=== PATIENT | female | born 1965 | race Caucasian/White ===

== ENCOUNTER 2019-10-02 16:24 | Emergency (ER) | payer OTHER, SELFPAY ==
[2019-10-02 16:30] VITALS: BP 125/69; PULSE 72; RESP 18; TEMP 36.6; O2SAT 98
[2019-10-02] MEDS: FLUORESCEIN SOD 1 MG/STRIP EACH EYE (16:39)
[2019-10-02] MEDS: TETRACAINE HCL 0.5% OPHTH SOLN 4 ML BTL 1 DROP EACH EYE (16:40)
--- NOTE | 2019-10-02 16:49 | ED.EYEPROB ---
HPI - Eye Problem General Chief complaint: Eye Problems Stated complaint: poked in eye by branch Source: patient Mode of arrival: ambulatory Limitations: no limitations History of Present Illness HPI Narrative: This affects of 54-year-old female that was trimming bushes in her yd when a tree branch structure in the left eye causing pain and a foreign body sensation with excessive tearing and and pain that she rates about a 6/10 that occurred earlier this afternoon. chief complaint: eye pain, eye redness and eye injury Onset (ago): hour(s) Onset description: sudden Duration: constant Location: left eye Eye Symptoms: redness, pain and foreign body sensation Place: home Mechanism: direct trauma Severity: moderate Severity scale (1-10): 6 If Pain, Quality: sharp Related Data Home Medications Medication Instructions Recorded Confirmed buspirone 30 mg PO DAILY 10/02/19 10/02/19 levothyroxine 112 mcg PO DAILY 10/02/19 10/02/19 venlafaxine 150 mg PO DAILY 10/02/19 10/02/19 Allergies Allergy/AdvReac Type Severity Reaction Status Date / Time NSAIDS (Non-Steroidal Allergy Unknown Verified 10/02/19 16:48 Anti-Inflamma Review of Systems Review of Systems: All systems reviewed & are unremarkable except as noted in HPI and below PMFSH Past Medical History Medical History Depression Hypothyroidism (acquired) Exam Const: General: no acute distress and alert Orientation/consciousness: patient oriented x3 HENMT: Head: normal to inspection Eyes: Pupils: Equal, round and reactive pupils present Direct Ophthalmoscopy: photophobia Other: Conjunctiva injected on the left and there is a visible corneal abrasion. After floor seen stain corneal abrasion was visualized more markedly in the left cornea extends from approximately the 1:00 a.m. to the 3 o'clock position. Chest: Chest palpation & inspection: normal inspection of the chest Resp: Effort & Inspection: normal respiratory effort Cardio: Rate: regular rate Rhythm: regular rhythm Skin: General skin exam: normal color Rashes: no rashes Neuro: General: patient oriented x3 and moves all extremities Extrem: General: normal to inspection Procedures Other Procedure Procedure 1: Other Procedure: Tetracaine drops were placed into were left behind the area was inspected for foreign bodies, was a corneal abrasion located and visualized with foreseen stain Critical Care Time Critical Care Time Critical Care Time: No Discharge Plan Discharge Clinical Impression: Corneal abrasion Qualifiers: Encounter type: initial encounter Laterality: left Qualified Code(s): S05.02XA - Injury of conjunctiva and corneal abrasion without foreign body, left eye, initial encounter Patient Disposition: Home, Self-Care Condition: Stable Instructions: Antibiotic Form, Corneal Abrasion (ED) Additional Instructions: follow-up with primary care physician or care team coordinator scheduler within 1 week for further evaluation and treatment. Take medicine as prescribed. Prescriptions: New tobramycin 0.3 % drops 2 drop EACH EYE Q4H Qty: 5 RF: 0 oxycodone-acetaminophen [Percocet] 5-325 mg tablet 1 tablet PO Q6H PRN (Reason: pain) Qty: 14 RF: 0 No Action venlafaxine 150 mg capsule,extended release 24hr 150 mg PO DAILY RF: 0 buspirone 30 mg tablet 30 mg PO DAILY RF: 0 levothyroxine 112 mcg tablet 112 mcg PO DAILY RF: 0 Follow-up/Referrals: Radha,GANGA Ta [Primary Care Provider] - Time of Disposition: 16:58
[2019-10-02] MEDS: TOBRAMYCIN 0.3% OPHTH SOLN 5 ML 2 DROP LEFT EYE (16:57)
[2019-10-02 17:01] VITALS: BP 135/82; PULSE 89; RESP 18; O2SAT 100
== END 2019-10-02 17:05 | disposition home or self-care (01) ==
PROVIDERS: Emergency Provider Emergency Medicine; PCP Nurse Practitioner
DX: S05.02XA Injury of conjunctiva and corneal abrasion without foreign body, left eye, initial encounter (principal); W22.8XXA Striking against or struck by other objects, initial encounter
CPT/HCPCS: 99283; A9270

== ENCOUNTER 2019-10-06 12:24 | Outpatient (CLI) | payer OTHER, SELFPAY ==
--- NOTE | ~2019-10-06 | MM_ITS ---
EXAMINATION: MM screening [facility] BI w montserrat HISTORY: Screening mammogram TECHNIQUE: Craniocaudal and mediolateral oblique 3-D tomosynthesis images were obtained and synthetic 2-D images were generated. CAD analysis was submitted and interpreted. COMPARISON: 10/03/2018, 02/14/2018, 07/19/2017, 07/03/2017 BREAST PARENCHYMAL COMPOSITION: The breasts are heterogeneously dense, which may obscure small masses . FINDINGS: Grouped calcifications of the lower-outer right breast have an appearance similar to prior mammograms. There is no evidence of suspicious mass, calcification, or architectural distortion to boyle ggest malignancy in either breast. There has been no suspicious interval change. IMPRESSION: 1. No mammographic evidence of malignancy. 2. Recommend routine screening mammography in one year. BI-RADS Category 2: Benign finding(s). Reviewed, dictated and finalized at location A. TOR
== END 2019-10-06 12:25 | disposition home or self-care (01) ==
LOC: CHSIMG 12:26
PROVIDERS: PCP Nurse Practitioner; Visit Provider Nurse Practitioner
DX: Z12.31 Encounter for screening mammogram for malignant neoplasm of breast (principal)
CPT/HCPCS: 77063; 77067

== ENCOUNTER 2020-01-22 16:26 | Emergency (ER) | payer OTHER, SELFPAY ==
--- NOTE | ~2020-01-22 | XR_ITS ---
EXAMINATION: XR foot RT 2V INDICATION: Right foot pain, initial encounter TECHNIQUE: Two views of the right foot are obtained. COMPARISON: None available FINDINGS: There is an acute, traumatic, closed, comminuted fracture in the head of the fifth proximal phalanx which extends to the proximal interphalangeal joint. Soft tissue swelling surrounds the frac ture. Orthopedic screws are present in the heads of the first and second metatarsals. No additional a cute osseous findings are evident. A plantar calcaneal enthesophyte is noted. IMPRESSION: 1. Comminuted fracture at the head of the fifth proximal phalanx extending to the proximal interphala ngeal joint. Reviewed, dictated and finalized at location A. IMPRESSION: 1. Comminuted fracture at the head of the fifth proximal phalanx extending to t he proximal interphalangeal joint.
[2020-01-22 16:46] VITALS: BP 126/72; PULSE 75; RESP 17; O2SAT 97
[2020-01-22] MEDS: KETOROLAC (*BKC) 60 MG/2 ML VIAL IM (17:16)
--- NOTE | 2020-01-22 17:19 | ED.LOWEXIN ---
HPI - Extremity Injury (Lower) General Chief Complaint: Extremity Injury, Lower Stated Complaint: toe pain Source: patient Mode of arrival: ambulatory Limitations: no limitations History of Present Illness HPI Narrative: patient presents with a red swollen tender right 5th distal toe patient is a 54-year-old female that injured while home after she bumped her toe on furniture causing pain approximately 2 weeks ago. Currently there is no numbness or tingling does have good range of motion although painful with palpation and range of motion. MD complaint: foot injury Injury: Right: toes ( Red and swollen and tender) Type of Injury: blunt Place: home Severity: severe Severity scale (1-10): >10 Relieving factors: nothing Exacerbating factors: movement Context: direct blow Associated symptoms: swelling and ambulatory Other symptoms: none Related Data Home Medications Medication Instructions Recorded Confirmed buspirone 30 mg PO DAILY 10/02/19 10/02/19 levothyroxine 112 mcg PO DAILY 10/02/19 10/02/19 venlafaxine 150 mg PO DAILY 10/02/19 10/02/19 Allergies Allergy/AdvReac Type Severity Reaction Status Date / Time NSAIDS (Non-Steroidal Allergy Unknown Verified 10/02/19 16:48 Anti-Inflamma Review of Systems Review of Systems: All systems reviewed & are unremarkable except as noted in HPI and below Exam Const: General: no acute distress and alert Orientation/consciousness: patient oriented x3 HENMT: Head: normal to inspection Eyes: Conjunctivae: conjunctivae normal Pupils: Equal, round and reactive pupils present Neck: Neck: normal visual inspection Chest: Chest palpation & inspection: normal inspection of the chest Resp: Effort & Inspection: normal respiratory effort Auscultation: clear to auscultation bilaterally Cardio: Rate: regular rate Rhythm: regular rhythm GI: GI Palp: Yes Soft to palpation Back/Spine/Pelvis: Back: no CVA tenderness Skin: General skin exam: normal color Rashes: no rashes Extrem: Other: Distal right 5th toe swelling redness and tenderness with palpation Psych: Mental Status: mental status grossly normal Course Course Emergency Course: patient's pain has improved after reassessment after injection of pain medication Vital Signs Vital signs: Vital Signs Pulse Rate 75 01/22/20 16:46 Respiratory Rate 17 01/22/20 16:46 Blood Pressure 126/72 01/22/20 16:46 Pulse Oximetry 97 01/22/20 16:46 Pulse Rate 75 01/22/20 16:46 Respiratory Rate 17 01/22/20 16:46 Blood Pressure 126/72 01/22/20 16:46 Pulse Oximetry 97 01/22/20 16:46 Critical Care Time Critical Care Time Critical Care Time: No Discharge Plan Discharge Clinical Impression: Fracture of toe Qualifiers: Encounter type: initial encounter Toe: lesser toe Fracture type: closed Phalanx: distal Fracture alignment: nondisplaced Laterality: right Qualified Code(s): S92.534A - Nondisplaced fracture of distal phalanx of right lesser toe(s), initial encounter for closed fracture Patient Disposition: Home, Self-Care Condition: Stable Instructions: Antibiotic Form, Toe Fracture (ED) Additional Instructions: take medicine as prescribed and follow-up with primary care physician within 1 week for further evaluation and treatment. Prescriptions: New tramadol [Ultram] 50 mg tablet 50 mg PO Q6H PRN (Reason: pain) Qty: 20 RF: 0 No Action venlafaxine 150 mg capsule,extended release 24hr 150 mg PO DAILY RF: 0 buspirone 30 mg tablet 30 mg PO DAILY RF: 0 levothyroxine 112 mcg tablet 112 mcg PO DAILY RF: 0 tobramycin 0.3 % drops 2 drop EACH EYE Q4H Qty: 5 RF: 0 oxycodone-acetaminophen [Percocet] 5-325 mg tablet 1 tablet PO Q6H PRN (Reason: pain) Qty: 14 RF: 0 Follow-up/Referrals: Miguel,GANGA Ta [Primary Care Provider] - Time of Disposition: 17:26
== END 2020-01-22 17:30 | disposition home or self-care (01) ==
PROVIDERS: Emergency Provider Emergency Medicine; PCP Nurse Practitioner
DX: S92.534A Nondisplaced fracture of distal phalanx of right lesser toe(s), initial encounter for closed fracture (principal); W22.03XA Walked into furniture, initial encounter
CPT/HCPCS: 73620; 96372; 99283; 99284; J1885

== ENCOUNTER 2020-04-11 18:49 | Emergency (ER) | payer OTHER, SELFPAY ==
--- NOTE | 2020-04-11 18:59 | ED.SKABFB ---
HPI - Skin/Abscess/Foreign Bdy General Chief complaint: Skin/Abscess/Foreign Body Stated complaint: bumps on scalp. Time Seen by Provider: 04/11/20 19:04 Source: patient Mode of arrival: ambulatory Limitations: no limitations History of Present Illness HPI narrative: 54-year-old woman comes in today complaining of itching on her scalp for several months. She states the itching and bumps are predominantly on the top and back of her head. Patient states that she has had chronic itching and scratching on her body for the last 3 years. She states her primary care doctor has treated her with antibiotics, steroids, creams and other treatments and she has been referred to a cosmetology teacher but she will be able to see them until June. She denies any contacts with similar symptoms. MD complaint: lesion Onset (ago): month(s) Location: head Severity: severe Quality: pruritic Pain Consistency: constant Relieving factors: none Exacerbating factors: none Related Data Home Medications Medication Instructions Recorded Confirmed buspirone 20 mg PO DAILY 10/02/19 04/11/20 levothyroxine 100 mcg PO DAILY 10/02/19 04/11/20 mupirocin 1 applic TOPICAL BID 04/11/20 04/11/20 omeprazole 20 mg PO DAILY 04/11/20 04/11/20 sertraline 100 mg PO DAILY 04/11/20 04/11/20 trazodone 100 mg PO HS 04/11/20 04/11/20 Allergies Allergy/AdvReac Type Severity Reaction Status Date / Time NSAIDS (Non-Steroidal Allergy Unknown Verified 04/11/20 19:13 Anti-Inflamma Review of Systems Constitutional: Constitutional: Denies chills and Denies fever(s) Eyes: Eyes: Denies change in vision and Denies photophobia ENT: Denies dysphagia, Denies nasal congestion and Denies sore throat Cardiovascular: Cardiovascular: Denies chest pain and Denies radiating jaw, neck or arm pain Respiratory: Respiratory: Denies cough and Denies dyspnea Gastrointestinal: Gastrointestinal: Denies nausea and Denies vomiting Musculoskeletal: Musculoskeletal: Denies arthralgias and Denies joint swelling Integumentary/Breasts: Skin/Breast: Reports pruritus and Reports rash Neurologic: Denies vertigo, Denies dizziness, Denies syncope, Denies focal weakness and Denies numbness Psychiatric: Psychiatric: Reports anxiety and Reports depression Hematologic/Lymphatic: Hematologic/Lymphatic: Denies easy bleeding and Denies easy bruising Allergic/Immunologic: Allergic/Immunologic: Denies lip swelling, Denies tongue swelling and Denies wheezing PMFSH Past Medical History Medical History Anxiety Barretts esophagus Depression Hypothyroidism (acquired) Surgical History Surgical History H/O brain surgery after trauma H/O foot surgery Hx of cholecystectomy S/P carpal tunnel release S/P tubal ligation Social History Social History Smoking status: Current every day smoker Alcohol intake: never Substance use: never Living arrangements: with family Gender identity (if verbalized by the patient): Female Exam Const: General: alert Orientation/consciousness: patient oriented x3 Limitations: no limitations Other: mildly anxious HENMT: Head: normal to inspection Ears: external ears normal, TM's normal bilaterally and EAC's normal Face and sinus: normal facial exam Mouth: Yes moist mucous membranes Throat: posterior oropharynx normal Eyes: Conjunctivae: conjunctivae normal Pupils: Equal, round and reactive pupils present EOM: EOMs intact bilaterally Chest: Chest palpation & inspection: normal inspection of the chest and abnormal inspection of the chest Resp: Effort & Inspection: normal respiratory effort and not labored Auscultation: clear to auscultation bilaterally, no rales, no rhonchi and no wheezes Cardio: Rate: regular rate Rhythm: regular rhythm Heart sounds: no murmurs Skin: General
[2020-04-11 19:06] VITALS: BP 119/70; PULSE 73; RESP 18; TEMP 37.2; O2SAT 97
[2020-04-11] MEDS: methylPREDNISolone ACETATE 40 MG/ML VIAL 80 MG IM (19:31)
[2020-04-11 19:35] VITALS: BP 118/59; PULSE 76; RESP 16; TEMP 36.9; O2SAT 98
== END 2020-04-11 19:38 | disposition home or self-care (01) ==
PROVIDERS: Emergency Provider Emergency Medicine; PCP Nurse Practitioner
DX: L29.9 Pruritus, unspecified (principal)
CPT/HCPCS: 96372; 99283; J1030

== ENCOUNTER 2020-10-08 14:50 | Outpatient (CLI) | payer MEDICARE, MEDICAID, SELFPAY ==
--- NOTE | ~2020-10-08 | MM_ITS ---
EXAMINATION: MM screening [facility] BI w montserrat HISTORY: Screening mammogram TECHNIQUE: Craniocaudal and mediolateral oblique 3-D tomosynthesis images were obtained and synthetic 2-D images were generated. CAD analysis was submitted and interpreted. COMPARISON: 10/06/2019, 10/03/2018, 02/14/2018, 07/03/2017 BREAST PARENCHYMAL COMPOSITION: The breasts are heterogeneously dense, which may obscure small masses . FINDINGS: Scattered benign-appearing calcifications are present. There is no evidence of suspicious m ass, calcification, or architectural distortion to suggest malignancy in either breast. There has bee n no suspicious interval change. IMPRESSION: 1. No mammographic evidence of malignancy. 2. Recommend routine screening mammography in one year. BI-RADS Category 2: Benign finding(s). Reviewed, dictated and finalized at location A. H PIECER
== END 2020-10-08 14:51 | disposition home or self-care (01) ==
PROVIDERS: PCP Nurse Practitioner; Visit Provider Nurse Practitioner
DX: Z12.31 Encounter for screening mammogram for malignant neoplasm of breast (principal)
CPT/HCPCS: 77063; 77067

== ENCOUNTER 2020-11-26 17:52 | Outpatient (CLI) | payer MEDICARE, SELFPAY ==
[2020-11-26 18:11] LABS: Basophils Absolute Auto 0.08 K/mm3 (0.00-0.10); Basophils Percent Auto 0.8 % (0.0-1.0); Eosinophils Absolute Auto 0.25 K/mm3 (0.02-0.50); Eosinophils Percent Auto 2.4 % (1.0-6.0); Hematocrit 40.2 % (35.0-49.0); Hemoglobin 13.4 g/dL (12.0-15.0); Immature Granulocyte Absolute 0.05 K/mm3 (0.00-0.00); Immature Granulocyte Percent A 0.5 % (0.0-0.0); Lymphocytes Absolute Auto 3.22 K/mm3 (1.10-4.50); Lymphocytes Percent Auto 31.5 % (18.0-42.0); Mean Corpuscular HGB Conc 33.3 g/dL (32.0-36.0); Mean Corpuscular Hemoglobin 32.8 pg (27.0-31.0); Mean Corpuscular Volume 98.3 fL (78.0-102.0); Mean Platelet Volume 10.6 fl (9.2-11.8); Monocytes Percent Auto 6.8 % (2.0-11.0); Neutrophils Absolute Auto 5.9 K/mm3 (1.7-7.2); Platelet Count Result 303 K/mm3 (150-420); Red Blood Count 4.09 M/mm3 (4.20-5.40); Red Cell Distribution Width 12.2 % (11.6-14.4); White Blood Count 10.2 K/mm3 (4.8-10.8)
[2020-11-26 19:57] LABS: Alanine Aminotransferase 22 U/L (14-59); Albumin Level 3.9 g/dL (3.4-5.0); Alkaline Phosphatase 93 U/L (46-116); Anion Gap 11 mmol/L (8-16); Aspartate Amino Transferase 15 U/L (15-37); Bilirubin,Total 0.4 mg/dL (0.00-1.00); Blood Urea Nitrogen 12 mg/dL (7-18); Calcium 9.3 mg/dL (8.5-10.1); Carbon Dioxide 28 mmol/L (21-32); Chloride 101 mmol/L (98-108); Estimated Glomerular Filt Rate > 60; Ferritin 59 ng/mL (8-252); Glucose 86 mg/dL (70-99); Iron 83 ug/dL (50-170); Osmolality Calculated 288 mOsm/kg (285-295); Percent Iron Saturation 22 % (12-57); Potassium 3.9 mmol/L (3.5-5.1); Sodium 140 mmol/L (136-145); Total Protein 7.1 g/dL (6.4-8.2)
== END 2020-11-26 17:53 | disposition home or self-care (01) ==
LOC: CHSLAB 17:56
PROVIDERS: PCP Nurse Practitioner
DX: L29.9 Pruritus, unspecified (principal)
CPT/HCPCS: 36415; 80053; 82728; 83540; 83550; 85025

== ENCOUNTER 2021-01-03 20:33 | Emergency (ER) | payer MEDICARE, MEDICAID, SELFPAY ==
[2021-01-03 21:05] VITALS: BP 138/88; PULSE 78; RESP 20; TEMP 36.6; O2SAT 94
--- NOTE | 2021-01-03 21:44 | ED.BACK ---
HPI - Back Pain/Injury General Chief Complaint: Unspecified Stated Complaint: back pain Source: patient and RN notes reviewed Mode of arrival: wheelchair Limitations: no limitations History of Present Illness HPI Narrative: Patient has chronic back pain as been to a specialist who is arranging an MRI for her. The specialist would not give her any pain medications or recommended she see pain management. She has a history of chronic back pain with scoliosis degenerative disc disease folding disc according to the patient. Patient states she cannot take oral NSAIDs due to Anaya's esophagus. Looking over her past history she has multiple prescriptions for [place] and tramadol. Patient walked out to the parking lot to smoke multiple times while waiting to come back MD elicited complaint: back pain Pertinent past history: prior back pain Onset (ago): week(s) (1) Timing: constant and progressively worsening Severity: similar to previous episodes Similar Symptoms Previously: Yes Quality: dull, aching and spasming Location: lumbar spine Radiation: none Exacerbating factors: movement and walking Relieving factors: supine Associated symptoms: difficulty walking Work related injury: No Related Data Home Medications Medication Instructions Recorded Confirmed buspirone 20 mg PO DAILY 10/02/19 01/03/21 levothyroxine 100 mcg PO DAILY 10/02/19 01/03/21 mupirocin 1 applic TOPICAL BID 04/11/20 01/03/21 omeprazole 20 mg PO DAILY 04/11/20 01/03/21 sertraline 100 mg PO DAILY 04/11/20 01/03/21 trazodone 100 mg PO HS 04/11/20 01/03/21 Allergies Allergy/AdvReac Type Severity Reaction Status Date / Time NSAIDS (Non-Steroidal Allergy Unknown Verified 04/11/20 19:13 Anti-Inflamma Review of Systems Review of Systems: All systems reviewed & are unremarkable except as noted in HPI and below PMFSH Past Medical History Medical History (Updated 01/03/21 @ 22:11 by Roque Maddox MD) Anxiety Barretts esophagus Depression Hypothyroidism (acquired) Surgical History Surgical History H/O brain surgery after trauma H/O foot surgery Hx of cholecystectomy S/P carpal tunnel release S/P tubal ligation Social History Social History Smoking status: Current every day smoker Alcohol intake: never Substance use: never Gender identity (if verbalized by the patient): Female Exam Const: General: healthy appearing and no acute distress Nutritional Appearance: well nourished and thin Orientation/consciousness: patient oriented x3 Other: Female nurse in room during examination. HENMT: Head: normal to inspection Ears: external ears normal Face and sinus: normal facial exam Mouth: Yes moist mucous membranes Eyes: Conjunctivae: conjunctivae normal Pupils: Equal, round and reactive pupils present EOM: EOMs intact bilaterally Neck: Neck: normal visual inspection Resp: Effort & Inspection: normal respiratory effort Auscultation: clear to auscultation bilaterally Cardio: Rate: regular rate Rhythm: regular rhythm GI: GI Palp: Yes Soft to palpation and No Tenderness to palpation present (GI) Auscultation: normal bowel sounds Back/Spine/Pelvis: Cervical Spine: cervical ROM normal Thoracic/Lumbar Spine: straight leg raise negative bilaterally, pain with thoraco-lumbar ROM, paraspinal muscle tenderness bilaterally and lumbar spinal tenderness at L3 Skin: General skin exam: normal color Neuro: General: patient oriented x3, moves all extremities, no meningeal signs, no focal motor deficits and CN's II-XI intact bilaterally Speech: normal speech Motor exam (neuro): 5/5 motor strength present throughout Deep tendon reflexes (DTR's): Right patellar reflex intensity grade: 2+, Left patellar reflex intensity grade: 2+, Right ankle reflex intensity grade: 2+ and Left ankle reflex intensity grade: 2+ Psych: Appearance: grossly nor
[2021-01-03] MEDS: KETOROLAC (*BKC) 60 MG/2 ML VIAL IM (22:14)
[2021-01-03] MEDS: ORPHENADRINE CITRATE 30 MG/ML 2 ML VIAL 60 MG IM (22:14)
[2021-01-03 22:17] VITALS: BP 128/88; PULSE 88; RESP 18; TEMP 36.4; O2SAT 95
== END 2021-01-03 22:18 | disposition home or self-care (01) ==
PROVIDERS: Emergency Provider Emergency Medicine; PCP Nurse Practitioner
DX: M54.5 Low back pain (principal)
CPT/HCPCS: 96372; 99283; 99284; J1885; J2360

== ENCOUNTER 2021-10-10 11:10 | Outpatient (CLI) | payer MEDICARE, MEDICAID, SELFPAY ==
--- NOTE | ~2021-10-10 | MM_ITS ---
EXAMINATION: MM screening [facility] BI w montserrat HISTORY: Screening TECHNIQUE: Craniocaudal and mediolateral oblique 3-D tomosynthesis images were obtained and synthetic 2-D images were generated. CAD analysis was submitted and interpreted. COMPARISON: Comparison to multiple prior studies sequentially, with oldest reviewed study dated 06/05. BREAST PARENCHYMAL COMPOSITION: Breast composed of scattered areas of fibroglandular density FINDINGS: There is a new cluster of calcifications in the lower outer quadrant of the right breast, m iddle third. The left breast is stable without evidence for malignancy. IMPRESSION: 1. New cluster of indeterminate right breast calcifications 2. Magnification views are recommended. BI-RADS Category 0: Incomplete: Needs additional imaging evaluation. Reviewed, dictated and finalized at location A. ARD SKIN REMOVER
== END 2021-10-10 11:11 | disposition home or self-care (01) ==
LOC: CHSIMG 11:11
PROVIDERS: PCP Nurse Practitioner; Visit Provider Nurse Practitioner
DX: Z12.31 Encounter for screening mammogram for malignant neoplasm of breast (principal)
CPT/HCPCS: 77063; 77067

== ENCOUNTER 2021-10-25 08:44 | Outpatient (CLI) | payer MEDICARE, MEDICAID, SELFPAY ==
--- NOTE | ~2021-10-25 | MMUS_ITS ---
EXAMINATION: MM diagnostic [facility] RT w montserrat, US breast RT limited HISTORY: New cluster of indeterminate right breast microcalcifications on October 10, 2019 screening mammogram TECHNIQUE: ML view. Magnification MLO and CC projections.. CAD analysis was submitted and interpreted . High resolution lower outer quadrant right breast ultrasound was performed. COMPARISON: October 10, 2021 bilateral screening mammogram FINDINGS: MAMMOGRAPHIC FINDINGS: There is a cluster of grouped granular appearing microcalcifications in the posterior lower outer pina drant of the right breast associated with approximately 3 mm mass. ULTRASOUND: 9:00 1 cm from nipple: Multi locular cyst measuring 3.2 x 3.7 mm. No sonographic correlate is noted for the mammographic finding. IMPRESSION: 1. 3 mm mass with granular appearing microcalcifications 2. Stereotactic biopsy is recommended. BI-RADS category 4a, suspicious findings. Dr. Caldera telephoned the report and stereotactic biopsy recommendation on October 25, 2021 at 1105 ho urs to Special Certificate Dictator Luana. Reviewed, dictated and finalized at location A. D BELT SANDER TENDER IMPRESSION: 1. 3 mm mass with granular appearing microcalcifications 2. Stereotactic biopsy is recommended. BI-RADS category 4a, suspicious findings. Dr. Caldera telephoned the report and stereotactic biopsy recommendation on 2021 at 1105 hours to Special Certificate Dictator Luana.
== END 2021-10-25 08:45 | disposition home or self-care (01) ==
LOC: CHSIMG 08:45
PROVIDERS: PCP Nurse Practitioner; Visit Provider Nurse Practitioner
DX: R92.1 Mammographic calcification found on diagnostic imaging of breast (principal)
CPT/HCPCS: 76642; 77061; 77065; G0279

== ENCOUNTER 2021-11-07 12:36 | Outpatient (CLI) | payer MEDICARE, MEDICAID, SELFPAY ==
--- NOTE | ~2021-11-07 | MM_ITS ---
MM stereotactic bx RT, MM post biopsy diagnostic RT, MM stereotactic specimen RT EXAMINATION: MM ster eotactic bx RT, MM post biopsy diagnostic RT, MM stereotactic specimen RT INDICATION: Abnormal calcifications in the right breast. Stereotactic core biopsy is requested evalu ate for malignancy. TECHNIQUE AND FINDINGS: The risks and potential benefits of the procedure were discussed with the patient and written informe d consent was obtained. The patient was placed in the prone position clustered at the table with the and right breast in compression, and the area of interest was localized and targeted utilizing digit al imaging with stereotaxis. After sterile preparation of the skin, 1% lidocaine was utilized for local anesthesia at the skin pun cture site and 1% lidocaine with epinephrine was utilized for deeper local anesthesia/is about the bi opsy site. A 9G [employer] vacuum assisted biopsy needle was advanced to the level of the calcification o f interest from a lateral approach utilizing stereotactic guidance and a total of 6 tissue core biops ies were obtained. A specimen radiograph demonstrates that the calcifications of interest are included within the tissue cores. A tissue marker clip was then placed at the biopsy site. The needle was removed and hemosta sis was achieved. The patient tolerated the procedure well and there is no evidence of significant i mmediate complication. The patient was given verbal as well as written postprocedural instructions p rior to discharge from the department. Tissue cores were submitted to surgical pathology for histolo gic analysis. A 2-view right unilateral digital mammogram was obtained post procedure and this demonstrates that th e tissue marker clip is in expected position.] IMPRESSION: 1. Successful stereotactic biopsy of calcifications in the lower outer quadrant of the right breast, followed by tissue marker clip placement. Please refer to pathology report for histologic analysis. Reviewed, dictated and finalized at location A. I THERMAL CUTTER IMPRESSION: 1. Successful stereotactic biopsy of calcifications in the lower outer quadran t of the right breast, followed by tissue marker clip placement. Please refer to pathology report for histologic analysis. IMPRESSION: 1. Successful stereotactic biopsy of calcifications in the lower outer quadran t of the right breast, followed by tissue marker clip placement. Please refer to pathology report for histologic analysis.
== END 2021-11-07 12:37 | disposition home or self-care (01) ==
PROVIDERS: PCP Nurse Practitioner; Visit Provider Nurse Practitioner
DX: N63.10 Unspecified lump in the right breast, unspecified quadrant (principal); R92.8 Other abnormal and inconclusive findings on diagnostic imaging of breast
CPT/HCPCS: 19081; 77065; 88305; 88342; A4648

== ENCOUNTER 2021-11-15 17:35 | Emergency (ER) | payer MEDICARE, MEDICAID, SELFPAY ==
--- NOTE | ~2021-11-15 | CT_ITS ---
EXAMINATION: CT diagnostic chest wo con DATE: 11/15/2021 18:14 INDICATION: Intermittent left-sided chest pain for one week with shortness of breath. Smoker. Left br east biopsy one week ago. TECHNIQUE: Computed tomography (CT) of the chest was performed without intravenous contrast. Automate d exposure control and iterative reconstruction technique were employed. Exam dose: 129.75 mGy-cm to beny exam DLP. COMPARISON: 11/19/2018 2 view chest FINDINGS: There are moderate emphysematous changes of the lungs, most prominent in the right upper lo be. 5 mm groundglass density, right lower lobe (series 4 image 73). There is mild atelectasis in the lower lung zones including middle lobe, lingula and both lower lobes . Heart size is normal. No pericardial or pleural effusion. No thoracic aortic aneurysm is evident. No hilar or mediastinal mass lesion or lymphadenopathy is not ed. Calcified left hilar and mediastinal nodes, consistent with old granulomatous disease. Normal morphology of the adrenal glands. Severe degenerative disc disease in the lower cervical spine. Degenerative spurring of the thoracic a nd lumbar spine. No suspicious osteolytic or osteoblastic lesions are noted. IMPRESSION: COPD Mild atelectasis in the lower lung zones Reviewed, dictated and finalized at [facility]. Reviewed, dictated and finalized at [facility].
--- NOTE | 2021-11-15 17:50 | ECG_ITS ---
Measurements Intervals Ray Rate: 62 P: 52 MI: 160 QRS: 31 QRSD: 91 T: 37 QT: 409 QTc: 417 Interpretive Statements SINUS RHYTHM NO PREVIOUS ECG AVAILABLE FOR COMPARISON Electronically Signed On 11-15-2021 18:45:16 CDT by Elva Price M.D.
[2021-11-15 18:23] LABS: Basophils Absolute Auto 0.08 K/mm3 (0.00-0.10); Basophils Percent Auto 0.8 % (0.0-1.0); Eosinophils Absolute Auto 0.15 K/mm3 (0.02-0.50); Eosinophils Percent Auto 1.5 % (1.0-6.0); Hematocrit 39.1 % (35.0-49.0); Hemoglobin 13.1 g/dL (12.0-15.0); Immature Granulocyte Absolute 0.04 K/mm3 (0.00-0.00); Immature Granulocyte Percent A 0.4 % (0.0-0.0); Lymphocytes Absolute Auto 3.14 K/mm3 (1.10-4.50); Lymphocytes Percent Auto 30.8 % (18.0-42.0); Mean Corpuscular HGB Conc 33.5 g/dL (32.0-36.0); Mean Corpuscular Volume 98.5 fL (78.0-102.0); Mean Platelet Volume 10.9 fl (9.2-11.8); Monocytes Absolute Auto 0.79 K/mm3 (0.10-0.90); Monocytes Percent Auto 7.7 % (2.0-11.0); Neutrophils Percent Auto 58.8 % (50.0-70.0); Platelet Count Result 302 K/mm3 (150-420); Red Blood Count 3.97 M/mm3 (4.20-5.40); Red Cell Distribution Width 12.1 % (11.6-14.4); White Blood Count 10.2 K/mm3 (4.8-10.8)
[2021-11-15 18:26] VITALS: BP 108/71; PULSE 63; RESP 20; TEMP 36.4; O2SAT 94
[2021-11-15 18:43] VITALS: PULSE 67
[2021-11-15 18:45] LABS: Alanine Aminotransferase 22 U/L (14-59); Albumin Level 3.8 g/dL (3.4-5.0); Alkaline Phosphatase 87 U/L (46-116); Anion Gap 9 mmol/L (8-16); Aspartate Amino Transferase 17 U/L (15-37); Bilirubin,Total 0.3 mg/dL (0.00-1.00); Blood Urea Nitrogen 11 mg/dL (7-18); Calcium 9.5 mg/dL (8.5-10.1); Carbon Dioxide 27 mmol/L (21-32); Chloride 103 mmol/L (98-108); Estimated CRCL calculation 46 ml/min; Estimated Glomerular Filt Rate 53; Glucose 80 mg/dL (70-99); Lipase 81 U/L (73-393); NT Pro B Type Natriuretic Pept 101 pg/mL (0-125); Osmolality Calculated 286 mOsm/kg (285-295); Potassium 3.7 mmol/L (3.5-5.1); Sodium 139 mmol/L (136-145); Total Protein 7.1 g/dL (6.4-8.2); Troponin I 5.4 ng/L (0.00-60.4)
[2021-11-15] MEDS: ASPIRIN 81 MG CHEWABLE TABLET 324 MG PO (19:10)
[2021-11-15] MEDS: ONDANSETRON INJ 4 MG/2 ML VIAL IV PUSH (19:10)
[2021-11-15 19:11] VITALS: BP 119/69; PULSE 60; RESP 18; O2SAT 95
--- NOTE | 2021-11-15 19:14 | PC.NURSE ---
Pt medicated per ERP order. Pt admits that she is under a lot of stress at the moment and that could be causing her pain. Pt aware that nitro has been ordered PRN. RN will reevaluate pt's pain level after aspirin administration and give nitro if there is no improvement. Pt aware of need for urine sample and will notify staff when she is able to use the restroom.
--- NOTE | 2021-11-15 19:25 | ED.CHESTPAIN ---
HPI - Chest Pain General Chief Complaint: Chest Pain Stated Complaint: chest pains Time Seen by Provider: 11/15/21 17:37 Source: patient and RN notes reviewed Mode of arrival: ambulatory Limitations: no limitations History of Present Illness complaint: chest pain and other (bilateral swollen and red legs.) Onset (ago): day(s) (3) Timing of current episode: constant Prior episodes: Yes Onset: during rest Pain location: left chest Pain radiation: none Severity: mild Pain scale (0-10): 4 Quality: aching Relieving factors: nothing Exacerbating factors: nothing Treatment prior to arrival: none Related Data Home Medications Medication Instructions Recorded Confirmed buspirone 20 mg PO DAILY 10/02/19 11/15/21 levothyroxine 100 mcg PO DAILY 10/02/19 11/15/21 omeprazole 20 mg PO DAILY 04/11/20 11/15/21 atorvastatin 20 mg PO DAILY 11/15/21 11/15/21 gabapentin 600 mg PO TID 11/15/21 11/15/21 Allergies Allergy/AdvReac Type Severity Reaction Status Date / Time NSAIDS (Non-Steroidal Allergy Unknown Verified 11/15/21 19:03 Anti-Inflamma Review of Systems Review of Systems: All systems reviewed & are unremarkable except as noted in HPI and below PMFSH Past Medical History Medical History Anxiety Barretts esophagus Depression Hypothyroidism (acquired) Surgical History Surgical History H/O brain surgery after trauma H/O foot surgery Hx of cholecystectomy S/P carpal tunnel release S/P tubal ligation Social History Social History Smoking status: Current every day smoker Alcohol intake: never Substance use: never Gender identity (if verbalized by the patient): Female Exam Const: General: cooperative and no acute distress Nutritional Appearance: thin Orientation/consciousness: patient oriented x3 Limitations: no limitations HENMT: Head: normal to inspection, normocephalic and atraumatic Ears: hearing grossly normal bilaterally, external ears normal, TM's normal bilaterally and EAC's normal General nose exam: Normal external nose present and Normal nares present Face and sinus: normal facial exam and sinuses nontender Mouth: Yes Normal oral and palatal mucosa present, Yes oropharynx normal and Yes moist mucous membranes Throat: posterior oropharynx normal Eyes: General: appearance normal, both eyes and all related structures Visual Mcghee: normal visual mcghee by confrontation Periorbital: periorbital findings normal Eyelids: eyelids normal Conjunctivae: conjunctivae normal Sclera: sclerae normal Cornea: corneas normal Pupils: Equal, round and reactive pupils present EOM: EOMs intact bilaterally Neck: Neck: normal visual inspection, full ROM and no lymphadenopathy Resp: Effort & Inspection: normal respiratory effort and able to speak in complete sentences Auscultation: clear to auscultation bilaterally Cardio: Jugular venous distension: no JVD Rate: regular rate Rhythm: regular rhythm Peripheral pulses: Peripheral pulses 2+ throughout GI: Inspection: normal to inspection GI Palp: No abdominal tenderness Auscultation: normal bowel sounds : General: Yes no CVA tenderness Back/Spine/Pelvis: Back: no CVA tenderness Cervical Spine: cervical ROM normal Thoracic/Lumbar Spine: thoraco-lumbar ROM normal Skin: General skin exam: normal color Neuro: General: patient oriented x3 and moves all extremities Cranial nerves: Yes CN's II-XII intact bilaterally, Yes Intact sense of smell present, Yes Equal, round and reactive pupils present, Yes Normal accommodation reflex present and Yes Bilaterally intact EOM present Cognition (Neuro): normal cognition Speech: normal speech Gait exam (Neuro): Normal gait present Motor exam (neuro): 5/5 motor strength present throughout Sensory Exam: normal sensation Extrem: General: full RO
[2021-11-15] MEDS: ACETAMINOPHEN 325 MG TABLET 650 MG PO (19:35)
[2021-11-15] MEDS: MAG HYDROX/ALUMINUM HYD/SIMETH 30 ML, PHENobarb/HYOSCY/ATROPINE/SCOP 32.4 MG, LIDOCAINE... PO (19:36)
[2021-11-15 19:48] LABS: Add Urine Microscopic? YES; Appearance Urine Clear (Clear); Bilirubin Urine Negative (Negative); Blood Urine 1+ (Negative); Color Urine Light Yellow (Yellow); Glucose Urine UA Negative (Negative); Ketones Urine Negative (Negative); Leukocyte Esterase Ur Negative LEU/UL (Negative); Nitrate Urine Negative (Negative); Protein Urine Negative (Negative); Specific Grav Ur 1.015 (1.010-1.020); Urobilinogen Urine 0.2 mg/dL (0.2-1.0)
[2021-11-15 19:53] LABS: Bacteria Urine Trace /hpf; Squamous Epithelial Cell Urine Rare /hpf (Few); WBC Urine 0-3 /hpf (0-3)
[2021-11-15 19:54] LABS: Amphetamine Screen Urine Negative (Negative); Barbiturate Screen Urine Negative (Negative); Benzodiazepines Screen Urine Negative (Negative); Cannabinoid Screen Urine Positive (Negative); Cocaine Screen Urine Negative (Negative); Methadone Screen Urine Negative (Negative); Opiate Screen Urine Negative (Negative); Phencyclidine Screen Urine Negative (Negative)
[2021-11-15 20:10] VITALS: BP 114/72; PULSE 59; RESP 16; TEMP 36.4; O2SAT 97
== END 2021-11-15 20:13 | disposition home or self-care (01) ==
PROVIDERS: Emergency Provider Emergency Medicine; PCP Nurse Practitioner
DX: R07.9 Chest pain, unspecified (principal); K21.9 Gastro-esophageal reflux disease without esophagitis; R09.1 Pleurisy; K22.710 Barrett's esophagus with low grade dysplasia; E03.9 Hypothyroidism, unspecified; Z79.899 Other long term (current) drug therapy; F17.200 Nicotine dependence, unspecified, uncomplicated
CPT/HCPCS: 36415; 71250; 80053; 80307; 81001; 83690; 83880; 84484; 85025; 93005; 96374; 99284; A9270; J2405

== ENCOUNTER 2024-07-17 15:27 | Emergency (ER) | payer MEDICARE, MEDICAID, SELFPAY ==
--- NOTE | ~2024-07-17 | XR_ITS ---
EXAMINATION: XR chest 2V DATE: 07/17/2024 15:40 INDICATION: Cough and congestion. TECHNIQUE: Frontal and lateral views of the chest were obtained. COMPARISON: Chest 2 views 11/19/2018, chest CT 11/15/2021 FINDINGS: There is mild atelectasis left lung base. No pleural effusion or pneumothorax. The heart si ze is normal. Calcified left hilar lymph nodes are consistent with old granulomatous disease. Surgica l clips in the right upper quadrant are likely from cholecystectomy. IMPRESSION: 1. Mild atelectasis at left lung base. Reviewed, dictated and finalized at [facility]. N WINDER
[2024-07-17 15:29] VITALS: BP 116/58; PULSE 89; RESP 18; TEMP 37.3; O2SAT 96
[2024-07-17 15:35] VITALS: O2SAT 100
--- NOTE | 2024-07-17 15:46 | ED_ITS ---
HPI - URI/Sore Throat General Chief Complaint: Upper Respiratory Infection Stated Complaint: URI Time Seen by Provider: 07/17/24 15:30 Source: patient Mode of arrival: ambulatory Limitations: no limitations History of Present Illness HPI Narrative: this is a 59-year-old female that [place] [facility] [place] and [place] with some out antibiotics. She called her primary and advised her to come to the emergency department for chest x-ray. Otherwise the patient cough with some mild congestion with some smoking history currently no fever chills no audible wheezes no chest pain no shortness of breath. MD elicited complaint: cough and nasal congestion Onset (ago): day(s) Consistency: constant Severity: moderate Related Data Home Medications Medication Instructions Recorded Confirmed buspirone 30 mg tablet 20 mg PO DAILY 10/02/19 07/17/24 levothyroxine 112 mcg tablet 100 mcg PO DAILY 10/02/19 07/17/24 omeprazole 20 mg tablet,delayed 20 mg PO DAILY 04/11/20 07/17/24 release atorvastatin 20 mg tablet 20 mg PO DAILY 11/15/21 07/17/24 gabapentin 600 mg tablet 600 mg PO TID 11/15/21 07/17/24 Allergies Allergy/AdvReac Type Severity Reaction Status Date / Time NSAIDS (Non-Steroidal Allergy Unknown Verified 07/17/24 15:28 Anti-Inflamma Review of Systems Review of Systems: All systems reviewed & are unremarkable except as noted in HPI and below PMFSH Past Medical History Medical History (Updated 07/17/24 @ 15:49 by Spencer Le MD) Anxiety Barretts esophagus Depression Hypothyroidism (acquired) Surgical History Surgical History H/O brain surgery after trauma H/O foot surgery Hx of cholecystectomy S/P carpal tunnel release S/P tubal ligation Social History Social History Smoking status: Current every day smoker Alcohol intake: never Substance use: never Living arrangements: with family Gender identity (if verbalized by the patient): Female Exam Const: General: healthy appearing, no acute distress and alert Limitations: no limitations Eyes: Conjunctivae: conjunctivae normal Neck: Neck: normal visual inspection Chest: Chest palpation & inspection: normal inspection of the chest Resp: Effort & Inspection: normal respiratory effort Auscultation: clear to auscultation bilaterally Cardio: Rate: regular rate Rhythm: regular rhythm GI: GI Palp: Yes Soft to palpation Auscultation: normal bowel sounds Urinary Catheter: Urinary Catheter: patent and draining Skin: Rashes: no rashes Course Course Emergency Course: X-ray performed shows no acute abnormalities, will give a dose of p.o. Levaquin for upper respiratory tract infection. Vital Signs Vital signs: Vital Signs Temperature 37.3 C 07/17/24 15:29 Pulse Rate 89 07/17/24 15:29 Respiratory Rate 18 07/17/24 15:29 Blood Pressure 116/58 L 07/17/24 15:29 Pulse Oximetry 96 07/17/24 15:29 Oxygen Delivery Room Air 07/17/24 15:29 Temperature 37.3 C 07/17/24 15:29 Pulse Rate 89 07/17/24 15:29 Respiratory Rate 18 07/17/24 15:29 Blood Pressure 116/58 L 07/17/24 15:29 Pulse Oximetry 100 07/17/24 15:35 Oxygen Delivery Room Air 07/17/24 15:35 Critical Care Time Critical Care Time Critical Care Time: No Discharge Plan Discharge Clinical Impression: Upper respiratory infection Patient Disposition: Home, Self-Care Condition: Stable Instructions: Antibiotic Form, Upper Respiratory Infection (ED) Prescriptions: No Action gabapentin 600 mg tablet 600 mg PO TID atorvastatin 20 mg tablet 20 mg PO DAILY acetaminophen [Tylenol] 325 mg capsule 650 mg PO Q8H PRN (Reason: pain) Qty: 20 0RF ondansetron 4 mg tablet,disintegrating 4 mg PO Q8H Qty: 20 0RF buspirone 30 mg tablet 20 mg PO DAILY levothyroxine 112 mcg tablet 100 mcg PO DAILY omeprazole 20 mg Tablet,Delayed Release (Dr/Ec) 20 mg PO DAILY Follow-up/Referrals: UNKNOWN,DOCTOR [Primary Care Provider] -
[2024-07-17] MEDS: levoFLOXacin 500 MG TABLET PO (15:49)
[2024-07-17 16:01] VITALS: BP 116/58; PULSE 89; RESP 18; TEMP 37.3; O2SAT 100
== END 2024-07-17 16:01 | disposition home or self-care (01) ==
LOC: CHSED 15:54
PROVIDERS: Emergency Provider Emergency Medicine; PCP Nurse Practitioner
DX: J06.9 Acute upper respiratory infection, unspecified (principal); E03.9 Hypothyroidism, unspecified; F17.200 Nicotine dependence, unspecified, uncomplicated; Z79.899 Other long term (current) drug therapy
CPT/HCPCS: 71046; 99283; A9270

== ENCOUNTER 2024-09-17 19:07 | Emergency (ER) | payer MEDICARE, MEDICAID, SELFPAY ==
--- NOTE | ~2024-09-17 | XR_ITS ---
XR chest 1V portable 09/17/2024 19:28 Indication: Cough and shortness of breath Procedure: AP portable chest Comparison: 07/17/2024 Findings: No focal air space disease, pulmonary edema, pleural effusion or suspected pneumothorax. He art size normal. No acute osseous abnormality. Impression: 1: No acute cardiopulmonary disease. Reviewed, dictated and finalized at [facility]. 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
--- NOTE | 2024-09-17 19:11 | ED_ITS ---
HPI - URI/Sore Throat General Chief Complaint: Upper Respiratory Infection Stated Complaint: uri Time Seen by Provider: 09/17/24 19:10 Source: patient Mode of arrival: ambulatory Limitations: no limitations History of Present Illness HPI Narrative: 59-year-old female, smoker with history of anxiety / depression, Anaya's, hypothyroidism, dyslipidemia, presents to the ED with a 3 day history of -- nasal congestion with purulent nasal discharge -- increasing shortness breath -- cough with mucopurulent expectoration -- left lateral chest pain which is made worse by coughing and deep breathing no fever or chills MD elicited complaint: sore throat and nasal congestion Pertinent past history: COPD Onset (ago): day(s) ( 3 days) Consistency: constant Description of mucous: yellow Able to tolerate fluids by mouth: Yes Exacerbating factors: nothing Relieving factors: nothing Associated symptoms: denies other symptoms, rhinorrhea, nasal congestion, sore throat, cough and shortness of breath Treatments prior to arrival: none Related Data Home Medications ?Medication ?Instructions ?Recorded ?Confirmed ?Last Taken ?Type buspirone 30 mg tablet 20 mg PO DAILY 10/02/19 07/17/24 Unknown History levothyroxine 112 mcg tablet 100 mcg PO DAILY 10/02/19 07/17/24 Unknown History omeprazole 20 mg tablet,delayed 20 mg PO DAILY 04/11/20 07/17/24 Unknown History release atorvastatin 20 mg tablet 20 mg PO DAILY 11/15/21 07/17/24 Unknown History gabapentin 600 mg tablet 600 mg PO TID 11/15/21 07/17/24 Unknown History Allergies Allergy/AdvReac Type Severity Reaction Status Date / Time NSAIDS (Non-Steroidal Allergy Unknown Verified 09/17/24 19:31 Anti-Inflamma Review of Systems 2 Review of Systems: All systems reviewed & are unremarkable except as noted in HPI and below Constitutional: Constitutional: Reports as per HPI and Reports no additional constitutional complaints Eyes: Eyes: Reports as per HPI and Reports no additional eye complaints ENT: Reports system reviewed and no additional complaints, except as documented, Reports nasal congestion and Reports sore throat Cardiovascular: Cardiovascular: Reports as per HPI, Reports no additional cardiovascular complaints and Reports chest pain ( left lateral chest pain which is m) Respiratory: Respiratory: Reports as per HPI, Reports no additional respiratory complaints, Reports chest congestion, Reports cough and Reports dyspnea Gastrointestinal: Gastrointestinal: Reports as per HPI and Reports no additional gastrointestinal complaints Genitourinary: Genitourinary: Reports no additional female genitourinary complaints and Reports as per HPI Musculoskeletal: Musculoskeletal: Reports no additional musculoskeletal complaints and Reports as per HPI Integumentary/Breasts: Skin/Breast: Reports system reviewed and no additional complaints, except as docu and Reports as per HPI Neurologic: Reports system reviewed and no additional complaints, except as documented and Reports as per HPI Psychiatric: Psychiatric: Reports no additional psychiatric complaints and Reports as per HPI Endocrine: Endocrine: Reports no additional endocrine complaints and Reports as per HPI Hematologic/Lymphatic: Hematologic/Lymphatic: Reports no additional hematologic/lymphatic complaints and Reports as per HPI Allergic/Immunologic: Allergic/Immunologic: Reports no additional allergic/immunologic complaints and Reports as per HPI [facility] Past Medical History Medical History (Updated 09/17/24 @ 20:22 by Oscar Artis MD) Anxiety Barretts esophagus Depression Hypothyroidism (acquired) Surgical History Surgical History S/P tubal ligation H/O foot surgery S/P carpal tunnel release Hx of cholecystectomy H/O brain surgery after trauma Social History Social History Smoking status: Current every day smoker Alcohol intake: never Substance use: never Living arrangements: with family Gender identity (if verbalized by the patient): Female Exam 2 Narrative: afebrile oxygen saturation 95% on room air Const: Nutritional Appearance: well nourished Orientation/consciousness: p atient oriented x3 Limitations: no limitations HENMT: Head: normal to inspection Ears: external ears normal F aliyah/Nose/Sinus: Normal external nose present Face and sinus: normal facial exam Mouth: Yes Normal oral and palatal mucosa present Throat: posterior oropharynx normal Eyes: Conjunctivae: conjunctivae normal Pupils: Equal, round and reactive pupils present EOM: EOMs intact bilaterally Direct Ophthalmoscopy: no photophobia Neck: Neck: normal visual inspection, no lymphadenopathy and no meningeal signs Chest: Chest palpation & inspection: normal inspection of the chest Resp: Effort & Inspection: uses accessory muscles Auscultation: rhonchi and diminished lung sounds Other: basilar crackles Cardio: Rate: regular rate Rhythm: regular rhythm GI: GI Palp: Yes Soft to palpation Auscultation: normal bowel sounds : General: Yes no CVA tenderness Back/Spine/Pelvis: Back: no CVA tenderness Skin: General skin exam: normal color Rashes: no rashes Wounds: no wounds Neuro: General: patient oriented x3, moves all extremities, no meningeal signs, no focal motor deficits and CN's II-XI intact bilaterally Cranial nerves: Yes Nystagmus not present Speech: normal speech Gait exam (Neuro): Normal gait present Extrem: General: normal to inspection, no clubbing, cyanosis or edema and no pedal edema Psych: Mental Status: mental status grossly normal Affect: normal affect Attitude: cooperative Course Course Emergency Course: upper respiratory tract infection- patient tested negative for influenza/ RSV/ COVID. sinusitis bronchitis-- patient had a normal white cell count. Chest x-ray did not show any acute findings. patient had a normal troponin and normal BNP. Patient has had cough and sputum production for more than 3 months in 2 consecutive years CKD-- creatinine of 1.10 with a GFR of 50 Vital Signs Vital signs: Vital Signs Temperature 36.7 C 09/17/24 19:12 Pulse Rate 87 09/17/24 19:12 Respiratory Rate 18 09/17/24 19:12 Blood Pressure 120/72 09/17/24 19:12 Pulse Oximetry 95 09/17/24 19:12 Oxygen Delivery Room Air 09/17/24 19:12 Temperature 36.7 C 09/17/24 19:12 Pulse Rate 87 09/17/24 19:12 Respiratory Rate 18 09/17/24 19:12 Blood Pressure 120/72 09/17/24 19:12 Pulse Oximetry 95 09/17/24 19:12 Oxygen Delivery Room Air 09/17/24 19:12 MDM - URI/Sore Throat MDM Narrative Medical decision making narrative: sinusitis COPD exacerbation CKD Differential Diagnosis Differential diagnosis: Likely bronchitis and influenza Lab Data 09/17/24 19:34 09/17/24 19:34 Labs: Lab Results 09/17/24 Range/Units 19:34 WBC 9.4 (4.8-10.8) K/mm3 RBC 3.87 L (4.20-5.40) M/mm3 Hgb 12.5 (12.0-15.0) g/dL Hct 37.9 (35.0-49.0) % MCV 97.9 (78.0-102.0) fL MCH 32.3 H (27.0-31.0) pg MCHC 33.0 (32-36) g/dL RDW 12.5 (11.6-14.4) % Plt Count 289 (150-420) K/mm3 MPV 10.5 (9.2-11.8) fl Immature Gran % (Auto) 0.3 H (0.0-0.0) % Neut % (Auto) 54.8 (50.0-70.0) % Lymph % (Auto) 32.1 (18.0-42.0) % [place] % (Auto) 8.1 (2.0-11.0) % Eos % (Auto) 3.7 (1.0-6.0) % Baso % (Auto) 1.0 (0.0-1.0) % Lymph # (Auto) 3.01 (1.10-4.50) K/mm3 [place] # (Auto) 0.76 (0.10-0.90) K/mm3 Eos # (Auto) 0.35 (0.02-0.50) K/mm3 Baso # (Auto) 0.09 (0.00-0.10) K/mm3 Abs Immat Gran (auto) 0.03 H (0.00-0.00) K/mm3 Absolute Neuts (auto) 5.13 (1.70-7.20) K/mm3 Absolute Nucleated RBC 0.00 (0.00-0.00) K/mm3 Nucleated RBC % 0.0 (0-0.0) % Sodium 138 (136-145) mmol/L Potassium 3.9 (3.5-5.1) mmol/L Chloride 100 (98-108) mmol/L Carbon Dioxide 29 (21-32) mmol/L Anion Gap 9 (4-12) mmol/L BUN 11 (7-18) mg/dL Creatinine 1.10 H (0.55-1.02) mg/dL Estim Creat Clear Calc 43 ml/min Estimated GFR 50 L (59 - ) Glucose 82 (70-99) mg/dL Calculated Osmolality 284 L (285-295) mOsm/kg Lactic Acid 0.5 (0.4-2.0) mmol/L Calcium 9.1 (8.5-10.1) mg/dL Total Bilirubin 0.2 (0.00-1.00) mg/dL AST 17 (15-37) U/L ALT 21 (14-59) U/L Alkaline Phosphatase 84 (46-116) U/L Troponin I < 4.0 (0.00-60.4) ng/L NT-Pro-B Natriuret Pep 104 (0-125) pg/mL Total Protein 6.8 (6.4-8.2) g/dL Albumin 3.5 (3.4-5.0) g/dL TSH 1.41 (0.36-3.74) uIU/mL Influenza A (RT-PCR) Negative (Negative) Influenza B (RT-PCR) Negative (Negative) RSV (RT-PCR) Negative (Negative) SARS-CoV-2 RNA (RT-PCR) Negative (Negative) Group A Strep (PCR) Not detected (Negative) ECG Data EKG #1: ECG completion date: 09/17/24 ECG completion time: 19:38 Interpretation: Normal sinus rhythm. Normal axis. Left ventricular hypertrophy. No ST elevation. Discharge Plan Discharge Clinical Impression: COPD exacerbation Sinusitis Qualifiers: Sinusitis location: unspecified location Chronicity: acute Recurrence: non- recurrent Qualified Code(s): J01.90 - Acute sinusitis, unspecified CKD (chronic kidney disease) Qualifiers: Chronic kidney disease stage: stage 3 (moderate) Chronic kidney disease stage 3 subtype: stage 3a (GFR 45-59) Qualified Code(s): N18.31 - Chronic kidney disease, stage 3a Patient Disposition: Home, Self-Care Condition: Stable Instructions: Antibiotic Form, Sinusitis (ED), COPD (Chronic Obstructive Pulmonary Disease) (ED) Patient Language: Kyrgyz Prescriptions: New prednisone 20 mg tablet 20 mg PO BID Qty: 10 0RF amoxicillin-pot clavulanate 875-125 mg tablet 1 tablet PO Q12H Qty: 14 0RF albuterol sulfate 90 mcg/actuation HFA aerosol inhaler 2 puff inhalation QID PRN (Reason: shortness of breath or wheezing) Qty: 8.5 0RF No Action gabapentin 600 mg tablet 600 mg PO TID atorvastatin 20 mg tablet 20 mg PO DAILY acetaminophen [Tylenol] 325 mg capsule 650 mg PO Q8H PRN (Reason: pain) Qty: 20 0RF ondansetron 4 mg tablet,disintegrating 4 mg PO Q8H Qty: 20 0RF buspirone 30 mg tablet 20 mg PO DAILY levothyroxine 112 mcg tablet 100 mcg PO DAILY omeprazole 20 mg Tablet,Delayed Release (Dr/Ec) 20 mg PO DAILY levofloxacin 500 mg tablet 500 mg PO DAILY 6 Days Qty: 6 0RF metoclopramide HCl [Reglan] 10 mg tablet 10 mg PO Q6H PRN (Reason: nausea and vomiting) Qty: 20 0RF Follow-up/Referrals: UNKNOWN,DOCTOR [Non-Staff] - Time of Disposition: 20:23
[2024-09-17 19:12] VITALS: BP 120/72; PULSE 87; RESP 18; TEMP 36.7; O2SAT 95
--- NOTE | 2024-09-17 19:18 | ECG_ITS ---
Test Date: 2024-09-17 19:38:21 Measurements Intervals [place] Rate: 72 P: 27 MO: 146 QRS: -6 QRSD: 88 T: 10 QT: 408 QTc: 449 Interpretive Statements SINUS RHYTHM POSSIBLE LEFT VENTRICULAR HYPERTROPHY [VOLTAGE CRITERIA PLUS LAE OR QRS WIDENING] No previous ECG available for comparison Electronically Signed On 09-18-2024 09:19:33 TOBACCO SCRAP SIFTER by Solomon Wheeler M.D.
[2024-09-17] MEDS: IPRATROPIUM 0.5 MG/ALBUTEROL SULFATE 2.5 MG AMPUL.NEB 3 ML INHALATION (19:33)
[2024-09-17 19:38] LABS: Basophils Absolute Auto 0.09 K/mm3 (0.00-0.10); Eosinophils Absolute Auto 0.35 K/mm3 (0.02-0.50); Eosinophils Percent Auto 3.7 % (1.0-6.0); Hematocrit 37.9 % (35.0-49.0); Hemoglobin 12.5 g/dL (12.0-15.0); Immature Granulocyte Absolute 0.03 K/mm3 (0.00-0.00); Immature Granulocyte Percent A 0.3 % (0.0-0.0); Lymphocytes Absolute Auto 3.01 K/mm3 (1.10-4.50); Lymphocytes Percent Auto 32.1 % (18.0-42.0); Mean Corpuscular Hemoglobin 32.3 pg (27.0-31.0); Mean Corpuscular Volume 97.9 fL (78.0-102.0); Mean Platelet Volume 10.5 fl (9.2-11.8); Monocytes Absolute Auto 0.76 K/mm3 (0.10-0.90); Monocytes Percent Auto 8.1 % (2.0-11.0); Neutrophils Absolute Auto 5.13 K/mm3 (1.70-7.20); Neutrophils Percent Auto 54.8 % (50.0-70.0); Platelet Count Result 289 K/mm3 (150-420); Red Blood Count 3.87 M/mm3 (4.20-5.40); Red Cell Distribution Width 12.5 % (11.6-14.4); White Blood Count 9.4 K/mm3 (4.8-10.8)
[2024-09-17 20:02] LABS: Lactic Acid Reflex 0.5 mmol/L (0.4-2.0)
[2024-09-17 20:03] LABS: Alanine Aminotransferase 21 U/L (14-59); Albumin Level 3.5 g/dL (3.4-5.0); Alkaline Phosphatase 84 U/L (46-116); Anion Gap 9 mmol/L (4-12); Aspartate Amino Transferase 17 U/L (15-37); Bilirubin,Total 0.2 mg/dL (0.00-1.00); Blood Urea Nitrogen 11 mg/dL (7-18); Calcium 9.1 mg/dL (8.5-10.1); Carbon Dioxide 29 mmol/L (21-32); Chloride 100 mmol/L (98-108); Estimated CRCL calculation 43 ml/min; Estimated Glomerular Filt Rate 50; Glucose 82 mg/dL (70-99); NT Pro B Type Natriuretic Pept 104 pg/mL (0-125); Osmolality Calculated 284 mOsm/kg (285-295); Potassium 3.9 mmol/L (3.5-5.1); Sodium 138 mmol/L (136-145); Thyroid Stimulating Hormone 1.41 uIU/mL (0.36-3.74); Total Protein 6.8 g/dL (6.4-8.2)
[2024-09-17 20:10] LABS: Troponin I < 4.0 ng/L (0.00-60.4)
[2024-09-17 20:14] LABS: SARS-CoV-2 RNA PCR Negative (Negative); Strep Group A RT-PCR NOT DETECTED (Negative)
[2024-09-17 20:15] LABS: Influenza A QL RT-PCR Negative (Negative); Influenza B QL RT-PCR Negative (Negative); RSV RNA, RT-PCR Negative (Negative)
[2024-09-17] MEDS: AMOXICILLIN/CLAVULANATE K 875-125 MG TAB 1 TABLET PO (20:36)
[2024-09-17] MEDS: methylPREDNISolone SOD SUCC 125 MG VIAL IM (20:37)
[2024-09-17 21:11] VITALS: BP 122/78; PULSE 82; RESP 18; O2SAT 96
== END 2024-09-17 21:11 | disposition home or self-care (01) ==
PROVIDERS: Emergency Provider Internal Medicine Critical Care Medicine; PCP Nurse Practitioner
DX: J44.1 Chronic obstructive pulmonary disease with (acute) exacerbation (principal); N18.31 Chronic kidney disease, stage 3a; J01.90 Acute sinusitis, unspecified; E03.9 Hypothyroidism, unspecified; F17.200 Nicotine dependence, unspecified, uncomplicated; Z20.822 Contact with and (suspected) exposure to COVID-19
CPT/HCPCS: 36415; 71045; 80053; 83605; 83880; 84443; 84484; 85025; 87637; 87651; 93005; 96372; 99284; A9270; J2919

== ENCOUNTER 2024-12-01 17:42 | Emergency (ER) | payer MEDICARE, MEDICAID, SELFPAY ==
[2024-12-01 17:42] VITALS: BP 120/58; PULSE 70; RESP 18; TEMP 36.4; O2SAT 97
--- NOTE | 2024-12-01 17:48 | ED_ITS ---
HPI - General Adult General Chief complaint: Upper Respiratory Infection Stated complaint: sinus congestion Time Seen by Provider: 12/01/24 17:48 Source: patient History of Present Illness HPI narrative: 59 years old white female drove herself from home complaining of maxillary sinus pain radiating to her eyes and upper gum started days ago. History of COPD, hypothyroidism, tobacco dependent, recurrent sinus infection and seasonal allergies. Patient denies any fever or chills or nausea or vomiting or chest pain or shortness of breath. Pain get worse with palpation and bending forward. Get slightly better with Tylenol. Related Data Home Medications ?Medication ?Instructions ?Recorded ?Confirmed ?Last Taken ?Type buspirone 30 mg tablet 20 mg PO DAILY 10/02/19 07/17/24 Unknown History levothyroxine 112 mcg tablet 100 mcg PO DAILY 10/02/19 07/17/24 Unknown History omeprazole 20 mg tablet,delayed 20 mg PO DAILY 04/11/20 07/17/24 Unknown History release atorvastatin 20 mg tablet 20 mg PO DAILY 11/15/21 07/17/24 Unknown History gabapentin 600 mg tablet 600 mg PO TID 11/15/21 07/17/24 Unknown History Allergies Allergy/AdvReac Type Severity Reaction Status Date / Time NSAIDS (Non-Steroidal Allergy Unknown Verified 12/01/24 17:49 Anti-Inflamma Review of Systems Review of Systems: All systems reviewed & are unremarkable except as noted in HPI and below PMFSH Past Medical History Medical History Anxiety Barretts esophagus Depression Hypothyroidism (acquired) Surgical History Surgical History S/P tubal ligation H/O foot surgery S/P carpal tunnel release Hx of cholecystectomy H/O brain surgery after trauma Social History Social History Smoking status: Current every day smoker Alcohol intake: never Substance use: never Living arrangements: with family Gender identity (if verbalized by the patient): Female Exam Narrative: General appearance: Well-developed, well-nourished Skin: Normal color Head: Normocephalic, nontraumatic Eyes: Clear conjunctiva ENT: Oropharynx normal, ears normal, nose normal . Diffuse tenderness maxillary sinus bilaterally with light palpation Neck: Supple, nontender Chest and respiratory: Airway patent, no respiratory distress, no accessory muscle use Heart: Regular rate/rhythm Abdomen: Soft, nontender, no organomegaly, quiet bowel sounds Vascular: Normal peripheral pulses, normal capillary refill. Musculoskeletal: Normal range of motion, nontender back Neurologic: Alert and oriented ?3, ENVELOPE MAKER is normal as tested, no gross motor deficit Course Vital Signs Vital signs: Vital Signs Temperature 36.4 C L 12/01/24 17:42 Pulse Rate 70 12/01/24 17:42 Respiratory Rate 18 12/01/24 17:42 Blood Pressure 120/58 L 12/01/24 17:42 Pulse Oximetry 97 12/01/24 17:42 Oxygen Delivery Room Air 12/01/24 17:42 Temperature 36.4 C L 12/01/24 17:42 Pulse Rate 70 12/01/24 17:42 Respiratory Rate 18 12/01/24 17:42 Blood Pressure 120/58 L 12/01/24 17:42 Pulse Oximetry 97 12/01/24 17:42 Oxygen Delivery Room Air 12/01/24 17:42 Medical Decision Making MDM Narrative Medical decision making narrative: sinusitis secondary to allergy, superimposed secondary bacterial infection is my concern. Patient had similar symptoms 2 months ago and finished a course of Augmentin. My plan to discharge patient on doxycycline, prednisone and Flonase. Vital Signs Vital Signs: Vital Signs Temperature 36.4 C L 12/01/24 17:42 Pulse Rate 70 12/01/24 17:42 Respiratory Rate 18 12/01/24 17:42 Blood Pressure 120/58 L 12/01/24 17:42 Pulse Oximetry 97 12/01/24 17:42 Oxygen Delivery Room Air 12/01/24 17:42 Temperature 36.4 C L 12/01/24 17:42 Pulse Rate 70 12/01/24 17:42 Respiratory Rate 18 12/01/24 17:42 Blood Pressure 120/58 L 12/01/24 17:42 Pulse Oximetry 97 12/01/24 17:42 Oxygen Delivery Room Air 12/01/24 17:42 Critical Care Time Critical Care Time Critical Care Time: No Discharge Plan Discharge Clinical Impression: Sinusitis Patient Disposition: Home, Self-Care Condition: Stable Instructions: Antibiotic Form, Sinusitis (ED) Additional Instructions: Return if symptoms are worsening , call your family physician for appointment, take Tylenol as as needed for aches and pain, continue home medications. Patient Language: Vietnamese Prescriptions: New prednisone 20 mg tablet 40 mg PO DAILY 5 Days Qty: 10 0RF fluticasone propionate [Flonase Allergy Relief] 50 mcg/actuation spray,suspension 2 spray intranasal DAILY Qty: 36.4 0RF Rx Instructions: administer into each nostril doxycycline hyclate 100 mg tablet 200 mg PO DAILY Qty: 20 0RF No Action gabapentin 600 mg tablet 600 mg PO TID atorvastatin 20 mg tablet 20 mg PO DAILY acetaminophen [Tylenol] 325 mg capsule 650 mg PO Q8H PRN (Reason: pain) Qty: 20 0RF ondansetron 4 mg tablet,disintegrating 4 mg PO Q8H Qty: 20 0RF prednisone 20 mg tablet 20 mg PO BID Qty: 10 0RF amoxicillin-pot clavulanate 875-125 mg tablet 1 tablet PO Q12H Qty: 14 0RF albuterol sulfate 90 mcg/actuation HFA aerosol inhaler 2 puff inhalation QID PRN (Reason: shortness of breath or wheezing) Qty: 8.5 0RF buspirone 30 mg tablet 20 mg PO DAILY levothyroxine 112 mcg tablet 100 mcg PO DAILY omeprazole 20 mg Tablet,Delayed Release (Dr/Ec) 20 mg PO DAILY levofloxacin 500 mg tablet 500 mg PO DAILY 6 Days Qty: 6 0RF metoclopramide HCl [Reglan] 10 mg tablet 10 mg PO Q6H PRN (Reason: nausea and vomiting) Qty: 20 0RF Follow-up/Referrals: Miguel,LUIS Ta-BC [Primary Care Provider] -
--- OUTSIDE RECORDS SUMMARY | 2024-12-01 17:50 | XMS_ITS ---
Author Organization Unknown Address [address] [place] [phone] Phone Care Team Providers Care Blueprint Assembler Name Role Phone SANTHOSHAry SADE Attending Unavailable CHRISTIANO GUERRA Primary Unavailable Immunization Immunization Date Status Additional Notes Code Code System MMR 02/13/1996 Completed 03 CVX Td (adult), 2 Lf tetanus toxoid, preservative free, adsorbed 02/06/1996 Completed 09 CVX Tdap 04/12/2024 Completed 115 CVX Influenza, split virus, quadrivalent, PF 06/07/2017 Completed 150 CVX Influenza, split virus, quadrivalent, PF 06/11/2020 Completed 150 CVX Influenza, split virus, quadrivalent, PF 07/03/2022 Completed 150 CVX Influenza, MDCK, trivalent, PF 04/12/2024 Completed 153 CVX Influenza, split virus, quadrivalent, preservative 06/06/2018 Completed 158 C VX Influenza, split virus, quadrivalent, preservative 06/17/2019 Completed 158 C VX Influenza, MDCK, quadrivalen t, PF 05/04/2021 Completed 171 CVX Influenza, MDCK, quadrivalen t, PF 06/02/2023 Completed 171 CVX zoster recombinant 05/04/2021 Completed 187 CVX zoster recombinant 07/08/2021 Completed 187 CVX COVID-19, mRNA, LNP-S, PF, 3 0 mcg/0.3 mL dose 08/03/2021 Completed 208 CVX COVID-19 vaccine, vector-nr, rS-Ad26, PF, 0.5 mL 01/06/2021 Completed 212 CVX COVID-19, mRNA, LNP-S, bivalent, PF, 30 mcg/0.3 mL dose 05/10/2022 Completed 300 CVX RSV, recombinant, protein subunit RSVpreF, adjuvant reconstituted, 0.5 mL, PF 04/12/2024 Completed 303 CV X COVID-19, mRNA, LNP-S, PF, jewel-sucrose, 30 mcg/0.3 mL 06/02/2023 Completed 309 CVX COVID-19, mRNA, LNP-S, PF, jewel-sucrose, 30 mcg/0.3 mL 06/04/2024 Completed 309 CVX Results COMPREHENSIVE METABOLIC PANE L - Collect Date/Time: 12/26/2023 13:28 [facility] ID: [id number] [address] [place], [place], [phone] LOINC: 71943-7 Test Value Unit Reference Range Code Code System Flag FASTING NO BUN 10 mg/dL L=7 H=20 3094-0 LOINC CREATININE 0.90 mg/dL L=0.52 H=1.04 2160-0 LOINC GLUCOSE 189 mg/dL L=74 H=106 2345-7 LOINC H SODIUM 138 mmol/L L=132 H=144 2951-2 LOINC POTASSIUM 3.9 mmol/L L=3.5 H=5.1 2823-3 LOINC CHLORIDE 106 mmol/L L=98 H=107 2075-0 LOINC CO2 26.0 mmol/L L=22.0 H=30.0 8-9 LOINC ANION GAP 10 L=10 H=20 18045-1 LOINC OSMOLALITY 290 mOs/kG L=280 H=296 38737-8 LOINC BUN/CREAT 11.1 3097-3 LOINC CALCIUM 9.1 mg/dL L=8.3 H=10.5 01836-0 LOINC AST 29 U/L L=15 H=46 1920-8 LOINC ALT 20 U/L L=9 H=72 1742-6 LOINC ALKALINE PHOS 57 U/L L=38 H=126 6768-6 LOINC TOTAL BILI 0.5 mg/dL L=0.2 H=1.3 1975-2 LOINC ALBUMIN 4.2 G/dL L=3.5 H=5.0 1751-7 LOINC TOTAL PROTEIN 7.3 g/L L=6.3 H=8.2 2885-2 LOINC A/G RATIO 1.4 14175-2 LOINC AGE 58 98504-9 LOINC eGFR NON-AFR 68 ml/min eGFR AFR AMER 82 ml/min CBC W/ DIFF - Collect Date/T farooq: 12/26/2023 13:28 [facility] ID: [id number] [address] [place], [place], [id number] LOINC: 91619-9 Test Value Unit Reference Range Code Code System Flag WBC 8.8 10^3uL L=4.8 H=10.8 RBC 3.90 10^6uL L=4.20 H=5.40 L HEMOGLOBIN 13.1 g/dL L=12.0 H=16.0 718-7 LOINC HEMATOCRIT 39.1 VOL% L=37.0 H=47.0 4544-3 LOINC MCV 100.3 fL L=81.0 H=99.0 H MCH 33.6 pg L=27.0 H=32.0 H MCHC 33.5 g/dL L=32.0 H=36.0 PLATELETS 282 10^3uL L=100 H=400 32698-6 LOINC RDW 12.3 % L=11.7 H=15.5 %GRAN 64.3 % L=40.0 H=70.0 49456-3 LOINC %LYMPH 24.2 % L=20.0 H=45.0 736-9 LOINC %MONO 7.3 % L=2.0 H=10.0 21376-9 LOINC %EOS 2.7 % L=0.0 H=6.0 713-8 LOINC %BASO 1.0 % L=0.0 H=3.0 706-2 LOINC #NEUT 5.7 10^3uL L=1.9 H=7.6 77238-5 LOINC #LYMPH 2.1 10^3uL L=0.9 H=4.9 87899-3 LOINC #MONO 0.6 10^3uL L=0.1 H=0.9 65281-5 LOINC #EOS 0.2 10^3uL L=0.0 H=0.6 712-0 LOINC #BASO 0.09 10^3uL L=0.00 H=0.10 20393-5 LOINC #IM GRANS 0.0 10^3uL L=0.0 H=7.0 88112-8 LOINC %IM GRANS 0.5 % L=0.0 H=5.0 04019-5 LOINC %NRB 0.0 L=0.0 H=0.2 76503-7 LOINC #NRB 0.000 L=0.000 H=0.012 29483-2 LOINC MANUAL DIFF NOT INDICATED RBC MORPH NOT INDICATED Social History Type Status Start Date End Date Code Code Syst em Smoking History Current every day smoker 072541520 SNOMED CT Sex Female Hospital Discharge Instructions Should you have any questions prior to discharge, please contact a member of your healthcare team. If you have left the hospital and have any questions, please contact your primary care physician. 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
--- OUTSIDE RECORDS SUMMARY | 2024-12-01 17:50 | XMS_ITS ---
Author Organization Unknown Address [address] [place] [phone] Phone Care Team Providers Care Welcome Wagon Hostess Name Role Phone SANTHOSHAry SADE Attending Unavailable [...] mcg/0.3 mL 06/04/2024 Completed 309 CVX Results BONE DENSITY STUDY DEXA HIP OR SPINE - Completed: 04/10/2024 11:21 LOINC: EXAM DESCRIPTION: BONE DENSITY STUDY DEXA HIP OR SPINE REASON FOR STUDY: 58 y/o year old F with given history of: OSTEOPENIA Child Care Giver/Model: Specialized Tech ([id number]) CLINICAL INFORMATION: Current height: 65 inches Maximum height: 67 inches Weight: 159 pounds Risk factors: Postmenopausal, smoking history COMPARISON: 04/06/2022 FINDINGS: AP LUMBAR SPINE L1-L4: Total BMD is 1.155 g/cm2 T-score is 0.44 This is increased in comparison to prior exam LEFT HIP: Total BMD is 0.807 g/cm2 T-score is -1.21 This is increased in comparison to prior exam. Femoral neck BMD is 0.794 g/cm2 T-score is -1.65 FRAX: 10 year risk for a major osteoporotic fracture is 7.6 %, 10 year risk for a hip fracture is 0.9 % IMPRESSION: ? ? Low Bone Mass. REFERENCE: Bone mineral density: T-Score: Normal (T-score above or = -1.0) Low bone mass (T-score between -1.0 and -2.5) replaces the previously used term osteopenia Osteoporosis (T-score = or below -2.5) Z-Score: Within the expected range for age (Z-score above -2.0) Below the expected range for age (Z-score is -2.0 or below) Please see below follow up recommendations. Medical evaluation for secondary causes of low bone mineral density may be appropriate. FRAX is a World Health Organization validated fracture risk assessment tool that calculates a person's 10 year probability of a major osteoporosis related fracture and hip fracture. According to the National Osteoporosis Foundation guidelines, postmenopausal women and men age 50 or older with low bone mass and a 10 year probability of a major osteoporosis related fracture = or greater than 20% or a 10 year probability of a hip fracture = or greater than 3% should be considered for pharmacological treatment for the prevention of osteoporosis. For further information, including treatment recommendations, please refer to the 2019 ISCD Official Positions (http://www.iscd.org) and the NOF's Clinician's Guide to Prevention and Treatment of Osteoporosis (http://www.nof.org/professionals/clinical-guidelines) THIS IS AN ELECTRONICALLY VERIFIED FINAL REPORT 04/10/2024 6:14 PM - Electronically signed by Spencer Leyva M.D. MF: BRYANT Report ID: [id number] Reading Location: [id number] Social History Type Status Start Date End Date Code Code Syst em Smoking History Current every day smoker [id number] SNOMED CT Sex Female Hospital Discharge Instructions Should you have any questions prior to discharge, please contact a member of your healthcare team. If you have left the hospital and have any questions, please contact your primary care physician. Reason For Referral No Data Found Plan of Treatment Bone Density Dexa 04/06/2022 Digital Sameer Diag R Unilateral (73894) 0 09/13/2022 US Breast (83485) 09/13/2022 Digital Sameer Diag R Unilateral (18630) 0 09/13/2022 US Breast (29626) 09/13/2022 Bone Density Dexa 04/10/2024 Digital Sameer Screen Bilateral (17011) Encounters Encounter Diagnosis Start Date Code Code Sys tem Other specified disorders of bone density and structure, unspecified site 04/10/2024 SNOMED-CT Personal Care Team Section Performer Name Performer Role Active Date Inactive CHARLIE Salvador PCP - Primary care physician [id number] Imaging Narrative Notes
--- OUTSIDE RECORDS SUMMARY | 2024-12-01 17:51 | XMS_ITS ---
Author Organization Unknown Address [address] [place] [phone] Phone Care Team Providers Care Retail Pharmacy Manager Name Role Phone MIREILLE Odom Attending Unavailable [facility] Primary Unavailable Immunization Immunization Date Status Additional [...] mcg/0.3 mL 06/04/2024 Completed 309 CVX Results THYROGLOBULIN BY MILAGRO - Colle ct Date/Time: 07/01/2024 17:20 [facility] ID: [id number] [address] [place], [place], [phone] LOINC: 3013-0 Test Value Unit Reference Range Code Code System Flag Thyroglobulin (TG-MILAGRO) <2.0 3013-0 LOINC Social History Type Status Start Date End Date Code Code Syst em Smoking History Current every day smoker [id number] SNOMED CT Sex Female Hospital Discharge Instructions Should you have any questions prior to discharge, please contact a member of your healthcare team. If you have left the hospital and have any questions, please contact your primary care physician. Reason For Referral No Data Found Plan of Treatment Bone Density Dexa 04/06/2022 Digital Sameer Diag R Unilateral (69325) 0 09/13/2022 US Breast (14147) 09/13/2022 Digital Sameer Diag R Unilateral (01264) 0 09/13/2022 US Breast (06899) 09/13/2022 Bone Density Dexa 04/10/2024 Digital Sameer Screen Bilateral (76976) Encounters Encounter Diagnosis Start Date Code Code Sys tem Malignant neoplasm of thyroid gland 07/01/2024 SNOMED-CT Personal Care Team Section Performer Name Performer Role Active Date Inactive CHARLIE Salvador PCP - Primary care physician 20212024-01-25
--- OUTSIDE RECORDS SUMMARY | 2024-12-01 17:51 | XMS_ITS ---
Author Organization Unknown Address [address] [place] [phone] Phone Care Team Providers Care Vaccine Customer Representative Name Role Phone MISAEL MARRERO Attending Unavailable JJ STACY Primary Unavailable Immunization Immunization Date Status Additional [...] mcg/0.3 mL 06/04/2024 Completed 309 CVX Results TREPONEMA ABS rfx RPR & BRITTANY T - Collect Date/Time: 09/19/2024 15:54 [facility] ID: [id number] [place] [address], [id number] LOINC: 09055-3 Test Value Unit Reference Range Code Code System Flag T pallidum Antibodies Non Reactive Non Reactive 09093-5 LOINC CHG RPR? NO SEND TO IFC? NO VITAMIN B-12 - Collect Date/ Time: 09/19/2024 15:54 [facility] ID: [id number] [place] [address], [id number] LOINC: 2132-9 Test Value Unit Reference Range Code Code System Flag VITAMIN B12 804 pq/mL L=239 H=931 TSH - Collect Date/Time: 15:54 [facility] ID: [id number] [place] [address], [id number] LOINC: 16233-5 Test Value Unit Reference Range Code Code System Flag TSH. 0.390 uIU/L L=0.470 H=4.680 92329-6 LOINC L IMMUNOFIXATION (RAQUEL) SERUM - Collect Date/Time: 09/19/2024 15:54 [facility] ID: [id number] [address] [place], [place], [phone] LOINC: 85794-1 Test Value Unit Reference Range Code Code System Flag Immunofixation Result,Serum Comment: 53769-6 LOINC Immunoglobulin G, Qn,Serum 3609 415-7241 2465-3 LOINC Immunoglobulin A, Qn,Serum 143 87-352 9968-8 LOINC Immunoglobulin M, Qn,Serum 109 26-217 4402-9 LOINC Social History Type Status Start Date End Date Code Code Syst em Smoking History Current every day smoker [id number] SNOMED CT Sex Female Hospital Discharge Instructions Should you have any questions prior to discharge, please contact a member of your healthcare team. If you have left the hospital and have any questions, please contact your primary care physician. Reason For Referral No Data Found Plan of Treatment Bone Density Dexa 04/06/2022 Digital Smaeer Diag R Unilateral (00622) 0 09/13/2022 US Breast (42469) 09/13/2022 Digital Sameer Diag R Unilateral (23836) 0 09/13/2022 US Breast (15027) 09/13/2022 Bone Density Dexa 04/10/2024 Digital Sameer Screen Bilateral (58950) Encounters Encounter Diagnosis Start Date Code Code Sys tem Polyneuropathy, unspecified 09/19/2024 SNOMED-CT Personal Care Team Section Performer Name Performer Role Active Date Inactive CHARLIE Salvador PCP - Primary care physician 20212024-01-25
--- OUTSIDE RECORDS SUMMARY | 2024-12-01 17:51 | XMS_ITS ---
Author Organization Unknown Address [address] [place] [phone] Phone Care Team Providers Care Nsh Teacher Name Role Phone MIREILLE Odom Attending Unavailable [facility] Primary Unavailable Immunization Immunization Date Status [...] mcg/0.3 mL 06/04/2024 Completed 309 CVX Results TSH - Collect Date/Time: 16:28 [facility] ID: [id number] [address] [place], [place], [phone] LOINC: 31774-3 Test Value Unit Reference Range Code Code System Flag TSH. 3.830 uIU/L L=0.470 H=4.680 94598-5 LOINC Social History Type Status Start Date End Date Code Code Syst em Smoking History Current every day smoker [id number] SNOMED CT Sex Female Hospital Discharge Instructions Should you have any questions prior to discharge, please contact a member of your healthcare team. If you have left the hospital and have any questions, please contact your primary care physician. Reason For Referral No Data Found Plan of Treatment Bone Density Dexa 04/06/2022 Digital Sameer Diag R Unilateral (94307) 0 09/13/2022 US Breast (05348) 09/13/2022 Digital Sameer Diag R Unilateral (60056) 0 09/13/2022 US Breast (05242) 09/13/2022 Bone Density Dexa 04/10/2024 Digital Sameer Screen Bilateral (40156) Encounters Encounter Diagnosis Start Date Code Code Sys tem Hypothyroidism, unspecified 11/21/2024 SNOMED-CT Personal Care Team Section Performer Name Performer Role Active Date Inactive CHARLIE Salvador PCP - Primary care physician 20212024-01-25
--- OUTSIDE RECORDS SUMMARY | 2024-12-01 17:51 | XMS_ITS ---
Author Organization Unknown Address [address] [place] [phone] Phone Care Team Providers Care Comber Operator Name Role Phone GREGORIA PETERSON Attending Unavailable [facility] Primary Unavailable Immunization Immunization Date Status [...] 309 CVX Results TSH - Collect Date/Time: 16:20 [facility] ID: [id number] [address] [place] [address], [id number] LOINC: 79324-2 Test Value Unit Reference Range Code Code System Flag TSH. 3.240 uIU/L L=0.470 H=4.680 27883-1 LOINC T4 FREE - Collect Date/Time: 01/25/2024 16:20 [facility] ID: [id number] [address] [place] [address], [id number] LOINC: 3024-7 Test Value Unit Reference Range Code Code System Flag T4, FREE 1.07 ng/dL L=0.78 H=2.19 3024-7 LOINC Social History Type Status Start Date End Date Code Code Syst em Smoking History Current every day smoker 206623149 SNOMED CT Sex Female Hospital Discharge Instructions Should you have any questions prior to discharge, please contact a member of your healthcare team. If you have left the hospital and have any questions, please contact your primary care physician. Reason For Referral No Data Found Plan of Treatment Bone Density Dexa 04/06/2022 Digital Sameer Diag R Unilateral (06731) 0 09/13/2022 US Breast (15124) 09/13/2022 Digital Sameer Diag R Unilateral (27155) 0 09/13/2022 US Breast (00112) 09/13/2022 Bone Density Dexa 04/10/2024 Digital Sameer Screen Bilateral (07199) Encounters Encounter Diagnosis Start Date Code Code Sys tem Postprocedural hypothyroidism 01/25/2024 SNOMED-CT Personal Care Team Section Performer Name Performer Role Active Date Inactive CHARLIE Salvador PCP - Primary care physician 20212024-01-25
--- OUTSIDE RECORDS SUMMARY | 2024-12-01 17:51 | XMS_ITS | Clinical Summary ---
Author Organization [facility] Address [address] [place] [address] Care Team Providers Care Lithographic Press Operator Name Role Phone Jo-Ann De Jesus MD Primary Care Provider [phone] Source Comments [facility],non-owned Affiliates and Associated Physician Practices is amultiple site organization consisting of ambulatory clinics and hospital sitesin [place], [place], [place] and [place]. This disclosure is being madepursuant to the Care Everywhere program and may not contain all information available regarding this patient. Last updated 18.[facility] Allergies Active Allergy Reactions Criticality Noted Date Comments Nsaids Other 01/10/2018 Barretts esophagus: Recoommended againts taking. Medications * Be aware that medications may not be up to date on this document. Alwaysverify current medications with the patient. Medication Sig Dispensed Refills Start Date End Date Status busPIRone (BUSPAR) 10 MG tablet Take 10 mg by mouth 3 times daily Active DULoxetine (CYMBALTA) 60 MG capsule Take 60 mg by mouth once daily Active gabapentin (NEURONTIN) 400 MG capsule Take 400 mg by mouth 3 times daily Active lamoTRIgine (LAMICTAL) 25 MG tablet Take 25 mg by mouth 2 times daily Active levothyroxine (SYNTHROID) 125 MCG tablet Take 125 mcg by mouth daily before breakfast Active lidocaine (LMX 4) 4 % cream Apply to affected area once daily Active QUEtiapine (SEROQUEL) 100 MG tablet Take 100 mg by mouth 2 times daily Active Active Problems No known active problems Social History Tobacco Use Types Packs/Day Years Used Date Smoking Tobacco: Every Day Cigarettes 0.5 30 Smokeless Tobacco: Never Sex and Gender Information Value Date Recorded Sex Assigned at Not on file Gender Identity Not on file Sexual Orientation Not on file Plan of Treatment Health Maintenance Due Date Last Done Comments COLOGUARD (AGES 45-75) - COL ON CA SCREENING 1963 COLON MONITORING 1963 COLONOSCOPY - COLON CA SCREENING 1963 CT COLONOGRAPHY - COLON CA SCREENING 1963 Colorectal Cancer Screening 1963 FIT - COLON CA SCREENING 1963 FLEX SIG - COLON CA SCREENING 1963 LIPID TESTING 1963 MAMMOGRAM 1963 MEDICARE AWV 12 MONTHS 1963 PAP SMEAR 1963 HIV SCREENING 1978 HEPATITIS C SCREENING 06/15/1981 DTAP/TDAP/TD VACCINES (1 - Tdap) 1982 PNEUMOCOCCAL VACCINE 50+ (1 of 2 - PCV) 1982 PNEUMOCOCCAL VACCINE (1 of 2 - PCV) 1982 ZOSTER VACCINE (1 of 2) 2013 COVID-19 VACCINE ( - 2023-2 5 season) 2024 INFLUENZA VACCINE (#1) 2024 DEPRESSION SCREENING 09/03/2024 Respiratory Syncytial Virus (RSV) Vaccine Pt: or over 60 yrs (1 - 1-dose 75+ series) 2038 HEPATITIS B VACCINE Aged Out No longe r eligible based on patient's age to complete this topic HIB VACCINE Aged Out No longer eligi ble based on patient's age to complete this topic HPV VACCINE Aged Out No longer eligi ble based on patient's age to complete this topic MENINGOCOCCAL (Group B) VACC INE SHARED DECISION-MAKING Aged Out No longer eligibl e based on patient's age to complete this topic MENINGOCOCCAL GROUPS A/C/Y/W VACCINE Aged Out No longer eligible b ased on patient's age to complete this topic Care Teams Lithographic Press Operator Relationship Specialty Start Date End Date Jo-Ann De Jesus MD [address] [place] [address] [address] [place] [address] PCP - General 01/10/18
--- OUTSIDE RECORDS SUMMARY | 2024-12-01 17:51 | XMS_ITS | Encounter Summary ---
Author Organization [facility] Address [address] [place] [address] Care Team Providers Care Industrial Spraypainter Name Role Phone Cely Rivera [facility] Primary Care Provider [phone] Encounter Details Date Type Department Care Team ([facility] st Contact Info) Description 07/06/2018 Abstract [facility] [address] [place] [phone] Chris Whitehead MD [address] [place] [id number] Social History Tobacco Use Types Packs/Day Years Used Date Smoking Tobacco: Smoker, Current Status Unknown Cigarettes Smokeless Tobacco: Never Alcohol Use Standard Drinks/Week Comments No 0 (1 standard drink = 0.6 oz pur e alcohol) Comments Unknown Sex and Gender Information Value Date Recorded Sex Assigned at Female 11/14/2018 10:45 AM CDT Legal Sex Female 1:36 AM CDT Gender Identity Female 11/14/2018 10:45 AM CDT Sexual Orientation Not on file documented as of this encounter Plan of Treatment Not on file documented as of this encounter Visit Diagnoses Not on filedocumented in this encounter Additional Health Concerns Infection Onset Date Last Indicated Resolved Time COVID-19 Rule Out 10/10/2020 10/10/2020 10/11/2020 11:06 AM INCLUSION TEACHER COVID-19 Rule Out 01/15/2022 01/15/2022 01/15/2022 5:14 PM CDT COVID-19 Rule Out 07/13/2024 07/13/2024 07/13/2024 1:14 AM INCLUSION TEACHER documented as of this encounter Care Teams Industrial Spraypainter Relationship Specialty Start Date End Date Cely Rivera FNP- [address] [place] [address] PCP - General NURSE PRACTITIONER 02/27/18 documented as of this encounter
--- OUTSIDE RECORDS SUMMARY | 2024-12-01 17:51 | XMS_ITS | Encounter Summary ---
Author Organization [facility] Address [address] [place] [address] Care Team Providers Care Sql Etl Developer Name Role Phone [facility] Primary Care Provider [phone] Encounter Details Date Type Department Care Team ([facility] Contact Info) Description 11/17/2017 Abstract [facility] [address] [place] [address] , Generic Conversion, Social History Tobacco Use Types Packs/Day Years Used Date Smoking Tobacco: Smoker, Current Status Unknown Comments Unknown Sex and Gender Information Value [...] Rule Out 10/10/2020 10/10/2020 10/11/2020 11:06 AM LEVELMAN COVID-19 Rule Out 01/15/2022 01/15/2022 01/15/2022 5:14 PM CDT COVID-19 Rule Out 07/13/2024 07/13/2024 07/13/2024 1:14 AM LEVELMAN documented as of this encounter Care Teams Sql Etl Developer Relationship Specialty Start Date End Date Cely Rivera FNP-BC [address] [place] [address] PCP - General NURSE PRACTITIONER 02/27/18 documented as of this encounter
--- OUTSIDE RECORDS SUMMARY | 2024-12-01 17:51 | XMS_ITS | Encounter Summary ---
Author Organization [facility] Address [address] [place] [address] Care Team Providers Care Gang Leader Name Role Phone Cely Rivera [facility] Primary Care Provider [phone] Encounter Details Date Type Department Care Team ([facility] st Contact Info) Description 07/18/2018 Abstract [facility] [address] [place] [phone] Chris Whitehead MD [address] [place] [address] [phone] Social History Tobacco Use Types Packs/Day Years [...] Rule Out 10/10/2020 10/10/2020 10/11/2020 11:06 AM MANAGER VALUATION COVID-19 Rule Out 01/15/2022 01/15/2022 01/15/2022 5:14 PM CDT COVID-19 Rule Out 07/13/2024 07/13/2024 07/13/2024 1:14 AM MANAGER VALUATION documented as of this encounter Care Teams Gang Leader Relationship Specialty Start Date End Date eCly Rivera FNP- [address] [place] [address] PCP - General NURSE PRACTITIONER 02/27/18 documented as of this encounter
--- OUTSIDE RECORDS SUMMARY | 2024-12-01 17:51 | XMS_ITS ---
Author Organization Unknown Address [address] [place] [phone] Phone Care Team Providers Care Digestion Operator Name Role Phone MISAEL MARRERO Attending Unavailable [...] RPR & BRITTANY T - Collect Date/Time: 10/03/2024 16:36 [facility] ID: [id number] [address] [place], [place], [phone] LOINC: 67940-7 Test Value Unit Reference Range Code Code System Flag T pallidum Antibodies Non Reactive Non Reactive 24160-5 LOINC CHG RPR? NO SEND TO IFC? NO Social History Type Status Start Date End Date Code Code Syst em Smoking History Current every day smoker 251179404 SNOMED CT Sex Female Hospital Discharge Instructions Should you have any questions prior to discharge, please contact a member of your healthcare team. If you have left the hospital and have any questions, please contact your primary care physician. Reason For Referral No Data Found Plan of Treatment Bone Density Dexa 04/06/2022 Digital Sameer Diag R Unilateral (31136) 0 09/13/2022 US Breast (98009) 09/13/2022 Digital Sameer Diag R Unilateral (15925) 0 09/13/2022 US Breast (83577) 09/13/2022 Bone Density Dexa 04/10/2024 Digital Sameer Screen Bilateral (25022) Encounters Encounter Diagnosis Start Date Code Code Sys tem Polyneuropathy 10/03/2024 92876720 SNOMED-CT Personal Care Team Section Performer Name Performer Role Active Date Inactive CHARLIE Salvador PCP - Primary care physician [id number]
--- OUTSIDE RECORDS SUMMARY | 2024-12-01 17:52 | XMS_ITS | Encounter Summary ---
Author Organization [facility] Address [facility] [place] [address] Care Team Providers Care Decorative Greens Cutter Name Role Phone Ruth Mosher MD Primary Care Provider Unavailable Cely Rivera [facility] Primary Care Provider [phone] Encounter Details Date Type Department Care Team ([facility] Contact Info) Description 07/07/2017 [place] [address] Ruth Mosher MD Social History Tobacco Use Types Packs/Day Years [...] Rule Out 10/10/2020 10/10/2020 10/11/2020 11:06 AM BEAM RACKER COVID-19 Rule Out 01/15/2022 01/15/2022 01/15/2022 5:14 PM CDT COVID-19 Rule Out 07/13/2024 07/13/2024 07/13/2024 1:14 AM BEAM RACKER documented as of this encounter Care Teams Decorative Greens Cutter Relationship Specialty Start Date End Date Ruth Mosher MD PCP - General 04/06/15 Cely Rivera LUIS- [address] [place] [address] PCP - General NURSE PRACTITIONER 02/27/18 documented as of this encounter
--- OUTSIDE RECORDS SUMMARY | 2024-12-01 17:52 | XMS_ITS ---
Author Organization Unknown Address [address] [place] [phone] Phone Care Team Providers Care Telephone Operators Supervisor Name Role Phone MIREILLE Odom Attending Unavailable [facility] Primary Unavailable Immunization Immunization Date Status [...] mcg/0.3 mL 06/04/2024 Completed 309 CVX Results T4 FREE - Collect Date/Time: 06/17/2024 13:32 [facility] ID: [id number] [address] [place] [address], [phone] LOINC: 3024-7 Test Value Unit Reference Range Code Code System Flag T4, FREE 1.17 ng/dL L=0.78 H=2.19 3024-7 LOINC TSH - Collect Date/Time: 13:32 [facility] ID: [id number] [address] [place] [address], [phone] LOINC: 53223-2 Test Value Unit Reference Range Code Code System Flag TSH. 3.590 uIU/L L=0.470 H=4.680 49684-4 LOINC ANTI THYROGLOBULIN ANTIBODY - Collect Date/Time: 06/17/2024 13:32 [facility] ID: [id number] [address] [place] [address], [phone] LOINC: 8098-6 Test Value Unit Reference Range Code Code System Flag Thyroglobulin Antibody <1.0 0.0-0.9 8098-6 LOINC Social History Type Status Start Date End Date Code Code Syst em Smoking History Current every day smoker 491581206 SNOMED CT Sex Female Hospital Discharge Instructions Should you have any questions prior to discharge, please contact a member of your healthcare team. If you have left the hospital and have any questions, please contact your primary care physician. Reason For Referral No Data Found Plan of Treatment Bone Density Dexa 04/06/2022 Digital Sameer Diag R Unilateral (82695) 0 09/13/2022 US Breast (10621) 09/13/2022 Digital Sameer Diag R Unilateral (00749) 0 09/13/2022 US Breast (89989) 09/13/2022 Bone Density Dexa 04/10/2024 Digital Sameer Screen Bilateral (04988) Encounters Encounter Diagnosis Start Date Code Code Sys tem Malignant neoplasm of thyroid gland 06/17/2024 SNOMED-CT Personal Care Team Section Performer Name Performer Role Active Date Inactive CHARLIE Salvador PCP - Primary care physician [id number]
--- OUTSIDE RECORDS SUMMARY | 2024-12-01 17:52 | XMS_ITS | Data Portability ---
Author Organization [facility], [address] [facility] ([place]) Address [address] [place] [address] Care Team Providers Care Accounts Payable Associate Name Role Phone CHARLIE ALVARADO Primary Care Provider [phone] CHARLIE ALVARADO Referring Provider FRANCES JI Dispatcher Radioactive Waste Disposal NEAL PAZ Collar Folder Operator ELIDA JAVIER Neurologist [phone] BUD PACKER Nurse Practitioner [phone] Assessment Encounter Date Assessment Date Assessment LastModified by Organization Details LastModified Time 06/17/2024 06/17/2024 HISTORY: This 58-year-old woman is seen for evaluation for evaluation of ductal carcinoma in situ of the right breast. The patient denies a palpable abnormality and denies pain but underwent routine screening mammograms on October 10, 2021 and was found to have a new cluster of indeterminate calcifications in the right breast. The patient subsequently underwent a needle biopsy revealing atypical ductal hyperplasia, bordering on low grade ductal carcinoma in situ with intraductal microcalcifications and usually ductal hyperplasia with intraductal microcalcifications. The patient was treated with adjuvant radiotherapy at the [facility] and placed on anastrozole in April 2022. She was, unfortunately, unable to tolerate anastrozole due to multiple side effects, including hair loss, hot flashes, nausea, retching. She was placed on tamoxifen in December 2022. BRCA testing was negative for a genetic mutation. The patient returns today stating she has been noted to have fatigue, hot flashes and ulcers on her scalp which she attributes to tamoxifen. She discontinued tamoxifen two weeks prior to this office and feels all these issues have improved. Headaches have also improved off tamoxifen. PAST HISTORY: Surgical Illnesses - Surgery on her left hand, bilateral carpal tunnel release. Surgery on both feet. Resection of thyroid cancer, cholecystectomy and cataract extractions. Medical Illnesses - Anaya's esophagus, elevated cholecystectomy, prediabetes, thyroid cancer, peptic ulcer disease, diverticulitis, hyperlipidemia, and osteoarthritis. ALLERGIES - NONSTEROIDAL ANTI-INFLAMMATORY DRUGS. 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 Tobacco - One-half pack per day for 40 years. Alcohol - None. FAMILY HISTORY: Mother with diabetes mellitus. Father of myocardial infarction. Uncle with lung cancer. Grandfather with malignant melanoma. Siblings - Two sisters, including one who of an overdose and one who of a myocardial infarction. Children - A son is well. REVIEW OF SYSTEMS: CONST: No fevers or chills. Fatigue. ENT: No difficulty swallowing. RESP: No shortness of breath. CV: No chest pain. : No urinary symptoms or frequency. MSK: No new joint pain or joint swelling. Back pain and hip pain. H/L/IMM: No easy bruising or bleeding. ENDO: Hot flashes. NEURO: Headaches. #Reviewed past medical history, surgical history, family history, social history. No changes except as noted. PHYSICAL EXAMINATION: CONST: Overall is in usual health and no acute distress. Female. Performance status is 90%. EYES: No icterus. No evidence of conjunctivitis. ENT: No lesion in the oropharynx. Mucosa normally hydrated. RESP: Chest clear to auscultation. Respiration even and unlabored. CV: Heart regular rate and rhythm without murmur. GI: Abdomen soft without mass, tenderness, ascites, or hernia. MSK: Head: Atraumatic. Normocephalic. No edema. SKIN: There is evidence of excoriations on her upper back and what appear to be some excoriated lesions on her scalp. PSYCH: Appropriate mood and affect. NEURO: No speech difficulty. Strength and sensation are grossly intact. Alert and oriented to person, place, and time. BREASTS: The left breast revealed no masses. Right breast revealed scarring of the nipple which is well healed. Reviewed pertinent diagnostic tests, lab work, and imaging. These were reviewed with the patient. ASSESSMENT AND PLAN: This 58-year-old woman is seen in followup for evaluation for ductal carcinoma in situ of the right breast. The patient has been unable to tolerate anastrozole. She was placed on tamoxifen but now notes what she feels are side effects or tamoxifen which includes hot flashes, fatigue, headaches, dry scalp and shallow scalp ulcers. On physical exam, she is noted to have evidence of shallow ulcers which appear to be due to pruritus and scratching the skin of the upper back. I suspect that the shallow scalp ulcers are also related to this. I recommended a mild hydrocortisone cream to decrease inflammation. Since she suffers from ductal carcinoma in situ of the right breast and has been intolerant of anastrozole and tamoxifen, I recommended she discontinue tamoxifen. I will plan to continue to follow her and to follow years mammograms. She will return to see me in six months with a CBC, CMP and mammograms. Disease state, prognosis, and plan were reviewed and discussed with the patient. Questions were addressed and patient verbalized understanding. [email or web address] Not available 06/18/2024 09:11:46 09/15/2024 09/15/2024 Tia's neurolo gical examination today is normal. She has no signs or symptoms of myelopathy, however she does have progressive low back pain, and hip pain that has gotten worse over the last week. Lumbar MRI show Multilevel degenerative changes in the lumbar spine contributing to varying degrees of spinal canal and foraminal stenosis. She already saw Dr. Olvera, and pain clinic ([facility]) . Tia was diagnosed with thyroid cancer back in 2018. And then in 2021 she was diagnosed with breast cancer. She complains today of intermittent numbness and tingling in her left hand and arm. Brain MRI in March 2023, and follow up brain MRI on 12/27/23- both without evidence of brain metastasis or acute intracranial findings. She will continue gabapentin 600 mg 3 times daily. Mechanism of action risk, and benefits of this medication were discussed in detail. Answered all of her questions and concerns. Voiced understanding. [email or web address] Not available 09/15/2024 10:08:11 09/16/2024 09/16/2024 For colonoscopy for screening/polyp surveillance purposes she will follow-up with Dr. Vo's office as recommended. For her known GERD and consequential Anaya's esophagus she will continue on the omeprazole 20 mg once daily. She will be given a full years prescription of this medication at this time. When we see her next year for her annual medication refill we can set up a follow-up EGD for her known Anaya's. We will see her in approximately 1 years time or as needed. She appeared to be perfectly fine with this plan at this point. [email or web address] Not available 09/16/2024 10:13:15 11/19/2024 11/19/2024 Impression: The patient is a 59-year-old female with a medical history most significant for anxiety and depression, GERD, lumbar degenerative disc disease with stenosis, and now with a primary complaint of low back pain with some radiation into her bilateral lower extremities in a roughly L5-S1 distribution occasionally to her feet. Lumbar MRI shows multilevel degenerative changes including some degree of stenosis at L4-5 and L5-S1. She is no longer complaining of lumbar radicular discomfort but does seem to have continued pain localized to the sacroiliac joints and lumbar facet joints and contributing to her entirely axial symptoms. She has seen only mild pain relief from previous lumbar epidural steroid injections and bilateral sacroiliac joint injections but she did have very good pain relief and improvement in her function following bilateral L4-S1 RFA's which she is requesting to repeat if possible. Plan Procedural Interventions: > Scheduled for bilateral L4-S1 RFA with sedation for lumbar facet pain. > If there is ongoing primarily upper buttock pain in the future despite other treatment options then consider trialing a bilateral sacroiliac joint injection in the future. > Risks, benefits, and alternatives were reviewed. Specific risks discussed include bleeding complications, infection, permanent nerve damage, adverse medication effects, and failure to provide pain relief. Patient voiced understanding. > Anticoagulation: None > Pacemaker/Defibrillat or: None Medication Changes: > Can continue with current pain medication per prescribing provider including gabapentin 600 mg 3 times daily by her neurologist. Imaging: > I did discuss with the patient her most recent lumbar x-ray was performed in July 2022. I discussed if she would move forward with another ablation in the future we would most likely have to repeat a lumbar x-ray for updated imaging. Functional Rehabilitation: > Continue with home physical therapy exercises. Complementary Therapies: > None at this time. Referrals: > None at this time. Remarks: > The patient denies red flag symptoms currently and is not requesting any additional surgical evaluations at this time Follow-Up: > All questions were answered. Patient understands they can contact the office with any additional questions or concerns they may have. > We will see the patient back in clinic 8-12 weeks after undergoing the pain interventions discussed above. Subjective Interval History: The patient is a 59-year-old female who presents to the clinic for follow-up with buttock pain. Since her last clinic visit, she is status post lateral L4-S1 RFA's which were performed on 12/28/2023. This provided her 75% pain improvement for approximately 9 months. She states over the course of the last few months her pain has started to worsen again and she would like to repeat ablation if possible. Her current pain is rated a 7 8/10 and is described as a sharp and burning sensation. She does state that intermittently it goes into her bilateral upper buttock area and feels tight as well. She states that bending and twisting do worsen her pain. She does not perform any at home exercises or stretches. She occasionally does take extra strength Tylenol with some relief of symptoms. She also takes gabapentin 3 times daily which is prescribed by her neurologist. She denies any true motor weakness, numbness, tingling to the lower extremities, loss of bowel or bladder function, gait instability or saddle anesthesia. She would like to move forward with repeating bilateral ablations if possible today. Primary Pain Complaint: Imaging and Studies: July 2022 lumbar x-ray ([facility]) FINDINGS: There are 5 lumbar type vertebrae. There is levoconvex lumbar curvature centered at L2-3. There is grade 1 generative retrolisthesis at L1-2 and L2-3. Vertebral body heights are preserved. No evidence of fracture. There is multilevel degenerative disc height loss with endplate osteophytosis, greatest at L2-3 and L5-S1. There is lower lumbar predominant degenerative facet arthropathy. There are atherosclerotic vascular calcifications. There are surgical clips in the right upper quadrant. IMPRESSION: 1. No acute osseous abnormality. 2. Moderate to marked degenerative disc disease and facet arthropathy. 3. Mild levoscoliosis. March 2021 cervical MRI ([facility]) Findings: C3-C4: Mild posterior disc bulge slightly indenting the ventral thecal sac. Moderate right and mild/moderate left hypertrophic facet arthropathy. Mild bilateral uncovertebral joint disease. No spinal canal stenosis. Mild right neuroforaminal stenosis. C4-C5: Slight uncovering of the intervertebral disc with tiny left subarticular disc protrusion slightly indenting the left eccentric ventral thecal sac. Marked right and mild left hypertrophic facet arthropathy. Mild bilateral uncovertebral joint disease. No spinal canal stenosis. Mild right neuroforaminal stenosis. C5-C6: Posterior disc osteophyte complex with central disc protrusion indenting the ventral thecal sac. Mild bilateral facet arthropathy. Mild-moderate bilateral uncovertebral joint disease. Mild spinal canal stenosis. Mild left neuroforaminal stenosis. C6-C7: Posterior disc osteophyte complex with broad-based central disc protrusion eccentric to the left indenting the left eccentric ventral thecal sac. Mild bilateral facet arthropathy. Mild-moderate bilateral uncovertebral joint disease. Mild left eccentric spinal canal stenosis. Mild left neuroforaminal stenosis. Impression: Minimal anterolisthesis C4 on C5 in association with spondylosis and degenerative disc disease of the cervical spine as detailed level by level above. March 2021 thoracic MRI ([facility]) Impression: Anterior and posterior spinal stenosis at T9-10 due to right and left paramidline disc osteophyte changes in conjunction with hypertrophy and thickening of posterior ligaments and facets. Mild deformity of the right and left ventral cord due to these changes. No definite cord impingement with preserved CSF around the cord. Mild multilevel disc degeneration at other levels without compressive disc herniation. No acute osseous abnormality. Per [facility] records from 02/15/2021: Lumbar MRI shows multilevel spondylosis and mid lumbar level scoliosis. Moderate foraminal stenosis at L1-2. Left lateral recess stenosis at L3-4. Bilateral lateral recess stenosis at L4-5. Moderate left foraminal stenosis at L5-S1. Lumbar x-ray shows multilevel spondylosis and lumbar scoliosis. There is mild arthritis to bilateral hips. There is spondylolisthesis of L1 on L2 and L2 on L3 that worsens with extension. 2017 [facility] EM[facility] IMPRESSION: 1. These nerve conduction studies shows severe carpal tunnel compression of the median nerve on the left side, cannot be certain whether this is something to do with the scarring and previous injury and nerve grafting of the median nerve, 30 years back or recurrent of the symptomatology due to new carpal tunnel compression of median nerve. 2. There is mild carpal tunnel compression of the median nerve on the right ,which seems to be asymptomatic 3 there is no cervical radiculopathy, plexopathy or myopathy, on the left 4. There is no evidence of ulnar entrapment neuropathy, on the left 5. There is no evidence of radial sensory neuropathy, on the left 6 there is no definite evidence of any large fiber distal peripheral neuropathy History: The patient is a 55-year-old female with a medical history most significant for anxiety and depression, GERD, and lumbar degenerative disc disease with stenosis, now with a primary complaint of low back pain with some radiation into her bilateral lower extremities in a roughly L5-S1 distribution occasionally to her feet, all of which has been present since around 2013 without any true inciting event. The pain is constant, rated as 8/10, described mostly as a sharp and occasional burning discomfort in her back and into her lower extremities, somewhat worse on the right, all of which seems to worsen with getting up from a sitting position, as well as with doing any kind of strenuous exercise and seems to improve with taking NSAIDs including currently taking meloxicam. She denies any true motor weakness, bowel or bladder incontinence, or saddle anesthesia. Of note, she reports that she has undergone extensive physical therapy for her back pains in the past and has also trialed several neuropathic medications including gabapentin, Lyrica, amitriptyline, and Cymbalta, all of which provided her with significant side effects. She denies having undergone any interventional spine procedures and reports that she has had surgical evaluations with a Dr. Delvalle in the past but she was not found to have any urgent surgical needs. She does report that she has MRI imaging in [facility] system, which we do not currently have and that this was performed in January 2021. At this time, she reports that she would be interested in trialing any procedural interventions that may be helpful for this ongoing pain. Pain Treatment History Conservative Treatments Tried: Activity Modification/Rest Physical Therapy for primary complaint Home Exercise Program / Stretching Ice/Heat Medications Trailed: Acetaminophen NSAIDS meloxicam. Topicals Gabapentin Lyrica Amitryptaline Duloxetine Other Medications medical marijuana. Previous Interventional Pain Procedures: > 12/28/2023: Bilateral L4-S1 RFA 75% pain relief for 9 months with pain scores dropping from 8 out of 10 to approximately 2 out of 10 with increase in improvement in her overall function including being able to walk longer distances. > 09/26/2022: Left L4-S1 RFA - 60% pain relief for 1 year with pain scores becoming much more intermittent during that time and with substantial improvement in her overall function including being able to walk longer distances while she is shopping and having less discomfort when going from a sitting to a standing position. > 09/08/2022: Right L4-S1 RFA - 60% pain relief for 1 year with pain scores becoming much more intermittent during that time and with substantial improvement in her overall function including being able to walk longer distances while she is shopping and having less discomfort when going from a sitting to a standing position. > 07/26/2021: Bilateral sacroiliac joint injections - 25% pain relief for 2 weeks. > 04/12/2021: L5-S1 left paramedian lumbar epidural steroid injection - 25% pain relief for 2 months. > 03/10/2021: L4-5 left paramedian lumbar epidural steroid injection - 25% pain relief for 1 month. Physical Exam GEN: Alert & oriented, sitting in chair comfortably MOOD/AFFECT: Normal HEAD: NC/AT EYES: Pupils equal and round, grossly EOMI ENT: MMM, Trachea midline CV: Acyanotic and well perfused RESP: Unlabored respirations on room air ABDOMEN: Non-distended INTEGUMENT: Warm without evidence of rashes MSK: Gait anantalgic without assistive devices, good functional range of motion in lower extremities, normal curvature of lumbar spine, full ROM in all directions of lumbar spine, bilateral lumbar paraspinal tenderness noted over the facet joints NEURO: Speech fluent, CN II-XII grossly intact, SILT along lower extremities STRENGTH (R, L) Psoas (5, 5) Quads (5, 5) ATib (5, 5) Gastr (5, 5) Hamstring (5, 5) PROVOCATIVE MANEUVERS Lumbar Facet Loading-positive bilaterally SIJ TTP-positive bilaterally Troch Bursa TTP-neg b/l SLR supine-neg b/l GINETTE (Pj's)-positive bilaterally Pelvic Distraction-positive bilaterally Thigh Thrust-positive bilaterally Chief Complaint The patient presents to the office today with low back and upper buttock pain. [email or web address] Not available 11/19/2024 09:38:47 Plan of Treatment Reminders Order Date Submit Date Provider Last Modified By Organization Details Last Modified Time Details Appointments Establish ed Patient 20.EST 2024 10:40A M Shania Marshall Not available Not available Not available Establish ed Patient 15.EST 2024 01:45P M Dr. Ubaldo Sanchez Not available Not available Not available Establish ed Patient 30.EST 2024 08:30A M Bud Packer Not available Not available Not available Lab vitamin B12, serum [address] [facility] [place] [address] (Radiology), [facility] [place], [address], 10/21/2024 12:55:31 immunofix ation, serum 2024 025 [facility] (Radiology), [facility] [place], [address], 09/23/2024 17:21:15 treponema pallidum screen, serum, reflex confirmat ion [address] Lab, [facility] [place], [address], 11/28/2024 08:54:23 Referral None recorded. Procedures None recorded. Surgeries None recorded. Imaging None recorded. Medication Orders omeprazol e 20 mg capsule,d elayed release 2024 025 [facility], [address] [place], [address], 09/16/2024 10:15:02 gabapenti n 600 mg tablet 2024 025 [facility], [address] [place], [address], 09/15/2024 10:24:32 pregabali n 150 mg capsule 2024 025 [facility], [address] [place], [address], 11/19/2024 09:13:30 Patient TargetsNo targets recorded. Patient InstructionsNo instructions recorded. Reason for Referral None Reported. Results Created Date Observation Date Name Description Value Unit Range Abnormal Flag Note LastModifiedBy Organization Detail LastModifiedTime 07/08/20 24 09/13/2022 USAMAO , héctor gutiérrez, digit al, bilat eral No observ ation record ed. [email or web address] Not Available 2023 09:55:19 Result Notes None recorded. Problems Name Problem SNOMED Code Status Onset Date Resolution Date Notes Provider Name and Address Organization Details Recorded Time Long-term current use of aromatase inhibitor 9505037724284 00 [facility] 09:10[facility]36 Follow-up encounter Active 2023 Serena Zambrano [facility], [facility] 4 17:04:34 Neuropathic pain 656539185 Active 2024 Sharri Oneal [facility] 5 10:16:12 Gastroesoph ageal reflux disease without esophagitis 529849475 Active 2024 Johnathon Galo APRN, MEAT [employer]LTRY INSPECT[employer] [address] [place] [address], [phone], [facility] 5 10:13:19 Anaya's esophagus 907612650 Active 2024 Johnathon Galo APRN, MEAT [employer] P[employer]LTRY INSPECTOR [address] [place] [address], [address], [facility] 5 10:13:27 Neuropathy 553436765 Active 2024 Eliazar Morgan [facility] 5 10:35:39 Neuralgia 36573740 Active 2024 Eliazar Morgan [facility] 5 10:35:40 Bilateral sacroiliac joint pain 7060632764371 9104 Active 2024 Rosana Alford , STRUCTURES ASSEMBLER [address] [place] [address], [address], [facility] 5 09:30:03 Lumbar facet joint pain 917804642 Active 2024 Rosana Alford APN [address] [place] [address], [phone], [facility] 5 09:30:10 Lumbosacral spondylosis 528455928 Active 2024 [facility] 5 12:27:27 Hypothyroid ism 23708070 Active 2023 Charlie Suzi [facility] 4 15:44:39 Papillary thyroid carcinoma 213848086 Active 2023 [facility] 4 15:44:50 Postoperati ve hypothyroid ism 68937575 Active 2023 [facility] 4 15:44:57 Problem Notes None recorded. Procedures Surgical History Date Name Laterality Status Provider Name and Address Organization Details Recorded Time 11/29/19 25 SC Operative Report completed August Gunn MD [address] [place] [address], [phone], [facility] 11/28/2024 15:39:48 07/24/20 24 Colonoscopy with biopsy completed Shonna Ball [facility] 07/29/2024 11:14:42 12/27/19 22 lumpectomy of right breast completed Perez Ibarra [facility] 12/24/2023 10:35:47 Removal of gallbladder completed Not Available Health Note 12/22/2023 10:49:21 Imaging Results Imaging Date Name Status LastModified by Organiz ation Details LastModified Time 09/13/2022 MAMMO, screening, digital, bilateral completed [email or web address] Information not available 07/08/2024 09:55:19 Procedure Notes None recorded. Medical Equipment None Reported. Allergies Allergen ID Allergen Name Allergen Category Reaction Reaction Severity Criticality Documentation Date Start Date Code Code System Note Provider Name and Address Organization Details Recorded Time 861596 Non-stero idal anti-infl ammatory agent (product) medicatio n nausea moderate high 10/01/20232017 89359 005 SNOMED React ion: Nause a; Not Available Not Available Not Available Medications Name Sig Start Date Stop Date Status Note LastModified by Organization Details LastModified Time atorvasta tin 40 mg tablet Take 1 tablet every day by oral route for 90 days. active Not Available Not Available No t Available gabapenti n 600 mg tablet Take 1 tablet 3 times a day by oral route for 90 days. 2024 active Not Available Not Available Not Avai lable atorvasta tin 20 mg tablet 12/23 completed Not Available Not Available Not Available prednison e 20 mg tablet TAKE 1 TABLET BY MOUTH TWICE A DAY 11/19 completed Not Available Not Available Not Available clonazepa m 1 mg tablet *02/11*TA KE 1 TAB BY MOUTH NEEDED FOR ANXIETY ATTACKS, UP TO ONCE A DAY 12/23 completed Not Available Not Available Not Available levothyro xine 88 mcg tablet Take 1 tablet every day by oral route. 10/17 completed Not Available Not Available Not Available Synthroid 75 mcg tablet TAKE 1 TAB PO QD ON AN EMPTY STOMACH 2024 active Not Available Not Available Not Avai lable omeprazol e 20 mg capsule,d elayed release TAKE 1 CAPSULE EVERY DAY 2024 active Not Available Not Available Not Avai lable levofloxa harmeet 500 mg tablet TAKE 1 TABLET BY MOUTH EVERY DAY 09/15 completed Not Available Not Available Not Available albuterol sulfate HFA 90 mcg/actua tion aerosol inhaler INHALE 2 PUFFS 4 TIMES A DAY NEEDED FOR SHORTNES S OF BREATH OR FOR WHEEZE active Not Available Not Available No t Available ondansetr on 4 mg disintegr ating tablet TAKE 1 TABLET BY MOUTH EVERY 8 HOURS NEEDED FOR NAUSEA 09/15 completed Not Available Not Available Not Available tamoxifen 20 mg tablet Take 1 tablet every day by oral route. active Not Available Not Available No t Available metoclopr amide 10 mg tablet TAKE 1 TABLET BY MOUTH EVERY 6 HOURS NEEDED FOR NAUSEA AND VOMITING 09/15 completed Not Available Not Available Not Available amoxicill in 875 mg-potass ium clavulana te 125 mg tablet TAKE 1 TABLET BY MOUTH EVERY 12 HOURS active Not Available Not Available No t Available buspirone 15 mg tablet Take 1 tablet every day by oral route for 90 days. 09/15 completed Patient stopped Not Available Not Available Not Available pregabali n 150 mg capsule Take 1 capsule every day by oral route in the evening. 11/19 completed Not Available Not Available Not Available Vitals Date Recorded Body height Heart rate Oxygen saturation Oxygen saturation in Arterial blood by Pulse oximetry Pain severity - 0-10 verbal numeric rating [Score] - Reported Heart rate Respiratory rate Body temperature Body mass index (BMI) Body weight Systolic blood pressure Diastolic blood pressure Provider Name and Address Organization Details Last Updated DateTime 4 165.1 cm 80 /min 94 % 94 % 0 80 /min 16 /min 97.7 [degF] 25.9 kg/m2 98340.9 7 g 134 mm[Hg] 60 mm[Hg] Serena Nashal [facility] 4 17:04:46 Date Recorded Body height Body mass index (BMI) Body weight Heart rate Oxygen saturation Oxygen saturation in Arterial blood by Pulse oximetry Systolic blood pressure Diastolic blood pressure Provider Name and Address Organization Details Last Updated DateTime 5 165.1 cm 26 kg/m2 53316.1 3 g 84 /min 96 % 96 % 134 mm[Hg] 80 mm[Hg] Sharri Oneal [facility] 5 10:14:56 Date Recorded Body height Body mass index (BMI) Body weight Systolic blood pressure Diastolic blood pressure Provider Name and Address Organization Details Last Updated DateTime 09/16/2024 165.1 cm 25 kg/m2 90896.86 g 120 mm[Hg] 80 mm[Hg] Johnathon Galo, SUBSTATION OPERATOR CONVERSION, MEAT AND POULTRY INSPECTOR [address] [place] [address], [phone] [place] [address] 5 10:10:07 Date Recorded Body height Body mass index (BMI) Body weight Provider Name and Address Organization Details Last Updated DateTime 11/19/2024 165.1 cm 25.7 kg/m2 67409.94 g Katie Fischer [facility] 11/19/2024 09:11:04 Social History Question Answer Notes LastModified by Organizat ion Details LastModified Time Tobacco Smoking Status Current Every Day Smoker Serena Zambrano [facility] 06/17/2024 17:07:16 Do You Have An Advance Directive? No [email or web address] Information not available 01/08/2024 What Is Your Level Of Alcohol Consumption? None [email or web address] Information not available 01/08/2024 What Is Your Level Of Caffeine Consumption? Moderate [email or web address] Information not available 01/08/2024 Are You Currently Employed? No [email or web address] Information not available 01/08/2024 Which Illicit Or Recreational Drugs Have You Used? 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 5-7 Times Per Week [email or web address] Information not available 01/08/2024 Smokeless Tobacco? Former Smokeless Tobacco User [email or web address] Information not available 01/08/2024 How Many Packs Per Day (PPD)? 1 Pack Per Day [email or web address] Information not available 12/22/2023 How Long Have You Smoked? 45years [email or web address] Information not available 12/22/2023 Do You Have A Medical Power Of Manager Lean? No [email or web address] Information not available 01/08/2024 What Was The Date Of Your Most Recent Tobacco Screening? 01/15/2024 [email or web address] Information not available 01/08/2024 What Is Your Relationship Status? [email or web address] Information not available 01/08/2024 Do You Use Any Illicit Or Recreational Drugs? Yes Information not available 09/15/2024 Sex: Unknown Functional Status Question Answer Note LastModified by Organization D etails LastModified Time What is your exercise level? Moderate [email or web address] Information not available 01/08/2024 Mental Status None recorded. Family History Relationship Description Onset Age of this Age Resolved Age Notes LastModified by Organization Details LastModified Time Mother Diabetes mellitus [email or web address] Not available 2023 10:49:20 Medical History Condition Response High Blood Pressure N COPD N Depression N Anxiety Disorder Y Arthritis Y Cancer Y Stroke N Fibromyalgia N Kidney Disease N Attention-deficit Hyperactivity Disorder N Thyroid Problems Y Anemia N Diabetes N Bleeding Disorder N Hyperlipidemia N Asthma N Seizures N Heart Disease N Osteoporosis N Gynecological HistoryNo gynecological history recorded. Obstetrics History GPAL:G 0 P 0 0 0 0 Immunizations Vaccine Type Date Status Note Provider Nam e and Address Organization Details Recorded Time Influenza, split virus, quadrivalent, preservative 8 completed [facility] 17:05:47 Influenza, split virus, quadrivalent, preservative 9 completed Serena Kenya null, [facility] 06/17/2024 17:05:47 Influenza, MDCK, quadrivalent, PF 1 completed [facility]24 17:05:47 Influenza, MDCK, quadrivalent, PF 3 completed [facility] 06/17/2024 17:05:47 zoster recombinant 1 completed [facility] 06/17/2024 17:05:47 zoster recombinant 1 completed [facility] 06/17/2024 17:05:47 MMR 6 completed Serena Kenya [facility] 06/17/2024 17:05:47 COVID-19, mRNA, LNP-S, PF, 30 mcg/0.3 mL dose 1 completed Serena Kenya [facility] 06/17/2024 17:05:47 COVID-19 vaccine, vector-nr, rS-Ad26, PF, 0.5 mL 1 completed [facility] 06/17/2024 17:05:47 COVID-19, mRNA, LNP-S, bivalent, PF, 30 mcg/0.3 mL dose 2 completed [facility] 06/17/2024 17:05:47 COVID-19, mRNA, LNP-S, PF, jewel-sucrose, 30 mcg/0.3 mL 3 completed Serena Kenya null, [facility] 06/17/2024 17:05:47 Td (adult), 2 Lf tetanus toxoid, preservative free, adsorbed 6 completed Serena Kenya null, [facility] 06/17/2024 17:05:47 Influenza, split virus, quadrivalent, PF 7 completed Serena Kenya null, [facility] 06/17/2024 17:05:47 Influenza, split virus, quadrivalent, PF 0 completed Serena Kenya null, [facility] 06/17/2024 17:05:47 Influenza, split virus, quadrivalent, PF 2 completed Serena Kenya null, [facility] 06/17/2024 17:05:47 Past Encounters Encounter ID Performer Location Encounter Start Date Encounter Closed Date Diagnosis/Indication Diagnosis SNOMED-CT Code Diagnosis ICD10 Code Diagnosis Note [id number] Eryn Glover MD, [address] [place] ([place]) [address] [place] [address],[address] [place] [address] 12/24/2023 10:01:56 12/24/2023 12:49:35 Follow-up encounter [id number] Z08 [id number] Neal Paz M.D. [facility] ([place]) [address] [place] [address] 01/15/2024 10:24:55 01/15/2024 11:33:43 Papillary thyroid carcinoma 113867285 C73 Postoperat maxwell hypothyroidism 45565053 E89.0 [id number] Ubaldo Sanchez MD [facility] Specialty Oncology/ H[place]olog [place] ([place]) [address] [place] [address] 06/17/2024 14:20:27 06/17/2024 17:08:05 Long-term current use of aromatase inhibitor [id number] 69651 Z79.811 M85.80 [id number] [facility] [address] [place] [address] 09/15/2024 09:51:21 09/15/2024 10:26:13 Neuralgia 81896071 M79.2 Neuropathy 481838383 G62 .9 Long-term current use of drug therapy 976895547 Z79.899 [id number] Johnathon Galo, SUBSTATION OPERATOR CONVERSION, MEAT AND POULTRY INSPECTOR [address] [facility] [facility] ([place]) [address] [facility],[address] [place] [address] 09/16/2024 09:54:44 09/16/2024 11:26:06 Gastroesophageal reflux disease without esophagitis 541381321 K21.9 Anaya's esophagus 3029 [address]66 K22.70 History of adenomatous polyp of colon 817942334 Z86.0101 Screening for malignant neoplasm of large intestine 258259788 Z12.11 Z12.12 [id number] August Gunn MD [address] [facility] ([place]) [address] [place] [address] 11/19/2024 09:06:24 11/19/2024 15:34:30 Bilateral sacroiliac joint pain 1712304821 4381320 M53.3 Lumbar fac et joint pain 709290726 M54.59 [id number] August Gunn MD [facility] [address] [place] [address], [address] [place] [address] 11/28/2024 13:03:22 12/01/2024 18:24:23 Health Concerns Section Related Observation LastModified by Organization Detai ls LastModified Time None Recorded Concern Status LastModified by Organization Details LastModified Time None Recorded Advance Directives Directive N: Payers Encounter Date Sequence Insurance Name Policy Number Policy Gonsalves Covered Member ID Gonsalves Member ID Guarantor Name 06/17/2024 1 [place] Tia Malone Link [id number] Tia Madonna Link 06/17/2024 2 [place] [facility] Tia Malone Link [id number] Tia Peacock Link 09/15/2024 1 [place] Malone Link [id number] Tia Peacock Link 09/15/2024 2 [place] [facility] Tia Malone Link [id number] Tia Peacock Link 09/16/2024 1 [place] Malone Link [id number] Tia Peacock Link 09/16/2024 2 [place] [facility] Tia Malone Link [id number] Tia Peacock Link 11/19/2024 1 [place] Tia Malone Link [id number] Tia Peacock Link 11/19/2024 2 [place] [facility] Tia Malone Link [id number] Tia Peacock Link 11/28/2024 1 [place] Tia Malone Link [id number] Tia Peacock Link 11/28/2024 2 [place] [facility] Tia Malone Link [id number] Tia Garcia Notes Date Note Type Note Provider Name and Address Organization Details Recorded Time text/html Tia Garcia is a 59-year-old woman, I am seeing for follow-up regarding neuralgic pain, numbness and tingling. Previous clinic notes 12/13/2023 Tia Garcia is a 59-year-old female with medical history of Hyperlipidemia, Anxiety, Depression, Smoking, Thyroid cancer s/p surgery, GERD was seen in neurology clinic initially in May, for neck pain, back pain and worsening left arm weakness. Patient has chronic neck pain, had carpal tunnel syndrome related to injury to left arm, she had vascular surgery and nerve graft after that. She has residual scar around left wrist, her median nerve was sacrified at that time according to patient. She had bilateral wrist pain, left worse than right, she dropped things from both hands, chronic atrophy of thenar muscles in left hand. She had EMG in May, by Dr. Chou which showed severe carpal tunnel syndrome on left, related to previous injury and scar without evidence of plexopathy or radiculopathy. MRI of C spine was performed which showed spondyloarthropathy at C5-6 with mild canal stenosis, disc bulging. She also had MRI L spine which showed lumbar DJD and canal stenosis at L4-5. She was referred to Neurosurgery but she refused surgery due to poor chances for benefit, as it was quoted possibly 20% chances that she would get better with L3-S1 fusion. She was eventually started on Gabapentin 1200 mg three times daily and Cymbalta 60 mg daily. In June,, we started her on Lyrica in addition due to continued pain. Due to weight gain, Lyrica and Gabapentin were stopped by the patient. She was eventually managing her pain with Tramadol and Lonepine. She was referred to pain management during last visit and was requested to see us as needed. Interval history 03/15/2020 Patient returns to clinic for follow up. She has stopped her Cymbalta. She has also tried Venlafaxine for mood issues but did not have benefit. She is trying to assistant product manager her pain with Tylenol and recreational marijuana. She never saw commercial painter after last visit. She denies any new onset of weakness, numbness or difficulty with bladder control. She denies of any falls since last visit. I discussed with patient that her pain is multifactorial, her neck pain and back pain is related to degenerative disease. She also has spinal canal stenosis and foraminal stenosis which contributes to neurogenic and radicular pain at times. She had no benefit with neuropathic pain medications which is why we referred her to pain specialist. Interval history 06/30/2020Tia declined previous referral to pain management clinic. She said she was there a few years ago and they did not help her. She complains today of intermittent mild to moderate back pain more towards the left side of her hip. She was not able to tolerate gabapentin in the past therefore she discontinued it. She is also unable to tolerate the side effects of Cymbalta so she also discontinued this. At the moment she is currently managing pain Tylenol, and cannabis and this seemed to be helping a lot. She have a history of lumbar foraminal stenosis. Interval history 12/29/20: Tia presents today for follow-up regarding low back pain and hip pain. She have a history of lumbar spinal canal stenosis, but states that her pain have progressively gotten worse over the last week. There is constant pain in her low back that affects walking and balance. Bowel and bladder function are intact. She is she says this is a new pain, and she describes constant, stabbing pain that radiates to her legs. Bilateral hip x rays in July 2020 show : Mild bilateral symmetric degenerative osteoarthritic change of the hips. Tylenol, and cannabis helps minimally with low back, and hip pain. Interval history 04/28/21 Presents for follow up regarding back, and hip pain. She was asking for tramadol today. Have seen dr. Olvera, also seeing pain clinic. Reviewed recent Lumbar spinal MRI 01/06/21: Multilevel degenerative changes in the lumbar spine contributing to varying degrees of spinal canal and foraminal stenosis, as detailed below. Likely reactive/degenerative edema along the lumbar endplates. Mid lumbar levoscoliosis. Mid lumbar levoscoliosis. Left lateral listhesis of L2 on L3. Grade 1 retrolisthesis of L1 on L2 and L2 on L3. Otherwise the lumbar vertebral alignment, vertebral body heights, and facet alignment are maintained. Multilevel degenerative changes are seen in the lumbar levels with disc degeneration, endplate osteophytes, ligamentum flavum thickening, and facet hypertrophy evident. Multilevel disc desiccation and loss of disc height. Likely reactive/degenerative edema about the L1-L2, L2-L3, and L5-S1 endplates. Imaged portions of the soft tissues reveal no definite acute findings. T11-T12 and T12-L1: Disc bulges, evaluated only on sagittal images. L1-L2: Slight retrolisthesis. Disc bulge. Superimposed right subarticular/foraminal herniation. Ligamentous/facet hypertrophy. Asymmetric flattening of the right lateral recess and encroachment of the traversing right L2 nerve root. Moderate foraminal narrowing. L2-L3: Slight retrolisthesis. Disc bulge with extension into the foramina. Ligamentous/facet hypertrophy. Flattening of the ventral thecal sac. Minimal canal stenosis. Mild right and minimal left foraminal narrowing. L3-L4: Disc bulge with extension into the foramina. Possible superimposed small left subarticular/foraminal protrusion. Ligamentous/facet hypertrophy. Asymmetric flattening of the left lateral recess and abutment of the traversing left L4 nerve root. Mild foraminal narrowing. L4-L5: Disc bulge with extension into the foramina. Ligamentum flavum thickening. Prominent facet arthropathy with increased fluid signal within the facet joints. Bilateral lateral recess and mild canal stenosis. Mild foraminal narrowing. L5-S1: Disc bulge with extension into the foramina. Posterior and marginal endplate osteophytes. Facet hypertrophy. Flattening of the ventral thecal sac without significant canal stenosis. Moderate left foraminal narrowing. Interval history 08/02/21 Managed at the [facility], pain clinic. She is also seeing Dr. Olvera degenerative disc disease. Dr. Olvera won't to do surgery until she quit smoking. She smokes a pack per day. She admits to mild depression, but denies suicidal, or homicidal ideations. A lot of stressors in her life, primarily taking care of her very sick mother and her poorly controlled diabetes. She had several trips to the hospital over the last few months. Interval history 06/05/22 Presents today for follow-up regarding neuropathy, neuralgic pain. Unfortunately she is dealing with other medical issues. In December she was diagnosed with of breast cancer. She underwent right lumpectomy, and eventually radiation therapy. She will smokes about a half a pack per day. She has not seen for about a year now. She wants to deal with her breast cancer diagnosis, and deal with her minor medical issues later on. Interval history 11/08/2022 Tia presents for follow-up today regarding neuropathy and neuralgic pain. She goes to [facility] pain center. In December she was diagnosed with breast cancer. She underwent right lumpectomy, and eventually radiation therapy. States [facility] is managing her neuralgic pain pretty well. No new concerns today. Interval history 02/08/2023 Tia presents for follow-up today regarding neuralgic pain Tia states that she was diagnosed with thyroid cancer in 2018 In 2021 she was diagnosed with breast cancer. Today she complains of intermittent numbness and tingling in her left hand, sometimes the entire arm. It only last a few minutes and then she goes back to normal if this happened twice since her last visit.. She has had no seizure, or seizure-like activity. She has had no episodes of confusion, bowel or bladder incontinence. Interval history 05/23/2023 Tia presents for follow-up today regarding neuralgic pain. She have a history of thyroid cancer diagnosed 2017, and breast cancer diagnosed in 2021. Brain MRI with and without contrast performed 03/12/2023 without acute intracranial findings. There is no evidence of brain metastasis. For neuralgic pain, she takes gabapentin 600 mg 3 times daily. She is pretty happy with the current dose of gabapentin and wants to continue this medication. Interval history 12/13/23Tia presents for follow-up today regarding neuralgic pain, and neuropathy, that is responsive to current dose of gabapenitn 600 mg TID. She have a history of thyroid cancer diagnosed 2017, and breast cancer diagnosed in 2021. Brain MRI with and without contrast performed 03/12/2023 - no evidence of metsShe describes new onset headache that begun about 6 months agoShe describes 1 or 2 dull headaches per week, and 1 or 2 bad headaches every 2 weeks. Interval history 09/15/24Tia presents for neuropathy, and neuralgic pain.For neuralgic pain, she takes gabapentin 600 mg 3 times daily.Current dose of gabapentin helping with neuralgic pain, numbness, and tingling in LE.No new concerns. Tia was diagnosed with thyroid cancer back in 2018. And then in 2021 she was diagnosed with breast cancer. She complains of intermittent numbness and tingling in her left hand and arm. Brain MRI in March 2023, and follow up brain MRI on 12/27/23- both without evidence of brain metastasis or acute intracranial findings. Elida Javier MD [address] [place] [address], [phone], [facility] 09/16/2024 11:08:39 5 text/html 59-year-old woman here for annual medication refill. She has known GERD with consequential Anaya's esophagus.She does feel she is not having any significant breakthrough heartburn, acid ingestion, or sour stomach. For many years when she is eating denser foods such as meat she make sure to eat slower, cuts her food up for a while and the small pieces when she does that she really has no significant dysphagia. She has had this for many, many years. She tells me she certainly was having this with her last EGD for Anaya's surveillance done by Dr. Ji in March 2023. 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 Vo in July 2024 it sounds like somewhere in satellite clinic outside of [place]. Sounds like she had some adenomatous colonic polyps so that, she was told to have a follow-up colonoscopy by him in 3 years.From a GERD standpoint she feels she is doing quite well.She takes omeprazole 20 mg once daily. Johnathon Galo, SUBSTATION OPERATOR CONVERSION, MEAT AND POULTRY INSPECTOR [address] [place] [address], [phone], [facility] 09/16/2024 10:14:46 5 text/html [facility] HPIReported bypatient.The history and physical review:The history and physical dated 11/19/2024 has been reviewed, the patient has been examined and no change has occurred in the patient's condition since the history and physical was completed. Pre-Procedure Diagnosis:M47.897 Date of Procedure:11/28/2024 Proposed Procedure/Surgery:B/L L4-S1 RFA's Physician Performing the Procedure:Dr. Gunn Proposed Anesthetic:IV Conscious Sedation August Gunn MD [address] [place] [address], [phone], [facility] 11/28/2024 15:39:52 OBGyn Episode No OBEpisode recorded.
--- OUTSIDE RECORDS SUMMARY | 2024-12-01 17:52 | XMS_ITS | Clinical Summary ---
Author Organization [facility] Address [address] [place] [address] Care Team Providers Care Auction Clerk Name Role Phone Cely Rivera [facility] Primary Care Provider [phone] Allergies Active Allergy Reactions Criticality Noted Date Comments Nsaids Other (see comment),Unknown 05/15/2017 Anaya's esophagus Barretts esophagus: Recoommended againts taking. Barretts esophagus: Recoommended againts taking. Medications levothyroxine 88 MCG tabletIndications: Hypothyroidism Take 1 tablet (88 mcg total) by mouth every morning. Indications: Underactive Thyroid Active Acetaminophen (TYLENOL EXTRA STRENGTH OR) Take 500 mg by mouth as needed. Active atorvastatin 20 MG tablet Take 1 tablet (20 mg total) by mouth daily. 09/26/19 22 Active gabapentin 600 MG tablet Take 1 tablet (600 mg total) by mouth 3 (three) times daily. 11/05/19 22 Active omeprazole (PRILOSEC) 20 MG capsule Take 1 capsule (20 mg total) by mouth daily. Active ondansetron (ZOFRAN-ODT) 4 MG disintegrating tablet Take 1 tablet (4 mg total) by mouth every 8 (eight) hours as needed for Nausea. 20 tablet 07/13/20 24 Active Active Problems Problem Noted Date Diagnosed Date Herniated cervical disc without myelopathy 09/20 Lumbar degenerative disc disease 09/20/2017 Lumbar foraminal stenosis 09/20/2017 Chronic lumbar pain 09/20/2017 Cervical radiculopathy 08/22/2017 Lumbar radicular pain 08/22/2017 Carpal tunnel syndrome 06/21/2017 Paresthesia and pain of both upper extremities 0 05/22/2017 Chronic back pain 05/15/2017 Left hand weakness 05/15/2017 Resolved Problems Problem Noted Date Diagnosed Date Resolved Date Encounter for preventive health examination 07/02/2014 05/14/2020 Immunizations Name Administration Dates Next Due MMR 02/13/1996 Family History Medical History Relation Comments Dementia Mother Depression Mother Diabetes Mother Relation Status Comments Father Alive no info Mother Alive Social History Tobacco Use Types Packs/Day Years Used Date Smoking Tobacco: Every Day Cigarettes 0.5 40 Smokeless Tobacco: Never Tobacco Cessation:Ready to Q uit: Not Asked; Counseling Given: Not Answered Comments:PCP top address Alcohol Use Standard Drinks/Week Comments No 0 (1 standard drink = 0.6 oz pur e alcohol) PHQ-2 Answer Date Recorded PHQ-2 Score - If the patient scores above 3, please move on to questions 3-9 1 06/05/2022 Comments No Sex and Gender Information Value Date Recorded Sex Assigned at Female 11/14/2018 10:45 AM CDT Legal Sex Female 1:36 AM CDT Gender Identity Female 11/14/2018 10:45 AM CDT Sexual Orientation Not on file Last Filed Vital Signs Vital Sign Reading Time Taken Comments Blood Pressure 120/61 07/24/2024 12:46 PM DESK MANAGER Pulse 60 07/24/2024 12:46 PM DESK MANAGER Temperature 36.4 C (97.5 F) 07/24/2024 12:46 PM DESK MANAGER Respiratory Rate 16 07/24/2024 12:46 PM DESK MANAGER Oxygen Saturation 100% 07/24/2024 12:46 PM DESK MANAGER Inhaled Oxygen Concentration - - Weight 70.8 kg (156 lb) 07/24/2024 11:16 AM DESK MANAGER Height 165.1 cm (5' 5 ) 07/24/2024 11:16 AM DESK MANAGER Body Mass Index 25.96 07/24/2024 11:16 AM DESK MANAGER Plan of Treatment Health Maintenance Due Date Last Done Comments Cervical Cancer Screening Pap Smear (Age 30 to 64) Every 3 Years 1963 Annual Physical 1966 Pneumococcal Vaccine: Pediatrics (0 to 5 Years) and At-Risk Patients (6 to 64 Years) (1 of 2 - PCV) 1969 Hepatitis C 1981 Cervical Cancer Screening Pap with HPV Testing (Age 30 to 64) Every 5 Years 1993 Cervical Cancer Screening with HPV 1993 DTaP, Tdap and Td Vaccines (1 - Tdap) 02/07/1996 02/06/1996 Mammogram Screening 2003 RSV Immunization or 60+ Years (1 - Risk 60-74 years 1-dose series) 2023 COVID-19 Vaccine ( season) 2024 06/02/2023, 05/10/2022, 08/03/2021, Additional history exists Influenza Adult (#1) 2024 06/02/2023, 07/03/2022, 05/04/2021, Additional history exists Colorectal Cancer Screening Colonoscopy (10 Years) 07/24/2034 07/24/2024, 07/24/2024 Zoster Vaccines Completed 07/08/2021, 05/04/2021 Meningococcal B Vaccine Aged Out No l onger eligible based on patient's age to complete this topic Meningococcal Vaccine Aged Out No barry jose luis eligible based on patient's age to complete this topic RSV Immunizations Under 20 Months Aged Out No longer eligible based on patient's age to complete this topic Medical Devices Implanted Type Area Datawarehouse Developer Device Identifier Shelf Expiration Date Model / Serial / Lot Lens Lens Description:Right IOL Screw Acutrak 2 Mini 22.0mm - [id number] Implanted:Qty: 1 on 10/13/2020 by Jb Owens DPM at [facility] Screw Right: Toe ACDotBluD Axxana [id number] 04/30/2025 AT2-M22-S / / [id number] Screw Acutrak 2 Mini 26.0mm - [id number] Implanted:Qty: 1 on 10/13/2020 by Jb Owens DPM at [facility] Screw Right: Toe ACUMED Axxana [id number] 07/15/2026 AT2-M26-S / / [id number] Screw Locking Hexalobe Acumed 3.5 X 14mm - [id number] Implanted:Qty: 1 on 10/13/2020 by Jb Owens DPM at [facility] Screw Right: Toe [employer]UMED Axxana 30 / / N/A Screw Locking Hexalobe Acumed 3.5 X 22mm - [id number] Implanted:Qty: 1 on 10/13/2020 by Jb Owens DPM at [facility] Screw Right: Toe [employer] 30 / / N/A Screw Minitrak 24.0mm Medsource - Sn/A Implanted:Qty: 1 on 11/29/2018 by Jb Owens DPM at [facility] Right: Foot [employer] 09/16/2024 AT2-M24-S / N/A / [id number] Screw Acutrak 2 Micro 12mm - Sn/A Implanted:Qty: 1 on 11/29/2018 by Jb Owens DPM at [facility] Right: Foot [employer] 06/11/2025 AT2-C12-S / N/A / [id number] Screw Acutrak 2 Micro 12mm - Sn/A Implanted:Qty: 1 on 03/21/2019 by Jb Owens DPM at [facility] Left: Foot [employer] 12/22/2025 AT2-C12-S / N/A / [id number] Screw Acutrak 2 Mini 22.0mm - Sn/A Implanted:Qty: 1 on 03/21/2019 by Jb Owens DPM at [facility] Left: Foot [employer] 02/06/2025 AT2-M22-S / N/A / [id number] Explanted Type Area Datawarehouse Developer Device Identifier Shelf Expiration Date Model / Serial / Lot Drill Acumed Mini - [id number] Explanted:Qty: 1 on 10/13/2020 by Jb Owens DPM at [facility] Drill Right: Toe [employer] [facility] [id number] / / N/A Bit Drill 5in 2.3mm Surgibit Ankle Quick Release - [id number] Explanted:Qty: 1 on 10/13/2020 by Jb Owens DPM at [facility] Drill Right: Toe [employer] [facility] [id number] / / N/A Plate Tack Medsource - [id number] Explanted:Qty: 2 on 10/13/2020 by Jb Owens DPM at [facility] Plate Right: Toe [employer] PL-PTACK / / N/A .045mm Guide Wire (Mini) Explanted:Qty: 2 on 11/29/2018 at [facility] Right: Foot [employer] WS-1106ST / N/A / N/A .035mm Guide Wire (Micro) Explanted:Qty: 1 on 11/29/2018 at [facility] Right: Foot [employer] WS-0906ST / N/A / N/A Sm Cannulated Drill Tip (Micro) Explanted:Qty: 1 on 11/29/2018 at [facility] Right: Foot [employer] AT2-1509 / N/A / N/A Small Cannulated Drill Tip (Mini) Explanted:Qty: 1 on 11/29/2018 at [facility] Right: Foot [employer] [id number] / N/A / N/A .045mm Guide Wire (Mini) Explanted:Qty: 1 on 03/21/2019 at [facility] Left: Foot [employer] WS-1106ST / N/A / N/A .54mm Guide Wire (Std) Explanted:Qty: 1 on 03/21/2019 at [facility] Left: Foot [employer] WS-1407ST / N/A / N/A Small Cannulated Dirll Tip (Micro) Explanted:Qty: 1 on 03/21/2019 at [facility] Left: Foot [employer] AT2-1509 / N/A / N/A Small Cannulated Drill Tip (Mini) Explanted:Qty: 1 on 03/21/2019 at [facility] Left: Foot [employer] [id number] / N/A / N/A .035mm Guide Wire (Micro) Explanted:Qty: 2 on 03/21/2019 at [facility] Left: Foot [employer] WS-0906ST / N/A / N/A .045mm Guide - Wire Explanted:Qty: 2 on 10/13/2020 by Jb Owens, EDUARDA at [facility] Right: Toe WS-1106ST / / N/A Screw Acutrak 2 Mini 20.0mm - [id number] Implanted:Qty: 1 Explanted:Qty: 1 on 10/13/2020 at [facility] Right: Toe [employer] 04/15/2027 AT2-M20-S / / [id number] X 6inch Guide Wire Explanted:Qty: 2 on 10/13/2020 by Jb Owens, DPM at [facility] Right: Toe WS-1607ST / / N/A Mtp- Reamer Explanted:Qty: 1 on 10/13/2020 by Jb Owens, EDUARDA at [facility] Right: Toe MTP-REAMER / / N/A Procedures Procedure Name Priority Date/Time Associated Diagnosis Comments COLONOSCOPY 07/24/2024 11:10 AM DESK MANAGER from Last 3 Months or Most Recently Relevant to Health Maintenance Results * Colonoscopy (07/24/2024 11:10 AM DESK MANAGER) Jack Vo MD GI PROCEDURE ORDERABLES Final Result from Last 3 Months or Most Recently Relevant to Health Maintenance Insurance MEDICARE MEDICAID Care Teams Auction Clerk Relationship Specialty Start Date End Date Cely Rivera FNP-BC [address] [place] [address] PCP - General NURSE PRACTITIONER 02/27/18
--- OUTSIDE RECORDS SUMMARY | 2024-12-01 18:04 | XMS_ITS ---
Author Organization Unknown Address [address] [place] [address] [phone] Phone Care Team Providers Care Supervisor Reactor Fueling Name Role Phone SANTHOSHAry SADE Attending Unavailable [...] old F with given history of: OSTEOPENIA Assembler Adjuster/Model: Instapagar ([id number]) CLINICAL INFORMATION: Current height: 65 inches [...] Spencer Leyva M.D. MF: BRYANT Report ID: [id number] Reading Location: [id number] Social History Type Status Start Date End Date Code Code Syst em Smoking History Current every day smoker 050320885 SNOMED CT Sex Female Hospital Discharge Instructions Should you have any questions prior to discharge, please contact a member of your healthcare team. If you have left the hospital and have any questions, please contact your primary care physician. Reason For Referral No Data Found Plan of Treatment Bone Density Dexa 04/06/2022 Digital Asmeer Diag R Unilateral (54079) 0 09/13/2022 US Breast (84766) 09/13/2022 Digital Sameer Diag R Unilateral (23390) 0 09/13/2022 US Breast (13539) 09/13/2022 Bone Density Dexa 04/10/2024 Digital Sameer Screen Bilateral (65257) Encounters Encounter Diagnosis Start Date Code Code Sys tem Other specified disorders of bone density and structure, unspecified site 04/10/2024 SNOMED-CT Personal Care Team Section Performer Name Performer Role Active Date Inactive CHARLIE Salvador PCP - Primary care physician [id number] Imaging Narrative Notes
--- OUTSIDE RECORDS SUMMARY | 2024-12-01 18:04 | XMS_ITS ---
Author Organization Unknown Address [address] [place] [address] [phone] Phone Care Team Providers Care Rubber Tester Name Role Phone MISAEL MARRERO Attending Unavailable [...] BRITTANY T - Collect Date/Time: 09/19/2024 15:54 [facility] ID: [id number] [address] [place] [address], [phone] LOINC: 08716-7 Test Value Unit Reference Range Code Code System Flag T pallidum Antibodies Non Reactive Non Reactive 74214-5 LOINC CHG RPR? NO SEND TO IFC? NO VITAMIN B-12 - Collect Date/ Time: 09/19/2024 15:54 [facility] ID: [id number] [address] [place] [address], [phone] LOINC: 2132-9 Test Value Unit Reference Range Code Code System Flag VITAMIN B12 804 pq/mL L=239 H=931 TSH - Collect Date/Time: 15:54 [facility] ID: [id number] [address] [place] [address], [phone] LOINC: 95495-9 Test Value Unit Reference Range Code Code System Flag TSH. 0.390 uIU/L L=0.470 H=4.680 76433-2 LOINC L IMMUNOFIXATION (RAQUEL) SERUM - Collect Date/Time: 09/19/2024 15:54 [facility] ID: [id number] [address] [place] [address], [phone] LOINC: 46836-0 Test Value Unit Reference Range Code Code System Flag Immunofixation Result,Serum Comment: 50218-7 LOINC Immunoglobulin G, Qn,Serum 3368 079-9221 2465-3 LOINC Immunoglobulin A, Qn,Serum 143 87-352 7208-8 LOINC Immunoglobulin M, Qn,Serum 109 26-217 7102-9 LOINC Social History Type Status Start Date End Date Code Code Syst em Smoking History Current every day smoker 488799990 SNOMED CT Sex Female Hospital Discharge Instructions Should you have any questions prior to discharge, please contact a member of your healthcare team. If you have left the hospital and have any questions, please contact your primary care physician. Reason For Referral No Data Found Plan of Treatment Bone Density Dexa 04/06/2022 Digital Sameer Diag R Unilateral (36133) 0 09/13/2022 US Breast (65771) 09/13/2022 Digital Sameer Diag R Unilateral (76474) 0 09/13/2022 US Breast (08955) 09/13/2022 Bone Density Dexa 04/10/2024 Digital Sameer Screen Bilateral (09322) Encounters Encounter Diagnosis Start Date Code Code Sys tem Polyneuropathy, unspecified 09/19/2024 SNOMED-CT Personal Care Team Section Performer Name Performer Role Active Date Inactive CHARLIE Salvador PCP - Primary care physician [id number]
--- OUTSIDE RECORDS SUMMARY | 2024-12-01 18:04 | XMS_ITS ---
Author Organization Unknown Address [address] [place] [phone] Phone Care Team Providers Care Transfer Operator Name Role Phone SANTHOSHAry SADE Attending Unavailable [...] PANE L - Collect Date/Time: 12/26/2023 13:28 [facility] ID: [id number] [address] [place], [place], [id number] LOINC: 68551-8 Test Value Unit Reference Range Code Code [...] 8-9 LOINC ANION GAP 10 L=10 H=20 23420-8 LOINC OSMOLALITY 290 mOs/kG L=280 H=296 71700-9 LOINC BUN/CREAT 11.1 3097-3 LOINC CALCIUM 9.1 mg/dL L=8.3 H=10.5 10103-8 LOINC AST 29 U/L L=15 H=46 1920-8 LOINC ALT 20 U/L L=9 H=72 1742-6 LOINC ALKALINE PHOS 57 U/L L=38 H=126 6768-6 LOINC TOTAL BILI 0.5 mg/dL L=0.2 H=1.3 1975-2 LOINC ALBUMIN 4.2 G/dL L=3.5 H=5.0 1751-7 LOINC TOTAL PROTEIN 7.3 g/L L=6.3 H=8.2 2885-2 LOINC A/G RATIO 1.4 56296-0 LOINC AGE 58 25264-2 LOINC eGFR NON-AFR 68 ml/min eGFR AFR AMER 82 ml/min CBC W/ DIFF - Collect Date/T farooq: 12/26/2023 13:28 [facility] ID: [id number] [address] [place], [place], [id number] LOINC: 00042-0 Test Value Unit Reference Range Code Code System Flag WBC 8.8 10^3uL L=4.8 H=10.8 RBC 3.90 10^6uL L=4.20 H=5.40 L HEMOGLOBIN 13.1 g/dL L=12.0 H=16.0 718-7 LOINC HEMATOCRIT 39.1 VOL% L=37.0 H=47.0 4544-3 LOINC MCV 100.3 fL L=81.0 H=99.0 H MCH 33.6 pg L=27.0 H=32.0 H MCHC 33.5 g/dL L=32.0 H=36.0 PLATELETS 282 10^3uL L=100 H=400 28293-2 LOINC RDW 12.3 % L=11.7 H=15.5 %GRAN 64.3 % L=40.0 H=70.0 11445-9 LOINC %LYMPH 24.2 % L=20.0 H=45.0 736-9 LOINC %MONO 7.3 % L=2.0 H=10.0 42766-4 LOINC %EOS 2.7 % L=0.0 H=6.0 713-8 LOINC %BASO 1.0 % L=0.0 H=3.0 706-2 LOINC #NEUT 5.7 10^3uL L=1.9 H=7.6 47041-7 LOINC #LYMPH 2.1 10^3uL L=0.9 H=4.9 54166-7 LOINC #MONO 0.6 10^3uL L=0.1 H=0.9 33173-3 LOINC #EOS 0.2 10^3uL L=0.0 H=0.6 712-0 LOINC #BASO 0.09 10^3uL L=0.00 H=0.10 69199-5 LOINC #IM GRANS 0.0 10^3uL L=0.0 H=7.0 58964-7 LOINC %IM GRANS 0.5 % L=0.0 H=5.0 75060-9 LOINC %NRB 0.0 L=0.0 H=0.2 31361-1 LOINC #NRB 0.000 L=0.000 H=0.012 05502-7 LOINC MANUAL DIFF NOT INDICATED RBC MORPH NOT INDICATED Social History Type Status Start Date End Date Code Code Syst em Smoking History Current every day smoker [id number] SNOMED CT Sex Female Hospital Discharge Instructions Should you have any questions prior to discharge, please contact a member of your healthcare team. If you have left the hospital and have any questions, please contact your primary care physician. 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
--- OUTSIDE RECORDS SUMMARY | 2024-12-01 18:05 | XMS_ITS ---
Author Organization Unknown Address [address] [place] [address] [phone] Phone Care Team Providers Care Mess Cook Name Role Phone GREGORIA PETERSON Attending Unavailable [facility] Primary Unavailable Immunization Immunization [...] CVX Results TSH - Collect Date/Time: 16:20 [facility] [id number] [address] [place] [address], [phone] LOINC: 53206-6 Test Value Unit Reference Range Code Code System Flag TSH. 3.240 uIU/L L=0.470 H=4.680 90851-8 LOINC T4 FREE - Collect Date/Time: 01/25/2024 16:20 [facility] [id number] [address] [place] [address], [id number] LOINC: 3024-7 Test Value Unit Reference Range Code Code System Flag T4, FREE 1.07 ng/dL L=0.78 H=2.19 3024-7 LOINC Social History Type Status Start Date End Date Code Code Syst em Smoking History Current every day smoker 554805684 SNOMED CT Sex Female Hospital Discharge Instructions Should you have any questions prior to discharge, please contact a member of your healthcare team. If you have left the hospital and have any questions, please contact your primary care physician. Reason For Referral No Data Found Plan of Treatment Bone Density Dexa 04/06/2022 Digital Sameer Diag R Unilateral (02913) 0 09/13/2022 US Breast (99802) 09/13/2022 Digital Sameer Diag R Unilateral (20667) 0 09/13/2022 US Breast (91828) 09/13/2022 Bone Density Dexa 04/10/2024 Digital Sameer Screen Bilateral (09868) Encounters Encounter Diagnosis Start Date Code Code Sys tem Postprocedural hypothyroidism 01/25/2024 SNOMED-CT Personal Care Team Section Performer Name Performer Role Active Date Inactive CHARLIE Salvador PCP - Primary care physician 20212024-01-25
--- OUTSIDE RECORDS SUMMARY | 2024-12-01 18:05 | XMS_ITS ---
Author Organization Unknown Address [address] [place] [address] [phone] Phone Care Team Providers Care Bank Secrecy Act Officer Name Role Phone MIREILLE Odom Attending Unavailable [facility] Primary Unavailable Immunization Immunization Date Status [...] MILAGRO - Colle ct Date/Time: 07/01/2024 17:20 [facility] ID: [id number] [address] [place], [place], [phone] LOINC: 3013-0 Test Value Unit Reference Range Code Code System Flag Thyroglobulin (TG-MILAGRO) <2.0 3013-0 LOINC Social History Type Status Start Date End Date Code Code Syst em Smoking History Current every day smoker 284463302 SNOMED CT Sex Female Hospital Discharge Instructions Should you have any questions prior to discharge, please contact a member of your healthcare team. If you have left the hospital and have any questions, please contact your primary care physician. Reason For Referral No Data Found Plan of Treatment Bone Density Dexa 04/06/2022 Digital Sameer Diag R Unilateral (41059) 0 09/13/2022 US Breast (32815) 09/13/2022 Digital Sameer Diag R Unilateral (72052) 0 09/13/2022 US Breast (59268) 09/13/2022 Bone Density Dexa 04/10/2024 Digital Sameer Screen Bilateral (68890) Encounters Encounter Diagnosis Start Date Code Code Sys tem Malignant neoplasm of thyroid gland 07/01/2024 SNOMED-CT Personal Care Team Section Performer Name Performer Role Active Date Inactive CHARLIE Salvador PCP - Primary care physician 20212024-01-25
--- OUTSIDE RECORDS SUMMARY | 2024-12-01 18:05 | XMS_ITS ---
Author Organization Unknown Address [address] [place] [phone] Phone Care Team Providers Care Canine Service Teacher Name Role Phone MISAEL MARRERO Attending Unavailable [...] BRITTANY T - Collect Date/Time: 10/03/2024 16:36 [facility] ID: [id number] [address] [place] [address], [phone] LOINC: 97518-2 Test Value Unit Reference Range Code Code System Flag T pallidum Antibodies Non Reactive Non Reactive 91872-0 LOINC CHG RPR? NO SEND TO IFC? NO Social History Type Status Start Date End Date Code Code Syst em Smoking History Current every day smoker 862340357 SNOMED CT Sex Female Hospital Discharge Instructions Should you have any questions prior to discharge, please contact a member of your healthcare team. If you have left the hospital and have any questions, please contact your primary care physician. Reason For Referral No Data Found Plan of Treatment Bone Density Dexa 04/06/2022 Digital Sameer Diag R Unilateral (21747) 0 09/13/2022 US Breast (34857) 09/13/2022 Digital Sameer Diag R Unilateral (53737) 0 09/13/2022 US Breast (48029) 09/13/2022 Bone Density Dexa 04/10/2024 Digital Sameer Screen Bilateral (96318) Encounters Encounter Diagnosis Start Date Code Code Sys tem Polyneuropathy 10/03/2024 [id number] SNOMED-CT Personal Care Team Section Performer Name Performer Role Active Date Inactive CHARLIE Salvador PCP - Primary care physician 20212024-01-25
--- OUTSIDE RECORDS SUMMARY | 2024-12-01 18:05 | XMS_ITS ---
Author Organization Unknown Address [address] [place] [address] [phone] Phone Care Team Providers Care Overhead Crane Inspector Name Role Phone MIREILLE Odom Attending Unavailable [facility] Primary Unavailable Immunization Immunization Date Status [...] CVX Results TSH - Collect Date/Time: 16:28 [facility] ID: [id number] [address] [place], [place], [phone] LOINC: 88328-0 Test Value Unit Reference Range Code Code System Flag TSH. 3.830 uIU/L L=0.470 H=4.680 40570-8 LOINC Social History Type Status Start Date End Date Code Code Syst em Smoking History Current every day smoker 642725861 SNOMED CT Sex Female Hospital Discharge Instructions Should you have any questions prior to discharge, please contact a member of your healthcare team. If you have left the hospital and have any questions, please contact your primary care physician. Reason For Referral No Data Found Plan of Treatment Bone Density Dexa 04/06/2022 Digital Sameer Diag R Unilateral (68086) 0 09/13/2022 US Breast (63636) 09/13/2022 Digital Sameer Diag R Unilateral (68244) 0 09/13/2022 US Breast (74055) 09/13/2022 Bone Density Dexa 04/10/2024 Digital Sameer Screen Bilateral (19119) Encounters Encounter Diagnosis Start Date Code Code Sys tem Hypothyroidism, unspecified 11/21/2024 SNOMED-CT Personal Care Team Section Performer Name Performer Role Active Date Inactive CHARLIE Salvador PCP - Primary care physician 20212024-01-25
--- OUTSIDE RECORDS SUMMARY | 2024-12-01 18:05 | XMS_ITS ---
Author Organization Unknown Address [address] [place] [address] [phone] Phone Care Team Providers Care Complaint Manager Name Role Phone MIREILLE Odom Attending Unavailable [facility] Primary Unavailable Immunization Immunization Date Status [...] T4 FREE - Collect Date/Time: 06/17/2024 13:32 [facility] ID: [id number] [address] [place] [address], [id number] LOINC: 3024-7 Test Value Unit Reference Range Code Code System Flag T4, FREE 1.17 ng/dL L=0.78 H=2.19 3024-7 LOINC TSH - Collect Date/Time: 13:32 [facility] ID: [id number] [address] [place] [address], [id number] LOINC: 33818-5 Test Value Unit Reference Range Code Code System Flag TSH. 3.590 uIU/L L=0.470 H=4.680 36733-7 LOINC ANTI THYROGLOBULIN ANTIBODY - Collect Date/Time: 06/17/2024 13:32 [facility] ID: [id number] [address] [place] [address], [phone] LOINC: 8098-6 Test Value Unit Reference Range Code Code System Flag Thyroglobulin Antibody <1.0 0.0-0.9 8098-6 LOINC Social History Type Status Start Date End Date Code Code Syst em Smoking History Current every day smoker 439194339 SNOMED CT Sex Female Hospital Discharge Instructions Should you have any questions prior to discharge, please contact a member of your healthcare team. If you have left the hospital and have any questions, please contact your primary care physician. Reason For Referral No Data Found Plan of Treatment Bone Density Dexa 04/06/2022 Digital [facility]er Diag R Unilateral (23774) 0 09/13/2022 US Breast (49127) 09/13/2022 Digital Sameer Diag R Unilateral (90742) 0 09/13/2022 US Breast (75008) 09/13/2022 Bone Density Dexa 04/10/2024 Digital [facility]er Screen Bilateral (75351) Encounters Encounter Diagnosis Start Date Code Code Sys tem Malignant neoplasm of thyroid gland 06/17/2024 SNOMED-CT Personal Care Team Section Performer Name Performer Role Active Date Inactive CHARLIE Salvador PCP - Primary care physician 20212024-01-25
== END 2024-12-01 18:07 | disposition home or self-care (01) ==
PROVIDERS: Emergency Provider Emergency Medicine; PCP Nurse Practitioner
DX: J32.9 Chronic sinusitis, unspecified (principal); J44.9 Chronic obstructive pulmonary disease, unspecified; E03.9 Hypothyroidism, unspecified; F17.200 Nicotine dependence, unspecified, uncomplicated
CPT/HCPCS: 99283

== ENCOUNTER 2025-01-10 18:21 | Emergency (ER) | payer MEDICARE, MEDICAID, SELFPAY ==
--- NOTE | ~2025-01-10 | XR_ITS ---
XR hand RT min 3V Ordering provider: Spencer Le MD History: . Pain/swelling Rt. hand 2nd-3rd metacarpal region x2 days . Comparison: None. FINDINGS: BONES: No acute fracture or dislocation. JOINT SPACES: Narrowing of the distal interphalangeal joint of the second finger. Narrowing of the me tacarpophalangeal joints of the second and third finger. Narrowing of the first metacarpophalangeal j oint and first carpometacarpal joint. SOFT TISSUES: Normal. IMPRESSION: No acute osseous abnormality right hand. Polyarticular osteoarthritic changes. Reviewed, dictated and finalized at location A.
--- OUTSIDE RECORDS SUMMARY | 2025-01-10 18:23 | XMS_ITS ---
Author Organization Unknown Address [address] [place] [phone] Phone Care Team Providers Care Food Selector Name Role Phone SANTHOSHAry SADE Attending Unavailable [...] old F with given history of: OSTEOPENIA Color Tester/Model: [email or web address] (S/[email or web address]) CLINICAL INFORMATION: Current height: 65 inches [...] Spencer Leyva M.D. MF: BRYANT Report ID: [id number] Reading Location: [id number] Social History Type Status Start Date End Date Code Code Syst em Smoking History Current every day smoker 825112740 SNOMED CT Sex Female Hospital Discharge Instructions Should you have any questions prior to discharge, please contact a member of your healthcare team. If you have left the hospital and have any questions, please contact your primary care physician. Reason For Referral No Data Found Plan of Treatment CT Chest CA Screen (81080) 12/30/2024 Encounters Encounter Diagnosis Start Date Code Code Sys tem Other specified disorders of bone density and structure, unspecified site 04/10/2024 SNOMED-CT Personal Care Team Section Performer Name Performer Role Active Date Inactive CHARLIE Salvador PCP - Primary care physician [id number] Imaging Narrative Notes
[2025-01-10 18:24] VITALS: BP 110/61; PULSE 78; RESP 16; TEMP 36.8; O2SAT 96
--- OUTSIDE RECORDS SUMMARY | 2025-01-10 18:24 | XMS_ITS ---
Author Organization Unknown Address [address] [place] [address] [phone] Phone Care Team Providers Care Correctional Counselor Name Role Phone MIREILLE Odom Attending Unavailable [facility] Primary Unavailable Immunization Immunization Date Status [...] MILAGRO - Colle ct Date/Time: 07/01/2024 17:20 [facility] ID: [id number] [address] [place], [place], [phone] LOINC: 3013-0 Test Value Unit Reference Range Code Code System Flag Thyroglobulin (TG-MILAGRO) <2.0 3013-0 LOINC Social History Type Status Start Date End Date Code Code Syst em Smoking History Current every day smoker 224305897 SNOMED CT Sex Female Hospital Discharge Instructions Should you have any questions prior to discharge, please contact a member of your healthcare team. If you have left the hospital and have any questions, please contact your primary care physician. Reason For Referral No Data Found Plan of Treatment CT Chest CA Screen (04380) 12/30/2024 Encounters Encounter Diagnosis Start Date Code Code Sys tem Malignant neoplasm of thyroid gland 07/01/2024 SNOMED-CT Personal Care Team Section Performer Name Performer Role Active Date Inactive CHARLIE Salvador PCP - Primary care physician 20212024-01-25
--- OUTSIDE RECORDS SUMMARY | 2025-01-10 18:24 | XMS_ITS ---
Author Organization Unknown Address [address] [place] [address] [phone] Phone Care Team Providers Care Jet Engine Mechanic Name Role Phone GREGORIA PETERSON Attending Unavailable [facility] Primary Unavailable Immunization Immunization Date Status [...] CVX Results TSH - Collect Date/Time: 16:20 [facility] ID: [id number] [address] [place] [address], [phone] LOINC: 98162-1 Test Value Unit Reference Range Code Code System Flag TSH. 3.240 uIU/L L=0.470 H=4.680 53666-2 LOINC T4 FREE - Collect Date/Time: 01/25/2024 16:20 [facility] ID: [id number] [address] [place] [address], [id number] LOINC: 3024-7 Test Value Unit Reference Range Code Code System Flag T4, FREE 1.07 ng/dL L=0.78 H=2.19 3024-7 LOINC Social History Type Status Start Date End Date Code Code Syst em Smoking History Current every day smoker [id number] SNOMED CT Sex Female Hospital Discharge Instructions Should you have any questions prior to discharge, please contact a member of your healthcare team. If you have left the hospital and have any questions, please contact your primary care physician. Reason For Referral No Data Found Plan of Treatment CT Chest CA Screen (42971) 12/30/2024 Encounters Encounter Diagnosis Start Date Code Code Sys tem Postprocedural hypothyroidism 01/25/2024 SNOMED-CT Personal Care Team Section Performer Name Performer Role Active Date Inactive CHARLIE Salvador PCP - Primary care physician 20212024-01-25
--- OUTSIDE RECORDS SUMMARY | 2025-01-10 18:24 | XMS_ITS ---
Author Organization Unknown Address [address] [place] [address] [phone] Phone Care Team Providers Care Audio Visual Specialist Name Role Phone MISAEL MARRERO Attending Unavailable [...] BRITTANY T - Collect Date/Time: 10/03/2024 16:36 [facility] ID: [id number] [address] [place], [place], [phone] LOINC: 66828-8 Test Value Unit Reference Range Code Code System Flag T pallidum Antibodies Non Reactive Non Reactive 84243-9 LOINC CHG RPR? NO SEND TO IFC? NO Social History Type Status Start Date End Date Code Code Syst em Smoking History Current every day smoker 269154324 SNOMED CT Sex Female Hospital Discharge Instructions Should you have any questions prior to discharge, please contact a member of your healthcare team. If you have left the hospital and have any questions, please contact your primary care physician. Reason For Referral No Data Found Plan of Treatment CT Chest CA Screen (48015) 12/30/2024 Encounters Encounter Diagnosis Start Date Code Code Sys tem Polyneuropathy 10/03/2024 [id number] SNOMED-CT Personal Care Team Section Performer Name Performer Role Active Date Inactive CHARLIE Salvador PCP - Primary care physician 20212024-01-25
--- OUTSIDE RECORDS SUMMARY | 2025-01-10 18:24 | XMS_ITS ---
Author Organization Unknown Address [address] [place] [address] [phone] Phone Care Team Providers Care Specialist Wound Care Name Role Phone SANTHSOHAry SADE Attending Unavailable [facility] Primary Unavailable [...] PANE L - Collect Date/Time: 12/26/2023 13:28 [facility] ID: [id number] [address] [place], [place], [phone] LOINC: 74576-2 Test Value Unit Reference Range Code Code [...] 8-9 LOINC ANION GAP 10 L=10 H=20 41471-6 LOINC OSMOLALITY 290 mOs/kG L=280 H=296 67669-8 LOINC BUN/CREAT 11.1 3097-3 LOINC CALCIUM 9.1 mg/dL L=8.3 H=10.5 54122-3 LOINC AST 29 U/L L=15 H=46 1920-8 LOINC ALT 20 U/L L=9 H=72 1742-6 LOINC ALKALINE PHOS 57 U/L L=38 H=126 6768-6 LOINC TOTAL BILI 0.5 mg/dL L=0.2 H=1.3 1975-2 LOINC ALBUMIN 4.2 G/dL L=3.5 H=5.0 1751-7 LOINC TOTAL PROTEIN 7.3 g/L L=6.3 H=8.2 2885-2 LOINC A/G RATIO 1.4 23463-6 LOINC AGE 58 60945-4 LOINC eGFR NON-AFR 68 ml/min eGFR AFR AMER 82 ml/min CBC W/ DIFF - Collect Date/T farooq: 12/26/2023 13:28 [facility] ID: [id number] [address] [place], [place], [phone] LOINC: 79087-5 Test Value Unit Reference Range Code Code System Flag WBC 8.8 10^3uL L=4.8 H=10.8 RBC 3.90 10^6uL L=4.20 H=5.40 L HEMOGLOBIN 13.1 g/dL L=12.0 H=16.0 718-7 LOINC HEMATOCRIT 39.1 VOL% L=37.0 H=47.0 4544-3 LOINC MCV 100.3 fL L=81.0 H=99.0 H MCH 33.6 pg L=27.0 H=32.0 H MCHC 33.5 g/dL L=32.0 H=36.0 PLATELETS 282 10^3uL L=100 H=400 93090-8 LOINC RDW 12.3 % L=11.7 H=15.5 %GRAN 64.3 % L=40.0 H=70.0 36102-5 LOINC %LYMPH 24.2 % L=20.0 H=45.0 736-9 LOINC %MONO 7.3 % L=2.0 H=10.0 18160-1 LOINC %EOS 2.7 % L=0.0 H=6.0 713-8 LOINC %BASO 1.0 % L=0.0 H=3.0 706-2 LOINC #NEUT 5.7 10^3uL L=1.9 H=7.6 84365-0 LOINC #LYMPH 2.1 10^3uL L=0.9 H=4.9 43330-5 LOINC #MONO 0.6 10^3uL L=0.1 H=0.9 78201-5 LOINC #EOS 0.2 10^3uL L=0.0 H=0.6 712-0 LOINC #BASO 0.09 10^3uL L=0.00 H=0.10 78379-7 LOINC #IM GRANS 0.0 10^3uL L=0.0 H=7.0 51759-8 LOINC %IM GRANS 0.5 % L=0.0 H=5.0 60486-4 LOINC %NRB 0.0 L=0.0 H=0.2 23833-0 LOINC #NRB 0.000 L=0.000 H=0.012 79250-3 LOINC MANUAL DIFF NOT INDICATED RBC MORPH NOT INDICATED Social History Type Status Start Date End Date Code Code Syst em Smoking History Current every day smoker 976206692 SNOMED CT Sex Female Hospital Discharge Instructions Should you have any questions prior to discharge, please contact a member of your healthcare team. If you have left the hospital and have any questions, please contact your primary care physician. 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
--- OUTSIDE RECORDS SUMMARY | 2025-01-10 18:24 | XMS_ITS ---
Author Organization Unknown Address [address] [place] [address] [phone] Phone Care Team Providers Care Medical Imaging Technologist Name Role Phone MIREILLE Odom Attending Unavailable [facility] Primary Unavailable Immunization [...] CVX Results TSH - Collect Date/Time: 16:28 [facility] ID: [id number] [address] [place], [place], [phone] LOINC: 22698-5 Test Value Unit Reference Range Code Code System Flag TSH. 3.830 uIU/L L=0.470 H=4.680 35314-6 LOINC Social History Type Status Start Date End Date Code Code Syst em Smoking History Current every day smoker 028949925 SNOMED CT Sex Female Hospital Discharge Instructions Should you have any questions prior to discharge, please contact a member of your healthcare team. If you have left the hospital and have any questions, please contact your primary care physician. Reason For Referral No Data Found Plan of Treatment CT Chest CA Screen (70197) 12/30/2024 Encounters Encounter Diagnosis Start Date Code Code Sys tem Hypothyroidism, unspecified 11/21/2024 SNOMED-CT Personal Care Team Section Performer Name Performer Role Active Date Inactive CHARLIE Salvador PCP - Primary care physician 20212024-01-25
--- OUTSIDE RECORDS SUMMARY | 2025-01-10 18:24 | XMS_ITS ---
Author Organization Unknown Address [address] [place] [address] [phone] Phone Care Team Providers Care Senior Interactive Producer Name Role Phone MISAEL MARRERO Attending Unavailable [...] BRITTANY T - Collect Date/Time: 09/19/2024 15:54 [facility] ID: [id number] [address] [place] [address], [id number] LOINC: 06563-7 Test Value Unit Reference Range Code Code System Flag T pallidum Antibodies Non Reactive Non Reactive 04142-1 LOINC CHG RPR? NO SEND TO IFC? NO VITAMIN B-12 - Collect Date/ Time: 09/19/2024 15:54 [facility] ID: [id number] [address] [place] [address], [phone] LOINC: 2132-9 Test Value Unit Reference Range Code Code System Flag VITAMIN B12 804 pq/mL L=239 H=931 TSH - Collect Date/Time: 15:54 [facility] ID: [id number] [address] [place] [address], [id number] LOINC: 74766-1 Test Value Unit Reference Range Code Code System Flag TSH. 0.390 uIU/L L=0.470 H=4.680 02318-5 LOINC L IMMUNOFIXATION (RAQUEL) SERUM - Collect Date/Time: 09/19/2024 15:54 [facility] ID: [id number] [address] [place] [address], [id number] LOINC: 16527-2 Test Value Unit Reference Range Code Code System Flag Immunofixation Result,Serum Comment: 49053-0 LOINC Immunoglobulin G, Qn,Serum 5919 999-5910 2465-3 LOINC Immunoglobulin A, Qn,Serum 143 87-352 0728-8 LOINC Immunoglobulin M, Qn,Serum 109 26-217 3552-9 LOINC Social History Type Status Start Date End Date Code Code Syst em Smoking History Current every day smoker 393462259 SNOMED CT Sex Female Hospital Discharge Instructions Should you have any questions prior to discharge, please contact a member of your healthcare team. If you have left the hospital and have any questions, please contact your primary care physician. Reason For Referral No Data Found Plan of Treatment CT Chest CA Screen (72554) 12/30/2024 Encounters Encounter Diagnosis Start Date Code Code Sys tem Polyneuropathy, unspecified 09/19/2024 SNOMED-CT Personal Care Team Section Performer Name Performer Role Active Date Inactive CHARLIE Salvador PCP - Primary care physician 20212024-01-25
--- OUTSIDE RECORDS SUMMARY | 2025-01-10 18:25 | XMS_ITS | Clinical Summary ---
Author Organization [facility] Address [address] [place] [address] Care Team Providers Care Geospatial Scientist Name Role Phone Jo-Ann De Jesus MD Primary Care Provider [phone] Source Comments [facility],non-owned Affiliates and Associated Physician Practices is amultiple site organization consisting of ambulatory clinics and hospital sitesin [place], [place], [place] and [place]. This disclosure is being madepursuant to the Care Everywhere program and may not contain all information available regarding this patient. Last updated 18.[facility] Allergies Active Allergy Reactions Criticality Noted Date Comments Nsaids Other 01/10/2018 Barretts esophagus: Recoommended againts taking. Medications * Be aware that medications may not be up to date on this document. Alwaysverify current medications with the patient. busPIRone (BUSPAR) 10 MG tablet Take 10 [...] Day Cigarettes 0.5 30 Smokeless Tobacco: Never Comments Unknown Sex and Gender Information Value Date Recorded Sex Assigned at Not on file Legal Sex Female 9:18 AM CDT Gender Identity Not on file Sexual Orientation [...] SCREENING 1965 LIPID TESTING 1963 MAMMOGRAM 1963 HIV SCREENING 1978 HEPATITIS C SCREENING 06/15/1981 DTAP/TDAP/TD VACCINES (1 - Tdap) 1982 PNEUMOCOCCAL VACCINE 50+ (1 of 2 - PCV) 1982 ZOSTER VACCINE (1 of 2) 2013 COVID-19 VACCINE (1 - 2023-2 5 season) 2024 DEPRESSION SCREENING 09/03/2024 INFLUENZA VACCINE (Season Ended) 2025 Respiratory Syncytial Virus (RSV) Vaccine Pt: or [...] on patient's age to complete this topic Insurance MEDICARE MEDICAID - OUT OF STATE Care Teams Geospatial Scientist Relationship Specialty Start Date End Date Jo-Ann De Jesus MD [address] [facility] [address] [place] [address] PCP - General 01/10/18
--- OUTSIDE RECORDS SUMMARY | 2025-01-10 18:25 | XMS_ITS | Data Portability ---
Author Organization [facility], [address] 4[address] Neurology ([place]) Address [address] 4th [place] [address] Care Team Providers Care Developmental Training Counselor Name Role Phone CHARLIE ALVARADO Primary Care Provider [phone] CHARLIE ALVARADO Referring Provider FRANCES JI Special Education Aide WOLFGANG KENDRICK Corporate Buyer ELIDA JAVIER Neurologist BUD PACKER Nurse Practitioner Assessment Encounter Date Assessment Date Assessment LastModified by Organization Details LastModified Time 09/15/2024 09/15/2024 Tia's neurological examination today is normal. She has no signs or symptoms of myelopathy, however she does have progressive low back pain, and hip pain that has gotten worse over the last week. Lumbar MRI show Multilevel degenerative changes in the lumbar spine contributing to varying degrees of spinal canal and foraminal stenosis. She already saw Dr. Olvera, and pain clinic ([facility]) . Tia was diagnosed with thyroid cancer [...] of her questions and concerns. Voiced understanding. [email or web address] Not available 09/15/2024 10:08:11 09/16/2024 09/16/2024 For [...] fine with this plan at this point. [email or web address] Not available 09/16/2024 10:13:15 11/19/2024 11/19/2024 Impression: [...] Patient voiced understanding. > Anticoagulation: None > Pacemaker/Defibrill ator: None Medication Changes: > Can continue with [...] 3. Mild levoscoliosis. March 2021 cervical MRI ([facility]) Findings: C3-C4: Mild posterior disc bulge [...] by level above. March 2021 thoracic MRI ([facility]) Impression: Anterior and posterior spinal stenosis [...] report that [facility], which we do not currently have [...] Bursa TTP-neg b/l SLR supine-neg b/l GINETTE (Pj's)-positiv e bilaterally Pelvic Distraction-positiv e bilaterally Thigh Thrust-positive bilaterally Chief Complaint The patient presents to the office today with low back and upper buttock pain. [email or web address] Not available 11/19/2024 09:38:47 12/17/2024 12/17/2024 ASSESSMENT: 1. Papillary thyroid carcinoma 2. Status post total thyroidectomy hypothyroidism 3. Ongoing tobacco abuse RECOMMENDATIONS: 1. Potential benefits, risks, and adverse effects of the patient s endocrine medications were reviewed at the time of the appointment. We also reviewed appropriate timing of the patient s endocrine medications with respect to meals and other medications. The patient verbalized/indicate d understanding of all education presented. 2.Instructed on plan of care. Discussed signs and symptoms to report. Patient/caregiver aware and agreeable with plan. Return to clinic if signs/symptoms do not improve, worsen, or if new symptoms develop. The importance of achieving/maintaini ng a normal BMI was discussed. 3.Diagnostic studies as outlined in this note. Further recommendations will be based on these results as well as the patient s clinical course. 4.Return to endocrine clinic in 1 year. Complete thyrogen stimulated soft tissue neck and quantitative thyroglobulin level. 5.Patient wishes to leave her levothyroxine dose at 75 mcg daily. 6.Being 10 years out from surgery a TSH on the lower range of normal is reasonable. 7.We have discussed the risks, side effects, benefits of endocrine medication today. 8.We have discussed the importance of taking medication as prescribed to achieve desired therapeutic effect. 9.Patient has verbalized understanding of information provided in clinic today. [email or web address] Not available 01/02/2025 15:16:31 Plan of Treatment Reminders Order Date Submit Date Provider Last Modified By Organization Details Last Modified Time Details Appointments Nurse Visit 15. T 2024 08:15A M Endocrinology Not available Not available Not available Nurse Visit 15.ES T 2024 08:15A M Endocrinology Not available Not available Not available Imagi ng 5.PRO 2024 07:30A M Radiology Not available Not available Not available Estab iliana Lin nt 15.ES T 2024 01:45P M Dr. Ubaldo Sanchez Not available Not available Not available Estab iliana Lin nt 30.ES T 2024 08:30A M Bud Packer Not available Not available Not available Estab iliana Lin nt 30.ES T 2024 08:30A M Rosana Alford Not available Not available Not available Estab iliana Lin nt 15.ES T 2025 08:15A M Dr. Tyrel Mckngiht Not available Not available Not available Lab vitam in B12, serum 2024 025 [facility] (Radiology), [address] [place], [address], 10/21/2024 12:55:31 immun ofixa tion, serum 2024 025 [facility] (Radiology), [address] [facility], [place], [address], 09/23/2024 17:21:15 trepo nema palli dum scree n, serum , refle x confi rmati on 20[address] [place] [address] Lab, [address] [place], [address], 11/28/2024 08:54:23 Referral None recor ded. Procedures None recor ded. Surgeries None recor ded. Imaging None recor ded. Medication Orders omepr azole 20 mg capsu le,de layed relea se 2024 025 [facility], [address] [place], [address], 09/16/2024 10:15:02 gabap entin 600 mg table t 2024 025 [facility], [address] [place], [address], 09/15/2024 10:24:32 prega balin 150 mg capsu le 2024 025 [facility], [address] [place], [address], 11/19/2024 09:13:30 Patient TargetsNo targets recorded. Patient InstructionsNo instructions recorded. Reason for Referral None Reported. Results Created Date Observation Date Name Description Value Unit Range Abnormal Flag Note LastModifiedBy Organization Detail LastModifiedTime 01/10/2012/22/2024 MAMMO , héctor gutiérrez, digit al, bilat eral No observ ation record ed. [email or web address] Not Available 2024 11:42:08 Result Notes None recorded. Problems Name Problem SNOMED Code Status Onset Date Resolution Date Notes Provider Name and Address Organization Details Recorded Time Long-term current use of aromatase inhibitor 6379901687108 00 [facility] 09:[facility]36 Follow-up encounter Active 2023 Serena Zambrano null, [facility] 4 17:04:34 Neuropathic pain 927219148 Active 2024 Sharri Oneal [facility] 5 10:16:12 Gastroesoph ageal reflux disease without esophagitis 240068929 Active 2024 Johnathon Galo APRN, [employer] [address] [place] [address], [address], [facility] 5 10:13:19 Anaya's esophagus 060703726 Active 2024 Johnathon Galo APRN, [employer] [address] [place], [address], [facility] 5 10:13:27 Neuropathy 709441344 Active 2024 Eliazar Morgan [facility] 5 10:35:39 Neuralgia 43813169 Active 2024 Eliazar Morgan [facility] 5 10:35:40 Bilateral sacroiliac joint pain 7804886891157 9104 Active 2024 Rosana Alford , [employer] [address] [place] [address], [address], [facility] 5 09:30:03 Lumbar facet joint pain 220519572 Active 2024 Rosana Alford APN [address] [place] [address], [address], [facility] 5 09:30:10 Lumbosacral spondylosis 527546476 Active 2024 Katie Fischer null, [facility] 5 12:27:27 Hypothyroid ism 78971564 Active 2023 [facility] 4 15:44:39 Tobacco dependence caused by cigarettes 2144710863018 9107 Active 2024 Yasmin Marikabandar null, [facility] 5 15:58:33 Papillary thyroid carcinoma 180463222 Active 2023 [facility] Suzi [facility] 4 15:44:50 Postoperati ve hypothyroid ism 72078629 Active 2023 Charliebrian Archer [facility] 4 15:44:57 Problem Notes None recorded. Procedures Surgical History Date Name Laterality Status Provider Name and Address Organization Details Recorded Time 11/29/19 25 PA Operative Report completed August Gunn MD [address] [place] [address], [phone], [facility] 11/28/2024 15:39:48 07/24/20 24 Colonoscopy with biopsy completed Shonna Ball [facility] 07/29/2024 11:14:42 12/27/19 22 lumpectomy of right breast completed Perez Ibarra [facility] 12/24/2023 10:35:47 Removal of gallbladder completed Not Available Health Note 12/22/2023 10:49:21 Imaging Results Imaging Date Name Status [facility]Modified by [facility] Details LastModified Time 12/22/2024 MAMMO, screening, digital, bilateral completed [email or web address] Information not available 01/09/2025 11:42:08 Procedure Notes None recorded. Medical Equipment None Reported. Allergies Allergen ID Allergen Name Allergen Category Reaction Reaction Severity Criticality Documentation Date Start Date Code Code System Note Provider Name and Address Organization Details Recorded Time 691645 Non-stero idal anti-infl ammatory agent (product) medicatio n nausea moderate high 10/01/20232017 72870 005 SNOMED React ion: Nause a; Lakia Howell [facility] 5 16:44:37 Medications Name Sig Start Date Stop Date [...] Not Available prednison e 20 mg tablet 40 MG (2 X 20 MG) ORALLY DAILY FOR 5 DAYS active Not Available Not Available No t Available clonazepa m 1 mg tablet *02/11*TA [...] completed Not Available Not Available Not Available fluticaso ne propionat e 50 mcg/actua tion nasal spray,tenzin pension INHALE 2 SPRAYS INTRANAS ALLY DAILY ADMINIST ER INTO EACH NOSTRIL active Not Available Not Available No t Available doxycycli ne hyclate 100 mg tablet TAKE 2 TABLETS DAILY active Not Available Not Available No t Available tamoxifen 20 mg tablet Take 1 tablet every day by oral route. 12/17 completed Not Available Not Available Not Available metoclopr amide 10 mg tablet TAKE 1 TABLET BY MOUTH EVERY 6 HOURS NEEDED FOR NAUSEA AND VOMITING 09/15 completed Not Available Not Available Not Available amoxicill in 875 mg-potass ium clavulana te 125 mg tablet TAKE 1 TABLET BY MOUTH EVERY 12 HOURS 12/17 completed Not Available Not Available Not Available buspirone 15 mg tablet Take 1 tablet every day by oral route for 90 days. 09/15 completed Patient stopped Not Available Not Available Not Available pregabali n 150 mg capsule Take 1 capsule every day by oral route in the evening. 11/19 completed Not Available Not Available Not Available Thyrogen 0.9 mg intramusc ular solution Inject first IM injectio n on Sunday and second IM injectio n on sunday active Not Available Not Available Not Avai lable Vitals Date Recorded Body height Body mass index (BMI) Body weight Heart rate Oxygen saturation Oxygen saturation in Arterial blood by Pulse oximetry Systolic blood pressure Diastolic blood pressure Provider Name and Address Organization Details Last Updated DateTime 5 165.1 cm 26 kg/m2 48639.1 3 g 84 /min 96 % 96 % 134 mm[Hg] 80 mm[Hg] Sharri Oneal [facility] 5 10:14:56 Date Recorded Body height Body mass index (BMI) Body weight Systolic blood pressure Diastolic blood pressure Provider Name and Address Organization Details Last Updated DateTime 09/16/2024 165.1 cm 25 kg/m2 67389.86 g 120 mm[Hg] 80 mm[Hg] Johnathon Galo, RENEWALS REPRESENTATIVE, [employer] [address] [place] [address], [phone] [place] [address] 5 10:10:07 Date Recorded Body height Body mass index (BMI) Body weight Provider Name and Address Organization Details Last Updated DateTime 11/19/2024 165.1 cm 25.7 kg/m2 28388.94 g Katie Fischer [facility] 11/19/2024 09:11:04 Date Recorded Body height Body mass index (BMI) Body weight Heart rate Oxygen saturation Oxygen saturation in Arterial blood by Pulse oximetry Systolic blood pressure Diastolic blood pressure Provider Name and Address Organization Details Last Updated DateTime 165.1 cm 25.4 kg/m2 45833.9 1 g 74 /min 96 % 96 % 124 mm[Hg] 84 mm[Hg] Efren Cohn [facility] 11:56:46 Social History Question Answer Notes LastModified by Organizat ion Details LastModified Time Tobacco Smoking Status Current Every Day Smoker Serena Nashalva cool, [facility] 06/17/2024 17:07:16 Do You Have An Advance [...] Do You Have A Medical Power Of Literacy Education Professor? No [email or web address] Information not available 01/08/2024 What [...] Time What is your exercise level? Moderate [facility]-[email or web address] Information not available 01/08/2024 Mental Status None recorded. Family History Relationship Description Onset Age of this Age Resolved Age Notes LastModified by Organization Details LastModified Time Mother Diabetes mellitus [facility]-[email or web address] Not available 2023 10:49:20 Medical History Condition Response Attention-deficit Hyperactivity Disorder N High Blood Pressure N Thyroid Problems Y COPD N Depression N Anemia N Diabetes N Anxiety Disorder Y Bleeding Disorder N Arthritis Y Hyperlipidemia N Cancer Y Stroke N Asthma N Seizures N Heart Disease N Fibromyalgia N Osteoporosis N Kidney Disease N Gynecological HistoryNo gynecological history recorded. Obstetrics History GPAL:G 0 P 0 0 0 0 Immunizations Vaccine Type Date Status Note Provider Nam e and Address Organization Details Recorded Time Influenza, split virus, quadrivalent, preservative 8 completed Serena Kenya null, [facility] 06/17/2024 17:05:47 Influenza, split virus, quadrivalent, preservative 9 completed [facility]/17[facility]2024 17:05:47 Influenza, MDCK, quadrivalent, PF 1 completed [facility] 06/17/2024 17:05:47 Influenza, MDCK, quadrivalent, PF 3 completed [facility] 06/17/2024 17:05:47 zoster recombinant 1 completed [facility] 06/17/2024 17:05:47 zoster recombinant 1 completed [facility] 06/17/2024 17:05:47 MMR 6 completed [facility] 06/17/2024 17:05:47 COVID-19, mRNA, LNP-S, PF, 30 mcg/0.3 mL dose 1 completed [facility] 06/17/2024 17:05:47 COVID-19 vaccine, vector-nr, rS-Ad26, PF, 0.5 mL 1 completed [facility] 06/17/2024 17:05:47 COVID-19, mRNA, LNP-S, bivalent, PF, 30 mcg/0.3 mL dose 2 completed [facility] 06/17/2024 17:05:47 COVID-19, mRNA, LNP-S, PF, jewel-sucrose, 30 mcg/0.3 mL 3 completed Serena Kenya [facility] 06/17/2024 17:05:47 Td (adult), 2 Lf tetanus toxoid, preservative free, adsorbed 6 completed Serena Kenya [facility] 06/17/2024 17:05:47 Influenza, split virus, quadrivalent, PF 7 completed [facility] 06/17/2024 17:05:47 Influenza, split virus, quadrivalent, PF 0 completed [facility] 06/17/2024 17:05:47 Influenza, split virus, quadrivalent, PF 2 completed Serena Kenya [facility] 06/17/2024 17:05:47 Past Encounters Encounter ID Performer Location Encounter Start Date Encounter Closed Date Diagnosis/Indication Diagnosis SNOMED-CT Code Diagnosis ICD10 Code Diagnosis Note [id number] YASMIN VALENTE APRN [address] Gen Surg ([place]) [address] [place] [address] 12/24/2023 10:01:56 12/24/2023 12:49:35 Follow-up encounter [id number] Z08 [id number] iLlly Chisholm, PORTRAIT ARTIST-BC [facility] ([place]) [address] [facility] [place] [address] 01/15/2024 10:24:55 01/15/2024 11:33:43 Papillary thyroid carcinoma 825432962 C73 Postoperat maxwell hypothyroidism 38913302 E89.0 [id number] Ubaldo Sanchez MD [facility] Specialty Oncology/ [place]olog y ([place]) [address] [place] [address] 06/17/2024 14:20:27 06/17/2024 17:08:05 Long-term current use of aromatase inhibitor 5716446118 49427 Z79.811 M85.80 [id number] Elida Javier MD [address] Neurology ([place]) [address] [facility],[address] [place] [address] 09/15/2024 09:51:21 09/15/2024 10:26:13 Neuralgia 68958405 M79.2 Neuropathy 384718417 G62 .9 Long-term current use of drug therapy 651705181 Z79.899 [id number] Johnathon Galo APRN, [employer] [address] [place]astroent erology ([place]) [address] [place] [address] 09/16/2024 09:54:44 09/16/2024 11:26:06 Gastroesophageal reflux disease without esophagitis 472336649 K21.9 Anaya's esophagus 3029 [address] K22.70 History of adenomatous polyp of colon 941077321 Z86.0101 Screening for malignant neoplasm of large intestine 401622016 Z12.11 Z12.12 [id number] Rosana Alford, [employer]ICIAN [address] [facility] ([place]) [address] [place] [address] 11/19/2024 09:06:24 11/19/2024 15:34:30 Bilateral sacroiliac joint pain 7991917783 1120260 M53.3 Lumbar fac et joint pain 620791856 M54.59 [id number] August Gunn MD [facility] [place]) [address] [place] [address], [address] [place] [address] 11/28/2024 13:03:22 12/01/2024 18:24:23 [id number] LUIS Proctor-Tamika [facility] ([place]) [address] [place] [address] 12/17/2024 11:38:50 12/17/2024 13:55:13 Papillary thyroid carcinoma 054528105 C73 Postoperat maxwell hypothyroidism 81841405 E89.0 Tobacco de pendence caused by cigarettes 5049059517 1571463 F17.210 Health Concerns Section Related Observation LastModified by Organization Detai ls LastModified Time None Recorded Concern Status LastModified by Organization Details LastModified Time None Recorded Advance Directives Directive N: Payers Insurance Date Sequence Insurance Name Policy Number Policy Gonsalves Covered Member ID Gonsalves Member ID Guarantor Name 01/02/2025 1 [place] Tia Garcia [id number] Tia Garcia 01/02/2025 2 [place] [facility] Tia Malone Link [id number] Tia Garcia Notes Date Note Type Note [...] eventually managing her pain with Tramadol and Sanford. She was referred to pain management during last visit and was requested to see us as needed. Interval history 03/15/2020 Patient returns to clinic for follow up. She has stopped her Cymbalta. She has also tried Venlafaxine for mood issues but did not have benefit. She is trying to pension fund manager her pain with Tylenol and recreational marijuana. She never saw paint roller covers supervisor after last visit. She denies any new [...] narrowing. Interval history 08/02/21 Managed at the [facility], pain clinic. She is also seeing Dr. [...] neuropathy and neuralgic pain. She goes to [facility] pain center. In December she was diagnosed with breast cancer. She underwent right lumpectomy, and eventually radiation therapy. States [facility] is managing her neuralgic pain pretty well. [...] intracranial findings. Elida Javier MD [address] [place] [address], [address], [facility] 09/16/2024 11:08:39 5 text/html 59-year-old woman here [...] like somewhere in satellite clinic outside of [place]. Sounds like she had some adenomatous colonic polyps so that, she was told to have a follow-up colonoscopy by him in 3 years.From a GERD standpoint she feels she is doing quite well.She takes omeprazole 20 mg once daily. Johnathon Galo APRN, [employer] [address] [place] [address], [address], [facility] 09/16/2024 10:14:46 5 text/html [facility] OP [...] Conscious Sedation August Gunn MD [address] [place] [address], [address], [facility] 11/28/2024 15:39:52 5 text/html Ms. Garcai is a 59-year-old female who returns to endocrine clinic for management of papillary thyroid carcinoma. She did undergo total thyroidectomy in 2014 for papillary thyroid carcinoma. The surgery was performed by Dr. Mckeon. It was a follicular variant measuring 2.2 cm in greatest dimension tumor was unifocal with no lymphovascular invasion. The patient did receive radioactive iodine 131 110 mCi. She subsequently had a whole-body scan which demonstrated normal uptake within the thyroidectomy bed. Her most recent soft tissue neck ultrasound was 09/24/20 and showed no residual disease in the thyroidectomy bed a few benign lymph nodes were noted no lymphadenopathy was noted. Her most recent Thyrogen stimulated thyroglobulin was September 2020 with a thyroglobulin quantitative less than 0.1 and thyroglobulin antibody of less than 1. Today the patient presents reports that she is feeling much better than she was. Patient states that she was having scalp sores prior to decreasing her levothyroxine. She reports frustration that no one knew what was happening to her until her neurologist suggested she was on too much thyroid medicine. She is taking levothyroxine 75 mcg. She takes the dose appropriately in the a.m. on an empty stomach. She is not currently on iron or calcium supplementation. She is on omeprazole but takes this later in the a.m. Most recent TSH was 3.83 on November 21, 2024. The patient unfortunately continue to abuse tobacco smoking 1/2 to 1 packs per day. She is trying to cut back and quit. Patient had breast cancer in 2021. She underwent a lumpectomy and radiation therapy. She completed Tamoxifen treatment. Shania Marshall, LUIS-C [address] [place] [address], [phone], [facility] 01/05/2025 09:12:57 OBGyn Episode No OBEpisode recorded.
--- OUTSIDE RECORDS SUMMARY | 2025-01-10 18:25 | XMS_ITS ---
Author Organization Unknown Address [address] [place] [phone] Phone Care Team Providers Care Hyperion Essbase Developer Name Role Phone MIREILLE Odom Attending Unavailable [facility] Primary Unavailable Immunization Immunization Date Status [...] T4 FREE - Collect Date/Time: 06/17/2024 13:32 [facility] ID: [id number] [address] [place] [address], [phone] LOINC: 3024-7 Test Value Unit Reference Range Code Code System Flag T4, FREE 1.17 ng/dL L=0.78 H=2.19 3024-7 LOINC TSH - Collect Date/Time: 13:32 [facility] ID: [id number] [address] [place] [address], [phone] LOINC: 07719-4 Test Value Unit Reference Range Code Code System Flag TSH. 3.590 uIU/L L=0.470 H=4.680 80691-0 LOINC ANTI THYROGLOBULIN ANTIBODY - Collect Date/Time: 06/17/2024 13:32 [facility] ID: [id number] [address] [place] [address], [phone] LOINC: 8098-6 Test Value Unit Reference Range Code Code System Flag Thyroglobulin Antibody <1.0 0.0-0.9 8098-6 LOINC Social History Type Status Start Date End Date Code Code Syst em Smoking History Current every day smoker 297525529 SNOMED CT Sex Female Hospital Discharge Instructions Should you have any questions prior to discharge, please contact a member of your healthcare team. If you have left the hospital and have any questions, please contact your primary care physician. Reason For Referral No Data Found Plan of Treatment CT Chest CA Screen (18342) 12/30/2024 Encounters Encounter Diagnosis Start Date Code Code Sys tem Malignant neoplasm of thyroid gland 06/17/2024 SNOMED-CT Personal Care Team Section Performer Name Performer Role Active Date Inactive CHARLIE Salvador PCP - Primary care physician 20212024-01-25
--- OUTSIDE RECORDS SUMMARY | 2025-01-10 18:25 | XMS_ITS | Encounter Summary ---
Author Organization [facility] Address Critical access hospital[address] [place] [address] Care Team Providers Care Sales Representative Printing Name Role Phone Cely Rivera [facility] Primary Care Provider [phone] [phone] Encounter Details Date Type Department Care Team (Late Contact Info) Description 07/18/2018 Abstract [facility] [address] [place] [phone] Chris Whitehead MD [address] [place] [address] Social History Tobacco Use Types Packs/Day Years [...] as of this encounter Plan of Treatment Upcoming Encounters Date Type Department Care Team (Late Contact Info) Description 01/13/2025 10:30 AM CDT Appointment [facility] Radiation Oncology - [place] [id number] [place] [address] Arvind Lucas MD [address] [place] [address] documented as of this encounter Visit Diagnoses Not on filedocumented in this encounter Additional Health Concerns Infection Onset Date Last Indicated Resolved Time COVID-19 Rule Out 10/10/2020 10/10/2020 10/11/2020 11:06 AM TECHNICIAN PREVENTATIVE MEDICINE COVID-19 Rule Out 01/15/2022 01/15/2022 01/15/2022 5:14 PM CDT COVID-19 Rule Out 07/13/2024 07/13/2024 07/13/2024 1:14 AM TECHNICIAN PREVENTATIVE MEDICINE documented as of this encounter Care Teams Sales Representative Printing Relationship Specialty Start Date End Date Cely Rivera FNP-BC [address] [place] [address] PCP - General NURSE PRACTITIONER 02/27/18 documented as of this encounter
--- OUTSIDE RECORDS SUMMARY | 2025-01-10 18:25 | XMS_ITS | Encounter Summary ---
Author Organization [facility] Address [facility] [place] [address] Care Team Providers Care Casserole Preparer Name Role Phone Cely Rivera [facility] Primary Care Provider [phone] [phone] Encounter Details Date Type Department Care Team (Late Contact Info) Description 07/06/2018 Abstract [facility] [address] [place] [phone] Chris Whitehead MD [address] [place] [address] Social History Tobacco Use Types Packs/Day Years [...] Info) Description 01/13/2025 10:30 AM CDT Appointment [facility] Radiation Oncology - [place] [address] [place] [address] Arvind Lucas MD [address] [place] [address] documented as of this encounter Visit Diagnoses Not on filedocumented in this encounter Additional Health Concerns Infection Onset Date Last Indicated Resolved Time COVID-19 Rule Out 10/10/2020 10/10/2020 10/11/2020 11:06 AM PHOTOFLASH POWDER MIXER COVID-19 Rule Out 01/15/2022 01/15/2022 01/15/2022 5:14 PM CDT COVID-19 Rule Out 07/13/2024 07/13/2024 07/13/2024 1:14 AM PHOTOFLASH POWDER MIXER documented as of this encounter Care Teams Casserole Preparer Relationship Specialty Start Date End Date Cely Rivera FNP-BC [address] [place] [address] PCP - General NURSE PRACTITIONER 02/27/18 documented as of this encounter
--- OUTSIDE RECORDS SUMMARY | 2025-01-10 18:25 | XMS_ITS | Encounter Summary ---
Author Organization [facility] Address [address] [place] [address] Care Team Providers Care General Distillery Worker Name Role Phone Cely Rivera [facility] Primary Care Provider [phone] [phone] Encounter Details Date Type Department Care Team (Late Contact Info) Description 11/17/2017 Abstract [facility] [address] [place] [address] , Generic ConversionMD Social History Tobacco Use Types Packs/Day Years [...] Upcoming Encounters Date Type Department [facility] Team [facility] Description 01/13/2025 10:30 AM CDT Appointment [facility] Radiation Oncology - [place] [address] [place] [address] Arvind Lucas MD [address] [place] [address] documented as of this encounter Visit Diagnoses Not on filedocumented in this encounter Additional Health Concerns Infection Onset Date Last Indicated Resolved Time COVID-19 Rule Out 10/10/2020 10/10/2020 10/11/2020 11:06 AM PROJECT STRUCTURAL ENGINEER COVID-19 Rule Out 01/15/2022 01/15/2022 01/15/2022 5:14 PM CDT COVID-19 Rule Out 07/13/2024 07/13/2024 07/13/2024 1:14 AM PROJECT STRUCTURAL ENGINEER documented as of this encounter Care Teams General Distillery Worker Relationship Specialty Start Date End Date Cely iRvera FNP- [address] [place] [address] PCP - General NURSE PRACTITIONER 02/27/18 documented as of this encounter
--- OUTSIDE RECORDS SUMMARY | 2025-01-10 18:25 | XMS_ITS ---
Author Organization Unknown Address [address] [place] [phone] Phone Care Team Providers Care Manager Financial Name Role Phone IVANTENAAry SADE Attending Unavailable JJ STACY Primary Unavailable Immunization [...] mcg/0.3 mL 06/04/2024 Completed 309 CVX Results DIG 3D ALEXEY SCREENING BILATER AL - Completed: 12/22/2024 09:21 LOINC: \TM00\12PI\DRAo\BM09\ \MRHo\ [address] [address] ---------NAME--------- NUMBER SEX AGE ADMIT DISC. XRAY# F/C TYPE LINK ARIA PORTER [id number] F 59 12/22/24 12/22/24 [id number] O/P DATE OF : 1965 M/R# [id number] PH#: [phone] \MRHx\ LOCATION: TRANSCRIBED: 12/22/24 10:00 DIG 3D ALEXEY SCREENING [id number] COMPLETED:12/22/24 9:21 [id number] (REASONS-DIG 3D ALEXEY SCREENING BILATERAL: SCREENING PHYSICIAN: GERALDINE Green R A D I O L O G Y R E P O R T PROCEDURE: SCREENING MAMMOGRAM WITH TOMOSYNTHESIS REASON FOR EXAM: Screening mammogram. Per prior report, personal history of right breast cancer status post lumpectomy in 2021 and radiation therapy. COMPARISON: DIG 3D ALEXEY DIAG BILATERAL on DOS: 09/13/22, MM DIAGNOSTIC ALEXEY RT W HAMILTON on DOS: 10/25/21 TECHNIQUE: Bilateral CC and MLO views obtained. Images were obtained using a Digital Tomosynthesis Unit. Standard 2D and 3D Tomosynthesis images were reviewed. This examination was analyzed using Everyday.me DBT/MMG in addition to a radiologist review, an AI software developed to enhance the effectiveness of breast cancer screening with mammography. FINDINGS: BREAST COMPOSITION: B - There are scattered areas of fibroglandular density. In the right breast, there are stable postsurgical changes. No suspicious mass, new architectural distortion, or suspicious microcalcifications. In the left breast, no asymmetrical parenchymal pattern, architectural distortion, pleomorphic microcalcifications or masses. IMPRESSION: Benign findings. RECOMMENDATION: Recommend annual mammogram. ASSESSMENT: BIRADS: 2 - Benign SEPARATOR \ITLo\ \UNDo\ \UNDx\ \ITLx\ Reviewed and Electronically Signed by: ELIOT SHARP Signed Date: SIGNDATE 12/22/24.[facility]. .to [facility] via fax Social History Type Status Start Date End Date Code Code Syst em Smoking History Current every day smoker [id number] SNOMED CT Sex Female Hospital Discharge Instructions Should you have any questions prior to discharge, please contact a member of your healthcare team. If you have left the hospital and have any questions, please contact your primary care physician. Reason For Referral No Data Found Plan of Treatment CT Chest CA Screen ([id number]) 12/30/2024 Encounters Encounter Diagnosis Start Date Code Code Sys tem Screening mammography 12/22/2024 [id number] SNOMED -CT Personal Care Team Section Performer Name Performer Role Active Date Inactive CHARLIE Salvador PCP - Primary care physician [id number] Imaging Narrative Notes [facility] 12/22/2024 10:02 [facility] [address] [place] [address] ---------NAME--------- NUMBER SEX AGE ADMIT DISC. XRAY# F/C TYPE LINK ARIA PORTER [id number] F 59 12/22/24 12/22/24 [id number] MB O/P DATE OF : 1965 M/R# [id number] #: [phone] LOCATION: TRANSCRIBED: 12/22/24 10:00 DIG 3D ALEXEY SCREENING [id number] COMPLETED:12/22/24 9:21 [id number] (REASONS-DIG 3D ALEXEY SCREENING BILATERAL: SCREENING PHYSICIAN: GERALDINE Green RADIOLOGY REPORT PROCEDURE: SCREENING MAMMOGRAM WITH TOMOSYNTHESIS REASON FOR EXAM: Screening mammogram. Per prior report, personal history of right breast cancer status post lumpectomy in 2021 and radiation therapy. COMPARISON: DIG 3D ALEXEY DIAG BILATERAL on DOS: 09/13/22, MM DIAGNOSTIC ALEXEY RT W HAMILTON on DOS: 10/25/21 TECHNIQUE: Bilateral CC and MLO views obtained. Images were obtained using a Digital Tomosynthesis Unit. Standard 2D and 3D Tomosynthesis images were reviewed. This examination was analyzed using Everyday.me DBT/MMG in addition to a radiologist review, an AI software developed to enhance the effectiveness of breast cancer screening with mammography. FINDINGS: BREAST COMPOSITION: B - There are scattered areas of fibroglandular density. In the right breast, there are stable postsurgical changes. No suspicious mass, new architectural distortion, or suspicious microcalcifications. In the left breast, no asymmetrical parenchymal pattern, architectural distortion, pleomorphic microcalcifications or masses. IMPRESSION: Benign findings. RECOMMENDATION: Recommend annual mammogram. ASSESSMENT: BIRADS: 2 - Benign SEPARATOR Reviewed and Electronically Signed by: ELIOT SHARP Signed Date: SIGNDATE 12/22/24.[facility]. .to [facility] via fax
--- OUTSIDE RECORDS SUMMARY | 2025-01-10 18:25 | XMS_ITS | Encounter Summary ---
Author Organization [facility] Address [address] [place] [address] Care Team Providers Care Progress Worker Name Role Phone Ruth Mosher MD Primary Care Provider Unavailable Cely Rivera [facility] Primary Care Provider [phone] [phone] Encounter Details Date Type Department Care Team (Late Contact Info) Description 07/07/2017 Abstract [place] [address] , Generic MD Steven Social History Tobacco Use Types Packs/Day Years [...] Info) Description 01/13/2025 10:30 AM CDT Appointment [facility] Radiation Oncology - [place] [address] [place] [address] Arvind Lucas MD [address] [place] [address] documented as of this encounter Visit Diagnoses Not on filedocumented in this encounter Additional Health Concerns Infection Onset Date Last Indicated Resolved Time COVID-19 Rule Out 10/10/2020 10/10/2020 10/11/2020 11:06 AM MINI BAR ATTENDANT COVID-19 Rule Out 01/15/2022 01/15/2022 01/15/2022 5:14 PM CDT COVID-19 Rule Out 07/13/2024 07/13/2024 07/13/2024 1:14 AM MINI BAR ATTENDANT documented as of this encounter Care Teams Progress Worker Relationship Specialty Start Date End Date Ruth Mosher MD PCP - General 04/06/15 Cely Rivera FNP- [address] [place] [address] PCP - General NURSE PRACTITIONER 02/27/18 documented as of this encounter
--- OUTSIDE RECORDS SUMMARY | 2025-01-10 18:25 | XMS_ITS | Clinical Summary ---
Author Organization [facility] Address [facility] [place] [address] Care Team Providers Care Hop Separator Name Role Phone Cely Rivera [facility] Primary Care Provider [phone] [phone] Allergies Active Allergy Reactions Criticality Noted Date [...] for Nausea. 20 tablet 07/13/20 24 Active montelukast (SINGULAIR) 10 MG tablet 12/05/19 25 Active SPIRIVA RESPIMAT 1.25 MCG/ACT inhaler (SPIRIVA RESPIMAT) 12/05/19 25 Active atorvastatin (LIPITOR) 40 MG tablet 12/05/19 25 Active Active Problems Problem Noted Date Diagnosed [...] Encounter for preventive health examination 07/02/2014 05/14/2020 Encounters Date Type Department Care Team Description 12/31/2024 10:00 AM CDT Office Visit [facility] [place] [address] [place] [address], [facility] [place] [address] Jb Owens, EDUARDA Hammer Toe (Pt has a hammer toe on the rt foot that makes pt want to limp alittle. From 0/10 pt states pain can get to 7/10 pain 2/10 at this moment. Pt also states depends on which shoes she wears.) 12/31/2024 Travel from Last 3 Months Immunizations Immunization Administration Dates Next Due MMR 02/13/1996 Family History Medical History Relation Comments Dementia Mother Depression Mother Diabetes Mother Relation Status Comments Father Alive no info Mother Alive Social History Tobacco Use Types Packs/Day Years Used Date Smoking Tobacco: Every Day Cigarettes 0.5 40 Smokeless Tobacco: Never Tobacco Cessation:Ready to Q uit: Yes; Counseling Given: Yes Comments:PCP top address Alcohol Use Standard Drinks/Week Comments No 0 (1 standard drink = 0.6 oz pur e alcohol) PHQ-2 Answer Date Recorded Patient Health Questionnaire-2 Score 0 12/31/2024 Comments No Sex and Gender Information Value Date Recorded Sex Assigned at Female 11/14/2018 10:45 AM CDT Legal Sex Female 1:36 AM CDT Gender Identity Female 11/14/2018 10:45 AM CDT Sexual Orientation Not on file Last Filed Vital Signs Vital Sign Reading Time Taken Comments Blood Pressure 102/70 12/31/2024 10:05 AM CDT Pulse 64 12/31/2024 10:05 AM CDT Temperature 36.2 C (97.2 F) 12/31/2024 10:05 AM CDT Respiratory Rate 18 12/31/2024 10:05 AM CDT Oxygen Saturation 99% 12/31/2024 10:05 AM CDT Inhaled Oxygen Concentration - - Weight 68.9 kg (152 lb) 12/31/2024 10:05 AM CDT Height 165.1 cm (5' 5 ) 07/24/2024 11:16 AM MIDDLE SCHOOL GUIDANCE COUNSELOR Body Mass Index 25.29 07/24/2024 11:16 AM MIDDLE SCHOOL GUIDANCE COUNSELOR Plan of Treatment Upcoming Encounters Date Type Department Care Team (Late st Contact Info) Description 01/13/2025 10:30 AM CDT Appointment [facility] Radiation Oncology - [place] [address] [place] [address] Arvind Lucas MD [address] [place], [place] [phone] Health Maintenance Due Date Last Done Comments Cervical Cancer Screening Pap Smear (Age 30 to 64) Every 3 Years 1965 Annual Physical 1966 Hepatitis C 1981 Pneumococcal Vaccine: 50+ Years (1 of 2 - PCV) 1982 Cervical Cancer Screening Pap with HPV Testing (Age 30 to 64) Every 5 Years 1993 Cervical Cancer Screening with HPV 1993 Mammogram Screening 2003 COVID-19 Vaccine ( season) 2024 06/04/2024, 06/02/2023, 05/10/2022, Additional history exists DTaP, Tdap and Td Vaccines (2 - Td or Tdap) 04/12/2034 04/12/2024, 02/06/1996 Colorectal Cancer Screening Colonoscopy (10 Years) 07/24/2034 07/24/2024, 07/24/2024 Zoster Vaccines Completed 07/08/2021, 05/04/2021 RSV Immunization or 60+ Years Completed 04/12/2024 PHQ-2 (Physician [place]) Completed 12/31/2024 Meningococcal B Vaccine Aged Out No l onger eligible based on patient's age to complete this topic Meningococcal Vaccine Aged Out No barry jose luis eligible based on patient's age to complete this topic RSV Immunizations Under 20 Months Aged Out No longer eligible based on patient's age to complete this topic Medical Devices Implanted Type Area Materials Management Manager Device Identifier Shelf Expiration Date Model / Serial / Lot Lens Lens Description:Right IOL Screw Acutrak 2 Mini 22.0mm - [id number] Implanted:Qty: 1 on 10/13/2020 by Jb Owens DPM at [facility] Screw Right: Toe [employer] [id number] 04/30/2025 AT2-M22-S / / [id number] Screw Acutrak 2 Mini 26.0mm - [id number] Implanted:Qty: 1 on 10/13/2020 by Jb Owens DPM at [facility] Screw Right: Toe [employer] [id number] 07/15/2026 AT2-M26-S / / [id number] Screw Locking Hexalobe Acumed 3.5 X 14mm - [id number] Implanted:Qty: 1 on 10/13/2020 by Jb Owens DPM at [facility] Screw Right: Toe [employer] 30-0235 / / N/A Screw Locking Hexalobe Acumed 3.5 X 22mm - [id number] Implanted:Qty: 1 on 10/13/2020 by Jb Owens DPM at [facility] Screw Right: Toe [employer] 30-0239 / / N/A Screw Minitrak 24.0mm Medsource - Sn/A Implanted:Qty: 1 on 11/29/2018 by Jb Owens DPM at [facility] Right: Foot [employer] 09/16/2024 AT2-M24-S / N/A / [id number] Screw Acutrak 2 Micro 12mm - Sn/A Implanted:Qty: 1 on 11/29/2018 by Jb Owens DPM at [facility] Right: Foot [employer] 06/11/2025 AT2-C12-S / N/A / [id number] Screw Acutrak 2 Micro 12mm - Sn/A Implanted:Qty: 1 on 03/21/2019 by Jb Owens DPM at [facility] Left: Foot [employer] 12/22/2025 AT2-C12-S / N/A / [id number] Screw Acutrak 2 Mini 22.0mm - Sn/A Implanted:Qty: 1 on 03/21/2019 by Jb Owens DPM at [facility] Left: Foot [employer] 02/06/2025 AT2-M22-S / N/A / [id number] Explanted Type Area Materials Management Manager Device Identifier Shelf Expiration Date Model / Serial / Lot Drill Acumed Mini - [id number] Explanted:Qty: 1 on 10/13/2020 by Jb Owens DPM at [facility] Drill Right: Toe [employer] [id number] / / N/A Bit Drill 5in 2.3mm Surgibit Ankle Quick Release - [id number] Explanted:Qty: 1 on 10/13/2020 by Jb Owens DPM at [facility] Drill Right: Toe [employer] [id number] / / N/A Plate Tack [employer] - [id number] Explanted:Qty: 2 on 10/13/2020 by Jb Owens DPM at [facility] Plate Right: Toe [employer] PL-PTACK / / N/A .045mm Guide Wire (Mini) Explanted:Qty: 2 on 11/29/2018 at [facility] Right: Foot [employer] [id number] / N/A / N/A .035mm Guide Wire (Micro) Explanted:Qty: 1 on 11/29/2018 at [facility] Right: Foot [employer] [id number] / N/A / N/A Sm Cannulated Drill Tip (Micro) Explanted:Qty: 1 on 11/29/2018 at [facility] Right: Foot [employer] AT2-1509 / N/A / N/A Small Cannulated Drill Tip (Mini) Explanted:Qty: 1 on 11/29/2018 at [facility] Right: Foot [employer] [id number] / N/A / N/A .045mm Guide Wire (Mini) Explanted:Qty: 1 on 03/21/2019 at [facility] Left: Foot [employer] WS-1106ST / N/A / N/A .54mm Guide Wire (Std) Explanted:Qty: 1 on 03/21/2019 at [facility] Left: Foot [employer] WS-1407ST / N/A / N/A Small Cannulated Dirll Tip (Micro) Explanted:Qty: 1 on 03/21/2019 at [facility] Left: Foot [employer] AT2-1509 / N/A / N/A Small Cannulated Drill Tip (Mini) Explanted:Qty: 1 on 03/21/2019 at [facility] Left: Foot [employer] [id number] / N/A / N/A .035mm Guide Wire (Micro) Explanted:Qty: 2 on 03/21/2019 at [facility] Left: Foot [employer] [id number] / N/A / N/A .045mm Guide - Wire Explanted:Qty: 2 on 10/13/2020 by Jb Owens DPM at [facility] Right: Toe WS-1106ST / / N/A Screw Acutrak 2 Mini 20.0mm - [id number] Implanted:Qty: 1 Explanted:Qty: 1 on 10/13/2020 at [facility] Right: Toe [employer] 04/15/2027 AT2-M20-S / / [id number] 6inch Guide Wire Explanted:Qty: 2 on 10/13/2020 by Jb Owens DPM at [facility] Right: Toe WS-1607ST / / N/A Mtp- Reamer Explanted:Qty: 1 on 10/13/2020 by Jb Owens DPM at [facility] Right: Toe MTP-REAMER / / N/A Procedures Procedure Name Priority Date/Time Associated Diagnosis Comments COLONOSCOPY 07/24/2024 11:10 AM MIDDLE SCHOOL GUIDANCE COUNSELOR from Last 3 Months or Most Recently Relevant to Health Maintenance Results * Colonoscopy (07/24/2024 11:10 AM MIDDLE SCHOOL GUIDANCE COUNSELOR) Jack Vo MD GI PROCEDURE ORDERABLES Final Result from Last 3 Months or Most Recently Relevant to Health Maintenance Insurance MEDICARE MEDICAID Care Teams Hop Separator Relationship Specialty Start Date End Date Cely Rivera FNP-BC [address] [place] [address] PCP - General NURSE PRACTITIONER 02/27/18
--- OUTSIDE RECORDS SUMMARY | 2025-01-10 18:26 | XMS_ITS ---
Author Organization Unknown Address [address] [place] [address] [phone] Phone Care Team Providers Care Real Estate Site Analyst Name Role Phone JOSE CHRISTINE STACY Primary Unavailable Immunization Immunization Date Status [...] mcg/0.3 mL 06/04/2024 Completed [address] CHEST CA SCREEN - Complet ed: 12/30/2024 16:26 LOINC: \TM00\12PI\DRAo\BM09\ \MRHo\ [address] [address] ---------NAME--------- NUMBER SEX AGE ADMIT DISC. XRAY# F/C TYPE LINK ARIA PORTER [id number] F 59 12/30/24 12/30/24 03936 MB O/P DATE OF : 1965 M/R# [id number] PH#: [phone] \[facility]\ LOCATION: TRANSCRIBED: 12/30/24 20:22 CT CHEST CA SCREEN 34349 COMPLETED:12/30/24 16:26 [facility] [address] {REASON-CT CHEST CA SCREEN: CURRENT SMOKER PHYSICIAN: JOSE R A D I O L O G Y R E P O R T CT Chest without intravenous contrast INDICATION: CURRENT SMOKER TECHNIQUE: Multidetector spiral CT of the chest was performed from the lung apices to the upper abdomen. Axial, coronal and sagittal multiplanar reformats were performed. Radiation dose : Chest: CTDI volume is 1 mGy. Dose-length product is 42 mGy*cm The dose indicators for CT are the volume computed tomography (CT) dose index (CTDIvol) and the dose length product (DLP), and are measured in units of mGy and mGy-cm, respectively. These indicators are not patient dose, but values generated from the CT scanner acquisition factors. The report includes radiation exposure data for exposures received during this examination. Comparison: None Findings: Lower neck: Normal thyroid. Lungs: Emphysematous changes in both lungs. Atelectasis and scarring in the lung bases. Calcified granuloma in the lingula. Heart/Vascular Structures: Normal heart size. No pericardial effusion. Lymph Nodes: Calcified mediastinal and left hilar lymph nodes. Pleura: No pleural effusion or significant pneumothorax. Musculoskeletal: No acute osseous abnormality. Soft tissues: Normal. Upper abdomen: Limited portions of the upper abdomen are unremarkable. IMPRESSION: 1. Smoking-related lung disease. Evidence of prior granulomatous disease. Atelectasis and scarring in the lung bases most focal in the lingula. 3-probably benign. Consider follow-up chest CT in 6-12 months. Radiation optimization: All CT scans at this facility use at least one of these dose optimization techniques: Automated exposure control mA and/or kV adjustment per patient size (includes targeted exams where dose is matched to clinical indication) or iterative reconstruction. HS:Y ONAL FINANCIAL ADVISOR \ITLo\ \UNDo\ \UNDx\ \ITLx\ Reviewed and Electronically Signed by: John Alcaraz MD Signed Date: 12/30/24 20:22 12/30/24.2024.KEW.to [employer] via fax Social History Type Status Start Date End Date Code Code Syst em Smoking History Current every day smoker [id number] SNOMED CT Sex Female Hospital Discharge Instructions Should you have any questions prior to discharge, please contact a member of your healthcare team. If you have left the hospital and have any questions, please contact your primary care physician. Reason For Referral No Data Found Plan of Treatment CT Chest CA Screen ([id number]) 12/30/2024 Encounters Encounter Diagnosis Start Date Code Code Sys tem Encounter for screening for malignant neoplasm of respiratory organs 12/30/2024 SNOMED-CT Personal Care Team Section Performer Name Performer Role Active Date Inactive CHARLIE Salvador PCP - Primary care physician 20212024-01-25 Imaging Narrative Notes [facility] 12/30/2024 20:[address] [address] ---------NAME--------- NUMBER SEX AGE ADMIT DISC. XRAY# F/C TYPE LINK ARIA PORTER [id number] F 59 12/30/24 12/30/24 20653 O/P DATE OF : 1965 M/R# [id number] #: [id number] LOCATION: TRANSCRIBED: 12/30/24 20:22 CT CHEST CA SCREEN 96208 COMPLETED:12/30/24 16:26 [facility] [address] {REASON-CT CHEST CA SCREEN: CURRENT SMOKER PHYSICIAN: JOSE RADIOLOGY REPORT CT Chest without intravenous contrast INDICATION: CURRENT SMOKER TECHNIQUE: Multidetector spiral CT of the chest was performed from the lung apices to the upper abdomen. Axial, coronal and sagittal multiplanar reformats were performed. Radiation dose : Chest: CTDI volume is 1 mGy. Dose-length product is 42 mGy*cm The dose indicators for CT are the volume computed tomography (CT) dose index (CTDIvol) and the dose length product (DLP), and are measured in units of mGy and mGy-cm, respectively. These indicators are not patient dose, but values generated from the CT scanner acquisition factors. The report includes radiation exposure data for exposures received during this examination. Comparison: None Findings: Lower neck: Normal thyroid. Lungs: Emphysematous changes in both lungs. Atelectasis and scarring in the lung bases. Calcified granuloma in the lingula. Heart/Vascular Structures: Normal heart size. No pericardial effusion. Lymph Nodes: Calcified mediastinal and left hilar lymph nodes. Pleura: No pleural effusion or significant pneumothorax. Musculoskeletal: No acute osseous abnormality. Soft tissues: Normal. Upper abdomen: Limited portions of the upper abdomen are unremarkable. IMPRESSION: 1. Smoking-related lung disease. Evidence of prior granulomatous disease. Atelectasis and scarring in the lung bases most focal in the lingula. 3-probably benign. Consider follow-up chest CT in 6-12 months. Radiation optimization: All CT scans at this facility use at least one of these dose optimization techniques: Automated exposure control mA and/or kV adjustment per patient size (includes targeted exams where dose is matched to clinical indication) or iterative reconstruction. HS:Y ONAL FINANCIAL ADVISOR Reviewed and Electronically Signed by: John Alcaraz MD Signed Date: 12/30/24 20:22 12/30/24.YSABEL.to [facility] via fax
--- OUTSIDE RECORDS SUMMARY | 2025-01-10 18:44 | XMS_ITS ---
Author Organization Unknown Address [address] [place] [address] [phone] Phone Care Team Providers Care Gate Watch Name Role Phone MIREILLE Odom Attending Unavailable [facility] Primary Unavailable Immunization Immunization Date Status Additional [...] CVX Results TSH - Collect Date/Time: 16:28 [facility] ID: [id number] [address] [place], [place], [id number] LOINC: 35163-3 Test Value Unit Reference Range Code Code System Flag TSH. 3.830 uIU/L L=0.470 H=4.680 71429-2 LOINC Social History Type Status Start Date End Date Code Code Syst em Smoking History Current every day smoker 849991470 SNOMED CT Sex Female Hospital Discharge Instructions Should you have any questions prior to discharge, please contact a member of your healthcare team. If you have left the hospital and have any questions, please contact your primary care physician. Reason For Referral No Data Found Plan of Treatment CT Chest CA Screen ([id number]) 12/30/2024 Encounters Encounter Diagnosis Start Date Code Code Sys tem Hypothyroidism, unspecified 11/21/2024 SNOMED-CT Personal Care Team Section Performer Name Performer Role Active Date Inactive CHARLIE Salvador PCP - Primary care physician 20212024-01-25
--- OUTSIDE RECORDS SUMMARY | 2025-01-10 18:44 | XMS_ITS ---
Author Organization Unknown Address [address] [place] [address] [phone] Phone Care Team Providers Care Wire Charger Name Role Phone MISAEL MARRERO Attending Unavailable [...] BRITTANY T - Collect Date/Time: 10/03/2024 16:36 [facility] ID: [id number] [address] [place], [place], [id number] LOINC: 77493-2 Test Value Unit Reference Range Code Code System Flag T pallidum Antibodies Non Reactive Non Reactive 57050-6 LOINC CHG RPR? NO SEND TO IFC? NO Social History Type Status Start Date End Date Code Code Syst em Smoking History Current every day smoker [id number] SNOMED CT Sex Female Hospital Discharge Instructions Should you have any questions prior to discharge, please contact a member of your healthcare team. If you have left the hospital and have any questions, please contact your primary care physician. Reason For Referral No Data Found Plan of Treatment CT Chest CA Screen (85503) 12/30/2024 Encounters Encounter Diagnosis Start Date Code Code Sys tem Polyneuropathy 10/03/2024 [id number] SNOMED-CT Personal Care Team Section Performer Name Performer Role Active Date Inactive CHARLIE Salvador PCP - Primary care physician 20212024-01-25
--- OUTSIDE RECORDS SUMMARY | 2025-01-10 18:44 | XMS_ITS ---
Author Organization Unknown Address [address] [place] [address] [phone] Phone Care Team Providers Care Procurement Clerk Name Role Phone MIERILLE Odom Attending Unavailable [facility] Primary Unavailable Immunization [...] MILAGRO - Colle ct Date/Time: 07/01/2024 17:20 [facility] ID: [id number] [address] [place], [place], [id number] LOINC: 3013-0 Test Value Unit Reference Range Code Code System Flag Thyroglobulin (TG-MILAGRO) <2.0 3013-0 LOINC Social History Type Status Start Date End Date Code Code Syst em Smoking History Current every day smoker 210083856 SNOMED CT Sex Female Hospital Discharge Instructions Should you have any questions prior to discharge, please contact a member of your healthcare team. If you have left the hospital and have any questions, please contact your primary care physician. Reason For Referral No Data Found Plan of Treatment CT Chest CA Screen (88694) 12/30/2024 Encounters Encounter Diagnosis Start Date Code Code Sys tem Malignant neoplasm of thyroid gland 07/01/2024 SNOMED-CT Personal Care Team Section Performer Name Performer Role Active Date Inactive CHARLIE Salvador PCP - Primary care physician 20212024-01-25
--- OUTSIDE RECORDS SUMMARY | 2025-01-10 18:44 | XMS_ITS ---
Author Organization Unknown Address [address] [place] [address] [phone] Phone Care Team Providers Care Naval Designer Name Role Phone MISAEL MARRERO Attending Unavailable [...] BRITTANY T - Collect Date/Time: 09/19/2024 15:54 [facility] ID: [id number] [place] [address], [id number] LOINC: 04418-4 Test Value Unit Reference Range Code Code System Flag T pallidum Antibodies Non Reactive Non Reactive 97695-8 LOINC CHG RPR? NO SEND TO IFC? NO VITAMIN B-12 - Collect Date/ Time: 09/19/2024 15:54 [facility] ID: [id number] [place] [address], [phone] LOINC: 2132-9 Test Value Unit Reference Range Code Code System Flag VITAMIN B12 804 pq/mL L=239 H=931 TSH - Collect Date/Time: 15:54 [facility] ID: [id number] [id number] [place] [address], [id number] LOINC: 96535-2 Test Value Unit Reference Range Code Code System Flag TSH. 0.390 uIU/L L=0.470 H=4.680 27690-4 LOINC L IMMUNOFIXATION (RAQUEL) SERUM - Collect Date/Time: 09/19/2024 15:54 [facility] ID: [id number] [address] [place] [address], [phone] LOINC: 70955-2 Test Value Unit Reference Range Code Code System Flag Immunofixation Result,Serum Comment: 18615-6 LOINC Immunoglobulin G, Qn,Serum 0968 221-4304 2465-3 LOINC Immunoglobulin A, Qn,Serum 143 87-352 8898-8 LOINC Immunoglobulin M, Qn,Serum 109 26-217 4122-9 LOINC Social History Type Status Start Date End Date Code Code Syst em Smoking History Current every day smoker [id number] SNOMED CT Sex Female Hospital Discharge Instructions Should you have any questions prior to discharge, please contact a member of your healthcare team. If you have left the hospital and have any questions, please contact your primary care physician. Reason For Referral No Data Found Plan of Treatment CT Chest CA Screen (84835) 12/30/2024 Encounters Encounter Diagnosis Start Date Code Code Sys tem Polyneuropathy, unspecified 09/19/2024 SNOMED-CT Personal Care Team Section Performer Name Performer Role Active Date Inactive CHARLIE Salvador PCP - Primary care physician 20212024-01-25
--- OUTSIDE RECORDS SUMMARY | 2025-01-10 18:44 | XMS_ITS ---
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 MF: BRYANT Report ID: [id number] Reading Location: [id number] Social History Type Status Start Date End Date Code Code Syst em Smoking History Current every day smoker 784988947 SNOMED CT Sex Female Hospital Discharge Instructions Should you have any questions prior to discharge, please contact a member of your healthcare team. If you have left the hospital and have any questions, please contact your primary care physician. Reason For Referral No Data Found Plan of Treatment CT Chest CA Screen (80652) 12/30/2024 Encounters Encounter Diagnosis Start Date Code Code Sys tem Other specified disorders of bone density and structure, unspecified site 04/10/2024 SNOMED-CT Personal Care Team Section Performer Name Performer Role Active Date Inactive CHARLIE Salvador PCP - Primary care physician 20212024-01-25 Imaging Narrative Notes
--- OUTSIDE RECORDS SUMMARY | 2025-01-10 18:44 | XMS_ITS ---
Author Organization Unknown Address [address] [place] [address] [phone] Phone Care Team Providers Care Stained Glass Glazier Helper Name Role Phone SANTHOSHAry SADE Attending Unavailable [...] PANE L - Collect Date/Time: 12/26/2023 13:28 [facility] ID: [id number] [address] [place], [place], [id number] LOINC: 93362-8 Test Value Unit Reference Range Code Code [...] 8-9 LOINC ANION GAP 10 L=10 H=20 99741-9 LOINC OSMOLALITY 290 mOs/kG L=280 H=296 02454-4 LOINC BUN/CREAT 11.1 3097-3 LOINC CALCIUM 9.1 mg/dL L=8.3 H=10.5 17355-7 LOINC AST 29 U/L L=15 H=46 1920-8 LOINC ALT 20 U/L L=9 H=72 1742-6 LOINC ALKALINE PHOS 57 U/L L=38 H=126 6768-6 LOINC TOTAL BILI 0.5 mg/dL L=0.2 H=1.3 1975-2 LOINC ALBUMIN 4.2 G/dL L=3.5 H=5.0 1751-7 LOINC TOTAL PROTEIN 7.3 g/L L=6.3 H=8.2 2885-2 LOINC A/G RATIO 1.4 58692-6 LOINC AGE 58 62122-5 LOINC eGFR NON-AFR 68 ml/min eGFR AFR AMER 82 ml/min CBC W/ DIFF - Collect Date/T farooq: 12/26/2023 13:28 [facility] ID: [id number] [address] [place], [place], [id number] LOINC: 92608-4 Test Value Unit Reference Range Code Code System Flag WBC 8.8 10^3uL L=4.8 H=10.8 RBC 3.90 10^6uL L=4.20 H=5.40 L HEMOGLOBIN 13.1 g/dL L=12.0 H=16.0 718-7 LOINC HEMATOCRIT 39.1 VOL% L=37.0 H=47.0 4544-3 LOINC MCV 100.3 fL L=81.0 H=99.0 H MCH 33.6 pg L=27.0 H=32.0 H MCHC 33.5 g/dL L=32.0 H=36.0 PLATELETS 282 10^3uL L=100 H=400 43202-8 LOINC RDW 12.3 % L=11.7 H=15.5 %GRAN 64.3 % L=40.0 H=70.0 23659-6 LOINC %LYMPH 24.2 % L=20.0 H=45.0 736-9 LOINC %MONO 7.3 % L=2.0 H=10.0 97412-0 LOINC %EOS 2.7 % L=0.0 H=6.0 713-8 LOINC %BASO 1.0 % L=0.0 H=3.0 706-2 LOINC #NEUT 5.7 10^3uL L=1.9 H=7.6 93032-4 LOINC #LYMPH 2.1 10^3uL L=0.9 H=4.9 34820-8 LOINC #MONO 0.6 10^3uL L=0.1 H=0.9 19934-8 LOINC #EOS 0.2 10^3uL L=0.0 H=0.6 712-0 LOINC #BASO 0.09 10^3uL L=0.00 H=0.10 10482-8 LOINC #IM GRANS 0.0 10^3uL L=0.0 H=7.0 92983-3 LOINC %IM GRANS 0.5 % L=0.0 H=5.0 14151-3 LOINC %NRB 0.0 L=0.0 H=0.2 48424-4 LOINC #NRB 0.000 L=0.000 H=0.012 46382-9 LOINC MANUAL DIFF NOT INDICATED RBC MORPH NOT INDICATED Social History Type Status Start Date End Date Code Code Syst em Smoking History Current every day smoker [id number] SNOMED CT Sex Female Hospital Discharge Instructions Should you have any questions prior to discharge, please contact a member of your healthcare team. If you have left the hospital and have any questions, please contact your primary care physician. 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
--- OUTSIDE RECORDS SUMMARY | 2025-01-10 18:45 | XMS_ITS ---
Author Organization Unknown Address [address] [place] [address] [phone] Phone Care Team Providers Care Senior Examiner Name Role Phone JOSE CHRISTINE STACY Primary [...] Complet ed: 12/30/2024 16:26 LOINC: \TM00\12PI\DRAo\BM09\ \MRHo\ [address] [address] ---------NAME--------- NUMBER SEX AGE ADMIT DISC. XRAY# F/C TYPE LINK ARIA PORTER [id number] F 59 12/30/24 12/30/24 61452 MB O/P DATE OF : 1965 M/R# [id number] PH#: [phone] [facility]\ LOCATION: TRANSCRIBED: 12/30/24 20:22 CT CHEST CA SCREEN 85839 COMPLETED:12/30/24 16:26 [facility] [address] {REASON-CT CHEST CA SCREEN: CURRENT SMOKER PHYSICIAN: [...] to clinical indication) or iterative reconstruction. HS:Y CTOR INSTRUMENTATION \ITLo\ \UNDo\ \UNDx\ \ITLx\ Reviewed and Electronically Signed by: John Alcaraz MD Signed Date: 12/30/24 20:22 12/30/24.2024.KEW.to [employer] via fax Social History Type Status Start Date End Date Code Code Syst em Smoking History Current every day smoker 051193460 SNOMED CT Sex Female Hospital Discharge Instructions Should you have any questions prior to discharge, please contact a member of your healthcare team. If you have left the hospital and have any questions, please contact your primary care physician. Reason For Referral No Data Found Plan of Treatment CT Chest CA Screen ([id number]) 12/30/2024 Encounters Encounter Diagnosis Start Date Code Code Sys tem Encounter for screening for malignant neoplasm of respiratory organs 12/30/2024 SNOMED-CT Personal Care Team Section Performer Name Performer Role Active Date Inactive CHARLIE Salvador PCP - Primary care physician 20212024-01-25 Imaging Narrative Notes [facility] 12/30/2024 20:[address] [address] ---------NAME--------- NUMBER SEX AGE ADMIT DISC. XRAY# F/C TYPE LINK ARIA PORTER [id number] F 59 12/30/24 12/30/24 45070 O/P DATE OF : 1965 M/R# [id number] #: [id number] LOCATION: TRANSCRIBED: 12/30/24 20:22 CT CHEST CA SCREEN 05616 COMPLETED:12/30/24 16:26 [facility] [address] {REASON-CT CHEST CA SCREEN: CURRENT SMOKER PHYSICIAN: [...] to clinical indication) or iterative reconstruction. HS:Y CTOR INSTRUMENTATION Reviewed and Electronically Signed by: John Alcaraz MD Signed Date: 12/30/24 20:22 12/30/24.YSAB[address] [facility] via fax
--- OUTSIDE RECORDS SUMMARY | 2025-01-10 18:45 | XMS_ITS ---
Author Organization Unknown Address [address] [place] [phone] Phone Care Team Providers Care Computer Language Coder Name Role Phone IVANTENAAyr SADE Attending Unavailable JJ STACY Primary Unavailable [...] - Completed: 12/22/2024 09:21 LOINC: \TM00\12PI\DRAo\BM09\ \MRHo\ [address] [address] ---------NAME--------- NUMBER SEX AGE ADMIT DISC. XRAY# F/C TYPE LINK ARIA PORTER [id number] F 59 12/22/24 12/22/24 28196 O/P DATE OF : 1965 M/R# [id number] PH#: [phone] \[facility]\ LOCATION: TRANSCRIBED: 12/22/24 10:00 DIG 3D ALEXEY SCREENING [id number] COMPLETED:12/22/24 9:21 53021 (REASONS-DIG 3D ALEXEY SCREENING BILATERAL: SCREENING PHYSICIAN: [...] were reviewed. This examination was analyzed using [employer] DBT/MMG in addition to a radiologist review, [...] annual mammogram. 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. .to [facility] via fax Social History Type Status Start Date End Date Code Code Syst em Smoking History Current every day smoker 042583175 SNOMED CT Sex Female Hospital Discharge Instructions Should you have any questions prior to discharge, please contact a member of your healthcare team. If you have left the hospital and have any questions, please contact your primary care physician. Reason For Referral No Data Found Plan of Treatment CT Chest CA Screen (15418) 12/30/2024 Encounters Encounter Diagnosis Start Date Code Code Sys tem Screening mammography 12/22/2024 [id number] SNOMED -CT Personal Care Team Section Performer Name Performer Role Active Date Inactive CHARLIE Salvador PCP - Primary care physician 20212024-01-[address] [facility] 12/22/2024 10:02 [facility] [address] [place] [address] ---------NAME--------- NUMBER SEX AGE ADMIT DISC. XRAY# F/C TYPE LINK ARIA PORTER [id number] F 59 12/22/24 12/22/24 46946 MB O/P DATE OF : 1965 M/R# [id number] #: [id number] LOCATION: TRANSCRIBED: 12/22/24 10:00 DIG 3D ALEXEY SCREENING [id number] COMPLETED:12/22/24 9:21 73878 (REASONS-DIG 3D ALEXEY SCREENING BILATERAL: SCREENING PHYSICIAN: [...] were reviewed. This examination was analyzed using [employer] DBT/MMG in addition to a radiologist review, [...] annual mammogram. 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. .to [facility] via fax
--- OUTSIDE RECORDS SUMMARY | 2025-01-10 18:45 | XMS_ITS ---
Author Organization Unknown Address [address] [place] [address] [phone] Phone Care Team Providers Care Supervisor Solder Making Name Role Phone MIREILLE Odom Attending Unavailable [facility] Primary Unavailable Immunization Immunization Date [...] T4 FREE - Collect Date/Time: 06/17/2024 13:32 [facility] ID: [id number] [address] [place] [address], [id number] LOINC: 3024-7 Test Value Unit Reference Range Code Code System Flag T4, FREE 1.17 ng/dL L=0.78 H=2.19 3024-7 LOINC TSH - Collect Date/Time: 13:32 [facility] ID: [id number] [address] [place] [address], [id number] LOINC: 22957-4 Test Value Unit Reference Range Code Code System Flag TSH. 3.590 uIU/L L=0.470 H=4.680 62633-1 LOINC ANTI THYROGLOBULIN ANTIBODY - Collect Date/Time: 06/17/2024 13:32 [facility] ID: [id number] [address] [place] [address], [id number] LOINC: 8098-6 Test Value Unit Reference Range Code Code System Flag Thyroglobulin Antibody <1.0 0.0-0.9 8098-6 LOINC Social History Type Status Start Date End Date Code Code Syst em Smoking History Current every day smoker 501036241 SNOMED CT Sex Female Hospital Discharge Instructions Should you have any questions prior to discharge, please contact a member of your healthcare team. If you have left the hospital and have any questions, please contact your primary care physician. Reason For Referral No Data Found Plan of Treatment CT Chest CA Screen (12380) 12/30/2024 Encounters Encounter Diagnosis Start Date Code Code Sys tem Malignant neoplasm of thyroid gland 06/17/2024 SNOMED-CT Personal Care Team Section Performer Name Performer Role Active Date Inactive CHARLIE Salvador PCP - Primary care physician 20212024-01-25
--- OUTSIDE RECORDS SUMMARY | 2025-01-10 18:45 | XMS_ITS ---
Author Organization Unknown Address [address] [place] [phone] Phone Care Team Providers Care Fabrication Welder Name Role Phone GREGORIA PETERSON Attending Unavailable [facility] Primary Unavailable Immunization Immunization Date Status [...] CVX Results TSH - Collect Date/Time: 16:20 [facility] ID: [id number] [address] [place] [address], [id number] LOINC: 97286-7 Test Value Unit Reference Range Code Code System Flag TSH. 3.240 uIU/L L=0.470 H=4.680 05614-4 LOINC T4 FREE - Collect Date/Time: 01/25/2024 16:20 [facility] ID: [id number] [address] [place] [address], [phone] LOINC: 3024-7 Test Value Unit Reference Range Code Code System Flag T4, FREE 1.07 ng/dL L=0.78 H=2.19 3024-7 LOINC Social History Type Status Start Date End Date Code Code Syst em Smoking History Current every day smoker [id number] SNOMED CT Sex Female Hospital Discharge Instructions Should you have any questions prior to discharge, please contact a member of your healthcare team. If you have left the hospital and have any questions, please contact your primary care physician. Reason For Referral No Data Found Plan of Treatment CT Chest CA Screen (97809) 12/30/2024 Encounters Encounter Diagnosis Start Date Code Code Sys tem Postprocedural hypothyroidism 01/25/2024 SNOMED-CT Personal Care Team Section Performer Name Performer Role Active Date Inactive CHARLIE Salvador PCP - Primary care physician [id number]
[2025-01-10] MEDS: methylPREDNISolone ACETATE 40 MG/ML VIAL 80 MG IM (19:09)
--- NOTE | 2025-01-10 19:09 | ED_ITS ---
HPI - Extremity Injury (Upper) General Chief Complaint: Extremity Injury, Upper Stated Complaint: right hand pain Time Seen by Provider: 01/10/25 18:29 Source: patient Mode of arrival: ambulatory Limitations: no limitations History of Present Illness HPI narrative: this is a 59-year-old female with a injury to her right middle finger has a history of osteoarthritis there is some tenderness and swelling with some no deformity there is no fever chills no chest pain no shortness of breath. complaint: injury to: right Onset (ago): week(s) Other Extremity Injury: Right: fingers ( right middle finger swelling) Handedness: right Place: home Severity: mild Related Data Home Medications ?Medication ?Instructions ?Recorded ?Confirmed ?Last Taken ?Type buspirone 30 mg tablet 20 mg PO DAILY 10/02/19 07/17/24 Unknown History levothyroxine 112 mcg tablet 100 mcg PO DAILY 10/02/19 07/17/24 Unknown History omeprazole 20 mg tablet,delayed 20 mg PO DAILY 04/11/20 07/17/24 Unknown History release atorvastatin 20 mg tablet 20 mg PO DAILY 11/15/21 07/17/24 Unknown History gabapentin 600 mg tablet 600 mg PO TID 11/15/21 07/17/24 Unknown History Allergies Allergy/AdvReac Type Severity Reaction Status Date / Time NSAIDS (Non-Steroidal Allergy Unknown Verified 01/10/25 18:24 Anti-Inflamma Review of Systems 2 Review of Systems: All systems reviewed & are unremarkable except as noted in HPI and below PMFSH Past Medical History Medical History (Updated 01/10/25 @ 19:13 by Spencer Le MD) Anxiety Barretts esophagus Depression Hypothyroidism (acquired) Surgical History Surgical History S/P tubal ligation H/O foot surgery S/P carpal tunnel release Hx of cholecystectomy H/O brain surgery after trauma Social History Social History Smoking status: Current every day smoker Alcohol intake: never Substance use: never Living arrangements: with family Gender identity (if verbalized by the patient): Female Exam Const: General: healthy appearing and no acute distress Nutritional Appearance: well nourished Orientation/consciousness: patient oriented x3 Limitations: no limitations HENMT: Head: normal to inspection Cardio: Rate: regular rate Rhythm: regular rhythm GI: GI Palp: Yes Soft to palpation Auscultation: normal bowel sounds Skin: General skin exam: normal color Rashes: no rashes Wounds: no wounds Neuro: General: patient oriented x3, moves all extremities and no meningeal signs Extrem: Other: tenderness right middle finger Course Course Emergency Course: patient received 80mg IM Depo-Medrol, x-ray performed shows no acute fractures and does show osteoarthritic changes. Vital Signs Vital signs: Vital Signs Temperature 36.8 C 01/10/25 18:24 Pulse Rate 78 01/10/25 18:24 Respiratory Rate 16 01/10/25 18:24 Blood Pressure 110/61 01/10/25 18:24 Pulse Oximetry 96 01/10/25 18:24 Oxygen Delivery Room Air 01/10/25 18:24 Temperature 36.8 C 01/10/25 18:24 Pulse Rate 78 01/10/25 18:24 Respiratory Rate 16 01/10/25 18:24 Blood Pressure 110/61 01/10/25 18:24 Pulse Oximetry 96 01/10/25 18:24 Oxygen Delivery Room Air 01/10/25 18:24 Critical Care Time Critical Care Time Critical Care Time: No Discharge Plan Discharge Clinical Impression: Finger sprain Qualifiers: Encounter type: initial encounter Finger: index finger Sprain of finger site: unspecified site Laterality: right Qualified Code(s): S63.610A - Unspecified sprain of right index finger, initial encounter Osteoarthritis Qualifiers: Osteoarthritis location: other site Osteoarthritis type: unspecified Qualified Code(s): M19.09 - Primary osteoarthritis, other specified site Patient Disposition: Home Condition: Stable Instructions: Antibiotic Form, Finger Sprain (ED) Additional Instructions: advised patient to take medication as prescribed and to follow with primary within 3 to 5 days for further evaluation and treatment. Patient Language: Bengali Prescriptions: New prednisone 20 mg tablet 20 mg PO DAILY 5 Days Qty: 5 0RF No Action gabapentin 600 mg tablet 600 mg PO TID atorvastatin 20 mg tablet 20 mg PO DAILY acetaminophen [Tylenol] 325 mg capsule 650 mg PO Q8H PRN (Reason: pain) Qty: 20 0RF ondansetron 4 mg tablet,disintegrating 4 mg PO Q8H Qty: 20 0RF prednisone 20 mg tablet 20 mg PO BID Qty: 10 0RF amoxicillin-pot clavulanate 875-125 mg tablet 1 tablet PO Q12H Qty: 14 0RF albuterol sulfate 90 mcg/actuation HFA aerosol inhaler 2 puff inhalation QID PRN (Reason: shortness of breath or wheezing) Qty: 8.5 0RF buspirone 30 mg tablet 20 mg PO DAILY levothyroxine 112 mcg tablet 100 mcg PO DAILY omeprazole 20 mg Tablet,Delayed Release (Dr/Ec) 20 mg PO DAILY levofloxacin 500 mg tablet 500 mg PO DAILY 6 Days Qty: 6 0RF metoclopramide HCl [Reglan] 10 mg tablet 10 mg PO Q6H PRN (Reason: nausea and vomiting) Qty: 20 0RF prednisone 20 mg tablet 40 mg PO DAILY 5 Days Qty: 10 0RF fluticasone propionate [Flonase Allergy Relief] 50 mcg/actuation spray,suspension 2 spray intranasal DAILY Qty: 36.4 0RF Rx Instructions: administer into each nostril doxycycline hyclate 100 mg tablet 200 mg PO DAILY Qty: 20 0RF Follow-up/Referrals: Miguel,LUIS Ta-BC [Primary Care Provider] - Time of Disposition: 19:13
[2025-01-10 20:03] VITALS: BP 105/60; PULSE 80; RESP 18; O2SAT 94
== END 2025-01-10 20:03 | disposition home or self-care (01) ==
PROVIDERS: Emergency Provider Emergency Medicine; PCP Nurse Practitioner
DX: S63.610A Unspecified sprain of right index finger, initial encounter (principal); M19.09 Primary osteoarthritis, other specified site; E03.9 Hypothyroidism, unspecified; F17.200 Nicotine dependence, unspecified, uncomplicated; X58.XXXA Exposure to other specified factors, initial encounter
CPT/HCPCS: 73130; 96372; 99283; J1010

== ENCOUNTER 2025-01-22 16:39 | Outpatient (CLI) | payer MEDICARE, SELFPAY ==
--- NOTE | ~2025-01-22 | XR_ITS ---
XR hand RT min 3V Ordering provider: Yakelin Ann, SEAFOOD CLERK History: . right hand pain mainly in index finger . Comparison: None. FINDINGS: BONES: No acute fracture or dislocation. JOINT SPACES: Narrowing of the first, second and third finger metacarpophalangeal joint. Osteoarthrit ic changes of the first carpometacarpal joint. SOFT TISSUES: Normal. IMPRESSION: No acute osseous abnormality right hand. Polyarticular osteoarthritic changes. Reviewed, dictated and finalized at location A.
--- OUTSIDE RECORDS SUMMARY | 2025-01-22 16:44 | XMS_ITS ---
Author Organization Unknown Address [address] [place] [address] [phone] Phone Care Team Providers Care Face Man Name Role Phone MIREILLE Odom Attending Unavailable [...] MILAGRO - Colle ct Date/Time: 07/01/2024 17:20 [facility] ID: [id number] [address] [place], [place], [phone] LOINC: 3013-0 Test Value Unit Reference Range Code Code System Flag Thyroglobulin (TG-MILAGRO) <2.0 3013-0 LOINC Social History Type Status Start Date End Date Code Code Syst em Smoking History Current every day smoker [id number] SNOMED CT Sex Female Hospital Discharge Instructions Should you have any questions prior to discharge, please contact a member of your healthcare team. If you have left the hospital and have any questions, please contact your primary care physician. Reason For Referral No Data Found Plan of Treatment CT Chest CA Screen ([id number]) 12/30/2024 Encounters Encounter Diagnosis Start Date Code Code Sys tem Malignant neoplasm of thyroid gland 07/01/2024 SNOMED-CT Personal Care Team Section Performer Name Performer Role Active Date Inactive CHARLIE Salvador PCP - Primary care physician [id number]
--- OUTSIDE RECORDS SUMMARY | 2025-01-22 16:44 | XMS_ITS ---
Author Organization Unknown Address [address] [place] [phone] Phone Care Team Providers Care Rn Birthing Name Role Phone SANTHOSHAry SADE Attending Unavailable [...] old F with given history of: OSTEOPENIA Dog Behaviorist/Model: Tangled ([id number]) CLINICAL INFORMATION: Current height: 65 inches [...] Spencer Leyva M.D. MF: BRYANT Report ID: [id number] Reading Location: [id number] Social History Type Status Start Date End Date Code Code Syst em Smoking History Current every day smoker [id number] SNOMED CT Sex Female Hospital Discharge Instructions Should you have any questions prior to discharge, please contact a member of your healthcare team. If you have left the hospital and have any questions, please contact your primary care physician. Reason For Referral No Data Found Plan of Treatment CT Chest CA Screen ([id number]) 12/30/2024 Encounters Encounter Diagnosis Start Date Code Code Sys tem Other specified disorders of bone density and structure, unspecified site 04/10/2024 SNOMED-CT Personal Care Team Section Performer Name Performer Role Active Date Inactive CHARLIE Salvador PCP - Primary care physician [id number] Imaging Narrative Notes
--- OUTSIDE RECORDS SUMMARY | 2025-01-22 16:44 | XMS_ITS ---
Author Organization Unknown Address [address] [place] [address] [phone] Phone Care Team Providers Care Student Life Coordinator Name Role Phone MIREILLE Odom Attending Unavailable [facility] Primary Unavailable Immunization Immunization Date Status [...] CVX Results TSH - Collect Date/Time: 16:28 [facility] ID: [id number] [address] [place], [place], [phone] LOINC: 17870-9 Test Value Unit Reference Range Code Code System Flag TSH. 3.830 uIU/L L=0.470 H=4.680 68779-7 LOINC Social History Type Status Start Date End Date Code Code Syst em Smoking History Current every day smoker [id number] SNOMED CT Sex Female Hospital Discharge Instructions Should you have any questions prior to discharge, please contact a member of your healthcare team. If you have left the hospital and have any questions, please contact your primary care physician. Reason For Referral No Data Found Plan of Treatment CT Chest CA Screen ([id number]) 12/30/2024 Encounters Encounter Diagnosis Start Date Code Code Sys tem Hypothyroidism, unspecified 11/21/2024 SNOMED-CT Personal Care Team Section Performer Name Performer Role Active Date Inactive CHARLIE Salvador PCP - Primary care physician 20212024-01-25
--- OUTSIDE RECORDS SUMMARY | 2025-01-22 16:44 | XMS_ITS ---
Author Organization Unknown Address [address] [place] [phone] Phone Care Team Providers Care Regional Flatbed Truck Driver Name Role Phone SANTHOSHAry SADE Attending Unavailable [...] PANE L - Collect Date/Time: 12/26/2023 13:28 [facility] ID: [id number] [address] [place], [place], [phone] LOINC: 84005-2 Test Value Unit Reference Range Code Code [...] 8-9 LOINC ANION GAP 10 L=10 H=20 89179-2 LOINC OSMOLALITY 290 mOs/kG L=280 H=296 23721-9 LOINC BUN/CREAT 11.1 3097-3 LOINC CALCIUM 9.1 mg/dL L=8.3 H=10.5 54208-8 LOINC AST 29 U/L L=15 H=46 1920-8 LOINC ALT 20 U/L L=9 H=72 1742-6 LOINC ALKALINE PHOS 57 U/L L=38 H=126 6768-6 LOINC TOTAL BILI 0.5 mg/dL L=0.2 H=1.3 1975-2 LOINC ALBUMIN 4.2 G/dL L=3.5 H=5.0 1751-7 LOINC TOTAL PROTEIN 7.3 g/L L=6.3 H=8.2 2885-2 LOINC A/G RATIO 1.4 34134-4 LOINC AGE 58 86542-5 LOINC eGFR NON-AFR 68 ml/min eGFR AFR AMER 82 ml/min CBC W/ DIFF - Collect Date/T farooq: 12/26/2023 13:28 [facility] ID: [id number] [address] [place], [place], [phone] LOINC: 92152-2 Test Value Unit Reference Range Code Code System Flag WBC 8.8 10^3uL L=4.8 H=10.8 RBC 3.90 10^6uL L=4.20 H=5.40 L HEMOGLOBIN 13.1 g/dL L=12.0 H=16.0 718-7 LOINC HEMATOCRIT 39.1 VOL% L=37.0 H=47.0 4544-3 LOINC MCV 100.3 fL L=81.0 H=99.0 H MCH 33.6 pg L=27.0 H=32.0 H MCHC 33.5 g/dL L=32.0 H=36.0 PLATELETS 282 10^3uL L=100 H=400 24089-3 LOINC RDW 12.3 % L=11.7 H=15.5 %GRAN 64.3 % L=40.0 H=70.0 24140-8 LOINC %LYMPH 24.2 % L=20.0 H=45.0 736-9 LOINC %MONO 7.3 % L=2.0 H=10.0 74258-1 LOINC %EOS 2.7 % L=0.0 H=6.0 713-8 LOINC %BASO 1.0 % L=0.0 H=3.0 706-2 LOINC #NEUT 5.7 10^3uL L=1.9 H=7.6 33532-9 LOINC #LYMPH 2.1 10^3uL L=0.9 H=4.9 76427-9 LOINC #MONO 0.6 10^3uL L=0.1 H=0.9 17010-3 LOINC #EOS 0.2 10^3uL L=0.0 H=0.6 712-0 LOINC #BASO 0.09 10^3uL L=0.00 H=0.10 24225-2 LOINC #IM GRANS 0.0 10^3uL L=0.0 H=7.0 21351-4 LOINC %IM GRANS 0.5 % L=0.0 H=5.0 48382-5 LOINC %NRB 0.0 L=0.0 H=0.2 74786-8 LOINC #NRB 0.000 L=0.000 H=0.012 45971-2 LOINC MANUAL DIFF NOT INDICATED RBC MORPH NOT INDICATED Social History Type Status Start Date End Date Code Code Syst em Smoking History Current every day smoker [id number] SNOMED CT Sex Female Hospital Discharge Instructions Should you have any questions prior to discharge, please contact a member of your healthcare team. If you have left the hospital and have any questions, please contact your primary care physician. 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
--- OUTSIDE RECORDS SUMMARY | 2025-01-22 16:45 | XMS_ITS | Data Portability ---
Author Organization [facility], [address] [facility] ([place]) Address [address] [place] [address] Care Team Providers Care Personal Care Home Administrator Name Role Phone CHARLIE ALVARADO Primary Care Provider CHARLIE ALVARADO Referring Provider [phone] FRANCES JI Bullet Lubricant Mixer WOLFGANG KENDRICK Sealing Machine Operator ELIDA JAVIER Neurologist [phone] BUD PACKER Nurse Practitioner [phone] Assessment Encounter Date Assessment Date Assessment LastModified by Organization Details LastModified Time 11/19/2024 11/19/2024 Impression: The patient is a [...] 3. Mild levoscoliosis. March 2021 cervical MRI ([facility]) Findings: C3-C4: Mild posterior disc bulge [...] by level above. March 2021 thoracic MRI ([facility]) Impression: Anterior and posterior spinal stenosis [...] report that she has MRI imaging in [facility], which we do not currently have [...] Organization Details Last Modified Time Details Appointments Imagi ng 5.PRO 2024 07:30A M Radiology Not available Not available Not available Jeancarlos Lin nt 15.ES T 2024 01:45P M Dr. Ubaldo Sanchez Not available Not available Not available Estab lisramona d Patie nt 30.ES T 2024 08:30A M Bud Packer Not available Not available Not available Estab lishe d Patie nt 30.ES T 2024 08:30A M Rosana Alford Not available Not available Not available Estab lishe d Patie nt 20.ES T 2024 08:20A M Yasmin Comer Not available Not available Not available Estab lishe d Patie nt 15.ES T 2025 08:15A M Dr. Tyrel Mcknight Not available Not available Not available Lab None recor ded. Referral None recor ded. Procedures None recor ded. Surgeries None recor ded. Imaging None recor ded. Medication Orders Thyro gen 0.9 mg intra muscu lar solut ion 2024 025 [facility], [address] [place] [address], [address], 01/20/2025 09:17:30 Thyro gen 0.9 mg intra muscu lar solut ion 2024 025 [facility], [address] [place] [address], [phone], 01/20/2025 08:59:01 Patient TargetsNo targets recorded. Patient InstructionsNo instructions recorded. Reason for Referral None Reported. Results Created Date Observation Date Name Description Value Unit Range Abnormal Flag Note LastModifiedBy Organization Detail LastModifiedTime 01/10/2012/22/2024 MAMMO , scree brock, digit al, bilat eral No observ ation record ed. [email or web address] Not Available 2024 11:42:08 Result Notes None recorded. Problems Name Problem SNOMED Code Status Onset Date Resolution Date Notes Provider Name and Address Organization Details Recorded Time Long-term current use of aromatase inhibitor 1369321226215 00 Active 2023 Sharri Oneal [facility] 01/06/202 5 09:10:36 Follow-up encounter Active 2023 Serena Zambrano null, [facility] 4 17:04:34 Neuropathic pain 409823819 Active 2024 Sharri Oneal null, [facility] 5 10:16:12 Gastroesoph ageal reflux disease without esophagitis 470382272 Active 2024 Johnathon Galo APRN, APARTMENT LEASING SPECIALIST [address] [place] [address], [address], [facility] 5 10:13:19 Anaya's esophagus 522293780 Active 2024 Johnathon Galo APRN, APARTMENT LEASING SPECIALIST [address] [place] [address], [address], [facility] 5 10:13:27 Neuropathy 595918574 Active 2024 Eliazar Morgan [facility] 5 10:35:39 Neuralgia 94697470 Active 2024 Eliazar Morgan [facility] 5 10:35:40 Bilateral sacroiliac joint pain 9525610546532 9104 Active 2024 Rosana Alford APN [address] [place] [address], [place], [address], [facility] 5 09:30:03 Lumbar facet joint pain 599628815 Active 2024 Rosana Alford APN [address] [place] [address], [address], [facility] 5 09:30:10 Lumbosacral spondylosis 238384597 Active 2024 Katie Fischer null, [facility] 5 12:27:27 Hypothyroid ism 14331840 Active 2023 Charlie Archer [facility] 4 15:44:39 Tobacco dependence caused by cigarettes 3634831825515 9107 Active 2024 Yasmin Alas [facility] 5 15:58:33 Papillary thyroid carcinoma 156326150 Active 2023 Charlie Archer [facility] 4 15:44:50 Postoperati ve hypothyroid ism 81683774 Active 2023 Charliebrian Archer [facility] 4 15:44:57 Problem Notes None recorded. Procedures Surgical History Date Name Laterality Status Provider Name and Address Organization Details Recorded Time 11/29/19 25 SC Operative Report completed August Gunn MD [address] [place] [address], [phone], [facility] 11/28/2024 15:39:48 07/24/20 24 Colonoscopy with biopsy completed Shonna Ball [facility] 07/29/2024 11:14:42 12/27/19 22 lumpectomy of right breast completed Perez Ibarra [facility] 12/24/2023 10:35:47 Removal of gallbladder completed Not Available Health Note 12/22/2023 10:49:21 Imaging Results Imaging Date Name Status LastModified by Organiz ation Details LastModified Time 12/22/2024 MAMMO, screening, digital, bilateral completed [email or web address] Information not available 01/09/2025 11:42:08 Procedure Notes None recorded. Medical Equipment None Reported. Allergies Allergen ID Allergen Name Allergen Category Reaction Reaction Severity Criticality Documentation Date Start Date Code Code System Note Provider Name and Address Organization Details Recorded Time 071583 Non-stero idal anti-infl ammatory agent (product) medicatio n nausea moderate high 10/01/20232017 51672 005 SNOMED React ion: Nause a; Lakia Howell [facility] 5 16:44:37 Medications Name Sig Start Date [...] TAKE 1 TABLET BY MOUTH EVERY DAY FOR 5 DAYS active Not Available Not [...] Thyrogen 0.9 mg intramusc ular solution Inject second IM injectio n on Sunday to patient' s left gluteal region 2024 active Not Available Not Available Not Avai lable Vitals Date Recorded Body height Body mass index (BMI) Body weight Provider Name and Address Organization Details Last Updated DateTime 11/19/2024 165.1 cm 25.7 kg/m2 52838.94 g Katie Fischer [facility] 11/19/2024 09:11:04 Date Recorded Body height Body mass index (BMI) Body weight Heart rate Oxygen saturation Oxygen saturation in Arterial blood by Pulse oximetry Systolic blood pressure Diastolic blood pressure Provider Name and Address Organization Details Last Updated DateTime 165.1 cm 25.4 kg/m2 44711.9 1 g 74 /min 96 % 96 % 124 mm[Hg] 84 mm[Hg] Efren Cohn [facility] 5 11:56:46 Social History Question Answer Notes LastModified by Organizat ion Details LastModified Time Tobacco Smoking Status Current Every Day Smoker [facility]2024 17:07:16 Do You Have An Advance Directive? No [email or web address] Information not available 01/08/2024 What Is Your Level Of Caffeine Consumption? Moderate [email or web address] Information not available 01/08/2024 Which Illicit Or Recreational Drugs Have You Used? Smokes Marijiana Information not available 09/15/2024 How Many Times Per Week Do You Exercise? 5-7 Times Per Week [email or web address] Information not available 01/08/2024 Smokeless Tobacco? Former Smokeless Tobacco User [email or web address] Information not available 01/08/2024 How Many Packs Per Day (PPD)? 1 Pack Per Day [email or web address] Information not available 12/22/2023 How Long Have You Smoked? 45years [email or web address] Information not available 12/22/2023 Do You Have A Medical Power Of Duck Farmer? No [email or web address] Information not available 01/08/2024 What Was The Date Of Your Most Recent Tobacco Screening? 01/15/2024 [email or web address] Information not available 01/08/2024 What Is Your Relationship Status? [email or web address] Information not available 01/08/2024 Sex: Unknown Functional Status Question Answer Note LastModified by Organizat ion Details LastModified Time Do you use any illicit or recreational drugs? Yes Information not available 09/15/2024 What is your level of alcohol consumption? None [email or web address] Information not available 01/08/2024 Are you currently employed? 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 Moderate [email or web address] Information not available 01/08/2024 Mental Status None recorded. Family History Relationship Description Onset Age of this Age Resolved Age Notes LastModified by Organization Details LastModified Time Mother Diabetes mellitus [email or web address] Not available 2023 10:49:20 Medical History Condition Response Diabetes N Anxiety Disorder Y Bleeding Disorder N Attention-deficit Hyperactivity Disorder N High Blood Pressure N Arthritis Y Hyperlipidemia N Cancer Y Stroke N Thyroid Problems Y Asthma N Depression N COPD N Anemia N Seizures N Heart Disease N Fibromyalgia N Osteoporosis N Kidney Disease N Gynecological HistoryNo gynecological history recorded. Obstetrics History GPAL:G 0 P 0 0 0 0 Immunizations Vaccine Type Date Status Note Provider Nam e and Address Organization Details Recorded Time Influenza, split virus, quadrivalent, preservative 8 completed Serena Kenya null, [facility] 06/17/2024 17:05:47 Influenza, split virus, quadrivalent, preservative 9 completed Serena Kenya null, [facility] 06/17/2024 17:05:47 Influenza, MDCK, quadrivalent, PF 1 completed Serena Kenya null, [facility] 06/17/2024 17:05:47 Influenza, MDCK, quadrivalent, PF 3 completed Serena Kenya null, [facility] 06/17/2024 17:05:47 zoster recombinant 1 completed [facility] 06/17/2024 17:05:47 zoster recombinant 1 completed [facility] 06/17/2024 17:05:47 MMR 6 completed [facility] 06/17/2024 17:05:47 COVID-19, mRNA, LNP-S, PF, 30 mcg/0.3 mL dose 1 completed [facility] 06/17/2024 17:05:47 COVID-19 vaccine, vector-nr, rS-Ad26, PF, 0.5 mL 1 completed [facility] 06/17/2024 17:05:47 COVID-19, mRNA, LNP-S, bivalent, PF, 30 mcg/0.3 mL dose 2 completed Serena Kenya [facility] 06/17/2024 17:05:47 COVID-19, mRNA, LNP-S, PF, jewel-sucrose, 30 mcg/0.3 mL 3 completed Serena Kenya [facility] 06/17/2024 17:05:47 Td (adult), 2 Lf tetanus toxoid, preservative free, adsorbed 6 completed Serena Kenya [facility] 06/17/2024 17:05:47 Influenza, split virus, quadrivalent, PF 7 completed [facility] 06/17/2024 17:05:47 Influenza, split virus, quadrivalent, PF 0 completed [facility] 06/17/2024 17:05:47 Influenza, split virus, quadrivalent, PF 2 completed [facility] 06/17/2024 17:05:47 Past Encounters Encounter ID Performer Location Encounter Start Date Encounter Closed Date Diagnosis/Indication Diagnosis SNOMED-CT Code Diagnosis ICD10 Code Diagnosis Note [id number] YASMIN COMER, ABRAHAN [address] [facility] ([place]) [address] [place] [address] 12/24/2023 10:01:56 12/24/2023 12:49:35 Follow-up encounter [id number] Z08 [id number] Lilly Chisholm, ADVISOR CONSULTANT-BC [facility] ([place]) [address] [place] [address] 01/15/2024 10:24:55 01/15/2024 11:33:43 Papillary thyroid carcinoma 159461369 C73 Postoperat maxwell hypothyroidism 85837540 E89.0 [id number] Ubaldo Sanchez MD [facility] Specialty Oncology/ [place]olog [place] ([place]) [address] [place] [address] 06/17/2024 14:20:27 06/17/2024 17:08:05 Long-term current use of aromatase inhibitor 2003382336 61209 Z79.811 M85.80 [id number] Elida Javier MD [facility] ([place]) [address] [place] [address] 09/15/2024 09:51:21 09/15/2024 10:26:13 Neuralgia 10302589 M79.2 Neuropathy 715329930 G62 .9 Long-term current use of drug therapy 990572703 Z79.899 [id number] Johnathon Galo, BELT PUNCHER, APARTMENT LEASING SPECIALIST [facility] ([place]) [address] [place] [address] 09/16/2024 09:54:44 09/16/2024 11:26:06 Gastroesophageal reflux disease without esophagitis 016540093 K21.9 Anaya's esophagus 3029 54619 K22.70 History of adenomatous polyp of colon 313322537 Z86.0101 Screening for malignant neoplasm of large intestine 675138947 Z12.11 Z12.12 [id number] Rosana Alford, LEATHER SPLITTER [address] [facility] ([place]) [address] [place] [address] 11/19/2024 09:06:24 11/19/2024 15:34:30 Bilateral sacroiliac joint pain 6038080985 5580116 M53.3 Lumbar fac et joint pain 152622114 M54.59 [id number] August Gunn MD [facility] [place]) [address] [facility] [address]nd [place] [address] 11/28/2024 13:03:22 12/01/2024 18:24:23 [id number] LUIS Proctor-C [facility] [place]) [address] [place] [address] 12/17/2024 11:38:50 12/17/2024 13:55:13 Papillary thyroid carcinoma 219650825 C73 Postoperat maxwell hypothyroidism 86104538 E89.0 Tobacco de pendence caused by cigarettes 7777094181 3092881 F17.210 [id number] LUIS Proctor-C [facility] ([place]) [address] [place] [address] 01/19/2025 09:12:51 01/19/2025 10:48:56 Papillary thyroid carcinoma 691036851 C73 [id number] LUIS Proctor-C [facility] ([place]) [address] [place] [address] 01/20/2025 08:58:43 01/20/2025 09:31:22 Papillary thyroid carcinoma 231494333 C73 Health Concerns Section Related Observation LastModified by Organization Detai ls LastModified Time None Recorded Concern Status LastModified by Organization Details LastModified Time None Recorded Advance Directives Directive N: Payers Insurance Date Sequence Insurance Name Policy Number Policy Gonsalves Covered Member ID Gonsalves Member ID Guarantor Name 01/20/2025 1 [place] Tia Malone Link [id number] Tia Peacock Link 01/20/2025 2 [place] [employer] Tia Malone Link [id number] Tia Peacock Link Notes Date Note Type Note Provider Name and Address Organization Details Recorded Time 11/28/2024 text/html [facility] OP HPIRep orted bypatient.The history and physical review:The history and physical dated 11/19/2024 has been reviewed, the patient has been examined and no change has occurred in the patient's condition since the history and physical was completed. Pre-Procedure Diagnosis:M47.897 Date of Procedure:11/28/2024 Proposed Procedure/Surgery:B/L L4-S1 RFA's Physician Performing the Procedure:Dr. Gunn Proposed Anesthetic:IV Conscious Sedation August Gunn MD [address] [place] [address], [phone], [facility] 11/28/2024 15:39:52 12/17/2024 text/html Ms. Garcia is a 59-year-old female who returns to [...] and radiation therapy. She completed Tamoxifen treatment. LUIS Proctor-C [address] [place] [address], [phone], [facility] 01/05/2025 09:12:57 OBGyn Episode No OBEpisode recorded.
--- OUTSIDE RECORDS SUMMARY | 2025-01-22 16:45 | XMS_ITS ---
Author Organization Unknown Address [address] [place] [phone] Phone Care Team Providers Care Cavity Pump Operator Name Role Phone MISAEL MARRERO Attending [...] BRITTANY T - Collect Date/Time: 09/19/2024 15:54 [facility] ID: [id number] [address] [place] [address], [phone] LOINC: 59118-6 Test Value Unit Reference Range Code Code System Flag T pallidum Antibodies Non Reactive Non Reactive 25350-1 LOINC CHG RPR? NO SEND TO IFC? NO VITAMIN B-12 - Collect Date/ Time: 09/19/2024 15:54 [facility] ID: [id number] [address] [place] [address], [phone] LOINC: 2132-9 Test Value Unit Reference Range Code Code System Flag VITAMIN B12 804 pq/mL L=239 H=931 TSH - Collect Date/Time: 15:54 [facility] ID: [id number] [address] [place] [address], [phone] LOINC: 99443-1 Test Value Unit Reference Range Code Code System Flag TSH. 0.390 uIU/L L=0.470 H=4.680 37666-5 LOINC L IMMUNOFIXATION (RAQUEL) SERUM - Collect Date/Time: 09/19/2024 15:54 [facility] ID: [id number] [address] [place] [address], [phone] LOINC: 32539-2 Test Value Unit Reference Range Code Code System Flag Immunofixation Result,Serum Comment: 77338-2 LOINC Immunoglobulin G, Qn,Serum 2190 542-5983 2465-3 LOINC Immunoglobulin A, Qn,Serum 143 87-352 5718-8 LOINC Immunoglobulin M, Qn,Serum 109 26-217 1082-9 LOINC Social History Type Status Start Date End Date Code Code Syst em Smoking History Current every day smoker 205684934 SNOMED CT Sex Female Hospital Discharge Instructions Should you have any questions prior to discharge, please contact a member of your healthcare team. If you have left the hospital and have any questions, please contact your primary care physician. Reason For Referral No Data Found Plan of Treatment CT Chest CA Screen ([id number]) 12/30/2024 Encounters Encounter Diagnosis Start Date Code Code Sys tem Polyneuropathy, unspecified 09/19/2024 SNOMED-CT Personal Care Team Section Performer Name Performer Role Active Date Inactive CHARLIE Salvador PCP - Primary care physician 20212024-01-25
--- OUTSIDE RECORDS SUMMARY | 2025-01-22 16:45 | XMS_ITS ---
Author Organization Unknown Address [address] [place] [phone] Phone Care Team Providers Care User Experience Designer Name Role Phone IVANTENAAry SADE Attending Unavailable [...] - Completed: 12/22/2024 09:21 LOINC: \TM00\12PI\DRAo\BM09\ \MRHo\ [address] [address] ---------NAME--------- NUMBER SEX AGE ADMIT DISC. XRAY# F/C TYPE LINK ARIA PORTER [id number] F 59 12/22/24 12/22/24 [id number] O/P DATE OF : 1965 M/R# [id number] PH#: [phone] \MRHx\ LOCATION: TRANSCRIBED: 12/22/24 10:00 DIG 3D ALEXEY SCREENING [id number] COMPLETED:12/22/24 9:21 [id number] (REASONS-DIG 3D ALEXEY SCREENING BILATERAL: SCREENING PHYSICIAN: [...] were reviewed. This examination was analyzed using [employer] DBT/MMG in addition to a radiologist review, [...] annual mammogram. 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. .to [facility] via fax Social History Type Status Start Date End Date Code Code Syst em Smoking History Current every day smoker 598582280 SNOMED CT Sex Female Hospital Discharge Instructions Should you have any questions prior to discharge, please contact a member of your healthcare team. If you have left the hospital and have any questions, please contact your primary care physician. Reason For Referral No Data Found Plan of Treatment CT Chest CA Screen ([id number]) 12/30/2024 Encounters Encounter Diagnosis Start Date Code Code Sys tem Screening mammography 12/22/2024 90593480 SNOMED -CT Personal Care Team Section Performer Name Performer Role Active Date Inactive CHARLIE Salvador PCP - Primary care physician 20212024-01-25 Imaging Narrative Notes [facility] 12/22/2024 10:02 [facility] [address] [place] [address] ---------NAME--------- NUMBER SEX AGE ADMIT DISC. XRAY# F/C TYPE LINK ARIA PORTER [id number] F 59 12/22/24 12/22/24 70054 MB O/P DATE OF : 1965 M/R# [id number] #: [id number] LOCATION: TRANSCRIBED: 12/22/24 10:00 DIG 3D ALEXEY SCREENING [id number] COMPLETED:12/22/24 9:21 42495 (REASONS-DIG 3D ALEXEY SCREENING BILATERAL: SCREENING PHYSICIAN: [...] were reviewed. This examination was analyzed using [employer] DBT/MMG in addition to a radiologist review, [...] annual mammogram. 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. .to [facility] via fax
--- OUTSIDE RECORDS SUMMARY | 2025-01-22 16:45 | XMS_ITS ---
Author Organization Unknown Address [address] [place] [phone] Phone Care Team Providers Care Registered Medical Assistant Name Role Phone JOSE CHRISTINE STACY Primary [...] Complet ed: 12/30/2024 16:26 LOINC: \TM00\12PI\DRAo\BM09\ \MRHo\ [address] [address] ---------NAME--------- NUMBER SEX AGE ADMIT DISC. XRAY# F/C TYPE LINK ARIA PORTER [id number] F 59 12/30/24 12/30/24 76331 MB O/P DATE OF : 1965 M/R# [id number] PH#: [phone] [facility] LOCATION: TRANSCRIBED: 12/30/24 20:22 CT CHEST [place] SCREEN 12964 COMPLETED:12/30/24 16:26 [facility] 72033 {REASON-CT CHEST CA SCREEN: CURRENT SMOKER PHYSICIAN: [...] to clinical indication) or iterative reconstruction. HS:Y LE POLISHER \ITLo\ \UNDo\ \UNDx\ \ITLx\ Reviewed and Electronically Signed by: John Alcaraz MD Signed Date: 12/30/24 20:22 12/30/24.2024.[facility].to [employer] via fax Social History Type Status Start Date End Date Code Code Syst em Smoking History Current every day smoker 141771975 SNOMED CT Sex Female Hospital Discharge Instructions Should you have any questions prior to discharge, please contact a member of your healthcare team. If you have left the hospital and have any questions, please contact your primary care physician. Reason For Referral No Data Found Plan of Treatment CT Chest CA Screen ([id number]) 12/30/2024 Encounters Encounter Diagnosis Start Date Code Code Sys tem Encounter for screening for malignant neoplasm of respiratory organs 12/30/2024 SNOMED-CT Personal Care Team Section Performer Name Performer Role Active Date Inactive CHARLIE Salvador PCP - Primary care physician 20212024-01-25 Imaging Narrative Notes [facility] 12/30/2024 20:[address] [address] ---------NAME--------- NUMBER SEX AGE ADMIT DISC. XRAY# F/C TYPE LINK ARIA PORTER [id number] F 59 12/30/24 12/30/24 11554 O/P DATE OF : 1965 M/R# [id number] #: [id number] LOCATION: TRANSCRIBED: 12/30/24 20:22 CT CHEST [place] SCREEN 04609 COMPLETED:12/30/24 16:26 [facility] 57071 {REASON-CT CHEST CA SCREEN: CURRENT SMOKER PHYSICIAN: [...] to clinical indication) or iterative reconstruction. HS:Y LE POLISHER Reviewed and Electronically Signed by: John Alcaraz MD Signed Date: 12/30/24 20:22 12/30/24.[facility].to [facility] via fax
--- OUTSIDE RECORDS SUMMARY | 2025-01-22 16:45 | XMS_ITS | Clinical Summary ---
Author Organization [facility] Address [address] [place] [address] Care Team Providers Care Science Professor Name Role Phone Jo-Ann De Jesus MD Primary Care Provider [phone] Source Comments [facility] [facility],non-owned Affiliates and Associated Physician Practices is amultiple site organization consisting of ambulatory clinics and hospital sitesin [place] and [place]. This disclosure is being madepursuant to the Care Everywhere program and may not contain all information available regarding this patient. Last updated 18.[facility] Allergies Active Allergy Reactions Criticality Noted Date [...] MEDICAID - OUT OF STATE Care Teams Science Professor Relationship Specialty Start Date End Date Jo-Ann De Jesus MD [address] [facility] [address] [place] [address] PCP - General 01/10/18
--- OUTSIDE RECORDS SUMMARY | 2025-01-22 16:45 | XMS_ITS ---
Author Organization Unknown Address [address] [place] [address] [phone] Phone Care Team Providers Care All Around Gear Machine Operator Name Role Phone MISAEL MARRERO Attending [...] BRITTANY T - Collect Date/Time: 10/03/2024 16:36 [facility] ID: [id number] [address] [place], [place], [phone] LOINC: 33667-0 Test Value Unit Reference Range Code Code System Flag T pallidum Antibodies Non Reactive Non Reactive 31459-1 LOINC CHG RPR? NO SEND TO IFC? NO Social History Type Status Start Date End Date Code Code Syst em Smoking History Current every day smoker [id number] SNOMED CT Sex Female Hospital Discharge Instructions Should you have any questions prior to discharge, please contact a member of your healthcare team. If you have left the hospital and have any questions, please contact your primary care physician. Reason For Referral No Data Found Plan of Treatment CT Chest CA Screen (62113) 12/30/2024 Encounters Encounter Diagnosis Start Date Code Code Sys tem Polyneuropathy 10/03/2024 [id number] SNOMED-CT Personal Care Team Section Performer Name Performer Role Active Date Inactive CHARLIE Salvador PCP - Primary care physician [id number]
--- OUTSIDE RECORDS SUMMARY | 2025-01-22 16:45 | XMS_ITS ---
Author Organization Unknown Address [address] [place] [address] [phone] Phone Care Team Providers Care Marine Underwriter Name Role Phone GREGORIA PETERSON Attending Unavailable [facility] Primary Unavailable Immunization Immunization [...] CVX Results TSH - Collect Date/Time: 16:20 [facility] ID: [id number] [address] [place] [address], [phone] LOINC: 96573-9 Test Value Unit Reference Range Code Code System Flag TSH. 3.240 uIU/L L=0.470 H=4.680 06134-0 LOINC T4 FREE - Collect Date/Time: 01/25/2024 16:20 [facility] ID: [id number] [address] [place] [address], [id number] LOINC: 3024-7 Test Value Unit Reference Range Code Code System Flag T4, FREE 1.07 ng/dL L=0.78 H=2.19 3024-7 LOINC Social History Type Status Start Date End Date Code Code Syst em Smoking History Current every day smoker 912821157 SNOMED CT Sex Female Hospital Discharge Instructions Should you have any questions prior to discharge, please contact a member of your healthcare team. If you have left the hospital and have any questions, please contact your primary care physician. Reason For Referral No Data Found Plan of Treatment CT Chest CA Screen (26220) 12/30/2024 Encounters Encounter Diagnosis Start Date Code Code Sys tem Postprocedural hypothyroidism 01/25/2024 SNOMED-CT Personal Care Team Section Performer Name Performer Role Active Date Inactive CHARLIE Salvador PCP - Primary care physician 20212024-01-25
--- OUTSIDE RECORDS SUMMARY | 2025-01-22 16:46 | XMS_ITS ---
Author Organization Unknown Address [address] [place] [phone] Phone Care Team Providers Care Twister In Name Role Phone MIREILLE Oodm Attending Unavailable [facility] Primary Unavailable Immunization Immunization Date Status [...] T4 FREE - Collect Date/Time: 06/17/2024 13:32 [facility] ID: [id number] [address] [place] [address], [id number] LOINC: 3024-7 Test Value Unit Reference Range Code Code System Flag T4, FREE 1.17 ng/dL L=0.78 H=2.19 3024-7 LOINC TSH - Collect Date/Time: 13:32 [facility] ID: [id number] [address] [place] [address], [id number] LOINC: 84994-2 Test Value Unit Reference Range Code Code System Flag TSH. 3.590 uIU/L L=0.470 H=4.680 53356-7 LOINC ANTI THYROGLOBULIN ANTIBODY - Collect Date/Time: 06/17/2024 13:32 [facility] ID: [id number] [address] [place] [address], [id number] LOINC: 8098-6 Test Value Unit Reference Range Code Code System Flag Thyroglobulin Antibody <1.0 0.0-0.9 8098-6 LOINC Social History Type Status Start Date End Date Code Code Syst em Smoking History Current every day smoker 833038543 SNOMED CT Sex Female Hospital Discharge Instructions Should you have any questions prior to discharge, please contact a member of your healthcare team. If you have left the hospital and have any questions, please contact your primary care physician. Reason For Referral No Data Found Plan of Treatment CT Chest CA Screen (57555) 12/30/2024 Encounters Encounter Diagnosis Start Date Code Code Sys tem Malignant neoplasm of thyroid gland 06/17/2024 SNOMED-CT Personal Care Team Section Performer Name Performer Role Active Date Inactive CHARLIE Salvador PCP - Primary care physician 20212024-01-25
== END 2025-01-22 16:40 | disposition home or self-care (01) ==
LOC: CHSIMG 16:42
PROVIDERS: PCP Nurse Practitioner Family; Visit Provider Nurse Practitioner Family
DX: M79.641 Pain in right hand (principal); M19.041 Primary osteoarthritis, right hand
CPT/HCPCS: 73130

== ENCOUNTER 2025-03-16 18:02 | Outpatient (CLI) | payer MEDICARE, MEDICAID, SELFPAY ==
--- NOTE | ~2025-03-16 | XR_ITS ---
EXAMINATION: XR chest 2V Exam Date/Time: 03/16/2025 18:20 CDT HISTORY: COPD Comparison: 09/17/2024. RESULT: Lines, tubes, and devices: Surgical clips over the right breast. Lungs and pleura: No focal consolidation, pleural effusion, or pneumothorax. Senescent/emphysematous change. Cardiomediastinal silhouette: Stable. Persistent left hemidiaphragm elevation. Other: No acute osseous or upper abdominal finding. IMPRESSION: No acute cardiopulmonary process. Reviewed, dictated and finalized at location K.
--- OUTSIDE RECORDS SUMMARY | 2025-03-16 18:11 | XMS_ITS ---
Author Organization Unknown Address [address] [place] [address] [phone] Phone Care Team Providers Care Bobbin Washer Name Role Phone MISAEL MARRERO Attending Unavailable [...] BRITTANY T - Collect Date/Time: 10/03/2024 16:36 [facility] ID: [id number] [address] [place], [place], [phone] LOINC: 53308-6 Test Value Unit Reference Range Code Code System Flag T pallidum Antibodies Non Reactive Non Reactive 63576-2 LOINC CHG RPR? NO SEND TO IFC? NO Social History Type Status Start Date End Date Code Code Syst em Smoking History Current every day smoker [id number] SNOMED CT Sex Female Hospital Discharge Instructions Should you have any questions prior to discharge, please contact a member of your healthcare team. If you have left the hospital and have any questions, please contact your primary care physician. Reason For Referral No Data Found Plan of Treatment CT Chest CA Screen (42872) 12/30/2024 Encounters Encounter Diagnosis Start Date Code Code Sys tem Polyneuropathy 10/03/2024 73551831 SNOMED-CT Personal Care Team Section Performer Name Performer Role Active Date Inactive CHARLIE Salvador PCP - Primary care physician 20212024-01-25
--- OUTSIDE RECORDS SUMMARY | 2025-03-16 18:11 | XMS_ITS ---
Author Organization Unknown Address [address] [place] [phone] Phone Care Team Providers Care Supervisor Plastics Name Role Phone SANTHOSHAry SADE Attending Unavailable [...] PANE L - Collect Date/Time: 12/26/2023 13:28 [facility] ID: [id number] [address] [place], [place], [phone] LOINC: 41924-5 Test Value Unit Reference Range Code Code [...] 8-9 LOINC ANION GAP 10 L=10 H=20 20044-2 LOINC OSMOLALITY 290 mOs/kG L=280 H=296 87429-2 LOINC BUN/CREAT 11.1 3097-3 LOINC CALCIUM 9.1 mg/dL L=8.3 H=10.5 56126-5 LOINC AST 29 U/L L=15 H=46 1920-8 LOINC ALT 20 U/L L=9 H=72 1742-6 LOINC ALKALINE PHOS 57 U/L L=38 H=126 6768-6 LOINC TOTAL BILI 0.5 mg/dL L=0.2 H=1.3 1975-2 LOINC ALBUMIN 4.2 G/dL L=3.5 H=5.0 1751-7 LOINC TOTAL PROTEIN 7.3 g/L L=6.3 H=8.2 2885-2 LOINC A/G RATIO 1.4 47087-1 LOINC AGE 58 61552-7 LOINC eGFR NON-AFR 68 ml/min eGFR AFR AMER 82 ml/min CBC W/ DIFF - Collect Date/T farooq: 12/26/2023 13:28 [facility] ID: [id number] [address] [place], [place], [id number] LOINC: 35032-8 Test Value Unit Reference Range Code Code System Flag WBC 8.8 10^3uL L=4.8 H=10.8 RBC 3.90 10^6uL L=4.20 H=5.40 L HEMOGLOBIN 13.1 g/dL L=12.0 H=16.0 718-7 LOINC HEMATOCRIT 39.1 VOL% L=37.0 H=47.0 4544-3 LOINC MCV 100.3 fL L=81.0 H=99.0 H MCH 33.6 pg L=27.0 H=32.0 H MCHC 33.5 g/dL L=32.0 H=36.0 PLATELETS 282 10^3uL L=100 H=400 05283-0 LOINC RDW 12.3 % L=11.7 H=15.5 %GRAN 64.3 % L=40.0 H=70.0 03092-0 LOINC %LYMPH 24.2 % L=20.0 H=45.0 736-9 LOINC %MONO 7.3 % L=2.0 H=10.0 78549-8 LOINC %EOS 2.7 % L=0.0 H=6.0 713-8 LOINC %BASO 1.0 % L=0.0 H=3.0 706-2 LOINC #NEUT 5.7 10^3uL L=1.9 H=7.6 48900-0 LOINC #LYMPH 2.1 10^3uL L=0.9 H=4.9 61552-2 LOINC #MONO 0.6 10^3uL L=0.1 H=0.9 93444-9 LOINC #EOS 0.2 10^3uL L=0.0 H=0.6 712-0 LOINC #BASO 0.09 10^3uL L=0.00 H=0.10 18420-4 LOINC #IM GRANS 0.0 10^3uL L=0.0 H=7.0 25224-9 LOINC %IM GRANS 0.5 % L=0.0 H=5.0 85163-5 LOINC %NRB 0.0 L=0.0 H=0.2 05742-0 LOINC #NRB 0.000 L=0.000 H=0.012 35107-5 LOINC MANUAL DIFF NOT INDICATED RBC MORPH NOT INDICATED Social History Type Status Start Date End Date Code Code Syst em Smoking History Current every day smoker 412261351 SNOMED CT Sex Female Hospital Discharge Instructions Should you have any questions prior to discharge, please contact a member of your healthcare team. If you have left the hospital and have any questions, please contact your primary care physician. 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
--- OUTSIDE RECORDS SUMMARY | 2025-03-16 18:11 | XMS_ITS ---
Author Organization Unknown Address [address] [place] [phone] Phone Care Team Providers Care Forming Yardage Control Operator Name Role Phone MIREILLE Odom Attending Unavailable [facility] Primary Unavailable Immunization Immunization Date Status [...] MILAGRO - Colle ct Date/Time: 07/01/2024 17:20 [facility] ID: [id number] [address] [place], [place], [id number] LOINC: 3013-0 Test Value Unit Reference Range Code Code System Flag Thyroglobulin (TG-MILAGRO) <2.0 3013-0 LOINC Social History Type Status Start Date End Date Code Code Syst em Smoking History Current every day smoker 308936811 SNOMED CT Sex Female Hospital Discharge Instructions Should you have any questions prior to discharge, please contact a member of your healthcare team. If you have left the hospital and have any questions, please contact your primary care physician. Reason For Referral No Data Found Plan of Treatment CT Chest CA Screen (92197) 12/30/2024 Encounters Encounter Diagnosis Start Date Code Code Sys tem Malignant neoplasm of thyroid gland 07/01/2024 SNOMED-CT Personal Care Team Section Performer Name Performer Role Active Date Inactive CHARLIE Salvador PCP - Primary care physician 20212024-01-25
--- OUTSIDE RECORDS SUMMARY | 2025-03-16 18:11 | XMS_ITS ---
Author Organization Unknown Address [address] [place] [address] [phone] Phone Care Team Providers Care Health Commissioner Name Role Phone MISAEL MARRERO Attending Unavailable [...] mcg/0.3 mL 06/04/2024 Completed 309 CVX Results SED RATE - Collect Date/Time : 03/13/2025 18:18 [facility] ID: [id number] [address] [place] [address], [id number] LOINC: Test Value Unit Reference Range Code Code System Flag SED RATE 12 mm/hr L=0 H=20 RAJ (REF) - Collect Date/Rogelio e: 03/13/2025 18:18 [facility] ID: [id number] [address] [place] [address], [id number] LOINC: 5048-4 Test Value Unit Reference Range Code Code System Flag RAJ by IFA RfxTiter/Pattern Negative 68018-7 [place] CRP NON SPECIFIC - Collect D ate/Time: 03/13/2025 18:18 [facility] ID: [id number] [address] [place] [address], [id number] LOINC: 1988-01 Test Value Unit Reference Range Code Code System Flag CRP-NON SPECIFIC < 5.0 mg/L L=0.0 H=10.0 1988-01 LOINC RHEUMATOID ARTHRITIS (RA) FA CTOR REF - Collect Date/Time: 03/13/2025 18:18 [facility] ID: [id number] [address] [place] [address], [id number] LOINC: 48496-0 Test Value Unit Reference Range Code Code System Flag Rheumatoid Factor (RF) 10.4 <14.0 50818-9 LOINC Social History Type Status Start Date End Date Code Code Syst em Smoking History Current every day smoker 668549586 SNOMED CT Sex Female Hospital Discharge Instructions Should you have any questions prior to discharge, please contact a member of your healthcare team. If you have left the hospital and have any questions, please contact your primary care physician. Reason For Referral No Data Found Plan of Treatment CT Chest CA Screen (71233) 12/30/2024 Personal Care Team Section Performer Name Performer Role Active Date Inactive CHARLIE Salvador PCP - Primary care physician 20212024-01-25
--- OUTSIDE RECORDS SUMMARY | 2025-03-16 18:11 | XMS_ITS ---
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 MF: [place] Report ID: [id number] Reading Location: [id number] Social History Type Status Start Date End Date Code Code Syst em Smoking History Current every day smoker 613512025 SNOMED CT Sex Female Hospital Discharge Instructions Should you have any questions prior to discharge, please contact a member of your healthcare team. If you have left the hospital and have any questions, please contact your primary care physician. Reason For Referral No Data Found Plan of Treatment CT Chest CA Screen (85016) 12/30/2024 Encounters Encounter Diagnosis Start Date Code Code Sys tem Other specified disorders of bone density and structure, unspecified site 04/10/2024 SNOMED-CT Personal Care Team Section Performer Name Performer Role Active Date Inactive CHARLIE Salvador PCP - Primary care physician 20212024-01-25 Imaging Narrative Notes
--- OUTSIDE RECORDS SUMMARY | 2025-03-16 18:11 | XMS_ITS ---
Author Organization Unknown Address [address] [place] [address] [phone] Phone Care Team Providers Care Tax Evaluator Name Role Phone MISAEL MARRERO Attending Unavailable [...] BRITTANY T - Collect Date/Time: 09/19/2024 15:54 [facility] ID: [id number] [address] [place] [address], [id number] LOINC: 01439-1 Test Value Unit Reference Range Code Code System Flag T pallidum Antibodies Non Reactive Non Reactive 07004-2 LOINC CHG RPR? NO SEND TO IFC? NO VITAMIN B-12 - Collect Date/ Time: 09/19/2024 15:54 [facility] ID: [id number] [address] [place] [address], [id number] LOINC: 2132-9 Test Value Unit Reference Range Code Code System Flag VITAMIN B12 804 pq/mL L=239 H=931 TSH - Collect Date/Time: 15:54 [facility] ID: [id number] [address] [place] [address], [id number] LOINC: 15644-3 Test Value Unit Reference Range Code Code System Flag TSH. 0.390 uIU/L L=0.470 H=4.680 60123-2 LOINC L IMMUNOFIXATION (RAQUEL) SERUM - Collect Date/Time: 09/19/2024 15:54 [facility] ID: [id number] [address] [place] [address], [id number] LOINC: 47975-6 Test Value Unit Reference Range Code Code System Flag Immunofixation Result,Serum Comment: 62115-6 LOINC Immunoglobulin G, Qn,Serum 8926 872-9084 2465-3 LOINC Immunoglobulin A, Qn,Serum 143 87-352 0688-8 LOINC Immunoglobulin M, Qn,Serum 109 26-217 5542-9 LOINC Social History Type Status Start Date End Date Code Code Syst em Smoking History Current every day smoker 296894824 SNOMED CT Sex Female Hospital Discharge Instructions Should you have any questions prior to discharge, please contact a member of your healthcare team. If you have left the hospital and have any questions, please contact your primary care physician. Reason For Referral No Data Found Plan of Treatment CT Chest CA Screen (10048) 12/30/2024 Encounters Encounter Diagnosis Start Date Code Code Sys tem Polyneuropathy, unspecified 09/19/2024 SNOMED-CT Personal Care Team Section Performer Name Performer Role Active Date Inactive CHARLIE Salvador PCP - Primary care physician 20212024-01-25
--- OUTSIDE RECORDS SUMMARY | 2025-03-16 18:12 | XMS_ITS | Clinical Summary ---
Author Organization [facility] Address [address] [address] Care Team Providers Care Nut Orchardist Name Role Phone Jo-Ann De Jesus MD Primary Care Provider [phone] Source Comments [facility],non-owned Affiliates and Associated Physician Practices is amultiple site organization consisting of ambulatory clinics and hospital sitesin [place], [place], [place] and [place]. This disclosure is being madepursuant to the Care Everywhere program and may not contain all information available regarding this patient. Last updated 18.[facility] Allergies Active Allergy Reactions Criticality Noted Date [...] season) 2024 DEPRESSION SCREENING 09/03/2024 INFLUENZA VACCINE (#1) 2025 Respiratory Syncytial Virus (RSV) Vaccine Pt: [...] MEDICAID - OUT OF STATE Care Teams Nut Orchardist Relationship Specialty Start Date End Date Jo-Ann De Jesus MD [address] [facility] [address] [place] [address] PCP - General 01/10/18
--- OUTSIDE RECORDS SUMMARY | 2025-03-16 18:12 | XMS_ITS | Encounter Summary ---
Author Organization [facility] Address [facility] [place] [address] Care Team Providers Care Collection Systems Administrator Name Role Phone Cely Rivera [facility] Primary Care Provider + [phone] Yakelin Ann APRN Primary Care Provider + Encounter Details Date Type Department Care Team (Late st Contact Info) Description 11/17/2017 Abstract [facility] CONVERSION [address] [place] [address] , Generic ConversionMD Social History Tobacco Use [...] Department Care Team (Late Contact Info) Description 03/18/2025 9:20 AM CDT Office Visit [facility] [place] [address], [place] [address] Jb Owens DPM [address] [place] [phone] 03/25/2025 1:00 PM CDT Hospital Encounter [facility] - [facility] [address] [place] [address] Jb Owens DPM [address] [place] [address] 03/25/2025 1:00 PM CDT - 03/25/2025 3:04 PM CDT Surgery [facility] OR - [facility]SC [address] [place] [address] Jb Owens, DPKaitlynn [address] [place], [place] [address] ARTHROPLASTY TOE WITH PIN RIGHT 5TH 04/01/2025 9:20 AM CDT Office Visit [facility] [place] [address] [place] [address], [place] [address] Jb Owens, EDUARDA [address] [place], [place] [phone] Scheduled Procedures Name Priority Associated Diagnoses Date/Ti me ARTHROPLASTY TOE HAMMERTOE RIGHT 5TH PAINFUL HARDWARE RIGHT FOOT 03/25/2025 1:00 PM CDT REMOVAL HARDWARE HAMMERTOE RIGHT 5TH PAINFUL HARDWARE RIGHT FOOT 03/25/2025 1:00 PM CDT documented as of this encounter Visit Diagnoses Not on filedocumented in this encounter Additional Health Concerns Infection Onset Date Last Indicated Resolved Time COVID-19 Rule Out 10/10/2020 10/10/2020 10/11/2020 11:06 AM WHITE KID BUFFER COVID-19 Rule Out 01/15/2022 01/15/2022 01/15/2022 5:14 PM CDT COVID-19 Rule Out 07/13/2024 07/13/2024 07/13/2024 1:14 AM WHITE KID BUFFER documented as of this encounter Care Teams Collection Systems Administrator Relationship Specialty Start Date End Date Cely Rivera FNP-BC [address] [place] [address] PCP - General NURSE PRACTITIONER 02/27/18 01/20/25 Yakelin Ann APRN [address] [place] [address] PCP - General Nurse Practitioner Family 01/21/25 documented as of this encounter
--- OUTSIDE RECORDS SUMMARY | 2025-03-16 18:12 | XMS_ITS ---
Author Organization Unknown Address [address] [place] [address] [phone] Phone Care Team Providers Care Gameroom Technician Name Role Phone IVANTENAAry SADE Attending Unavailable [...] BILATER AL - Completed: 12/22/2024 09:21 LOINC: \TM00\\12PI\\DRAo\\BM09\ \MRHo\ [address] [address] ---------NAME--------- NUMBER SEX AGE ADMIT DISC. XRAY# F/C TYPE LINK ARIA PORTER [id number] F 59 12/22/24 12/22/24 64412 O/P DATE OF : 1965 M/R# [id number] PH#: [phone] \MRx\ LOCATION: TRANSCRIBED: 12/22/24 10:00 DIG 3D ALEXEY SCREENING [id number] COMPLETED:12/22/24 9:21 [id number] (REASONS-DIG 3D ALEXEY SCREENING BILATERAL: SCREENING PHYSICIAN: [...] were reviewed. This examination was analyzed using [employer] DBT/MMG in addition to a radiologist review, [...] annual mammogram. 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 .to [facility] via fax Social History Type Status Start Date End Date Code Code Syst em Smoking History Current every day smoker 552923979 SNOMED CT Sex Female Hospital Discharge Instructions Should you have any questions prior to discharge, please contact a member of your healthcare team. If you have left the hospital and have any questions, please contact your primary care physician. Reason For Referral No Data Found Plan of Treatment CT Chest CA Screen ([id number]) 12/30/2024 Encounters Encounter Diagnosis Start Date Code Code Sys tem Screening mammography 12/22/2024 [id number] SNOMED -CT Personal Care Team Section Performer Name Performer Role Active Date Inactive CHARLIE Salvador PCP - Primary care physician 20212024-01-25 Imaging Narrative Notes [facility] 12/22/2024 10:02 [facility] [address] [place] [address] ---------NAME--------- NUMBER SEX AGE ADMIT DISC. XRAY# F/C TYPE LINK ARIA PORTER [id number] F 59 12/22/24 12/22/24 43402 MB O/P DATE OF : 1965 M/R# [id number] #: [phone] LOCATION: TRANSCRIBED: 12/22/24 10:00 DIG 3D ALEXEY SCREENING [id number] COMPLETED:12/22/24 9:21 51614 (REASONS-DIG 3D ALEXEY SCREENING BILATERAL: SCREENING PHYSICIAN: [...] were reviewed. This examination was analyzed using [employer] DBT/MMG in addition to a radiologist review, [...] annual mammogram. 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 .to [facility] via fax
--- OUTSIDE RECORDS SUMMARY | 2025-03-16 18:12 | XMS_ITS | Encounter Summary ---
Author Organization [facility] Address [facility] [place] [address] Care Team Providers Care Hot Car Charger Name Role Phone Cely Rivera [facility] Primary Care Provider +[phone] Yakelin Ann APRN Primary Care Provider + Encounter Details Date Type Department Care Team (Late Contact Info) Description 07/18/2018 Abstract [facility] Neuroscience [facility] [address] [place] [phone] Chris Whitehead MD [address] [place] [address] Social History Tobacco Use Types Packs/Day Years [...] Description 03/18/2025 9:20 AM CDT Office Visit [facility] [place] [address] [facility], [place] [address] Jb Owens DPM [address] [place] [address] 03/25/2025 1:00 PM CDT Hospital En[facility] [address] [place] [address] Jb Owens, EDUARDA [address] [place] [address] 03/25/2025 1:00 PM CDT - 03/25/2025 3:[address] [facility] [address] [place] [address] Jb Owens, EDUARDA [address] [place] [address] ARTHROPLASTY TOE WITH PIN RIGHT 5TH 04/01/2025 9:20 AM CDT Office Visit [facility] - [address], [place] [phone] Jb Owens, EDUARDA [address] [place] [address] Scheduled Procedures Name Priority Associated Diagnoses Date/Ti [...] Rule Out 10/10/2020 10/10/2020 10/11/2020 11:06 AM TIMBER FRAMER HELPER COVID-19 Rule Out 01/15/2022 01/15/2022 01/15/2022 5:14 PM CDT COVID-19 Rule Out 07/13/2024 07/13/2024 07/13/2024 1:14 AM TIMBER FRAMER HELPER documented as of this encounter Care Teams Hot Car Charger Relationship Specialty Start Date End Date Cely Rivera FNP-BC [address] [place] [address] PCP - General NURSE PRACTITIONER 02/27/18 01/20/25 Yakelin Ann APRN [address] [place] [address] PCP - General Nurse Practitioner Family 01/21/25 documented as of this encounter
--- OUTSIDE RECORDS SUMMARY | 2025-03-16 18:12 | XMS_ITS ---
Author Organization Unknown Address [address] [place] [phone] Phone Care Team Providers Care Hand Drawer In Helper Name Role Phone MIREILLE Odom Attending Unavailable [facility] Primary Unavailable Immunization Immunization Date Status [...] CVX Results TSH - Collect Date/Time: 16:28 [facility] [id number] [address] [place], [place], [id number] LOINC: 24889-0 Test Value Unit Reference Range Code Code System Flag TSH. 3.830 uIU/L L=0.470 H=4.680 99715-0 LOINC Social History Type Status Start Date End Date Code Code Syst em Smoking History Current every day smoker [id number] SNOMED CT Sex Female Hospital Discharge Instructions Should you have any questions prior to discharge, please contact a member of your healthcare team. If you have left the hospital and have any questions, please contact your primary care physician. Reason For Referral No Data Found Plan of Treatment CT Chest CA Screen ([id number]) 12/30/2024 Encounters Encounter Diagnosis Start Date Code Code Sys tem Hypothyroidism, unspecified 11/21/2024 SNOMED-CT Personal Care Team Section Performer Name Performer Role Active Date Inactive CHARLIE Salvador PCP - Primary care physician [id number]
--- OUTSIDE RECORDS SUMMARY | 2025-03-16 18:12 | XMS_ITS ---
Author Organization Unknown Address [address] [place] [phone] Phone Care Team Providers Care Natural Science Manager Name Role Phone GREGORIA PETERSON Attending Unavailable [facility] Primary Unavailable Immunization Immunization [...] CVX Results TSH - Collect Date/Time: 16:20 [facility] ID: [id number] [address] [place] [address], [phone] LOINC: 67244-1 Test Value Unit Reference Range Code Code System Flag TSH. 3.240 uIU/L L=0.470 H=4.680 33557-1 LOINC T4 FREE - Collect Date/Time: 01/25/2024 16:20 [facility] ID: [id number] [address] [place] [address], [phone] LOINC: 3024-7 Test Value Unit Reference Range Code Code System Flag T4, FREE 1.07 ng/dL L=0.78 H=2.19 3024-7 LOINC Social History Type Status Start Date End Date Code Code Syst em Smoking History Current every day smoker [id number] SNOMED CT Sex Female Hospital Discharge Instructions Should you have any questions prior to discharge, please contact a member of your healthcare team. If you have left the hospital and have any questions, please contact your primary care physician. Reason For Referral No Data Found Plan of Treatment CT Chest CA Screen ([id number]) 12/30/2024 Encounters Encounter Diagnosis Start Date Code Code Sys tem Postprocedural hypothyroidism 01/25/2024 SNOMED-CT Personal Care Team Section Performer Name Performer Role Active Date Inactive CHARLIE Salvador PCP - Primary care physician [id number]
--- OUTSIDE RECORDS SUMMARY | 2025-03-16 18:12 | XMS_ITS | Encounter Summary ---
Author Organization [facility] Address [facility] [place] [address] Care Team Providers Care Hand Driller Name Role Phone Cely Rivera [facility] Primary Care Provider +[phone] Yakelin Ann APRN Primary Care Provider + Encounter Details Date Type Department Care Team (Late Contact Info) Description 07/06/2018 Abstract [facility] Neuroscience [facility] [address] [place] [phone] Chris Whitehead MD [address] [place] [address] Social History Tobacco Use Types Packs/Day [...] Description 03/18/2025 9:20 AM CDT Office Visit [facility] [place] [address] [facility], [place] [address] Jb Owens DPM [address] [place] [address] 03/25/2025 1:00 PM CDT Hospital En[facility] [address] [place] [address] Jb Owens, EDUARDA [address] [place] [address] 03/25/2025 1:00 PM CDT - 03/25/2025 3:[address] [facility] [address] [place] [address] Jb Owens, EDUARDA [address] [place] [address] ARTHROPLASTY TOE WITH PIN RIGHT 5TH 04/01/2025 9:20 AM CDT Office Visit [facility] - [address], [place] [phone] Jb Owens, EDUARDA [address] [place] [address] Scheduled Procedures Name Priority Associated Diagnoses Date/Ti [...] Rule Out 10/10/2020 10/10/2020 10/11/2020 11:06 AM MACHINING ENGINEER COVID-19 Rule Out 01/15/2022 01/15/2022 01/15/2022 5:14 PM CDT COVID-19 Rule Out 07/13/2024 07/13/2024 07/13/2024 1:14 AM MACHINING ENGINEER documented as of this encounter Care Teams Hand Driller Relationship Specialty Start Date End Date Cely Rivera FNP-BC [address] [place] [address] PCP - General NURSE PRACTITIONER 02/27/18 01/20/25 Yakelin Ann APRN [address] [place] [address] PCP - General Nurse Practitioner Family 01/21/25 documented as of this encounter
--- OUTSIDE RECORDS SUMMARY | 2025-03-16 18:13 | XMS_ITS ---
Author Organization Unknown Address [address] [place] [phone] Phone Care Team Providers Care Furnace Fitter Name Role Phone MIREILLE Odom Attending Unavailable [facility] Primary Unavailable Immunization [...] T4 FREE - Collect Date/Time: 06/17/2024 13:32 [facility] ID: [id number] [address] [place] [address], [phone] LOINC: 3024-7 Test Value Unit Reference Range Code Code System Flag T4, FREE 1.17 ng/dL L=0.78 H=2.19 3024-7 LOINC TSH - Collect Date/Time: 13:32 [facility] ID: [id number] [address] [place] [address], [phone] LOINC: 76206-7 Test Value Unit Reference Range Code Code System Flag TSH. 3.590 uIU/L L=0.470 H=4.680 20975-9 LOINC ANTI THYROGLOBULIN ANTIBODY - Collect Date/Time: 06/17/2024 13:32 [facility] ID: [id number] [address] [place] [address], [phone] LOINC: 8098-6 Test Value Unit Reference Range Code Code System Flag Thyroglobulin Antibody <1.0 0.0-0.9 8098-6 LOINC Social History Type Status Start Date End Date Code Code Syst em Smoking History Current every day smoker [id number] SNOMED CT Sex Female Hospital Discharge Instructions Should you have any questions prior to discharge, please contact a member of your healthcare team. If you have left the hospital and have any questions, please contact your primary care physician. Reason For Referral No Data Found Plan of Treatment CT Chest CA Screen ([id number]) 12/30/2024 Encounters Encounter Diagnosis Start Date Code Code Sys tem Malignant neoplasm of thyroid gland 06/17/2024 SNOMED-CT Personal Care Team Section Performer Name Performer Role Active Date Inactive CHARLIE Salvador PCP - Primary care physician [id number]
--- OUTSIDE RECORDS SUMMARY | 2025-03-16 18:13 | XMS_ITS | Clinical Summary ---
Author Organization [facility] Address [address] [place] [address] Care Team Providers Care Sonography Technologist Name Role Phone Yakelin Ann APRN Primary Care Provider + Allergies Active Allergy Reactions Criticality Noted Date [...] Encounters Date Type Department Care Team Description 01/13/2025 10:30 AM CDT - 01/13/2025 11:59 PM CDT Hospital Encounter [facility] Radiation Oncology - [address] [address] Arvind Lucas MD Discharge Disposition: Home or Self Care (Routine Discharge) 01/13/2025 Travel 12/31/2024 10:00 AM CDT Office Visit [facility] [place] [address] [place] [address], [place] [address] Jb Owens, DPM Hammer Toe (Pt has a hammer toe [...] 10:05 AM CDT Height 165.1 cm (5' 5) 07/24/2024 11:16 AM SEMI TRUCK DRIVER Body Mass Index 25.29 07/24/2024 11:16 AM SEMI TRUCK DRIVER Plan of Treatment Upcoming Encounters Date Type Department Care Team (Late st Contact Info) Description 03/18/2025 9:20 AM CDT Office Visit [facility] [address] [phone] Jb Owens DPM [address] [place] [address] 03/25/2025 1:00 PM CDT Hospital [facility] [address] [place] [address] Jb Owens DPM [address] [place] [address] 03/25/2025 1:00 PM CDT - 03/25/2025 3:[address] [facility] [address] [place] [address] Jb Owens DPM [address] [place] [address] ARTHROPLASTY TOE WITH PIN RIGHT 5TH 04/01/2025 9:20 AM CDT Office Visit [facility] [address] [address] Jb Owens DPM [address] [place] [address] Scheduled Procedures Name Priority Associated Diagnoses Date/Ti me ARTHROPLASTY TOE HAMMERTOE RIGHT 5TH PAINFUL HARDWARE RIGHT FOOT 03/25/2025 1:00 PM CDT REMOVAL HARDWARE HAMMERTOE RIGHT 5TH PAINFUL HARDWARE RIGHT FOOT 03/25/2025 1:00 PM CDT Health Maintenance Due Date Last Done Comments Cervical Cancer Screening Pap Smear (Age 30 to 64) Every 3 Years 1963 Annual Physical 1966 Hepatitis C 1981 Pneumococcal Vaccine: 50+ Years (1 of 2 - PCV) 1982 Cervical Cancer Screening Pap with HPV Testing (Age 30 to 64) Every 5 Years 1993 Cervical Cancer Screening with HPV 1993 Mammogram Screening 2003 DTaP, Tdap and Td Vaccines (2 - Td or Tdap) 04/12/2034 04/12/2024, 02/06/1996 Colorectal Cancer Screening Colonoscopy (10 Years) 07/24/2034 07/24/2024, 07/24/2024 Zoster Vaccines Completed 07/08/2021, 05/04/2021 RSV Immunization or 60+ Years Completed 04/12/2024 COVID-19 Vaccine Completed 06/04/2024, , 05/10/2022, Additional history exists PHQ-2 (Physician Morongo) Completed 12/31/2024 Meningococcal B Vaccine Aged Out No l onger eligible based on patient's age to complete this topic Meningococcal Vaccine Aged Out No barry jose luis eligible based on patient's age to complete this topic RSV Immunizations Under 20 Months Aged Out No longer eligible based on patient's age to complete this topic Goals Goal Patient Goal Type Associated Problems Recent Progress Patient-Stated? Author Autogenerat ed Goal Care Plan Autogenerated Problem No Qiana Rivero RN Medical Devices Implanted Type Area Executive Consultant Device Identifier Shelf Expiration Date Model / Serial / Lot Lens Lens Description:Right IOL Screw Acutrak 2 Mini 22.0mm - [id number] Implanted:Qty: 1 on 10/13/2020 by Jb Owens DPM at [facility] Screw Right: Toe [employer] [id number] 04/30/2025 AT2-M22-S / / [id number] Screw Acutrak 2 Mini 26.0mm - [id number] Implanted:Qty: 1 on 10/13/2020 by Jb Owens DPM at [facility] Screw Right: Toe [employer] [id number] 07/15/2026 AT2-M26-S / / [id number] Screw Locking Hexalobe Acumed 3.5 X 14mm - [id number] Implanted:Qty: 1 on 10/13/2020 by Jb Owens DPM at [facility] Screw Right: Toe [employer] 30-0235 / / N/A Screw Locking Hexalobe Acumed 3.5 X 22mm - [id number] Implanted:Qty: 1 on 10/13/2020 by Jb Owens DPM at [facility] Screw Right: Toe [employer] 30-0239 / / N/A Screw Minitrak 24.0mm [employer] - Sn/A Implanted:Qty: 1 on 11/29/2018 by Jb Owens DPM at [facility] Right: Foot [employer] 09/16/2024 AT2-M24-S / N/A / [id number] Screw Acutrak 2 Micro 12mm - Sn/A Implanted:Qty: 1 on 11/29/2018 by Jb Owens DPM at [facility] Right: Foot [employer] 06/11/2025 AT2-C12-S / N/A / [id number] Screw Acutrak 2 Micro 12mm - Sn/A Implanted:Qty: 1 on 03/21/2019 by Jb Owens DPM at [facility] Left: Foot [employer] 12/22/2025 AT2-C12-S / N/A / [id number] Screw Acutrak 2 Mini 22.0mm - Sn/A Implanted:Qty: 1 on 03/21/2019 by Jb Owens DPM at [facility] Left: Foot [employer] 02/06/2025 AT2-M22-S / N/A / [id number] Explanted Type Area Executive Consultant Device Identifier Shelf Expiration Date Model / Serial / Lot Drill Acumed Mini - [id number] Explanted:Qty: 1 on 10/13/2020 by Jb Owens, CHELSEAM at [facility] Drill Right: Toe [employer] [id number] / / N/A Bit Drill 5in 2.3mm Surgibit Ankle Quick Release - [id number] Explanted:Qty: 1 on 10/13/2020 by Jb Owens DPM at [facility] Drill Right: Toe [employer] [id number] / / N/A Plate Tack [employer] - [id number] Explanted:Qty: 2 on 10/13/2020 by Jb Owens, EDUARDA at [facility] Plate Right: Toe [employer] PL-PTACK / / N/A .045mm Guide Wire (Mini) Explanted:Qty: 2 on 11/29/2018 at [facility] Right: Foot [employer] WS-1106ST / N/A / N/A .035mm Guide Wire (Micro) Explanted:Qty: 1 on 11/29/2018 at [facility] Right: Foot [employer] [id number] / N/A / N/A Sm Cannulated Drill Tip (Micro) Explanted:Qty: 1 on 11/29/2018 at [facility] Right: Foot [employer] AT2-1509 / N/A / N/A Small Cannulated Drill Tip (Mini) Explanted:Qty: 1 on 11/29/2018 at [facility] Right: Foot [employer] [id number] / N/A / N/A .045mm Guide Wire (Mini) Explanted:Qty: 1 on 03/21/2019 at [facility] Left: Foot [employer] WS-1106ST / N/A / N/A .54mm Guide Wire (Std) Explanted:Qty: 1 on 03/21/2019 at [facility] Left: Foot [employer] WS-1407ST / N/A / N/A Small Cannulated Dirll Tip (Micro) Explanted:Qty: 1 on 03/21/2019 at [facility] Left: Foot [employer] AT2-1509 / N/A / N/A Small Cannulated Drill Tip (Mini) Explanted:Qty: 1 on 03/21/2019 at [facility] Left: Foot [employer] [id number] / N/A / N/A .035mm Guide Wire (Micro) Explanted:Qty: 2 on 03/21/2019 at [facility] Left: Foot [employer] WS-0906ST / N/A / N/A .045mm Guide - Wire Explanted:Qty: 2 on 10/13/2020 by Jb Owens DPM at [facility] Right: Toe WS-1106ST / / N/A Screw Acutrak 2 Mini 20.0mm - [id number] Implanted:Qty: 1 Explanted:Qty: 1 on 10/13/2020 at [facility] Right: Toe [employer] 04/15/2027 AT2-M20-S / / [id number] X 6inch Guide Wire Explanted:Qty: 2 on 10/13/2020 by Jb Owens DPM at [facility] Right: Toe WS-1607ST / / N/A Mtp- Reamer Explanted:Qty: 1 on 10/13/2020 by Jb Owens DPM at [facility] Right: Toe MTP-REAMER / / N/A Procedures Procedure Name Priority Date/Time Associated Diagnosis Comments COLONOSCOPY 07/24/2024 11:10 AM SEMI TRUCK DRIVER from Last 3 Months or Most Recently Relevant to Health Maintenance Results * Colonoscopy (07/24/2024 11:10 AM SEMI TRUCK DRIVER) us Jack Vo MD GI PROCEDURE ORDERABLES Final Result from Last 3 Months or Most Recently Relevant to Health Maintenance Additional Health Concerns Active Problems Noted Date Diagnosed Date Autogenerated Problem 01/21/2025 Insurance MEDICARE MEDICAID Care Teams Sonography Technologist Relationship Specialty Start Date End Date Yakelin Ann APRN [address] [place] [address] PCP - General Nurse Practitioner Family 01/21/25
--- OUTSIDE RECORDS SUMMARY | 2025-03-16 18:13 | XMS_ITS | Encounter Summary ---
Author Organization [facility] Address [facility] [place] [address] Care Team Providers Care Configuration Management Specialist Name Role Phone , Generic Conversion Primary Care Provider Unavailable Cely Rivera [facility] Primary Care Provider +[phone] Yakelin Ann APRN Primary Care Provider + Encounter Details Date Type Department Care Team (Late st Contact Info) Description 07/07/2017 Abstract [place] [address] , Generic ConversionMD Social History Tobacco Use [...] Description 03/18/2025 9:20 AM CDT Office Visit [facility] - [place] [address] [facility] [place] [address] Jb Owens, EDUARDA [address] [place] [address] 03/25/2025 1:00 PM CDT Hospital En[facility] [address] [place] [address] Jb Owens, EDUARDA [address] [place] [address] 03/25/2025 1:00 PM CDT - 03/25/2025 3:04 PM CDT Surgery [facility] OR - OSC [address] [place] [address] Jb Owens, EDUARDA [address] [place] [address] ARTHROPLASTY TOE WITH PIN RIGHT 5TH 04/01/2025 9:20 AM CDT Office Visit [facility] - [address], [place] [phone] Jb Owens, EDUARDA [address] [place] [address] Scheduled Procedures Name Priority Associated Diagnoses Date/Ti [...] Rule Out 10/10/2020 10/10/2020 10/11/2020 11:06 AM DIRECTOR OF ACQUISITION MARKETING COVID-19 Rule Out 01/15/2022 01/15/2022 01/15/2022 5:14 PM CDT COVID-19 Rule Out 07/13/2024 07/13/2024 07/13/2024 1:14 AM DIRECTOR OF ACQUISITION MARKETING documented as of this encounter Care Teams Configuration Management Specialist Relationship Specialty Start Date End Date Ruth Mosher MD PCP - General 04/06/15 11/12/17 Cely Rivera FNP- [address] [place] [address] PCP - General NURSE PRACTITIONER 02/27/18 01/20/25 Yakelin Ann APRN [address] [place] [address] PCP - General Nurse Practitioner Family 01/21/25 documented as of this encounter
--- OUTSIDE RECORDS SUMMARY | 2025-03-16 18:13 | XMS_ITS ---
Author Organization Unknown Address [address] [place] [phone] Phone Care Team Providers Care Survey Technician Name Role Phone IVANTENAAry SADE Attending [...] mcg/0.3 mL 06/04/2024 Completed 309 CVX Results CBC W/ DIFF - Collect Date/T farooq: 01/27/2025 14:06 [facility] ID: [id number] [address] [place], [place], [id number] LOINC: 47133-0 Test Value Unit Reference Range Code Code System Flag WBC 13.8 10^3uL L=4.8 H=10.8 H RBC 3.97 10^6uL L=4.20 H=5.40 L HEMOGLOBIN 13.1 g/dL L=12.0 H=16.0 718-7 LOINC HEMATOCRIT 40.4 VOL% L=37.0 H=47.0 4544-3 LOINC MCV 101.8 fL L=81.0 H=99.0 H MCH 33.0 pg L=27.0 H=32.0 H MCHC 32.4 g/dL L=32.0 H=36.0 PLATELETS 296 10^3uL L=100 H=400 35795-5 LOINC RDW 13.1 % L=11.7 H=15.5 %GRAN 67.5 % L=40.0 H=70.0 45497-4 LOINC %LYMPH 22.4 % L=20.0 H=45.0 736-9 LOINC %MONO 7.8 % L=2.0 H=10.0 50657-4 LOINC %EOS 1.3 % L=0.0 H=6.0 713-8 LOINC %BASO 0.4 % L=0.0 H=3.0 706-2 LOINC #NEUT 9.3 10^3uL L=1.9 H=7.6 31254-1 LOINC H #LYMPH 3.1 10^3uL L=0.9 H=4.9 93277-9 LOINC #MONO 1.1 10^3uL L=0.1 H=0.9 39925-2 LOINC H #EOS 0.2 10^3uL L=0.0 H=0.6 712-0 LOINC #BASO 0.06 10^3uL L=0.00 H=0.10 59302-6 LOINC #IM GRANS 0.1 10^3uL L=0.0 H=7.0 03989-6 LOINC %IM GRANS 0.6 % L=0.0 H=5.0 04284-2 LOINC %NRB 0.0 L=0.0 H=0.2 51997-7 LOINC #NRB 0.000 L=0.000 H=0.012 82442-7 LOINC MANUAL DIFF NOT INDICATED RBC MORPH NOT INDICATED COMPREHENSIVE METABOLIC PANE L - Collect Date/Time: 01/27/2025 14:06 [facility] ID: [id number] [address] [place], [place], [id number] LOINC: 88069-2 Test Value Unit Reference Range Code Code System Flag FASTING UNKNOWN BUN 15 mg/dL L=7 H=20 3094-0 LOINC CREATININE 0.80 mg/dL L=0.52 H=1.04 2160-0 LOINC GLUCOSE 90 mg/dL L=74 H=106 2345-7 LOINC SODIUM 140 mmol/L L=132 H=144 2951-2 LOINC POTASSIUM 3.8 mmol/L L=3.5 H=5.1 2823-3 LOINC CHLORIDE 106 mmol/L L=98 H=107 2075-0 LOINC CO2 28.0 mmol/L L=22.0 H=30.0 2028-9 LOINC ANION GAP 10 L=10 H=20 73639-2 LOINC OSMOLALITY 290 mOs/kG L=280 H=296 28279-1 LOINC BUN/CREAT 18.8 3097-3 LOINC CALCIUM 9.7 mg/dL L=8.3 H=10.5 78696-8 LOINC AST 29 U/L L=15 H=46 1920-8 LOINC ALT 27 U/L L=9 H=72 1742-6 LOINC ALKALINE PHOS 66 U/L L=38 H=126 6768-6 LOINC TOTAL BILI 0.5 mg/dL L=0.2 H=1.3 1975-2 LOINC ALBUMIN 4.2 G/dL L=3.5 H=5.0 1751-7 LOINC TOTAL PROTEIN 7.4 g/L L=6.3 H=8.2 2885-2 LOINC A/G RATIO 1.3 82125-5 LOINC AGE 59 93115-0 LOINC eGFR NON-AFR 78 ml/min eGFR AFR AMER 94 ml/min Social History Type Status Start Date End Date Code Code Syst em Smoking History Current every day smoker [id number] SNOMED CT Sex Female Hospital Discharge Instructions Should you have any questions prior to discharge, please contact a member of your healthcare team. If you have left the hospital and have any questions, please contact your primary care physician. Reason For Referral No Data Found Plan of Treatment CT Chest CA Screen (62836) 12/30/2024 Encounters Encounter Diagnosis Start Date Code Code Sys tem Malignant neoplasm of thyroid gland 01/27/2025 SNOMED-CT Personal Care Team Section Performer Name Performer Role Active Date Inactive CHARLIE Salvador PCP - Primary care physician 20212024-01-25
--- OUTSIDE RECORDS SUMMARY | 2025-03-16 18:14 | XMS_ITS ---
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 If you have left the hospital and have any questions, please contact your primary care physician. Reason For Referral No Data Found Plan of Treatment CT Chest CA Screen (34261) 12/30/2024 Encounters Encounter Diagnosis Start Date Code Code Sys tem Encounter for screening for malignant neoplasm of respiratory organs 12/30/2024 SNOMED-CT Personal Care Team Section Performer Name Performer Role Active Date Inactive CHARLIE Salvador PCP - Primary care physician [id number] Imaging Narrative Notes [facility] 12/30/2024 20:[address] [address] ---------NAME--------- NUMBER SEX AGE ADMIT DISC. XRAY# F/C TYPE LINK ARIA PORTER [id number] F 59 12/30/24 12/30/24 [id number] O/P DATE OF : 1965 M/R# [id number] PH#: [phone] LOCATION: TRANSCRIBED: 12/30/24 20:22 CT CHEST [place] SCREEN [id number] COMPLETED:12/30/24 16:26 [facility] [id number] {REASON-CT CHEST CA SCREEN: CURRENT SMOKER PHYSICIAN: [...] to clinical indication) or iterative reconstruction. HS:Y GHT SHIPPING AGENT Reviewed and Electronically Signed by: John Alcaraz MD Signed Date: 12/30/24 20:22 12/30/24.2024.[email or web address] [facility] via fax
--- OUTSIDE RECORDS SUMMARY | 2025-03-16 18:14 | XMS_ITS | Data Portability ---
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 She was, unfortunately, unable to tolerate anastrozole due to multiple side effects, including hair loss, hot flashes, nausea, retching. She was placed on tamoxifen in December 2022. BRCA testing was negative for a genetic mutation. The patient returns today stating that she notes no breast masses. She has recently suffered from sinus infections, nasal drainage, and allergies, and notes some pain in her right hand, and some dyspnea on exertion. She denies nausea, vomiting, or diarrhea. PAST HISTORY: Surgical Illnesses - Surgery on her left hand, bilateral carpal tunnel release. Surgery on both feet. Resection of thyroid cancer, cholecystectomy and cataract extractions. Medical Illnesses - Anaya's esophagus, elevated cholecystectomy, prediabetes, thyroid cancer, peptic ulcer disease, diverticulitis, hyperlipidemia, and osteoarthritis. ALLERGIES - NONSTEROIDAL ANTI-INFLAMMATORY DRUGS. 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 Tobacco - One-half pack per day for [...] joint swelling. Back pain and hip pain. Pain in her right hand. H/L/IMM: No easy bruising or bleeding. ENDO: Hot flashes. NEURO: Headaches. Reviewed past medical history, surgical history, family history, [...] be some excoriated lesions on her scalp. Excoriations are noted over her arms bilaterally. PSYCH: Appropriate mood and affect. NEURO: No speech difficulty. Strength and sensation are grossly intact. Alert and oriented to person, place, and time. BREASTS: The left breast revealed no masses. Right breast revealed scarring of the nipple which is well healed. Reviewed pertinent diagnostic tests, lab work, and imaging. These were reviewed with the patient. LABORATORY DATA: CBC: White blood count 13,800, hemoglobin 13.1, platelet count 296,000. CMP is normal. Bloodwork was reviewed with the patient. Last mammogram was December 22, 2024 and last bone density was April 10, 2024. ASSESSMENT AND PLAN: 1. Ductal carcinoma in situ of the right breast - This 59-year-old woman is seen in followup for evaluation for ductal carcinoma in situ of the right breast. She has been unable to tolerate anastrozole or tamoxifen and is taking no adjuvant hormonal therapy at this time. No evidence of recurrent malignancy is identified. Her last mammogram was December 22, 2024. 2. Decreased bone density - Patient underwent her last bone density on April 10, 2024, revealing a low bone mass. She has been instructed to have adequate calcium in her diet, take vitamin D, and exercise. I will plan to continue to follow bone densities every two years. The patient will return to see me in six months with a CBC, CMP. Disease state, prognosis, and plan were reviewed and discussed with the patient. Questions were addressed and patient verbalized understanding. [facility] [email or web address] Not available 01/28/2025 19:12:04 03/09/2025 03/09/2025 Tia's neurolo gical examination today is normal. She is concerned with progressive symptoms in the right hand. She does have swelling and tenderness to the right 2nd and 3rd MCP with reports of hand stiffness is worse in the morning. We discussed some concern for inflammatory arthritis. I will check labs today to ensure nothing is being missed. She does feel gabapentin is helping with neuropathy to the hands although she is not taking this as schedule III times per day. We did discuss the importance of continuing the daytime doses which she is in agreement with. She will begin trialing the medication at twice daily and increase to 3 times a day within the next 2 weeks. We did also discuss retrying pregabalin as she is unsure how the medication worked for her in the past. She will contact the office to let me know if she is wanting to trial pregabalin. I did initially want to follow-up with her in 1 month although she reports she is on a spin down and needs to extend the visit to at least 3 months for finances. We discussed brain MRI without evidence of brain metastasis or acute intracranial findings. I will refill her gabapentin 600 mg 3 times daily. Mechanism of action risk, and benefits of this medication were discussed in detail. She will follow-up with me in 3 months or before as needed. [email or web address] Not available 03/09/2025 10:19:22 Plan of Treatment Reminders Order Date Submit Date Provider Last Modified By Organization Details Last Modified Time Details Appointments Estab iliana Lin nt 20.ES T 2024 08:20A M Yasmin Comer Not available Not available Not available Estab iliana Lin nt 30.ES T 2024 10:30A M Bud Gonzalezneema Not available Not available Not available Estab iliana Lin nt 30.ES T 2024 10:30A M Rashida Zuri Not available Not available Not available Estab iliana Lin nt 15.ES T 2025 08:15A M Dr. Tyrel Mcknight Not available Not available Not available Lab None recor ded. Referral None recor ded. Procedures None recor ded. Surgeries None recor ded. Imaging None recor ded. Medication Orders gabap entin 600 mg table t 2024 025 [facility], [address] [place] [address], [id number], 03/09/2025 10:19:45 Thyro gen 0.9 mg intra muscu lar solut ion [address], [address] [place] [address], [address], 01/27/2025 15:18:17 Thyro gen 0.9 mg intra muscu lar solut ion [address], [address] [place] [address], [address], 01/27/2025 15:18:17 Patient TargetsNo targets recorded. Patient InstructionsNo instructions recorded. Reason for Referral None Reported. Results Created Date Observation Date Name Description Value Unit Range Abnormal Flag Note LastModifiedBy Organization Detail LastModifiedTime 01/24/20 25 01/28/2025 thyro globu alexa Ab, serum thyroglobuli n, quant. Not Available Ok Onl y - [facility] [address] [place] [address], [address], 01/28/2025 09:10:59 01/24/20 25 01/28/2025 thyro globu alexa Ab, serum thyroglobuli n Ab <1.0 IU/mL 0.0-0. 9 Thyro globu alexa Antib lynnette measu red by Beckm an Coult er Metho dolog y . It shoul d be noted that the prese nce of thyro globu alexa antib odies may not be patho genic nor diagn ostic , espec ially at very low level s. The assay manuf actur er has found that four perce nt of indiv idual s witho ut evide nce of thyro id disea se or autoi mmuni ty will have posit maxwell TgAb level s up to 4 IU/mL . Not Available Ok Only - Ok Laboratory [address] [place] [address], [address], 01/28/2025 09:10:59 01/24/2001/28/2025 thyro globu alexa Ab, serum thryoglobuli n result <0.1 NG/mL 1.5-38 .5 low Accor ding to the Natio nal Acade my of Clini cynthia [facility] emist ry, the refer ence inter maynor for Thyro globu alexa (TG) shoul d be relat ed to euthy roid patie nts and not for patie nts who under went thyro idect elia. TG refer ence inter vals for these patie nts depen d on the resid ual mass of the thyro id tissu e left after surge ry. Estab manoj ng a post- opera tive basel ine is recom carmelina d. The assay limit of quant itati on is 0.1 ng/mL . Thyro globu alexa measu red by Beckm an Coult er Immun ometr ic Assay Not Available Ok Only - Ok Laboratory [address] [place] [address], [address], 01/28/2025 09:10:59 01/10/20 25 12/22/2024 MAMMO , héctor millerg, digit al, bilat eral No observ ation record ed. [email or web address] Not Available 2024 11:42:08 01/24/20 25 01/23/2025 US, neck, soft tissu e [facility] [address] [place] [address] Teleph one Name: Tia Garcia [id number] Exam Date: 2024 Age: 59 Physic sonia: Greide r, LATHE HAND C, Abigai l : 1964 Examin ation: US NECK SOFT TISSUE EXAM: Ultras ound of the neck HISTOR Y: Thyroi dectom y for papill hood thyroi d cancer COMPAR JANA: 023 TECHNI QUE: Graysc samira and color Dopple r ultras ound of the neck FINDIN GS: Postsu rgical change s are seen from prior thyroi dectom y. No abnorm al soft tissue seen in the thyroi dectom y bed. Scatte red benign -appea ring neck lymph nodes are seen. IMPRES SAKINA: Unrema rkable post thyroi dectom y ultras ound Electr onical ly signed in [place] cribe by: TAM Nolasco MD on:01/02 8:34 AM cc: Page PAGE 1 of [facility] 1 [place] Sc Only - Sc Radiology [address] [place], [address], 02/06/2025 10:43:03 02/10/20 25 12/30/2024 LDCT, chest , for lung cance r héctor brock No observ ation record ed. [email or web address] Not Available 2024 14:52:14 03/06/20 25 04/15/2018 imagi ng/di agnos tic resul t No observ ation record ed. [email or web address] Not Available 0 03/06/2025 01:02:11 03/06/20 25 04/15/2018 imagi ng/di agnos tic resul t No observ ation record ed. [email or web address] Not Available 0 03/06/2025 01:02:12 03/06/20 25 04/15/2018 imagi ng/di agnos tic resul t No observ ation record ed. [email or web address] Not Available 0 03/06/2025 01:02:13 03/06/2004/15/2018 imagi ng/di agnos tic resul t No observ ation record ed. [email or web address] Not Available 0 03/06/2025 01:02:13 Result Notes Documentation Provider Name and Address Organization Details Recorded Time Crp, High Sensitivity, Serum Or Plasma : This document (1 of 1) was received from [email or web address] on 03/13/2025 through Direct Message along with the following message body content: You have received a 2 page fax at 03/14/2025 1:01:29 AM. * The Caller-ID for this fax is [phone]. If you have any questions regarding this message or your service contact Corporate Support: [place] Email: [email or web address] Phone: or Email: [email or web address] Phones: [phone] Thank you for using the Meet.com service! Elida Javier MD [address] [place] [address], [phone], [facility] 03/16/2025 06:49:45 Esr (erythrocyte Sedimentation Rate), Blood : This document (1 of 1) was received from [employer] on 03/13/2025 through Direct Message along with the following message body content: You have received a 2 page fax at 03/14/2025 1:01:29 AM. * The Caller-ID for this fax is [phone]. If you have any questions regarding this message or your service contact Corporate Support: [place] Email: [email or web address] Phone: or Email: [email or web address] Phones: [phone] Thank you for using the Meet.com service! Elida Javier MD [facility] [place] [address], [phone], [facility] 03/16/2025 06:49:45 Rf (rheumatoid Factor), Serum : This document (1 of 1) was received from [email or web address] on 03/16/2025 through Direct Message along with the following message body content: You have received a 2 page fax at 03/16/2025 3:49:39 PM. * The Caller-ID for this fax is [phone]. If you have any questions regarding this message or your service contact Corporate Support: [place] Email: [email or web address] Phone: or Email: [email or web address] Phones: [phone] Thank you for using the Meet.com service! Elida Javier MD [facility] [place] [address], [phone], [facility] 03/16/2025 15:04:05 Problems Name Problem SNOMED Code Status Onset Date Resolution Date Notes Provider Name and Address Organization Details Recorded Time Long-term current use of aromatase inhibitor 8539998911871 00 Active 2023 Sharri cool, [facility] 5 09:10:36 Follow-up encounter Active 2023 Serena cool, [facility] 4 17:04:34 Neuropathic pain 690850680 Active 2024 Sharri cool, [facility] 5 10:16:12 Gastroesoph ageal reflux disease without esophagitis 517771258 Active 2024 Johnathon Galo, LACQUER PIN PRESS OPERATOR, PHYSICAL THERAPIST CENTER MANAGER [address] , [place], [address], [facility] 5 10:13:19 Anaya's esophagus 674408334 Active 2024 Johnathon Galo, LACQUER PIN PRESS OPERATOR, PHYSICAL THERAPIST CENTER MANAGER [address], [place], [address], [facility] 5 10:13:27 Neuropathy 794571880 [facility] 10:35:39 Neuralgia 04173050 [facility] 5 10:35:40 Bilateral sacroiliac joint pain 2741232511134 9104 Active 2024 Rosana Alford , FINNISH RUBBER [address] , [place], [address], [facility] 5 09:30:03 Lumbar facet joint pain 615105525 Active 2024 DAVID HernandezN [address] [facility], [place], [address], [facility] 5 09:30:10 Lumbosacral spondylosis 732736355 Active 2024 Katie Fischer [facility] 5 12:27:27 Hypothyroid ism 77455767 Active 2023 Charlie Archer [facility] 4 15:44:39 Tobacco dependence caused by cigarettes 4879673688717 9107 Active 2024 Yasmin Alas [facility] 5 15:58:33 Ductal carcinoma in situ of right breast 7230788786264 106 Active 2024 [facility] 5 19:11:53 Bone density below reference range 069442128 Active 2024 [facility] 5 19:12:18 Papillary thyroid carcinoma 354147895 Active 2023 Charliebrian Archer [facility] 4 15:44:50 Postoperati ve hypothyroid ism 33913028 Active 2023 Charlie Archer [facility] 4 15:44:57 Problem Notes None recorded. Procedures Surgical History Date Name Laterality Status Provider Name and Address Organization Details Recorded Time 11/29/19 25 [place] Operative Report completed August Gunn MD [address] [place] [address], [phone], [facility] 03/12/2025 17:04:15 07/24/20 24 Colonoscopy with biopsy completed Shonna Quinn [facility] 07/29/2024 11:14:42 12/27/19 22 lumpectomy of right breast completed Perez Ibarra [facility] 12/24/2023 10:35:47 Removal of gallbladder completed Not Available Health Note 12/22/2023 10:49:21 Imaging Results None recorded. Procedure Notes None recorded. Medical Equipment None Reported. Allergies Allergen ID Allergen Name Allergen Category Reaction Reaction Severity Criticality Documentation Date Start Date Code Code System Note Provider Name and Address Organization Details Recorded Time 060978 Non-stero idal anti-infl ammatory agent (product) medicatio n other Not available Not available 10/01/20232016 29229 005 SNOMED [place] tt's esoph samantha [place] tts esoph samantha: Recoo mmend ed again ts johanna Renee tts esoph samantha: Recoo mmend ed again ts johanna jacinto unrec ogniz ed react ion (text : Unkno wn, code: [id number]) (from extgary sosa [facility] mark) Sharri Oneal [facility] 5 09:49:45 Medications Name Sig Start Date Stop Date [...] Available prednison e 20 mg tablet TAKE 2 TABLETS BY MOUTH EVERY DAY 03/05 completed Not Available Not Available Not Available [...] SHORTNES S OF BREATH OR FOR WHEEZE 03/09 completed Not Available Not Available Not Available ondansetr on 4 mg disintegr ating tablet TAKE 1 TABLET BY MOUTH EVERY 8 HOURS NEEDED FOR NAUSEA 09/15 completed Not Available Not Available Not Available fluticaso ne propionat e 50 mcg/actua tion nasal spray,tenzin pension INHALE 2 SPRAYS INTRANAS ALLY DAILY ADMINIST ER INTO EACH NOSTRIL 03/09 completed Not Available Not Available Not Available doxycycli ne hyclate 100 mg tablet TAKE 2 TABLETS DAILY 03/05 completed Not Available Not Available Not Available [...] Sunday to patient' s left gluteal region 01/27 completed Not Available Not Available Not Available Vitals Date Recorded Body height Heart rate Oxygen saturation Oxygen saturation in Arterial blood by Pulse oximetry Heart rate Respiratory rate Body temperature Body mass index (BMI) Body weight Systolic And Diastolic Provider Name and Address Organization Details Last Updated DateTime 165.1 cm 64 /min 97 % 97 % 64 /min 16 /min 97.5 [degF] 25.2 kg/m2 68564.8 8 g 138/69 mm[Hg] Serena Zambrano [facility] 15:17:32 Date Recorded Body height Body mass index (BMI) Body weight Heart rate Oxygen saturation Oxygen saturation in Arterial blood by Pulse oximetry Systolic And Diastolic Provider Name and Address Organization Details Last Updated DateTime 165.1 cm 25.2 kg/m2 52793.8 8 g 60 /min 99 % 99 % 124/82 mm[Hg] Sharri Oneal [facility] 5 09:49:24 Date Recorded Body height Provider Name an d Address Organization Details Last Updated DateTime 03/11/2025 165.1 cm Nia Thorpe [facility] 03/11/2025 09:38:21 Social History Question Answer Notes LastModified by Organizat ion Details LastModified Time Tobacco Smoking Status Current Every Day Smoker Serena Zambrano [facility] 06/17/2024 17:07:16 Do You Have An Advance [...] Do You Have A Medical Power Of Wine Cellar Stock Clerk? No [email or web address] Information not available 01/08/2024 What [...] available 2023 10:49:20 Medical History Condition Response Anxiety Disorder Y Diabetes N Bleeding Disorder N Attention-deficit Hyperactivity Disorder N High Blood Pressure N Arthritis Y Hyperlipidemia N Cancer Y Thyroid Problems Y Stroke N COPD N Depression N Asthma N Seizures N Anemia N Heart Disease N Fibromyalgia N Osteoporosis N Kidney Disease N Gynecological HistoryNo gynecological history recorded. Obstetrics History GPAL:G 0 P 0 0 0 0 Immunizations Vaccine Type Date Status Note Provider Nam e and Address Organization Details Recorded Time Influenza, split virus, quadrivalent, preservative 8 completed Serena Zambrano [facility] 06/17/2024 17:05:47 Influenza, split virus, quadrivalent, preservative 9 completed Serena Kenya null, [facility] 06/17/2024 17:05:47 Influenza, MDCK, quadrivalent, PF 1 completed Serena Kenya null, [facility] 06/17/2024 17:05:47 Influenza, MDCK, quadrivalent, PF 3 completed Serena Kenya null, [facility] 06/17/2024 17:05:47 zoster recombinant 1 [facility] 17:05:47 zoster recombinant 1 completed [facility]/17/2024 17:05:47 MMR 6 completed [facility] 06/17/2024 17:05:47 COVID-19, mRNA, LNP-S, PF, 30 mcg/0.3 mL dose 1 completed [facility] 06/17/2024 17:05:47 COVID-19 vaccine, vector-nr, rS-Ad26, PF, 0.5 mL 1 completed [facility] 06/17/2024 17:05:47 COVID-19, mRNA, LNP-S, bivalent, PF, 30 mcg/0.3 mL dose 2 completed Serena Kenya null, [facility] 06/17/2024 17:05:47 COVID-19, mRNA, LNP-S, PF, jewel-sucrose, 30 mcg/0.3 mL 3 completed [facility] 06/17/2024 17:05:47 Td (adult), 2 Lf tetanus toxoid, preservative free, adsorbed 6 completed [facility]/17/2024 17:05:47 Influenza, split virus, quadrivalent, PF 7 completed [facility] 17:05:47 Influenza, split virus, quadrivalent, PF 0 completed Serena Kenya null, [facility] 06/17/2024 17:05:47 Influenza, split virus, quadrivalent, PF 2 completed Serena Kenya null, [facility] 06/17/2024 17:05:47 Past Encounters Encounter ID Performer Location Encounter Start Date Encounter Closed Date Diagnosis/Indication Diagnosis SNOMED-CT Code Diagnosis ICD10 Code Diagnosis Note [id number] YASMIN COMER, LACQUER PIN PRESS OPERATOR 900 3rd Gen Surg ([place]) [address] [place] [address] 12/24/2023 10:01:56 12/24/2023 12:49:35 Follow-up encounter [id number] Z08 [id number] Lilly Chisholm, [facility] Endocrino logy ([place]) [address] [place] [address] 01/15/2024 10:24:55 01/15/2024 11:33:43 Papillary thyroid carcinoma 460164359 C73 Postoperat maxwell hypothyroidism 74022804 E89.0 [id number] Ubaldo Sanchez MD [facility] Specialty Oncology/ Hematolog y ([place]) [address] [place] [address] 06/17/2024 14:20:27 06/17/2024 17:08:05 Long-term current use of aromatase inhibitor 5753724171 75701 Z79.811 M85.80 [id number] Elida Javier MD [address] Neurology ([place]) [address] [place] [address] 09/15/2024 09:51:21 09/15/2024 10:26:13 Neuralgia 99845822 M79.2 Neuropathy 462122569 G62 .9 Long-term current use of drug therapy 807241735 Z79.899 [id number] Johnathon Galo, LACQUER PIN PRESS OPERATOR, PHYSICAL THERAPIST CENTER MANAGER [facility] 2nd Gastroent erology ([place]) [address] [place] [address] 09/16/2024 09:54:44 09/16/2024 11:26:06 Gastroesophageal reflux disease without esophagitis 264092986 K21.9 Anaya's esophagus 3029 [address] K22.70 History of adenomatous polyp of colon 160368036 Z86.0101 Screening for malignant neoplasm of large intestine 394229694 Z12.11 Z12.12 [id number] Rosana Alford, FINNISH RUBBER [address] Intervent ional Spine ([place]) [address] [place] [address] 11/19/2024 09:06:24 11/19/2024 15:34:30 Bilateral sacroiliac joint pain 8009819466 4883143 M53.3 Lumbar fac et joint pain 921419927 M54.59 [id number] August Gunn MD [facility] Intervent ional Spine ([place]) [address] [place] [address], [address] [place] [address] 11/28/2024 13:03:22 12/01/2024 18:24:23 [id number] [facility] [place] Endocrino logy ([place]) [address] [place] [address] 12/17/2024 11:38:50 12/17/2024 13:55:13 Papillary thyroid carcinoma 586908159 C73 Postoperat maxwell hypothyroidism 82246940 E89.0 Tobacco de pendence caused by cigarettes 6575135549 1025837 F17.210 [id number] CASPER [facility] [employer] ([place]) [address] [place] [address] 01/19/2025 09:12:51 01/19/2025 10:48:56 Papillary thyroid carcinoma 988032930 C73 [id number] [facility] [employer] ([place]) [address] [place] [address] 01/20/2025 08:58:43 01/20/2025 09:31:22 Papillary thyroid carcinoma 052945194 C73 [id number] Ubaldo Sanchez MD [facility] Specialty Oncology/ Hematolog y ([place]) [address] [place] [address] 01/27/2025 14:47:22 01/27/2025 16:20:34 Ductal carcinoma in situ of right breast 6111730703 183256 D05.11 Bone densi ty below reference range 837267595 M85.80 [id number] Bud Packer [facility] Neurology ([place]) [address] [place] [address] 03/09/2025 09:38:49 03/09/2025 10:27:01 Neuropathic pain 650015319 M79.2 Neuropathy 707343436 G62 .9 Long-term current use of drug therapy 192081080 Z79.899 Neuralgia 93713992 M79.2 [id number] Rosana Alford APN [address] Intervent ional Spine ([place]) [address] [place] [address],[facility] [place] [address] 03/11/2025 09:24:53 03/11/2025 11:38:42 Bilateral sacroiliac joint pain 6835691413 9272453 M53.3 Lumbar fac et joint pain 337227981 M54.59 Health Concerns Section Related Observation LastModified by Organization Detai ls LastModified Time None Recorded Concern Status LastModified by Organization Details LastModified Time None Recorded Advance Directives Directive N: Payers Insurance Date Sequence Insurance Name Policy Number Policy Gonsalves Covered Member ID Gonsalves Member ID Guarantor Name 03/06/2025 1 [place] Tia Malone Link [id number] Tia Peacock Link 03/05/2025 2 [place] [facility] DEPARTMENT OF PUBLIC AID Tia A Link [id number] Tia Peacock Link Notes Date Note Type Note Provider Name and Address Organization Details Recorded Time text/html [place] Oncology QuestionnaireReported bypatient.Are you currently using any ALTERNATIVE THERAPIESNone Fully active; no restrictionsYes Minimal activity/work restrictionsNo Able to perform all self care but no work activities; up about >50% of the dayNo Limited self-care; in bed/chair > 50% of the dayNo Unable to perform self-care; confined to bed/chairNo Any PHYSICAL HEALTH complaints todayNo Ubaldo Sanchez MD [address] [facility], [place], [address], [facility] 01/28/2025 20:53:10 5 text/html Tia Garcia is a 59-year-old woman, [...] eventually managing her pain with Tramadol and [place]. She was referred to pain management during last visit and was requested to see us as needed. Interval history 03/15/2020 Patient returns to clinic for follow up. She has stopped her Cymbalta. She has also tried Venlafaxine for mood issues but did not have benefit. She is trying to clinical study manager her pain with Tylenol and recreational marijuana. She never saw painting department supervisor after last visit. She denies any [...] narrowing. Interval history 08/02/21 Managed at the [facility], pain clinic. She is also seeing [...] neuropathy and neuralgic pain. She goes to [facility] pain center. In December she was diagnosed with breast cancer. She underwent right lumpectomy, and eventually radiation therapy. States [facility] is managing her neuralgic pain pretty [...] of brain metastasis or acute intracranial findings. Interval history 03/09/2025 Concerned with stiffness and swelling to the right 2nd and 3rd MCP with triggering of fingers on the right hand. Has had history of carpal tunnel surgery to both wrists. Neuropathy more severe in the hands currently. Is taking gabapentin 600 mg nightly and does use additional doses depending on her pain level. Bud Packer, KESHAV [address] [place] [address], [phone], [facility] 03/11/2025 09:23:43 OBGyn Episode No OBEpisode recorded.
== END 2025-03-16 18:03 | disposition home or self-care (01) ==
LOC: CHSCARD 18:08
PROVIDERS: PCP Nurse Practitioner Family; Visit Provider Nurse Practitioner Family
DX: J44.9 Chronic obstructive pulmonary disease, unspecified (principal)
CPT/HCPCS: 71046

== ENCOUNTER 2025-03-17 15:51 | Outpatient (CLI) | payer MEDICARE, MEDICAID, SELFPAY ==
--- NOTE | 2025-03-17 15:58 | ECG_ITS ---
Test Date: 2025-03-17 16:05:04 Measurements Intervals [place] Rate: 63 P: 44 [place]: 152 QRS: 14 QRSD: 87 T: 35 QT: 420 QTc: 432 Interpretive Statements SINUS RHYTHM Compared to ECG 09/17/2024 19:38:21 No significant changes Electronically Signed On 03-18-2025 12:35:34 CDT by Solomon Wheeler M.D.
--- OUTSIDE RECORDS SUMMARY | 2025-03-17 15:58 | XMS_ITS ---
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 MF: BRYANT Report ID: [id number] Reading Location: [id number] Social History Type Status Start Date End Date Code Code Syst em Smoking History Current every day smoker [id number] SNOMED CT Sex Female Hospital Discharge Instructions Should you have any questions prior to discharge, please contact a member of your healthcare team. If you have left the hospital and have any questions, please contact your primary care physician. Reason For Referral No Data Found Plan of Treatment CT Chest CA Screen (55415) 12/30/2024 Encounters Encounter Diagnosis Start Date Code Code Sys tem Other specified disorders of bone density and structure, unspecified site 04/10/2024 SNOMED-CT Personal Care Team Section Performer Name Performer Role Active Date Inactive CHARLIE Salvador PCP - Primary care physician [id number] Imaging Narrative Notes
--- OUTSIDE RECORDS SUMMARY | 2025-03-17 15:58 | XMS_ITS ---
Author Organization Unknown Address [address] [place] [address] [phone] Phone Care Team Providers Care Well Service Pump Equipment Operator Name Role Phone MISAEL MARRERO Attending [...] BRITTANY T - Collect Date/Time: 10/03/2024 16:36 [facility] ID: [id number] [address] [place], [place], [phone] LOINC: 59416-2 Test Value Unit Reference Range Code Code System Flag T pallidum Antibodies Non Reactive Non Reactive 02257-6 LOINC CHG RPR? NO SEND TO IFC? NO Social History Type Status Start Date End Date Code Code Syst em Smoking History Current every day smoker [id number] SNOMED CT Sex Female Hospital Discharge Instructions Should you have any questions prior to discharge, please contact a member of your healthcare team. If you have left the hospital and have any questions, please contact your primary care physician. Reason For Referral No Data Found Plan of Treatment CT Chest CA Screen (88555) 12/30/2024 Encounters Encounter Diagnosis Start Date Code Code Sys tem Polyneuropathy 10/03/2024 [id number] SNOMED-CT Personal Care Team Section Performer Name Performer Role Active Date Inactive CHARLIE Salvador PCP - Primary care physician 20212024-01-25
--- OUTSIDE RECORDS SUMMARY | 2025-03-17 15:58 | XMS_ITS ---
Author Organization Unknown Address [address] [place] [address] [phone] Phone Care Team Providers Care Live Source Operator Name Role Phone MISAEL MARRERO Attending [...] BRITTANY T - Collect Date/Time: 09/19/2024 15:54 [facility] ID: [id number] [address] [place] [address], [id number] LOINC: 48507-3 Test Value Unit Reference Range Code Code System Flag T pallidum Antibodies Non Reactive Non Reactive 26852-9 LOINC CHG RPR? NO SEND TO IFC? NO VITAMIN B-12 - Collect Date/ Time: 09/19/2024 15:54 [facility] ID: [id number] [address] [place] [address], [phone] LOINC: 2132-9 Test Value Unit Reference Range Code Code System Flag VITAMIN B12 804 pq/mL L=239 H=931 TSH - Collect Date/Time: 15:54 [facility] ID: [id number] [address] [place] [address], [id number] LOINC: 43334-5 Test Value Unit Reference Range Code Code System Flag TSH. 0.390 uIU/L L=0.470 H=4.680 30720-8 LOINC L IMMUNOFIXATION (RAQUEL) SERUM - Collect Date/Time: 09/19/2024 15:54 [facility] ID: [id number] [address] [place] [address], [phone] LOINC: 34053-9 Test Value Unit Reference Range Code Code System Flag Immunofixation Result,Serum Comment: 57566-6 LOINC Immunoglobulin G, Qn,Serum 8279 284-5292 2465-3 LOINC Immunoglobulin A, Qn,Serum 143 87-352 6488-8 LOINC Immunoglobulin M, Qn,Serum 109 26-217 8332-9 LOINC Social History Type Status Start Date End Date Code Code Syst em Smoking History Current every day smoker 262383763 SNOMED CT Sex Female Hospital Discharge Instructions Should you have any questions prior to discharge, please contact a member of your healthcare team. If you have left the hospital and have any questions, please contact your primary care physician. Reason For Referral No Data Found Plan of Treatment CT Chest CA Screen (49359) 12/30/2024 Encounters Encounter Diagnosis Start Date Code Code Sys tem Polyneuropathy, unspecified 09/19/2024 SNOMED-CT Personal Care Team Section Performer Name Performer Role Active Date Inactive CHARLIE Salvador PCP - Primary care physician 20212024-01-25
--- OUTSIDE RECORDS SUMMARY | 2025-03-17 15:58 | XMS_ITS ---
Author Organization Unknown Address [address] [place] [address] [phone] Phone Care Team Providers Care Needle Bar Molder Name Role Phone SANTHOSHAry SADE Attending Unavailable [...] PANE L - Collect Date/Time: 12/26/2023 13:28 [facility] ID: [id number] [address] [place], [place], [phone] LOINC: 26900-2 Test Value Unit Reference Range Code Code [...] 8-9 LOINC ANION GAP 10 L=10 H=20 37710-0 LOINC OSMOLALITY 290 mOs/kG L=280 H=296 35939-2 LOINC BUN/CREAT 11.1 3097-3 LOINC CALCIUM 9.1 mg/dL L=8.3 H=10.5 29497-9 LOINC AST 29 U/L L=15 H=46 1920-8 LOINC ALT 20 U/L L=9 H=72 1742-6 LOINC ALKALINE PHOS 57 U/L L=38 H=126 6768-6 LOINC TOTAL BILI 0.5 mg/dL L=0.2 H=1.3 1975-2 LOINC ALBUMIN 4.2 G/dL L=3.5 H=5.0 1751-7 LOINC TOTAL PROTEIN 7.3 g/L L=6.3 H=8.2 2885-2 LOINC A/G RATIO 1.4 18115-4 LOINC AGE 58 61210-3 LOINC eGFR NON-AFR 68 ml/min eGFR AFR AMER 82 ml/min CBC W/ DIFF - Collect Date/T farooq: 12/26/2023 13:28 [facility] ID: [id number] [address] [place], [place], [id number] LOINC: 45160-9 Test Value Unit Reference Range Code Code System Flag WBC 8.8 10^3uL L=4.8 H=10.8 RBC 3.90 10^6uL L=4.20 H=5.40 L HEMOGLOBIN 13.1 g/dL L=12.0 H=16.0 718-7 LOINC HEMATOCRIT 39.1 VOL% L=37.0 H=47.0 4544-3 LOINC MCV 100.3 fL L=81.0 H=99.0 H MCH 33.6 pg L=27.0 H=32.0 H MCHC 33.5 g/dL L=32.0 H=36.0 PLATELETS 282 10^3uL L=100 H=400 50224-0 LOINC RDW 12.3 % L=11.7 H=15.5 %GRAN 64.3 % L=40.0 H=70.0 64746-7 LOINC %LYMPH 24.2 % L=20.0 H=45.0 736-9 LOINC %MONO 7.3 % L=2.0 H=10.0 75481-5 LOINC %EOS 2.7 % L=0.0 H=6.0 713-8 LOINC %BASO 1.0 % L=0.0 H=3.0 706-2 LOINC #NEUT 5.7 10^3uL L=1.9 H=7.6 58454-6 LOINC #LYMPH 2.1 10^3uL L=0.9 H=4.9 73524-1 LOINC #MONO 0.6 10^3uL L=0.1 H=0.9 58956-5 LOINC #EOS 0.2 10^3uL L=0.0 H=0.6 712-0 LOINC #BASO 0.09 10^3uL L=0.00 H=0.10 69468-5 LOINC #IM GRANS 0.0 10^3uL L=0.0 H=7.0 13725-4 LOINC %IM GRANS 0.5 % L=0.0 H=5.0 24044-7 LOINC %NRB 0.0 L=0.0 H=0.2 86547-3 LOINC #NRB 0.000 L=0.000 H=0.012 50784-1 LOINC MANUAL DIFF NOT INDICATED RBC MORPH NOT INDICATED Social History Type Status Start Date End Date Code Code Syst em Smoking History Current every day smoker [id number] SNOMED CT Sex Female Hospital Discharge Instructions Should you have any questions prior to discharge, please contact a member of your healthcare team. If you have left the hospital and have any questions, please contact your primary care physician. 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
--- OUTSIDE RECORDS SUMMARY | 2025-03-17 15:59 | XMS_ITS | Encounter Summary ---
Author Organization [facility] Address [facility] [place] [address] Care Team Providers Care Barrel Lapper Name Role Phone Cely Rivera [facility] Primary Care Provider + [phone] Yakelin Ann APRN Primary Care Provider + Encounter Details Date Type Department Care Team (Late st Contact Info) Description 11/17/2017 Abstract [facility] [address] [place] [address] , Generic ConversionMD Social History Tobacco Use [...] Description 03/18/2025 9:20 AM CDT Office Visit [facility] [place] [address] [facility], [place] [address] Jb Owens DPM [address] [place] [phone] 03/25/2025 1:00 PM CDT Hospital Encounter [facility] - [facility]SC [address] [place] [address] Jb Owens DPM [address] [place] [address] 03/25/2025 1:00 PM CDT - 03/25/2025 3:04 PM CDT Surgery [facility] OR - OSC [address] [place] [address] Jb Owens, DPKaitlynn [address] [place], [place] 990934 ARTHROPLASTY TOE WITH PIN RIGHT 5TH 04/01/2025 9:20 AM CDT Office Visit [facility] [place] [address] [place] [address], [place] [address] Jb Owens, EDUARDA [address] [place], [place] 332084 Scheduled Procedures Name Priority Associated Diagnoses Date/Ti [...] Rule Out 10/10/2020 10/10/2020 10/11/2020 11:06 AM USER EXPERIENCE DESIGNER COVID-19 Rule Out 01/15/2022 01/15/2022 01/15/2022 5:14 PM CDT COVID-19 Rule Out 07/13/2024 07/13/2024 07/13/2024 1:14 AM USER EXPERIENCE DESIGNER documented as of this encounter Care Teams Barrel Lapper Relationship Specialty Start Date End Date Cely Rivera FNP-BC [address] [place] [address] PCP - General NURSE PRACTITIONER 02/27/18 01/20/25 Yakelin Ann APRN [address] [place] [address] PCP - General Nurse Practitioner Family 01/21/25 documented as of this encounter
--- OUTSIDE RECORDS SUMMARY | 2025-03-17 15:59 | XMS_ITS ---
Author Organization Unknown Address [address] [place] [phone] Phone Care Team Providers Care Ceramic Designer Name Role Phone MIREILLE Odom Attending Unavailable [facility] Primary Unavailable Immunization Immunization Date Status [...] CVX Results TSH - Collect Date/Time: 16:28 [facility] ID: [id number] [address] [place], [place], [phone] LOINC: 27048-0 Test Value Unit Reference Range Code Code System Flag TSH. 3.830 uIU/L L=0.470 H=4.680 32155-9 LOINC Social History Type Status Start Date End Date Code Code Syst em Smoking History Current every day smoker 427474865 SNOMED CT Sex Female Hospital Discharge Instructions Should you have any questions prior to discharge, please contact a member of your healthcare team. If you have left the hospital and have any questions, please contact your primary care physician. Reason For Referral No Data Found Plan of Treatment CT Chest CA Screen (82561) 12/30/2024 Encounters Encounter Diagnosis Start Date Code Code Sys tem Hypothyroidism, unspecified 11/21/2024 SNOMED-CT Personal Care Team Section Performer Name Performer Role Active Date Inactive CHARLIE Salvador PCP - Primary care physician 20212024-01-25
--- OUTSIDE RECORDS SUMMARY | 2025-03-17 15:59 | XMS_ITS | Encounter Summary ---
Author Organization [facility] Address [facility] [place] [address] Care Team Providers Care Toppiece Chopper Name Role Phone Cely Rivera [facility] Primary Care Provider [phone] Yakelin Ann APRN Primary Care Provider + Encounter Details Date Type Department Care Team (Late Contact Info) Description 07/18/2018 Abstract [facility] Neuroscience [facility] [address] [place] [phone] Chris Whitehead MD [address] [place] [address] Social History Tobacco Use Types Packs/Day [...] Description 03/18/2025 9:20 AM CDT Office Visit [facility] [place] [address] [facility], [place] [address] Jb Owens DPM [address] [place] [address] 03/25/2025 1:00 PM CDT Hospital Encounter [facility] [address] [place] [address] Jb Owens, EDUARDA [address] [place] [address] 03/25/2025 1:00 PM CDT - 03/25/2025 3:[address] [facility] - [facility] [address] [place] [address] Jb Owens, EDUARDA [address] [place] [address] ARTHROPLASTY TOE WITH PIN RIGHT 5TH 04/01/2025 9:20 AM CDT Office Visit [facility] - [address], [place] [address] Jb Owens, EDUARDA [address] [place] [address] Scheduled Procedures Name Priority Associated Diagnoses Date/Ti [...] Rule Out 10/10/2020 10/10/2020 10/11/2020 11:06 AM TACTICAL DECEPTION PLANS OFFICER COVID-19 Rule Out 01/15/2022 01/15/2022 01/15/2022 5:14 PM CDT COVID-19 Rule Out 07/13/2024 07/13/2024 07/13/2024 1:14 AM TACTICAL DECEPTION PLANS OFFICER documented as of this encounter Care Teams Toppiece Chopper Relationship Specialty Start Date End Date Cely Rivera FNP-BC [address] [place] [address] PCP - General NURSE PRACTITIONER 02/27/18 01/20/25 Yakelin Ann APRN [address] [place] [address] PCP - General Nurse Practitioner Family 01/21/25 documented as of this encounter
--- OUTSIDE RECORDS SUMMARY | 2025-03-17 15:59 | XMS_ITS | Encounter Summary ---
Author Organization [facility] Address [facility] [place] [address] Care Team Providers Care Assistant Clinical Nurse Manager Name Role Phone C[facility] Rivera [facility] Primary Care Provider [phone] Yakelin Ann APRN Primary Care Provider + Encounter Details Date Type Department Care Team (Late Contact Info) Description 07/06/2018 Abstract [facility] Neuroscience [facility] [address] [place] [phone] Chris Whitehead MD [address] [place] [address] Social History Tobacco Use Types Packs/Day [...] Description 03/18/2025 9:20 AM CDT Office Visit [facility] [place] [address] [facility], [place] [address] Jb Ownes DPM [address] [place] [address] 03/25/2025 1:00 PM CDT Hospital Encounter [facility] [address] [place] [address] Jb Owens, EDUARDA [address] [place] [address] 03/25/2025 1:00 PM CDT - 03/25/2025 3:[address] [facility] [address] [place] [address] Jb Owens, EDUARDA [address] [place] [address] ARTHROPLASTY TOE WITH PIN RIGHT 5TH 04/01/2025 9:20 AM CDT Office Visit [facility] - [address], [place] [address] Jb Owens, EDUARDA [address] [place] [address] Scheduled Procedures Name Priority Associated Diagnoses Date/Ti [...] Rule Out 10/10/2020 10/10/2020 10/11/2020 11:06 AM RAILROAD CONSTRUCTION DIRECTOR COVID-19 Rule Out 01/15/2022 01/15/2022 01/15/2022 5:14 PM CDT COVID-19 Rule Out 07/13/2024 07/13/2024 07/13/2024 1:14 AM RAILROAD CONSTRUCTION DIRECTOR documented as of this encounter Care Teams Assistant Clinical Nurse Manager Relationship Specialty Start Date End Date Cely Rivera FNP-BC [address] [place] [address] PCP - General NURSE PRACTITIONER 02/27/18 01/20/25 Yakelin Ann APRN [address] [place] [address] PCP - General Nurse Practitioner Family 01/21/25 documented as of this encounter
--- OUTSIDE RECORDS SUMMARY | 2025-03-17 15:59 | XMS_ITS | Clinical Summary ---
Author Organization [facility] Address [address] [place] [address] Care Team Providers Care Devops Architect Name Role Phone Jo-Ann De Jesus MD Primary Care Provider [phone] Source Comments [facility],non-owned Affiliates and Associated Physician Practices is amultiple site organization consisting of ambulatory clinics and hospital sitesin [place], [place], [place] and [place]. This disclosure is being madepursuant to the Care Everywhere program and may not contain all information available regarding this patient. Last updated 18.[facility] Allergies Active Allergy Reactions Criticality Noted Date [...] MEDICAID - OUT OF STATE Care Teams Devops Architect Relationship Specialty Start Date End Date Jo-Ann De Jesus MD [address] [facility] [address] [place] [address] PCP - General 01/10/18
--- OUTSIDE RECORDS SUMMARY | 2025-03-17 15:59 | XMS_ITS ---
Author Organization Unknown Address [address] [place] [phone] Phone Care Team Providers Care It Security Architect Name Role Phone MISAEL MARRERO Attending Unavailable [...] RATE - Collect Date/Time : 03/13/2025 18:18 [facility] ID: [id number] [address] [place] [address], [phone] LOINC: Test Value Unit Reference Range Code Code System Flag SED RATE 12 mm/hr L=0 H=20 RAJ (REF) - Collect Date/Rogelio e: 03/13/2025 18:18 [facility] ID: [id number] [address] [place] [address], [phone] LOINC: 5048-4 Test Value Unit Reference Range Code Code System Flag RAJ by IFA RfxTiter/Pattern Negative 77685-3 THOMAS [place] CRP NON SPECIFIC - Collect D ate/Time: 03/13/2025 18:18 [facility] ID: [id number] [address] [place] [address], [phone] LOINC: 1988-01 Test Value Unit Reference Range Code Code System Flag CRP-NON SPECIFIC < 5.0 mg/L L=0.0 H=10.0 1988-01 LOINC RHEUMATOID ARTHRITIS (RA) FA CTOR REF - Collect Date/Time: 03/13/2025 18:18 [facility] ID: [id number] [address] [place] [address], [phone] LOINC: 57800-9 Test Value Unit Reference Range Code Code System Flag Rheumatoid Factor (RF) 10.4 <14.0 94732-5 LOINC Social History Type Status Start Date End Date Code Code Syst em Smoking History Current every day smoker [id number] SNOMED CT Sex Female Hospital Discharge Instructions Should you have any questions prior to discharge, please contact a member of your healthcare team. If you have left the hospital and have any questions, please contact your primary care physician. Reason For Referral No Data Found Plan of Treatment CT Chest CA Screen (50758) 12/30/2024 Personal Care Team Section Performer Name Performer Role Active Date Inactive CHARLIE Salvador PCP - Primary care physician 20212024-01-25
--- OUTSIDE RECORDS SUMMARY | 2025-03-17 15:59 | XMS_ITS ---
Author Organization Unknown Address [address] [place] [phone] Phone Care Team Providers Care Gasoline Engine Assembler Name Role Phone MIREILEL Odom Attending Unavailable [facility] Primary Unavailable Immunization Immunization Date Status [...] MILAGRO - Colle ct Date/Time: 07/01/2024 17:20 [facility] ID: [id number] [address] [place], [place], [phone] LOINC: 3013-0 Test Value Unit Reference Range Code Code System Flag Thyroglobulin (TG-MILAGRO) <2.0 3013-0 LOINC Social History Type Status Start Date End Date Code Code Syst em Smoking History Current every day smoker [id number] SNOMED CT Sex Female Hospital Discharge Instructions Should you have any questions prior to discharge, please contact a member of your healthcare team. If you have left the hospital and have any questions, please contact your primary care physician. Reason For Referral No Data Found Plan of Treatment CT Chest CA Screen (80311) 12/30/2024 Encounters Encounter Diagnosis Start Date Code Code Sys tem Malignant neoplasm of thyroid gland 07/01/2024 SNOMED-CT Personal Care Team Section Performer Name Performer Role Active Date Inactive CHARLIE Salvador PCP - Primary care physician 20212024-01-25
--- OUTSIDE RECORDS SUMMARY | 2025-03-17 15:59 | XMS_ITS ---
Author Organization Unknown Address [address] [place] [phone] Phone Care Team Providers Care Pharmacy Technician Infusion Name Role Phone IVANTENAAry SADE Attending Unavailable [...] - Completed: 12/22/2024 09:21 LOINC: \TM00\\12PI\\DRAo\\BM09\ \MRHo\ [address] [address] ---------NAME--------- NUMBER SEX AGE ADMIT DISC. XRAY# F/C TYPE LINK ARIA PORTER [id number] F 59 12/22/24 12/22/24 [id number] O/P DATE OF : 1965 M/R# [id number] PH#: [phone] \MRx\ LOCATION: TRANSCRIBED: 12/22/24 10:00 DIG 3D ALEXEY SCREENING [id number] COMPLETED:12/22/24 9:21 [id number] (REASONS-DIG 3D ALEXEY SCREENING BILATERAL: SCREENING PHYSICIAN: [...] were reviewed. This examination was analyzed using [employer] DBT/MMG in addition to a radiologist review, [...] annual mammogram. 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 .to [facility] via fax Social History Type Status Start Date End Date Code Code Syst em Smoking History Current every day smoker [id number] SNOMED CT Sex Female Hospital Discharge Instructions Should you have any questions prior to discharge, please contact a member of your healthcare team. If you have left the hospital and have any questions, please contact your primary care physician. Reason For Referral No Data Found Plan of Treatment CT Chest CA Screen (36838) 12/30/2024 Encounters Encounter Diagnosis Start Date Code Code Sys tem Screening mammography 12/22/2024 [id number] SNOMED -CT Personal Care Team Section Performer Name Performer Role Active Date Inactive CHARLIE Salvador PCP - Primary care physician [id number] Imaging Narrative Notes [facility] 12/22/2024 10:02 [facility] [address] [place] [address] ---------NAME--------- NUMBER SEX AGE ADMIT DISC. XRAY# F/C TYPE LINK ARIA PORTER [id number] F 59 12/22/24 12/22/24 [id number] MB O/P DATE OF : 1965 M/R# [id number] #: [phone] LOCATION: TRANSCRIBED: 12/22/24 10:00 DIG 3D ALEXEY SCREENING [id number] COMPLETED:12/22/24 9:21 [id number] (REASONS-DIG 3D ALEXEY SCREENING BILATERAL: SCREENING PHYSICIAN: [...] were reviewed. This examination was analyzed using [employer] DBT/MMG in addition to a radiologist review, [...] annual mammogram. 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 .to [facility] via fax
--- OUTSIDE RECORDS SUMMARY | 2025-03-17 15:59 | XMS_ITS ---
Author Organization Unknown Address [address] [place] [phone] Phone Care Team Providers Care Medical Appliance Maker Name Role Phone GREGORIA PETERSON Attending Unavailable [facility] Primary Unavailable Immunization Immunization [...] CVX Results TSH - Collect Date/Time: 16:20 [facility] ID: [id number] [place] [address], [phone] LOINC: 81045-8 Test Value Unit Reference Range Code Code System Flag TSH. 3.240 uIU/L L=0.470 H=4.680 40601-6 LOINC T4 FREE - Collect Date/Time: 01/25/2024 16:20 [facility] ID: [id number] [address] [place] [address], [phone] LOINC: 3024-7 Test Value Unit Reference Range Code Code System Flag T4, FREE 1.07 ng/dL L=0.78 H=2.19 3024-7 LOINC Social History Type Status Start Date End Date Code Code Syst em Smoking History Current every day smoker [id number] SNOMED CT Sex Female Hospital Discharge Instructions Should you have any questions prior to discharge, please contact a member of your healthcare team. If you have left the hospital and have any questions, please contact your primary care physician. Reason For Referral No Data Found Plan of Treatment CT Chest CA Screen ([id number]) 12/30/2024 Encounters Encounter Diagnosis Start Date Code Code Sys tem Postprocedural hypothyroidism 01/25/2024 SNOMED-CT Personal Care Team Section Performer Name Performer Role Active Date Inactive CHARLIE Salvador PCP - Primary care physician 20212024-01-25
--- OUTSIDE RECORDS SUMMARY | 2025-03-17 16:00 | XMS_ITS | Encounter Summary ---
Author Organization [facility] Address Pending sale to [facility] [place] [address] Care Team Providers Care Rail Specialist Name Role Phone , Generic Conversion Primary Care Provider Unavailable Cely Rivera [facility] Primary Care Provider +[phone] Yakelin Ann APRN Primary Care Provider + Encounter Details Date Type Department Care Team (Late st Contact Info) Description 07/07/2017 Abstract [place] [address] , Generic ConversionMD Social History Tobacco Use [...] Description 03/18/2025 9:20 AM CDT Office Visit [facility] - [place] [address] [facility] [place] [address] Jb Owens, EDUARDA [address] [place] [address] 03/25/2025 1:00 PM CDT Hospital Encounter [facility] [address] [place] [address] Jb Owens, EDUARDA [address] [place] [address] 03/25/2025 1:00 PM CDT - 03/25/2025 3:04 PM CDT Surgery [facility] - [facility] [address] [place] [address] Jb Owens, EDUARDA [address] [place] [address] ARTHROPLASTY TOE WITH PIN RIGHT 5TH 04/01/2025 9:20 AM CDT Office Visit [facility] - [address], [place] [address] Jb Owens, EDUARDA [address] [place] [address] Scheduled Procedures Name Priority Associated Diagnoses Date/Ti [...] Rule Out 10/10/2020 10/10/2020 10/11/2020 11:06 AM MILLSTONE CLEANER COVID-19 Rule Out 01/15/2022 01/15/2022 01/15/2022 5:14 PM CDT COVID-19 Rule Out 07/13/2024 07/13/2024 07/13/2024 1:14 AM MILLSTONE CLEANER documented as of this encounter Care Teams Rail Specialist Relationship Specialty Start Date End Date Ruth Mosher MD PCP - General 04/06/15 11/12/17 Cely Rivera FNP- [address] [place] [address] PCP - General NURSE PRACTITIONER 02/27/18 01/20/25 Yakelin Ann APRN [address] [place] [address] PCP - General Nurse Practitioner Family 01/21/25 documented as of this encounter
--- OUTSIDE RECORDS SUMMARY | 2025-03-17 16:00 | XMS_ITS ---
Author Organization Unknown Address [address] [place] [phone] Phone Care Team Providers Care Institutional Cook Name Role Phone IVANTENAAry SADE Attending Unavailable [...] DIFF - Collect Date/T farooq: 01/27/2025 14:06 [facility] ID: [id number] [address] [place], [place], [id number] LOINC: 71638-0 Test Value Unit Reference Range Code Code System Flag WBC 13.8 10^3uL L=4.8 H=10.8 H RBC 3.97 10^6uL L=4.20 H=5.40 L HEMOGLOBIN 13.1 g/dL L=12.0 H=16.0 718-7 LOINC HEMATOCRIT 40.4 VOL% L=37.0 H=47.0 4544-3 LOINC MCV 101.8 fL L=81.0 H=99.0 H MCH 33.0 pg L=27.0 H=32.0 H MCHC 32.4 g/dL L=32.0 H=36.0 PLATELETS 296 10^3uL L=100 H=400 51361-8 LOINC RDW 13.1 % L=11.7 H=15.5 %GRAN 67.5 % L=40.0 H=70.0 32689-6 LOINC %LYMPH 22.4 % L=20.0 H=45.0 736-9 LOINC %MONO 7.8 % L=2.0 H=10.0 98433-5 LOINC %EOS 1.3 % L=0.0 H=6.0 713-8 LOINC %BASO 0.4 % L=0.0 H=3.0 706-2 LOINC #NEUT 9.3 10^3uL L=1.9 H=7.6 35502-4 LOINC H #LYMPH 3.1 10^3uL L=0.9 H=4.9 38087-3 LOINC #MONO 1.1 10^3uL L=0.1 H=0.9 17786-2 LOINC H #EOS 0.2 10^3uL L=0.0 H=0.6 712-0 LOINC #BASO 0.06 10^3uL L=0.00 H=0.10 61278-1 LOINC #IM GRANS 0.1 10^3uL L=0.0 H=7.0 58124-0 LOINC %IM GRANS 0.6 % L=0.0 H=5.0 27100-0 LOINC %NRB 0.0 L=0.0 H=0.2 53920-5 LOINC #NRB 0.000 L=0.000 H=0.012 96781-2 LOINC MANUAL DIFF NOT INDICATED RBC MORPH NOT INDICATED COMPREHENSIVE METABOLIC PANE L - Collect Date/Time: 01/27/2025 14:06 [facility] ID: [id number] [address] [place], [place], [phone] LOINC: 60288-5 Test Value Unit Reference Range Code Code [...] 2028-9 LOINC ANION GAP 10 L=10 H=20 69976-8 LOINC OSMOLALITY 290 mOs/kG L=280 H=296 03997-2 LOINC BUN/CREAT 18.8 3097-3 LOINC CALCIUM 9.7 mg/dL L=8.3 H=10.5 29149-2 LOINC AST 29 U/L L=15 H=46 1920-8 LOINC ALT 27 U/L L=9 H=72 1742-6 LOINC ALKALINE PHOS 66 U/L L=38 H=126 6768-6 LOINC TOTAL BILI 0.5 mg/dL L=0.2 H=1.3 1975-2 LOINC ALBUMIN 4.2 G/dL L=3.5 H=5.0 1751-7 LOINC TOTAL PROTEIN 7.4 g/L L=6.3 H=8.2 2885-2 LOINC A/G RATIO 1.3 00445-0 LOINC AGE 59 52707-0 LOINC eGFR NON-AFR 78 ml/min eGFR AFR AMER 94 ml/min Social History Type Status Start Date End Date Code Code Syst em Smoking History Current every day smoker 831122312 SNOMED CT Sex Female Hospital Discharge Instructions Should you have any questions prior to discharge, please contact a member of your healthcare team. If you have left the hospital and have any questions, please contact your primary care physician. Reason For Referral No Data Found Plan of Treatment CT Chest CA Screen ([id number]) 12/30/2024 Encounters Encounter Diagnosis Start Date Code Code Sys tem Malignant neoplasm of thyroid gland 01/27/2025 SNOMED-CT Personal Care Team Section Performer Name Performer Role Active Date Inactive CHARLIE Salvador PCP - Primary care physician 20212024-01-25
--- OUTSIDE RECORDS SUMMARY | 2025-03-17 16:00 | XMS_ITS ---
Author Organization Unknown Address [address] [place] [phone] Phone Care Team Providers Care Braddisher Name Role Phone MIREILLE Odom Attending Unavailable [facility] Primary Unavailable [...] T4 FREE - Collect Date/Time: 06/17/2024 13:32 [facility] ID: [id number] [address] [place] [address], [phone] LOINC: 3024-7 Test Value Unit Reference Range Code Code System Flag T4, FREE 1.17 ng/dL L=0.78 H=2.19 3024-7 LOINC TSH - Collect Date/Time: 13:32 [facility] ID: [id number] [address] [place] [address], [phone] LOINC: 84938-1 Test Value Unit Reference Range Code Code System Flag TSH. 3.590 uIU/L L=0.470 H=4.680 31627-2 LOINC ANTI THYROGLOBULIN ANTIBODY - Collect Date/Time: 06/17/2024 13:32 [facility] ID: [id number] [address] [place] [address], [phone] LOINC: 8098-6 Test Value Unit Reference Range Code Code System Flag Thyroglobulin Antibody <1.0 0.0-0.9 8098-6 LOINC Social History Type Status Start Date End Date Code Code Syst em Smoking History Current every day smoker [id number] SNOMED CT Sex Female Hospital Discharge Instructions Should you have any questions prior to discharge, please contact a member of your healthcare team. If you have left the hospital and have any questions, please contact your primary care physician. Reason For Referral No Data Found Plan of Treatment CT Chest CA Screen (33190) 12/30/2024 Encounters Encounter Diagnosis Start Date Code Code Sys tem Malignant neoplasm of thyroid gland 06/17/2024 SNOMED-CT Personal Care Team Section Performer Name Performer Role Active Date Inactive CHARLIE Salvador PCP - Primary care physician 20212024-01-25
--- OUTSIDE RECORDS SUMMARY | 2025-03-17 16:00 | XMS_ITS | Clinical Summary ---
Author Organization [facility] Address [address] [place] [address] Care Team Providers Care Cup Trimming Machine Operator Name Role Phone Yakelin Ann APRN Primary [...] 500 mg by mouth as needed. Active gabapentin 600 MG tablet Take 1 tablet (600 mg total) by mouth 3 (three) times daily. 11/05/19 22 Active omeprazole (PRILOSEC) 20 MG capsule Take 1 capsule (20 mg total) by mouth every evening. Active montelukast (SINGULAIR) 10 MG tablet Take 1 tablet (10 mg total) by mouth nightly at bedtime. 12/05/19 25 Active SPIRIVA RESPIMAT 1.25 MCG/ACT inhaler (SPIRIVA RESPIMAT) Inhale 2 puffs into the lungs 2 (two) times a day. 12/05/19 25 Active atorvastatin (LIPITOR) 40 MG tablet Take 1 tablet (40 mg total) by mouth every morning. 12/05/19 25 Active atorvastatin 20 MG tablet Take 1 tablet (20 mg total) by mouth daily. 09/26/19 22 025 Discontin ued(Error ) ondansetron (ZOFRAN-ODT) 4 MG disintegrating tablet Take 1 tablet (4 mg total) by mouth every 8 (eight) hours as needed for Nausea. 20 tablet 07/13/20 24 025 Discontin ued(Error ) Active Problems Problem Noted Date Diagnosed Date [...] Encounters Date Type Department Care Team Description 03/17/2025 Travel 01/13/2025 10:30 AM CDT - 01/13/2025 11:59 PM CDT Hospital Encounter [facility] Radiation Oncology - [address] [address] Arvind Lucas MD Discharge Disposition: Home or Self Care (Routine Discharge) 01/13/2025 Travel 12/31/2024 10:00 AM CDT Office Visit [facility] - [place] [address] [place] [address], [place] [address] Jb Owens, DPM Hammer Toe (Pt has [...] Mother Diabetes Mother Relation Status Comments Father no info Mother Alive Social History Tobacco Use Types Packs/Day Years Used Date Smoking Tobacco: Every Day Cigarettes 0.5 40 Smokeless Tobacco: Never Tobacco Cessation:Ready to Q uit: Not Asked; Counseling Given: Not Answered Comments:Will hold 24 hours prior to surgery. Alcohol Use Standard Drinks/Week Comments No 0 [...] - - Weight 68.9 kg (152 lb) 03/17/2025 2:45 PM CDT Height 165.1 cm (5' 5) 03/17/2025 2:45 PM CDT Body Mass Index 25.29 03/17/2025 2:45 PM CDT Plan of Treatment Upcoming Encounters Date Type Department Care Team (Late st Contact Info) Description 03/18/2025 9:20 AM CDT Office Visit [facility] - [address] [place] [address] [place] [address] Jb Owens DPM [address] [place] [address] 03/25/2025 1:00 PM CDT Hospital Encounter [facility] [address] [place] [address] Jb Owens DPM [address] [place] [address] 03/25/2025 1:00 PM CDT - 03/25/2025 3:04 PM CDT Surgery [facility] - [facility] [address] [place] [address] Jb Owens, EDUARDA [address] [place], [place] [address] ARTHROPLASTY TOE WITH PIN RIGHT 5TH 04/01/2025 9:20 AM CDT Office Visit [facility] - [place] [address] [facility], [place] [address] Jb Owens, EDUARDA [address] [place], [place] [address] Scheduled Procedures Name Priority Associated Diagnoses Date/Ti [...] , 05/10/2022, Additional history exists PHQ-2 (Physician [place]) Completed 12/31/2024 Meningococcal B Vaccine Aged Out [...] Rivero RN Medical Devices Implanted Type Area Full Service Supervisor Device Identifier Shelf Expiration Date Model / Serial / Lot Lens Lens Description:Right IOL Screw Acutrak 2 Mini 22.0mm - [id number] Implanted:Qty: 1 on 10/13/2020 by Jb Owens DPM at [facility] Screw Right: Toe [employer] [id number] 04/30/2025 AT2-M22-S / / [id number] Screw Acutrak 2 Mini 26.0mm - [id number] Implanted:Qty: 1 on 10/13/2020 by Jb Owens DPM at [facility] Screw Right: Toe [employer] [id number] 07/15/2026 AT2-M26-S / / [id number] Screw Locking Hexalobe Acumed 3.5 X 14mm - [id number] Implanted:Qty: 1 on 10/13/2020 by Jb Owens DPM at [facility] Screw Right: Toe [employer] 30-0235 / / N/A Screw Locking Hexalobe Acumed 3.5 X 22mm - [id number] Implanted:Qty: 1 on 10/13/2020 by Jb Owens DPM at [facility] Screw Right: Toe [employer] 30-0239 / / N/A Screw Minitrak 24.0mm [employer] - Sn/A Implanted:Qty: 1 on 11/29/2018 by Jb Owens DPM at [facility] Right: Foot [employer] 09/16/2024 AT2-M24-S / N/A / [id number] Screw Acutrak 2 Micro 12mm - Sn/A Implanted:Qty: 1 on 11/29/2018 by Jb Owens DPM at [facility] Right: Foot [employer] 06/11/2025 AT2-C12-S / N/A / [id number] Screw Acutrak 2 Micro 12mm - Sn/A Implanted:Qty: 1 on 03/21/2019 by Jb Owens DPM at [facility] Left: Foot [employer] 12/22/2025 AT2-C12-S / N/A / [id number] Screw Acutrak 2 Mini 22.0mm - Sn/A Implanted:Qty: 1 on 03/21/2019 by Jb Owens DPM at [facility] Left: Foot [employer] 02/06/2025 AT2-M22-S / N/A / [id number] Explanted Type Area Full Service Supervisor Device Identifier Shelf Expiration Date Model / Serial / Lot Drill Acumed Mini - [id number] Explanted:Qty: 1 on 10/13/2020 by Jb Owens DPM at [facility] Drill Right: Toe [employer] [id number] / / N/A Bit Drill 5in 2.3mm Surgibit Ankle Quick Release - [id number] Explanted:Qty: 1 on 10/13/2020 by Jb Owens DPM at [facility] Drill Right: Toe [employer] [id number] / / N/A Plate Tack [employer] - [id number] Explanted:Qty: 2 on 10/13/2020 by Jb Owens DPM at [facility] Plate Right: Toe [employer] PL-PTACK / / N/A .045mm Guide Wire (Mini) Explanted:Qty: 2 on 11/29/2018 at [facility] Right: Foot [employer] WS-1106ST / N/A / N/A .035mm Guide Wire (Micro) Explanted:Qty: 1 on 11/29/2018 at [facility] Right: Foot [employer] WS-0906ST / N/A / N/A Sm Cannulated Drill Tip (Micro) Explanted:Qty: 1 on 11/29/2018 at [facility] Right: Foot [employer] AT2-1509 / N/A / N/A Small Cannulated Drill Tip (Mini) Explanted:Qty: 1 on 11/29/2018 at [facility] Right: Foot [employer] [id number] / N/A / N/A .045mm Guide Wire (Mini) Explanted:Qty: 1 on 03/21/2019 at [facility] Left: Foot [employer] WS-1106ST / N/A / N/A .54mm Guide Wire (Std) Explanted:Qty: 1 on 03/21/2019 at [facility] Left: Foot [employer] WS-1407ST / N/A / N/A Small Cannulated Dirll Tip (Micro) Explanted:Qty: 1 on 03/21/2019 at [facility] Left: Foot [employer] AT2-1509 / N/A / N/A Small Cannulated Drill Tip (Mini) Explanted:Qty: 1 on 03/21/2019 at [facility] Left: Foot [employer] [id number] / N/A / N/A .035mm Guide Wire (Micro) Explanted:Qty: 2 on 03/21/2019 at [facility] Left: Foot [employer] WS-0906ST / N/A / N/A .045mm Guide - Wire Explanted:Qty: 2 on 10/13/2020 by Jb Owens DPM at [facility] Right: Toe WS-1106ST / / N/A Screw Acutrak 2 Mini 20.0mm - [id number] Implanted:Qty: 1 Explanted:Qty: 1 on 10/13/2020 at [facility] Right: Toe [employer] 04/15/2027 AT2-M20-S / / [id number] X 6inch Guide Wire Explanted:Qty: 2 on 10/13/2020 by Jb Owens DPM at [facility] Right: Toe WS-1607ST / / N/A Mtp- Reamer Explanted:Qty: 1 on 10/13/2020 by Jb Owens DPM at [facility] Right: Toe MTP-REAMER / / N/A Procedures Procedure Name Priority Date/Time Associated Diagnosis Comments COLONOSCOPY 07/24/2024 11:10 AM EMERGENCY MAN from Last 3 Months or Most Recently Relevant to Health Maintenance Results * Colonoscopy (07/24/2024 11:10 AM EMERGENCY MAN) Jack Vo MD GI PROCEDURE ORDERABLES Final Result from Last 3 Months or Most Recently Relevant to Health Maintenance Additional Health Concerns Active Problems Noted Date Diagnosed Date Autogenerated Problem 01/21/2025 Insurance MEDICARE MEDICAID Care Teams Cup Trimming Machine Operator Relationship Specialty Start Date End Date Yakelin Ann APRN [address] [place] [address] PCP - General Nurse Practitioner Family 01/21/25
--- OUTSIDE RECORDS SUMMARY | 2025-03-17 16:01 | XMS_ITS | Encounter Summary ---
Author Organization [facility] Address [facility] [place] [address] Care Team Providers Care Senior Software Test Engineer Name Role Phone Yakelin Ann Lei GAUTHIER Primary Care Provider + Encounter Details Date Type Department Care Team (Latest Contact Info) Description 03/17/2025 Travel Social History Tobacco Use Types Packs/Day Years Used Date Smoking Tobacco: Every Day Cigarettes 0.5 40 Smokeless Tobacco: Never Comments:Will hold 24 hours prior to surgery. [...] Description 03/18/2025 9:20 AM CDT Office Visit [facility] - [place] [address] [facility], [place] [address] Jb Owens DPM [address] [place] [address] 03/25/2025 1:00 PM CDT Hospital En[facility] [address] [place] [place], [place] [address] Jb Owens, EDUARDA [address] [place] [address] 03/25/2025 1:00 PM CDT - 03/25/2025 3:04 PM CDT Surgery [facility] [address] [place] [address] Jb Owens, EDUARDA [address] [place] [address] [phone] ARTHROPLASTY TOE WITH PIN RIGHT 5TH 04/01/2025 9:20 AM CDT Office Visit [facility] - [address] [place] [address] [place] [address] Jb Owens, EDUARDA [address] [place] [address] [phone] Scheduled Procedures Name Priority Associated Diagnoses Date/Ti me ARTHROPLASTY TOE HAMMERTOE RIGHT 5TH PAINFUL HARDWARE RIGHT FOOT 03/25/2025 1:00 PM CDT REMOVAL HARDWARE HAMMERTOE RIGHT 5TH PAINFUL HARDWARE RIGHT FOOT 03/25/2025 1:00 PM CDT documented as of this encounter Goals Goal Patient Goal Type Associated Problems Recent Progress Patient-Stated? Author Autogenerat ed Goal Care Plan Autogenerated Problem No Qiana Rivero RN documented as of this encounter Visit Diagnoses Not on filedocumented in this encounter Additional Health Concerns Active Problems Noted Date Diagnosed Date Autogenerated Problem 01/21/2025 Assessment Noted Time PHQ-9 Depression Total Score: 2 08/02/20 8:08 AM FOOT WORKER documented as of this encounter Care Teams Senior Software Test Engineer Relationship Specialty Start Date End Date Yakelin Ann APRN [address] [place] [phone] PCP - General Nurse Practitioner Family 01/21/25 documented as of this encounter
--- OUTSIDE RECORDS SUMMARY | 2025-03-17 16:01 | XMS_ITS ---
Author Organization Unknown Address [address] [place] [address] [phone] Phone Care Team Providers Care Fountain Supervisor Name Role Phone JOSE CHRISTINE STACY Primary [...] Complet ed: 12/30/2024 16:26 LOINC: \TM00\\12PI\\DRAo\\BM09\ \MRHo\ [address] [address] ---------NAME--------- NUMBER SEX AGE ADMIT DISC. XRAY# F/C TYPE LINK ARIA PORTER [id number] F 59 12/30/24 12/30/24 72006 MB O/P DATE OF : 1965 M/R# [id number] PH#: [phone] [facility] LOCATION: TRANSCRIBED: 12/30/24 20:22 CT CHEST [place] SCREEN [id number] COMPLETED:12/30/24 16:26 [facility] [id number] {REASON-CT CHEST CA SCREEN: CURRENT SMOKER PHYSICIAN: [...] to clinical indication) or iterative reconstruction. HS:Y L DRILL OPERATOR \ITLo\ \UNDo\ \UNDx\ \ITLx\ Reviewed and Electronically Signed by: John Alcaraz MD Signed Date: 12/30/24 20:22 12/30/[email or web address] [email or web address] via fax Social History Type Status Start Date End Date Code Code Syst em Smoking History Current every day smoker [id number] SNOMED CT Sex Female Hospital Discharge Instructions Should you have any questions prior to discharge, please contact a member of your healthcare team. If you have left the hospital and have any questions, please contact your primary care physician. Reason For Referral No Data Found Plan of Treatment CT Chest CA Screen (87233) 12/30/2024 Encounters Encounter Diagnosis Start Date Code Code Sys tem Encounter for screening for malignant neoplasm of respiratory organs 12/30/2024 SNOMED-CT Personal Care Team Section Performer Name Performer Role Active Date Inactive CHARLIE Salvador PCP - Primary care physician [id number] Imaging Narrative Notes [facility] 12/30/2024 20:[address] [address] ---------NAME--------- NUMBER SEX AGE ADMIT DISC. XRAY# F/C TYPE LINK ARIA PORTER [id number] F 59 12/30/24 12/30/24 [id number] O/P DATE OF : 1965 M/R# [id number] PH#: [phone] LOCATION: TRANSCRIBED: 12/30/24 20:22 CT CHEST [place] SCREEN [id number] COMPLETED:12/30/24 16:26 [facility] [address]116 {REASON-CT CHEST CA SCREEN: CURRENT SMOKER PHYSICIAN: [...] to clinical indication) or iterative reconstruction. HS:Y L DRILL OPERATOR Reviewed and Electronically Signed by: John Alcaraz MD Signed Date: 12/30/24 20:22 12/30/[email or web address] [facility] via fax
== END 2025-03-17 15:52 | disposition home or self-care (01) ==
LOC: CHSCARD 15:55
PROVIDERS: PCP Nurse Practitioner Family; Visit Provider Nurse Practitioner Family
DX: E78.5 Hyperlipidemia, unspecified (principal)
CPT/HCPCS: 93005